=== PATIENT | female | born 1975 | race Two or more races ===

== ENCOUNTER 2020-08-09 07:55 | Outpatient (REF) | payer MEDICAID, SELFPAY ==
[2020-08-09 12:52] LABS: Thyroid Stimulating Hormone 1.39 uIU/mL (0.32-4.0)
[2020-08-09 15:56] LABS: CT PCR NOT DETECTED (Not Detect.); NG PCR NOT DETECTED (Not Detect.)
[2020-08-10 08:47] LABS: Follicle Stimulating Hormone 9.6 mIU/mL
[2020-08-10 09:27] LABS: BV Int Neg Control Negative (Negative); BV Int Pos Control Positive (Positive)
== END 2020-08-09 07:56 | disposition home or self-care (01) ==
LOC: HO.LAB 07:55
PROVIDERS: PCP Internal Medicine; Visit Provider Advanced Practice Midwife
DX: R23.2 Flushing (principal); Z20.2 Contact with and (suspected) exposure to infections with a predominantly sexual mode of transmission; R10.2 Pelvic and perineal pain; N92.6 Irregular menstruation, unspecified
CPT/HCPCS: 83001; 84443; 87480; 87491; 87510; 87591; 87660; 99202

== ENCOUNTER 2020-08-18 15:52 | Outpatient (REF) | payer MEDICAID, SELFPAY ==
--- NOTE | 2020-08-18 15:57 | US_ITS ---
EXAMINATION: ULTRASOUND OF THE PELVIS CLINICAL INFORMATION: Pelvic and perineal pain. COMPARISON: 04/18/2019. TECHNIQUE: Transabdominal and transvaginal pelvic ultrasound. A transvaginal study was performed in addition to the transabdominal study which did not yield an adequate examination of the uterus and ovaries due to superimposed distended gas-filled loops of bowel. FINDINGS: The uterus is normal in size and appearance, measuring 9.6 x 3.9 x 4.6 cm longitudinally, anteroposteriorly and transversely. The endometrial stripe thickness is normal, measuring 0.4 cm in thickness. No focal myometrial mass is seen. Nabothian cysts are seen at the cervix. The ovaries bilaterally are visualized and appear normal, with the right ovary measuring 3.1 x 2.5 x 2.1 cm and the left ovary measuring 2.9 x 2.2 x 1.9 cm. Small follicles are noted. No adnexal mass or free fluid collection seen. US/US pelvic complete IMPRESSION: Unremarkable pelvic ultrasound..
--- NOTE | 2020-08-18 15:57 | US_ITS ---
EXAMINATION: ULTRASOUND OF THE PELVIS CLINICAL INFORMATION: Pelvic and perineal pain. COMPARISON: 04/18/2019. TECHNIQUE: Transabdominal and transvaginal pelvic ultrasound. A transvaginal study was performed in addition to the transabdominal study which did not yield an adequate examination of the uterus and ovaries due to superimposed distended gas-filled loops of bowel. FINDINGS: The uterus is normal in size and appearance, measuring 9.6 x 3.9 x 4.6 cm longitudinally, anteroposteriorly and transversely. The endometrial stripe thickness is normal, measuring 0.4 cm in thickness. No focal myometrial mass is seen. Nabothian cysts are seen at the cervix. The ovaries bilaterally are visualized and appear normal, with the right ovary measuring 3.1 x 2.5 x 2.1 cm and the left ovary measuring 2.9 x 2.2 x 1.9 cm. Small follicles are noted. No adnexal mass or free fluid collection seen. US/US transvaginal IMPRESSION: Unremarkable pelvic ultrasound..
== END 2020-08-18 15:53 | disposition home or self-care (01) ==
LOC: HO.US 15:52
PROVIDERS: PCP Internal Medicine; Visit Provider Advanced Practice Midwife
DX: R10.2 Pelvic and perineal pain (principal)
CPT/HCPCS: 76830; 76856

== ENCOUNTER → 2020-09-01 12:01 | Outpatient (BNVA) | payer MEDICAID, SELFPAY | PROVIDERS: Visit Provider Advanced Practice Midwife | DX: Z76.89 Persons encountering health services in other specified circumstances (principal) ==

== ENCOUNTER 2020-12-29 13:02 | Outpatient (REF) | payer MEDICAID, SELFPAY ==
--- NOTE | ~2020-12-29 | XR_ITS ---
EXAMINATION: XR WRIST, RIGHT CLINICAL INFORMATION: Pain in the right wrist COMPARISON: 04/08/2020 TECHNIQUE: Four views of the right wrist. FINDINGS: No fracture or dislocation. The carpal rows are well aligned. Joint spaces are maintained. The soft tissues appear unremarkable. The bones may be somewhat osteopenic. XR/XR wrist RT min 3V IMPRESSION: Possible osteopenia. Otherwise no osseous abnormality.
== END 2020-12-29 13:03 | disposition home or self-care (01) ==
LOC: HO.XRAY 13:02
PROVIDERS: PCP Internal Medicine; Visit Provider Internal Medicine
DX: M25.531 Pain in right wrist (principal)
CPT/HCPCS: 73110

== ENCOUNTER 2021-03-18 13:59 | Emergency (ER) | payer MEDICAID, SELFPAY ==
[2021-03-18 14:32] VITALS: BP 134/81; PULSE 94; RESP 17; TEMP 36.6; O2SAT 98; BMI 79.2
[2021-03-18 16:51] LABS: MANUAL DIFF FLAG NO
[2021-03-18 16:52] LABS: Basophils Percent Auto 0.2 % (0-2); Eosinophils Absolute Auto 0.1 X10*3/uL (0.0-0.4); Eosinophils Percent Auto 0.6 % (0-4); Hematocrit 44.1 % (37-47); Hemoglobin 14.7 g/dl (12.0-16.0); Imm Gran Abs Auto 0.03 X10*3/uL (0.00-0.03); Imm Gran Pct Auto 0.2 % (0.0-0.4); Lymphocytes Absolute Auto 1.6 X10*3/uL (1.2-4.9); Lymphocytes Percent Auto 12.9 % (20-40); Mean Corpuscular HGB Conc 33.3 g/dl (31.0-35.0); Mean Corpuscular Hemoglobin 30.3 pg (27.0-33.0); Mean Corpuscular Volume 90.9 fL (80-98); Mean Platelet Volume 10.4 fL (9.4-12.3); Monocytes Percent Auto 7.8 % (2-11); Neutrophils Absolute Auto 9.6 X10*3/uL (2.0-8.3); Neutrophils Percent Auto 78.3 % (45-73); Platelet Count 166 X10*3/uL (160-400); Red Blood Count 4.85 X10*6/uL (4.20-5.50); Red Cell Distribution Width 13.8 % (11.0-16.0); White Blood Count 12.3 X10*3/uL (4.8-10.8)
[2021-03-18 16:57] LABS: Glucose Urine UA NEG (NEG); Leukocyte Esterase Urine 2+ (NEG); Nitrite Urine NEG (NEG); UACC Culture Trigger YES; Urine Blood 3+ (NEG); Urine Ketones 15 MG/DL (NEG); Urine Protein 1+ MG/DL (NEG-TRACE)
[2021-03-18 16:58] LABS: Appearance Urine HAZY; Color Urine YELLOW
[2021-03-18 17:10] LABS: Bacteria Urine TRACE /LPF; Mucus Urine 2+ /LPF; Squamous Epithelial Cell Urine 4+ /LPF
[2021-03-18 17:18] LABS: Alanine Aminotransferase 72 U/L (0-31); Alkaline Phosphatase 68 U/L (39-117); Anion Gap 14 (12-20); Aspartate Amino Transferase 43 U/L (5-31); Bilirubin Total 0.6 mg/dL (0.0-1.0); Blood Urea Nitrogen 11 mg/dL (9-16); Calcium 9.5 mg/dL (8.4-10.2); Carbon Dioxide 26 mmol/L (22-29); Chloride 104 mmol/L (96-108); Creatinine Clr Calc Pharmacy 133.9; Estimated Glomerular Filt Rate > 60; Glucose Random 74 mg/dL (60-115); Lipase 16 U/L (8-78); Potassium 4.3 mmol/L (3.3-5.1); Sodium 140 mmol/L (135-145); Total Protein 7.3 g/dL (6.5-8.0)
--- NOTE | 2021-03-18 17:19 | ED_ITS ---
HPI - Abdominal Pain General Chief Complaint: Abdominal Pain Stated Complaint: abd pain - on chemo Time Seen by Provider: 03/18/21 17:18 Source: patient Mode of arrival: ambulatory Limitations: no limitations History of Present Illness HPI narrative: Patient having diffuse abdominal pain nausea vomited 1 time body aches on tamoxifen for breast cancer slight pain when she urinates no fever or chills no diarrhea no abdominal distention Related Data Home Medications Medication Instructions Recorded Confirmed clonidine HCl 0.1 mg tablet 0.1 mg PO BEDTIME 08/09/20 levothyroxine 75 mcg tablet 75 mcg PO DAILY 08/09/20 tamoxifen 20 mg tablet 20 mg PO DAILY 08/09/20 cephalexin 500 mg capsule 500 mg PO BID 09/01/20 Previous Rx's Medication Instructions Recorded metronidazole 500 mg tablet 500 mg PO BID 7 Days #14 tab 08/13/20 gabapentin 400 mg capsule 400 mg PO DAILY #30 cap 10/19/20 tramadol 50 mg tablet 50 mg PO Q6H #120 tab 03/15/21 cefuroxime axetil 500 mg PO BID 7 Days #14 tab 03/18/21 ondansetron 4 mg PO Q6-8H PRN #7 tab 03/18/21 tramadol 50 mg PO Q6H PRN #20 tab 03/18/21 Allergies Allergy/AdvReac Type Severity Reaction Status Date / Time hydromorphone [From DILAUDID] Allergy Unknown UNKNOWN Verified 03/18/21 14:35 iodine Allergy Unknown Unknown Verified 03/18/21 14:35 morphine [MORPHINE] Allergy Unknown UNKNOWN Verified 03/18/21 14:35 black pepper Allergy Unknown Unknown Uncoded 03/18/21 14:35 Iodides Tincture Allergy Unknown Unknown Uncoded 03/18/21 14:35 Oatmeal Allergy Unknown Unknown Uncoded 03/18/21 14:35 Peanuts Allergy Unknown Unknown Uncoded 03/18/21 14:35 Sea food Allergy Unknown Unknown Uncoded 03/18/21 14:35 SEAFOOD Allergy Unknown HIVES Uncoded 06/17/20 15:52 Review of Systems Review of Systems Constitutional : No Weight loss, No Fever, No Chills ENT/Mouth : No sore throat, No Rhinorrhea Eyes: No Eye Pain, No Swelling Cardiovascular : No Chest Pain, no palpitations Respiratory : No Cough, No Sputum, no shortness of breath Gastrointestinal : + Nausea, +Vomiting, No Diarrhea, + abdominal Pain, no black stools Genitourinary : No Dysuria, No Urinary Frequency Musculoskeletal : No joint pain, No Myalgias, No Joint Swelling Skin : No Skin Lesions, No rash Neuro : No Weakness, No Numbness, No Dizziness, No Headache Psych : No Anxiety/Panic, No Depression Heme/Lymph: No Bruising, No Lymphadenopathy Endocrine : No Polyuria, No Polydipsia All other systems reviewed and are negative Physical Exam Vital Signs: Vital Signs: Last Vital Signs Temp 98.7 F 03/18/21 19:04 Pulse 96 03/18/21 19:04 Resp 18 03/18/21 19:04 BP 102/68 03/18/21 19:04 Pulse Ox 99 03/18/21 19:04 Body Mass Index 79.2 Appearance: Alert. Oriented X3. No acute distress. Eyes: PERRLA, No Nystagmus ENT: Pharynx normal. Oral Mucosa moist Neck: Normal inspection. Neck supple. CVS: Normal heart rate and rhythm. Pulses normal. Respiratory: No respiratory distress. Equal air entry bilateral, no wheezing/rales/rhonchi Abdomen: Soft and mild tenderness diffuse no rebound tenderness or guarding Bowel sounds are present, no mass palpable, no CVA tenderness Skin: Skin warm and dry. Normal skin color. Normal skin turgor. Extremities: No lower extremity edema. No calf tenderness Neuro: Oriented X 3. No motor deficit. MDM - Abdominal Pain MDM Narrative Medical decision making narrative: Patient nonspecific body symptoms urine slightly positive for UTI otherwise labs are stable we will discharge patient home on Ceftin and tramadol for body aches Lab Data Result diagrams: 03/18/21 16:38 03/18/21 16:38 Labs: Lab Results 03/18/21 03/18/21 03/18/21 Range/Units 16:38 16:38 16:45 WBC 12.3 H (4.8-10.8) X10*3/uL RBC 4.85 (4.20-5.50) X10*6/uL Hgb 14.7 (12.0-16.0) g/dl Hct 44.1 (37-47) % MCV 90.9 (80-98) fL MCH 30.3 (27.0-33.0) pg MCHC 33.3 (31.0-35.0) g/dl RDW 13.8 (11.0-16.0) % Plt Count 166 (160-400) X10*3/uL MPV 10.4 (9.4-12.3) fL Immature Gran % (Auto) 0.2 (0.0-0.4) % Neut % (Auto) 78.3 H (45-73) % Lymph % (Auto) 12.9 L (20-40) % [place] % (Auto) 7.8 (2-11) % Eos % (Auto) 0.6 (0-4) % Baso % (Auto) 0.2 (0-2) % Lymph # (Auto) 1.6 (1.2-4.9) X10*3/uL [place] # (Auto) 1.0 (0.1-1.2) X10*3/uL Eos # (Auto) 0.1 (0.0-0.4) X10*3/uL Baso # (Auto) 0.0 (0.0-0.2) X10*3/uL Abs Immat Gran (auto) 0.03 (0.00-0.03) X10*3/uL Absolute Neuts (auto) 9.6 H (2.0-8.3) X10*3/uL Absolute Nucleated RBC 0.000 (0.0-0.012) X10*3/uL Nucleated RBC % (auto) 0.0 (0.0-0.2) /100WBC Sodium 140 (135-145) mmol/L Potassium 4.3 (3.3-5.1) mmol/L Chloride 104 (96-108) mmol/L Carbon Dioxide 26 (22-29) mmol/L Anion Gap 14 (12-20) BUN 11 (9-16) mg/dL Creatinine 0.75 (0.5-1.4) mg/dL Estim Creat Clear Calc 133.9 Estimated GFR > 60 Random Glucose 74 (60-115) mg/dL Calcium 9.5 (8.4-10.2) mg/dL Total Bilirubin 0.6 (0.0-1.0) mg/dL AST 43 H (5-31) U/L ALT 72 H (0-31) U/L Alkaline Phosphatase 68 (39-117) U/L Total Protein 7.3 (6.5-8.0) g/dL Albumin 4.0 (3.5-5.0) g/dL Lipase 16 (8-78) U/L Urine Color YELLOW Urine Appearance HAZY Urine pH 7.0 (5.0-8.0) Ur Specific [place] 1.010 (1.005-1.025) Urine Protein 1+ H (NEG-TRACE) MG/DL Urine Glucose (UA) NEG (NEG) MG/DL Urine Ketones 15 (NEG) MG/DL Urine Blood 3+ H (NEG) Urine Nitrite NEG (NEG) Ur Leukocyte Esterase 2+ H (NEG) Urine RBC 15-29 H (0) /HPF Urine WBC 15-29 H (0-4) /HPF Ur Squamous Epith Cells 4+ /LPF Urine Bacteria TRACE /LPF Urine Mucus 2+ /LPF Discharge Plan Discharge Clinical Impression: UTI (urinary tract infection) Patient Disposition: Home, Self-Care Instructions: Urinary Tract Infection in Women (ED) Additional Instructions: Drink plenty of fluid take medication as prescribed Report to ER if high fever/vomiting Prescriptions: New cefuroxime axetil 500 mg tablet 500 mg PO BID 7 Days Qty: 14 RF: 0 tramadol 50 mg tablet 50 mg PO Q6H PRN (Reason: pain) Qty: 20 RF: 0 ondansetron 4 mg tablet,disintegrating 4 mg PO Q6-8H PRN (Reason: nausea and vomiting) Qty: 7 RF: 0 No Action metronidazole [Flagyl] 500 mg tablet 500 mg PO BID 7 Days Qty: 14 RF: 0 gabapentin 400 mg capsule 400 mg PO DAILY Qty: 30 RF: 5 tramadol 50 mg tablet 50 mg PO Q6H Qty: 120 RF: 4 tamoxifen 20 mg tablet 20 mg PO DAILY RF: 0 levothyroxine 75 mcg tablet 75 mcg PO DAILY RF: 0 clonidine HCl 0.1 mg tablet 0.1 mg PO BEDTIME RF: 0 cephalexin 500 mg capsule 500 mg PO BID RF: 0 Interventions: ED Discharge Assessment Last Done: 03/18/21 19:21 Discharge Date/Time: 03/18/21 19:22 [facility] Past Medical History Medical History History of breast cancer in adulthood Hx of thyroid disease Surgical History Hx of tubal ligation Social History Social History Alcohol intake: never Advance Directives: No Advance Directives Information Provided: No Patient : No Sexual orientation: Straight/Heterosexual Gender identity: female
[2021-03-18] MEDS: traMADoL HCL 50 MG TABLET PO (18:03)
[2021-03-18 19:04] VITALS: BP 102/68; PULSE 96; RESP 18; TEMP 37.1; O2SAT 99
== END 2021-03-18 19:22 | disposition home or self-care (01) ==
PROVIDERS: Emergency Medicine; Emergency Provider Internal Medicine; PCP Internal Medicine
DX: N39.0 Urinary tract infection, site not specified (principal); R30.9 Painful micturition, unspecified; C50.919 Malignant neoplasm of unspecified site of unspecified female breast; Z79.810 Long term (current) use of selective estrogen receptor modulators (SERMs)
CPT/HCPCS: 36415; 80053; 81001; 81003; 83690; 85025; 87086; 99283

== ENCOUNTER 2021-04-26 10:12 | Outpatient (REF) | payer MEDICAID, SELFPAY ==
--- NOTE | ~2021-04-26 | XR_ITS ---
EXAMINATION: XR CHEST CLINICAL INFORMATION: Cough COMPARISON: Previous chest x-ray most recent March 2020 TECHNIQUE: 2 views of the chest were obtained. FINDINGS: No significant abnormality is noted involving the heart, lungs, mediastinum, bony thorax or soft tissues. XR/XR chest 2V IMPRESSION: Unremarkable examination.
== END 2021-04-26 10:13 | disposition home or self-care (01) ==
LOC: HO.XRAY 10:12
PROVIDERS: PCP Internal Medicine; Referring Provider Internal Medicine; Visit Provider Nurse Practitioner Family
DX: R05 Cough (principal)
CPT/HCPCS: 71046

== ENCOUNTER → 2021-06-21 08:47 | Outpatient (BNVA) | payer MEDICAID, SELFPAY | PROVIDERS: PCP Internal Medicine; Referring Provider Internal Medicine; Visit Provider Surgery | DX: Z87.2 Personal history of diseases of the skin and subcutaneous tissue (principal) | CPT/HCPCS: 99202 ==

== ENCOUNTER → 2021-09-21 14:51 | Outpatient (BNVA) | payer MEDICAID, SELFPAY | PROVIDERS: PCP Internal Medicine; Referring Provider Internal Medicine; Visit Provider Surgery | DX: Z12.11 Encounter for screening for malignant neoplasm of colon (principal) | CPT/HCPCS: 99202 ==

== ENCOUNTER → 2021-10-27 14:13 | Outpatient (BNVA) | payer MEDICAID, SELFPAY | PROVIDERS: PCP Internal Medicine; Visit Provider Nurse Practitioner Family | DX: M51.36 Other intervertebral disc degeneration, lumbar region (principal); M54.2 Cervicalgia; M54.31 Sciatica, right side; M54.32 Sciatica, left side | CPT/HCPCS: 99212 ==

== ENCOUNTER 2021-11-04 11:56 | Outpatient (REF) | payer MEDICAID, SELFPAY ==
--- NOTE | ~2021-11-04 | XR_ITS ---
EXAMINATION: CERVICAL AND LUMBAR SPINE. CLINICAL INFORMATION: Neck pain and back pain. COMPARISON: None TECHNIQUE: Cervical spine 3 views and lumbar spine 3 views. FINDINGS: CERVICAL SPINE: There is mild straightening of cervical lordosis. The vertebral heights, alignment and disc heights are normal. There is no visible acute fracture, dislocation or subluxation seen. There is mild ventral spondylosis C5-C6 disc level. LUMBAR SPINE: There is normal lumbar lordosis. The vertebral heights, alignment and disc heights are normal. No visible acute fracture, dislocation or lytic process seen. The paravertebral soft tissues are normal. SI joints are symmetrical and normal. XR/XR cervical spine 2V IMPRESSION: Unremarkable cervical spine exam and unremarkable lumbar spine exam.
--- NOTE | ~2021-11-04 | XR_ITS ---
EXAMINATION: CERVICAL AND LUMBAR SPINE. CLINICAL INFORMATION: Neck pain and back pain. COMPARISON: None TECHNIQUE: Cervical spine 3 views and lumbar spine 3 views. FINDINGS: CERVICAL SPINE: There is mild straightening of cervical lordosis. The vertebral heights, alignment and disc heights are normal. There is no visible acute fracture, dislocation or subluxation seen. There is mild ventral spondylosis C5-C6 disc level. LUMBAR SPINE: There is normal lumbar lordosis. The vertebral heights, alignment and disc heights are normal. No visible acute fracture, dislocation or lytic process seen. The paravertebral soft tissues are normal. SI joints are symmetrical and normal. XR/XR lumbar spine 2-3V IMPRESSION: Unremarkable cervical spine exam and unremarkable lumbar spine exam.
[2021-11-04 13:11] LABS: Alanine Aminotransferase 136 U/L (0-31); Alkaline Phosphatase 63 U/L (39-117); Anion Gap 11 (12-20); Aspartate Amino Transferase 81 U/L (5-31); Bilirubin Total 0.7 mg/dL (0.0-1.0); Blood Urea Nitrogen 12 mg/dL (9-16); Calcium 9.4 mg/dL (8.4-10.2); Carbon Dioxide 26 mmol/L (22-29); Chloride 106 mmol/L (96-108); Estimated Glomerular Filt Rate > 60; Glucose Random 76 mg/dL (60-115); Potassium 4.4 mmol/L (3.3-5.1); Sodium 139 mmol/L (135-145); Total Protein 7.5 g/dL (6.5-8.0)
== END 2021-11-04 11:57 | disposition home or self-care (01) ==
LOC: HO.XRAY 11:56
PROVIDERS: PCP Internal Medicine; Visit Provider Nurse Practitioner Family
DX: M51.34 Other intervertebral disc degeneration, thoracic region (principal); M54.2 Cervicalgia
CPT/HCPCS: 36415; 72040; 72100; 80053

== ENCOUNTER 2021-12-08 12:59 | Outpatient (REF) | payer MEDICAID, SELFPAY ==
[2021-12-08 14:43] LABS: Hematocrit 41.5 % (37.0-47.0); Hemoglobin 13.8 g/dl (12.0-16.0); Mean Corpuscular HGB Conc 33.3 g/dl (31.0-35.0); Mean Corpuscular Hemoglobin 30.1 pg (27.0-33.0); Mean Corpuscular Volume 90.4 fL (80.0-98.0); Platelet Count 235 X10*3/uL (160-400); Red Blood Count 4.59 X10*6/uL (4.20-5.50); Red Cell Distribution Width 13.8 % (11.0-16.0)
[2021-12-08 15:27] LABS: HCG Quantitative < 2 mIU/mL; TSH reflex Free T4 2.21 uIU/mL (0.32-4.0)
[2021-12-09 00:59] LABS: CT PCR NOT DETECTED (Not Detect.); NG PCR NOT DETECTED (Not Detect.)
[2021-12-11 05:26] LABS: HPV mRNA E6/E7 rflx Not Detected (Not Detected)
== END 2021-12-08 13:00 | disposition home or self-care (01) ==
LOC: HO.LAB 12:59
PROVIDERS: PCP Internal Medicine; Visit Provider Obstetrics & Gynecology
DX: N93.9 Abnormal uterine and vaginal bleeding, unspecified (principal)
CPT/HCPCS: 36415; 84443; 84702; 85027; 87491; 87591; 87624; 88142; 99202

== ENCOUNTER 2021-12-19 14:35 | Outpatient (RCR) | payer MEDICAID, SELFPAY ==
--- NOTE | 2021-12-20 12:42 | MHC.PT.EP ---
[facility] [place] Office [place] [facility] [place] [facility] [address] Joel Smiley [address] [phone] F: [phone] F: [phone] F: [phone] F: [phone] Physical Therapy Plan of Care Date of Evaluation: Date of Surgery: n/a Diagnosis: cervicalgia low back pain Assessment: Pt is a 46yo F who presents to PT with neck and low back pain. She reports she has had this pain for many years and the pain started in her neck and has radiated to her low back. She presents today with current impairments in pain, decreased cervical ROM all planes, decreased lumbar ROM, soft tissue restrictions, decreased core stab, and impaired posture. She is TTP throughout cervical spine and lumbar spine, along with cervical and lumbar paraspinal muscles. She is limited functionally by prolonged sitting, prolonged standing, walking, and sleeping. She is a fair candidate for skilled PT due to chronicity of pain and comorbities. She will be seen 2x/week for 4 weeks and will be reassessed at that time. 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 Manual therapy to restore motion and function. Therapeutic exercise to improve strength and flexibility. Neuromuscular re-education for posture and balance. Therapeutic activities to return to functional activities of daily living. Electronically signed by: Mitra Wyman, PT, DPT Please sign and return to therapist. Thank you for your referral.
--- NOTE | 2022-02-02 11:45 | MHC.PT.DC ---
[facility] [place] [facility] [place] [facility] [place] Office [address] Joel Smiley [address] [phone] F: [phone] F: [phone] F: [phone] F: [phone] Physical Therapy Discharge Report Diagnosis: cervicalgia low back pain Date of Surgery: n/a Date of Evaluation: 12/19/21 Date of Discharge: 02/02/22 Treatments to Date: 1 Cancellations to Date: 1 No Shows to Date: Discharge Status: Discharge Summary: Pt attended PT evaluation on 12/19/21. Pt has not attended PT since initial PT evaluation. Pt is being D/C from skilled PT as she has not attended in > 30 days. Pt current level of function unknown at this time. Electronically signed by: Mitra Wyman, PT, DPT Please sign and return to therapist. Thank you for your referral.
== END 2022-02-02 11:46 | disposition home or self-care (01) ==
LOC: HO.PT 14:35
PROVIDERS: PCP Internal Medicine; Visit Provider Nurse Practitioner Family
DX: M54.2 Cervicalgia (principal); M54.50 Low back pain, unspecified
CPT/HCPCS: 97162

== ENCOUNTER 2021-12-23 07:18 | Day surgery (SDC) | payer MEDICAID, SELFPAY ==
[2021-12-19 10:37] VITALS: BMI 38.0
--- NOTE | 2021-12-21 14:39 | HO.ANESPROP2 ---
Documented by User: Delmi Hernandez NP 12/21/21 14:40 HPI - Anesthesia Eval Consult details Narrative: 46yo F for Colonoscopy with Poss Polypectomy ? 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) Urinary, incontinence, stress female (Acute) Acne (Acute) Fibromyalgia (Acute) Multiple environmental allergies (Acute) Colon cancer screening (Acute) Past Medical History Medical History (Updated 12/19/21 @ 10:35 by Erum Pryor RN) Asthma Breast cancer, left Colon cancer screening Depression with anxiety Hx of thyroid disease Family History Family History Maternal Grandfather History of prostate cancer Maternal Aunt History of ovarian cancer Maternal Uncle History of thyroid cancer Maternal Uncle Cancer of unknown origin Surgical History Surgical History History of delivery History of cholecystectomy Hx of tubal ligation Social History Social History Alcohol intake: never Patient Tobacco Use Status: Never used Tobacco Are you DNR?: No Advance Directives: No Advance Directives Information Provided: Yes Recently lost weight without trying: No Nutrition Risks: No Nutritional Risk Patient : No Sexual orientation: Straight/Heterosexual Gender identity: Female Meds Allergies Allergy/AdvReac Type Severity Reaction Status Date / Time hydromorphone [From DILAUDID] Allergy Unknown UNKNOWN Verified 12/08/21 13:21 iodine Allergy Unknown Unknown Verified 12/08/21 13:21 morphine [MORPHINE] Allergy Unknown UNKNOWN Verified 12/08/21 13:21 black pepper Allergy Unknown Unknown Uncoded 10/27/21 15:01 Oatmeal Allergy Unknown Unknown Uncoded 10/27/21 15:01 Peanuts Allergy Unknown Unknown Uncoded 10/27/21 15:01 SEAFOOD Allergy Unknown HIVES Uncoded 10/27/21 15:01 Home Medications Medication Instructions Recorded Confirmed Last Taken Type clonidine HCl 0.1 mg tablet 0.1 mg PO BEDTIME 08/09/20 12/19/21 Unknown History levothyroxine 75 mcg tablet 75 mcg PO DAILY 08/09/20 12/19/21 12/23/21 History loratadine 10 mg tablet 10 mg PO DAILY PRN 06/21/21 12/19/21 Unknown History hydrochlorothiazide 25 mg tablet 25 mg PO DAILY 10/27/21 12/19/21 Unknown History montelukast 10 mg tablet 10 mg PO QPM 12/08/21 12/19/21 Unknown History albuterol sulfate 90 mcg/actuation 1 puff PO Q4H PRN 12/19/21 12/19/21 Unknown History aerosol inhaler (ProAir HFA) fluticasone propionate 230 2 puff PO BID 12/19/21 12/19/21 Unknown History mcg-salmeterol 21 mcg/actuation HFA inhaler (Advair HFA) hydroxyzine pamoate 25 mg capsule 1 cap PO BID PRN 12/19/21 12/19/21 Unknown History mirtazapine 15 mg tablet 1 tab PO BEDTIME 12/19/21 12/19/21 Unknown History omeprazole 40 mg capsule,delayed 1 cap PO DAILY 12/19/21 12/19/21 Unknown History release zolpidem 10 mg tablet 1 tab PO BEDTIME PRN 12/19/21 12/19/21 Unknown History Exam Exam Date and Time: December 21, 2021 1439 Height,Weight and Vital Signs: Height 4 ft 9 in Weight 79.832 kg Pertinent Lab Results Pertinent Lab Results: Laboratory Tests 11/04/21 12/08/21 12:12 14:11 WBC 10.0 Hgb 13.8 Hct 41.5 Plt Count 235 Sodium 139 Potassium 4.4 Chloride 106 Carbon Dioxide 26 BUN 12 Creatinine 0.80 Assessment and Plan Assessment Anesthesia Assessment: Chart Reviewed Documented by User: Stuart Law MD 12/23/21 08:24 [facility] Past Medical History Medical History (Updated 12/19/21 @ 10:35 by Erum Pryor RN) Asthma Breast cancer, left Colon cancer screening Depression with anxiety Hx of thyroid disease Patient : No Family History Family History Maternal Grandfather History of prostate cancer Maternal Aunt History of ovarian cancer Maternal Uncle History of thyroid cancer Maternal Uncle Cancer of unknown origin Family history of problems with anesthesia: No Surgical History Surgical History History of delivery History of cholecystectomy Hx of tubal ligation History of Problems with Anesthesia: No Social History Social History Alcohol intake: never Patient Tobacco Use Status: Never used Tobacco Are you DNR?: No Advance Directives: No Advance Directives Information Provided: Yes Recently lost weight without trying: No Nutrition Risks: No Nutritional Risk Patient : No Sexual orientation: Straight/Heterosexual Gender identity: Female Meds Allergies Allergy/AdvReac Type Severity Reaction Status Date / Time hydromorphone [From DILAUDID] Allergy Unknown UNKNOWN Verified 12/08/21 13:21 iodine Allergy Unknown Unknown Verified 12/08/21 13:21 morphine [MORPHINE] Allergy Unknown UNKNOWN Verified 12/08/21 13:21 black pepper Allergy Unknown Unknown Uncoded 10/27/21 15:01 Oatmeal Allergy Unknown Unknown Uncoded 10/27/21 15:01 Peanuts Allergy Unknown Unknown Uncoded 10/27/21 15:01 SEAFOOD Allergy Unknown HIVES Uncoded 10/27/21 15:01 Home Medications Medication Instructions Recorded Confirmed Last Taken Type clonidine HCl 0.1 mg tablet 0.1 mg PO BEDTIME 08/09/20 12/19/21 Unknown History levothyroxine 75 mcg tablet 75 mcg PO DAILY 08/09/20 12/19/21 12/23/21 History loratadine 10 mg tablet 10 mg PO DAILY PRN 06/21/21 12/19/21 Unknown History hydrochlorothiazide 25 mg tablet 25 mg PO DAILY 10/27/21 12/19/21 Unknown History montelukast 10 mg tablet 10 mg PO QPM 12/08/21 12/19/21 Unknown History albuterol sulfate 90 mcg/actuation 1 puff PO Q4H PRN 12/19/21 12/19/21 Unknown History aerosol inhaler (ProAir HFA) fluticasone propionate 230 2 puff PO BID 12/19/21 12/19/21 Unknown History mcg-salmeterol 21 mcg/actuation HFA inhaler (Advair HFA) hydroxyzine pamoate 25 mg capsule 1 cap PO BID PRN 12/19/21 12/19/21 Unknown History mirtazapine 15 mg tablet 1 tab PO BEDTIME 12/19/21 12/19/21 Unknown History omeprazole 40 mg capsule,delayed 1 cap PO DAILY 12/19/21 12/19/21 Unknown History release zolpidem 10 mg tablet 1 tab PO BEDTIME PRN 12/19/21 12/19/21 Unknown History Exam Airway Mallampati Class: II TM Dist: >3cm Neck ROM: Full Loose/Missing/Broken Teeth: No Heart: ok Lungs: ok Assessment and Plan Final Anesthetic Review Family History of Problems with Anesthesia: No History of Problems with Anesthesia: No NPO: Yes ASA Class: II Final Preanesthetic Review: No Changes in Pt Med Stat, Meds/Allgs Chart Reviewed, Consent Obtained/Reviewed and Anes Risks/Benef Reviewed Patient Risk: Low Procedure Risk: Low Anesthetic Plan Anesthetic Plan: MAC: and Agree w/ Assess. and Plan Disposition: Standard PACU
[2021-12-23 07:20] VITALS: BP 100/73; PULSE 79; RESP 18; TEMP 36.3; O2SAT 99
[2021-12-23] MEDS: Lactated Ringers 1,000 ML 100 ML IVCONT (07:45)
--- NOTE | 2021-12-23 08:53 | MHC.SHP ---
Pre-Procedural Eval Section A Date of Service: 12/23/21 Section B Chief Complaint: Screening Details of Present Illness: Scheduled for screening colonoscopy today, denies GI complaints Relevant Family History (Specify if Yes): No Relevant Social History: None Present Medications: see Short Stay Collaborative assessment Medical History: Significant History (Chronic back pain, obesity, asthma and depression) History of Previous Operations: No relevant previous surgery Allergies: Allergies Allergy/AdvReac Type Severity Reaction Status Date / Time hydromorphone [From DILAUDID] Allergy Unknown UNKNOWN Verified 12/08/21 13:21 iodine Allergy Unknown Unknown Verified 12/08/21 13:21 morphine [MORPHINE] Allergy Unknown UNKNOWN Verified 12/08/21 13:21 black pepper Allergy Unknown Unknown Uncoded 10/27/21 15:01 Oatmeal Allergy Unknown Unknown Uncoded 10/27/21 15:01 Peanuts Allergy Unknown Unknown Uncoded 10/27/21 15:01 SEAFOOD Allergy Unknown HIVES Uncoded 10/27/21 15:01 Review of Systems Sugical H&P ROS: Negative: Constitution, Cardiovascular, Respiratory, Neurological, Psychiatric, Hem-Onc, Allergic/Immunologic, Gastrointestinal, Genitourinary, Musculoskeletal, Integumentary, Endocrine and Eyes/Ears/Nose/Throat Exam Surgical H&P Exam: Normal: HEENT, Normal: Heart, Normal: Lungs, Normal: Extremities, Normal: Abdomen, Normal: Skin and Normal: Neurological Plan Diagnosis/Plan: Unchanged I have reviewed the history and physical and performed a pertinent physical examination on my patient. No changes have occurred unless specified.
--- NOTE | 2021-12-23 08:54 | W.PM.OPN ---
Operative Note Operative Note Date of Service: 12/23/21 Narrative: Preop diagnosis: Colon cancer screening Postop diagnosis: 1. Small polyp about 2-3 mm, in the distal transverse colon 2. External hemorrhoids Procedure: Colonoscopy with polypectomy using cold forceps Surgeon: Richi Watkins The patient is a 46-year-old female referred to me for screening colonoscopy. She understood the technique of the procedure. She was aware of the risks, benefits, and alternatives She was brought to the operating room. She was placed in left lateral decubitus position under monitored anesthesia care. A surgical time-out was done. A full digital rectal exam was done. There were no palpable anal lesions or induration. The tip of the Olympus colonoscope was gently introduced through the anal orifice advanced with insufflation all the way to the cecum. The cecum was intubated. The cecum was identified by visualization of the ileocecal valve as well as the appendiceal orifice. The cecal mucosa was unremarkable. The scope was gradually withdrawn with careful examination of the entire colonic mucosa being done with scope withdrawal. The patient had good bowel prep so it was unlikely that any lesion may have been missed. In the distal transverse colon, there was note of a small polyp about 2-3 mm in size. There was removed using multiple bites of cold forceps We continued to withdraw the scope. The rest of the distal colon and rectum were unremarkable. The anal canal and the anal shelf or unremarkable. There were external hemorrhoids. The scope was then withdrawn completely with desufflation. The patient tolerated procedure well. There were no complication noted. Depending on her path report, her next colonoscopy for screening will likely be the next 10 years .
[2021-12-23 09:00] VITALS: BP 92/51; PULSE 80; RESP 20; TEMP 36.9; O2SAT 96
[2021-12-23 09:15] VITALS: BP 96/62; PULSE 74; RESP 18; TEMP 36.9; O2SAT 97
== END 2021-12-23 09:45 | disposition home or self-care (01) ==
PROVIDERS: PCP Internal Medicine; Visit Provider Surgery
PROC: 0DJD8ZZ Inspection of Lower Intestinal Tract, Via Natural or Artificial Opening Endoscopic (ICD-10-PCS; CPT 45378; principal; 2021-12-23 08:30)
DX: Z12.11 Encounter for screening for malignant neoplasm of colon (principal); D12.3 Benign neoplasm of transverse colon; K64.4 Residual hemorrhoidal skin tags; J45.909 Unspecified asthma, uncomplicated; F32.9 Major depressive disorder, single episode, unspecified; Z79.51 Long term (current) use of inhaled steroids; Z85.3 Personal history of malignant neoplasm of breast; Z79.899 Other long term (current) drug therapy; Z88.8 Allergy status to other drugs, medicaments and biological substances; Z90.49 Acquired absence of other specified parts of digestive tract
CPT/HCPCS: 45380; 88305

== ENCOUNTER 2022-01-03 14:39 | Outpatient (REF) | payer MEDICAID, SELFPAY ==
--- NOTE | ~2022-01-03 | US_ITS ---
EXAMINATION: US PELVIS CLINICAL INFORMATION: Abnormal bleeding COMPARISON: Previous exam August 2020 TECHNIQUE: Ultrasound of the pelvis is performed using both transabdominal and transvaginal transducers along with Doppler. Transvaginal imaging is performed due to inadequate visualization transabdominally. FINDINGS: The uterus is anteverted and measures 10.8 x 3.9 x 5.9 cm in dimension. Endometrial thickness is upper normal measuring 1.5 cm. There is a hypoechoic or cystic area seen in the endometrium measuring 5 x 6 mm. This is new from 2020 exam. No focal uterine lesions are seen. There are nabothian cysts in the cervix. The ovaries are seen transabdominally only and are normal-appearing. The right ovary measures 1.7 x 1.4 x 1.7 cm. The left ovary measures 2.2 x 2.5 x 2.8 cm. There is no fluid in the pelvis. US/US pelvic and transvaginal IMPRESSION: Upper normal thickness endometrium. Small 5 x 6 mm cyst in the upper endometrium.
== END 2022-01-03 14:40 | disposition home or self-care (01) ==
LOC: HO.US 14:39
PROVIDERS: PCP Internal Medicine; Visit Provider Obstetrics & Gynecology
DX: N93.9 Abnormal uterine and vaginal bleeding, unspecified (principal)
CPT/HCPCS: 76830; 76856

== ENCOUNTER 2022-01-04 14:30 | Outpatient (REF) | payer MEDICAID, SELFPAY | END 2022-01-04 14:31 | disposition home or self-care (01) | LOC: HO.LAB 14:30 | PROVIDERS: PCP Internal Medicine; Visit Provider Obstetrics & Gynecology | DX: N93.9 Abnormal uterine and vaginal bleeding, unspecified (principal); R87.612 Low grade squamous intraepithelial lesion on cytologic smear of cervix (LGSIL); E66.01 Morbid (severe) obesity due to excess calories | CPT/HCPCS: 57454; 58100; 58110; 81025; 88305 ==

== ENCOUNTER → 2022-01-09 14:58 | Outpatient (BNVA) | payer MEDICAID, SELFPAY | PROVIDERS: PCP Internal Medicine; Referring Provider Internal Medicine; Visit Provider Surgery | DX: D12.6 Benign neoplasm of colon, unspecified (principal); K64.4 Residual hemorrhoidal skin tags | CPT/HCPCS: 99212 ==

== ENCOUNTER → 2022-01-23 14:47 | Outpatient (BNVA) | payer MEDICAID, SELFPAY | PROVIDERS: PCP Internal Medicine; Visit Provider Obstetrics & Gynecology | DX: N87.0 Mild cervical dysplasia (principal) | CPT/HCPCS: 99212 ==

== ENCOUNTER 2022-01-26 13:23 | Outpatient (REF) | payer MEDICAID, SELFPAY ==
[2022-01-26 17:46] LABS: CT PCR NOT DETECTED (Not Detect.); NG PCR NOT DETECTED (Not Detect.)
== END 2022-01-26 13:24 | disposition home or self-care (01) ==
LOC: HO.LAB 13:23
PROVIDERS: PCP Internal Medicine; Visit Provider Obstetrics & Gynecology
DX: R10.2 Pelvic and perineal pain (principal); Z11.3 Encounter for screening for infections with a predominantly sexual mode of transmission; Z11.8 Encounter for screening for other infectious and parasitic diseases; Z98.51 Tubal ligation status; Z91.010 Allergy to peanuts; Z91.013 Allergy to seafood; Z88.8 Allergy status to other drugs, medicaments and biological substances; Z91.018 Allergy to other foods
CPT/HCPCS: 81025; 87491; 87591; 99212

== ENCOUNTER 2022-02-10 07:14 | Day surgery (SDC) | payer MEDICAID, SELFPAY ==
--- NOTE | 2022-02-09 09:06 | P.CONAN_ITS ---
Documented by User: Delmi Hernandez NP 02/09/22 09:08 HPI - Anesthesia Eval Consult details Narrative: 46yo F for D&C Hysteroscopy,poss polypectomy/myomectomy,novasure ablation s/p colo 11/2021 with [facility] Active Problems Active Problems: All Active Problems (Updated 01/26/22 @ 14:15 by Dilshad Cruz MD) Pelvic pain (Acute) Dysplasia of cervix, low grade (EVA 1) (Acute) External hemorrhoids (Acute) Adenomatous colon polyp (Acute) LGSIL on Pap smear of cervix (Acute) Irregular menses (Acute) Lymphadenitis, acute (Acute) Degenerative disc disease, thoracic (Acute) Abnormal uterine bleeding (AUB) (Acute) Morbid obesity (Acute) Dysfunctional uterine bleeding (Acute) Asthma (Acute) Plantar fasciitis (Acute) Hypothyroid (Acute) Depression with anxiety (Acute) Chronic low back pain (Acute) Chronic pain of right ankle (Acute) Deformity of right fibula (Acute) Bilateral sacroiliitis (Acute) 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) Urinary, incontinence, stress female (Acute) Acne (Acute) Fibromyalgia (Acute) Multiple environmental allergies (Acute) Colon cancer screening (Acute) Past Medical History Medical History Adenomatous colon polyp Asthma Breast cancer, left Colon cancer screening Depression with anxiety External hemorrhoids Hx of thyroid disease Family History Family History Maternal Grandfather History of prostate cancer Maternal Aunt History of ovarian cancer Maternal Uncle History of thyroid cancer Maternal Uncle Cancer of unknown origin Family history of problems with anesthesia: No Surgical History Surgical History History of delivery History of cholecystectomy History of colonoscopy Hx of tubal ligation History of Problems with Anesthesia: No Social History Social History Alcohol intake: never Patient Tobacco Use Status: Never used Tobacco Are you DNR?: No Advance Directives: No Advance Directives Information Provided: Yes Nutrition Risks: No Nutritional Risk Patient : No Sexual orientation: Straight/Heterosexual Gender identity: Female Meds Allergies Allergy/AdvReac Type Severity Reaction Status Date / Time hydromorphone [From DILAUDID] Allergy Unknown UNKNOWN Verified 01/23/22 15:59 iodine Allergy Unknown Unknown Verified 01/23/22 15:59 morphine [MORPHINE] Allergy Unknown UNKNOWN Verified 01/23/22 15:59 black pepper Allergy Unknown Unknown Uncoded 01/23/22 15:59 Oatmeal Allergy Unknown Unknown Uncoded 01/23/22 15:59 Peanuts Allergy Unknown Unknown Uncoded 01/23/22 15:59 SEAFOOD Allergy Unknown HIVES Uncoded 01/23/22 15:59 Home Medications Medication Instructions Recorded Confirmed Last Taken Type clonidine HCl 0.1 mg tablet 0.1 mg PO BEDTIME 08/09/20 02/06/22 Unknown History levothyroxine 75 mcg tablet 75 mcg PO DAILY 08/09/20 02/06/22 12/23/21 History loratadine 10 mg tablet 10 mg PO DAILY PRN 06/21/21 02/06/22 Unknown History hydrochlorothiazide 25 mg tablet 25 mg PO DAILY 10/27/21 02/06/22 Unknown History montelukast 10 mg tablet 10 mg PO QPM 12/08/21 02/06/22 Unknown History albuterol sulfate 90 mcg/actuation 1 puff PO Q4H PRN 12/19/21 02/06/22 Unknown History aerosol inhaler (ProAir HFA) fluticasone propionate 230 2 puff PO BID 12/19/21 02/06/22 Unknown History mcg-salmeterol 21 mcg/actuation HFA inhaler (Advair HFA) hydroxyzine pamoate 25 mg capsule 1 cap PO BID PRN 12/19/21 02/06/22 Unknown History mirtazapine 15 mg tablet 1 tab PO BEDTIME 12/19/21 02/06/22 Unknown History omeprazole 40 mg capsule,delayed 1 cap PO DAILY 12/19/21 02/06/22 Unknown History release zolpidem 10 mg tablet 1 tab PO BEDTIME PRN 12/19/21 02/06/22 Unknown History Exam Exam Date and Time: February 09, [id number] Pertinent Lab Results Pertinent Lab Results: Laboratory Tests 11/04/21 12/08/21 12:12 14:11 WBC 10.0 Hgb 13.8 Hct 41.5 Plt Count 235 Sodium 139 Potassium 4.4 Chloride 106 Carbon Dioxide 26 BUN 12 Creatinine 0.80 Assessment and Plan Assessment Anesthesia Assessment: Chart Reviewed Final Anesthetic Review Family History of Problems with Anesthesia: No History of Problems with Anesthesia: No Documented by User: Elvie Szymanski MD 02/10/22 09:04 [facility] Past Medical History Medical History Adenomatous colon polyp Asthma Breast cancer, left Colon cancer screening Depression with anxiety External hemorrhoids Hx of thyroid disease Family History Family History Maternal Grandfather History of prostate cancer Maternal Aunt History of ovarian cancer Maternal Uncle History of thyroid cancer Maternal Uncle Cancer of unknown origin Surgical History Surgical History History of delivery History of cholecystectomy History of colonoscopy Hx of tubal ligation Social History Social History Alcohol intake: never Patient Tobacco Use Status: Never used Tobacco Are you DNR?: No Advance Directives: No Advance Directives Information Provided: Yes Nutrition Risks: No Nutritional Risk Patient : No Sexual orientation: Straight/Heterosexual Gender identity: Female Meds Allergies Allergy/AdvReac Type Severity Reaction Status Date / Time hydromorphone [From DILAUDID] Allergy Unknown UNKNOWN Verified 01/23/22 15:59 iodine Allergy Unknown Unknown Verified 01/23/22 15:59 morphine [MORPHINE] Allergy Unknown UNKNOWN Verified 01/23/22 15:59 black pepper Allergy Unknown Unknown Uncoded 01/23/22 15:59 Oatmeal Allergy Unknown Unknown Uncoded 01/23/22 15:59 Peanuts Allergy Unknown Unknown Uncoded 01/23/22 15:59 SEAFOOD Allergy Unknown HIVES Uncoded 01/23/22 15:59 Home Medications Medication Instructions Recorded Confirmed Last Taken Type clonidine HCl 0.1 mg tablet 0.1 mg PO BEDTIME 08/09/20 02/06/22 Unknown History levothyroxine 75 mcg tablet 75 mcg PO DAILY 08/09/20 02/06/22 12/23/21 History loratadine 10 mg tablet 10 mg PO DAILY PRN 06/21/21 02/06/22 Unknown History hydrochlorothiazide 25 mg tablet 25 mg PO DAILY 10/27/21 02/06/22 Unknown History montelukast 10 mg tablet 10 mg PO QPM 12/08/21 02/06/22 Unknown History albuterol sulfate 90 mcg/actuation 1 puff PO Q4H PRN 12/19/21 02/06/22 Unknown History aerosol inhaler (ProAir HFA) fluticasone propionate 230 2 puff PO BID 12/19/21 02/06/22 Unknown History mcg-salmeterol 21 mcg/actuation HFA inhaler (Advair HFA) hydroxyzine pamoate 25 mg capsule 1 cap PO BID PRN 12/19/21 02/06/22 Unknown History mirtazapine 15 mg tablet 1 tab PO BEDTIME 12/19/21 02/06/22 Unknown History omeprazole 40 mg capsule,delayed 1 cap PO DAILY 12/19/21 02/06/22 Unknown History release zolpidem 10 mg tablet 1 tab PO BEDTIME PRN 12/19/21 02/06/22 Unknown History Exam Airway Mallampati Class: III TM Dist: >3cm Neck ROM: Full Assessment and Plan Assessment Anesthesia Assessment: Anesthesia Plan Discussed Final Anesthetic Review NPO: Yes ASA Class: III Final Preanesthetic Review: No Changes in Pt Med Stat, Meds/Allgs Chart Reviewed, Consent Obtained/Reviewed and Anes Risks/Benef Reviewed Patient Risk: Low Procedure Risk: Low Anesthetic Plan Anesthetic Plan: GA Disposition: Standard PACU
[2022-02-10] VITALS (15 sets, daily range): BP systolic 82–112; BP diastolic 45–75; PULSE 69–97; RESP 12–20; TEMP 36.1–36.7; O2SAT 97–100; BMI 36.8
[2022-02-10 08:01] LABS: UPreg QC Valid YES; Urine Pregnancy NEGATIVE (NEGATIVE)
[2022-02-10] MEDS: Lactated Ringers 1,000 ML 100 ML IVCONT (08:02)
--- NOTE | 2022-02-10 08:53 | MHC.SHP ---
Pre-Procedural Eval Section A Date of Service: 02/10/22 The patient is an INPATIENT: No Changes since office visit: No Cold of Flu in the past 2 weeks, No New Medical Problems, No Changes in Medication and No Patient answered all questions The History & Physical has been completed within 30 days and I have reviewed it.: Yes Section B Chief Complaint: Abnormal uterine and vaginal bleeding, unspecified Allergies: Allergies Allergy/AdvReac Type Severity Reaction Status Date / Time hydromorphone [From DILAUDID] Allergy Unknown UNKNOWN Verified 01/23/22 15:59 iodine Allergy Unknown Unknown Verified 01/23/22 15:59 morphine [MORPHINE] Allergy Unknown UNKNOWN Verified 01/23/22 15:59 black pepper Allergy Unknown Unknown Uncoded 01/23/22 15:59 Oatmeal Allergy Unknown Unknown Uncoded 01/23/22 15:59 Peanuts Allergy Unknown Unknown Uncoded 01/23/22 15:59 SEAFOOD Allergy Unknown HIVES Uncoded 01/23/22 15:59 Plan Diagnosis/Plan: Unchanged I have reviewed the history and physical and performed a pertinent physical examination on my patient. No changes have occurred unless specified.
--- NOTE | 2022-02-10 09:34 | P.BOP_ITS ---
Brief Operative Note Date of Service: 02/10/22 Pre-op diagnosis: Abnormal uterine bleeding, endometrial cyst by ultrasound Post-op diagnosis: same (Normal endometrial cavity) Procedure: Hysteroscopy D&C, NovaSure endometrial ablation Surgeon: Dilshad Cruz MD Anesthesia: MAC Was an Logistics Director used for this Procedure?: No Estimated blood loss (mL): 0 Pathology: other (Endometrial Scrapping. ) Condition: stable Disposition: PACU
--- NOTE | 2022-02-10 09:35 | W.PM.OPN ---
Operative Note Operative Note Date of Service: 02/10/22 Narrative: Preop Diagnosis:? Abnormal uterine bleeding with endometrial cyst by ultrasound Operation: Diagnostic Hysteroscopy, Dilataion & Curettage with NovaSure endometrial ablation Post Op Diagnosis:? The same with Normal endometrial cavity QBL: Minimal Anesthesia: MAC Surgeon: Dilshad Cruz MD Supervisor [employer]ation: None Complication: None Pathology: Endometrial Scrapings Procedure: The patient was put in the dorsal lithotomy position, scrubbed, and draped in the usual manner. A sterile speculum was inserted in the patient's vagina. The anterior lip of the cervix was grasped with a single tooth tenaculum. The cervix was dilated up to 5 mm, then the scope was inserted in the patient's uterus. Inspection revealed normal endometrial cavity.? Sharp curettings was carried on after taking out the hysteroscope with moderate amount of tissues retrieved.? The Myosure Reach device was used; At the end of the procedure, the hysteroscope was taken out of the patient uterine cavity. Taking care not to enter deep into the uterus, a uterine sound then was passed inside to measure the length of the uterus and cervix. This length was found to be 9.5 cm. Next, Hegar dilator was inserted into the cervical os to measure the cervical length which was 3 cm. This yielded an endometrial cavity length of 6.5 cm. . The Novasure device was then opened and tested; the fan deployed easily. The instrument was set to the correct cavity length and introduced into the uterine cavity. The fan was slowly deployed with gentle movements to ensure a snug fit within the cavity. The cavity width read 4.5 cm. The measurements were imported and a cavity check was done. The trumpet was then slid down to the cervix and the device was activated. The total burn time was 71 seconds. The fan was retracted and device removed. The fan was examined and revealed charred tissue. The tenaculum was removed and the cervix examined for hemostasis which was achieved using pressure. Finally the speculum was removed. The patient tolerated the procedure well and was brought to the recovery room in a stable condition. At the end of the procedure all sponges and instruments were counted and correct. The blood loss was minimal and there were no complications.
[2022-02-10] MEDS: fentaNYL citrate/PF 100 MCG/2 ML VIAL 50 MCG IVPUSH ×3 (10:03→11:19)
== END 2022-02-10 12:21 | disposition home or self-care (01) ==
PROVIDERS: PCP Internal Medicine; Visit Provider Obstetrics & Gynecology
PROC: 0UDB8ZZ Extraction of Endometrium, Via Natural or Artificial Opening Endoscopic (ICD-10-PCS; CPT 58558; principal; 2022-02-10 09:20)
DX: N93.9 Abnormal uterine and vaginal bleeding, unspecified (principal); N87.0 Mild cervical dysplasia; R10.2 Pelvic and perineal pain; Z91.041 Radiographic dye allergy status; J45.909 Unspecified asthma, uncomplicated; F41.8 Other specified anxiety disorders; Z79.51 Long term (current) use of inhaled steroids; Z79.899 Other long term (current) drug therapy; Z98.51 Tubal ligation status; Z88.8 Allergy status to other drugs, medicaments and biological substances
CPT/HCPCS: 58563; 81025; 88305; J1100; J2250; J2405; J3010

== ENCOUNTER → 2022-02-23 12:53 | Outpatient (BNVA) | payer MEDICAID, SELFPAY | PROVIDERS: PCP Internal Medicine; Visit Provider Obstetrics & Gynecology | DX: N93.9 Abnormal uterine and vaginal bleeding, unspecified (principal); N87.0 Mild cervical dysplasia | CPT/HCPCS: 99212 ==

== ENCOUNTER 2022-04-05 09:01 | Day surgery (SDC) | payer MEDICAID, SELFPAY ==
--- NOTE | ~2022-04-05 | US_ITS ---
EXAMINATION: US GUIDED LIVER BIOPSY CLINICAL INFORMATION: Fatty liver. COMPARISON: None TECHNIQUE: Procedure and risks and benefits including bleeding and infection were discussed with the patient and informed consent was obtained. The patient was positioned in the left decubitus position. The right upper quadrant was prepped and draped in the usual sterile fashion. The skin and soft tissues were anesthetized with 1% lidocaine plain. Using ultrasound guidance and a coaxial system, access to the right lobe of the liver was obtained. Three 20-gauge core biopsy specimens were obtained. Conscious sedation was provided by registered nurse under my direct supervision. The patient received Versed 0.5 mg and fentanyl 25 mcg intravenously during the procedure. Total sedation time was 15 minutes. FINDINGS: Images demonstrate needle placement in the right lobe of the liver. No fluid collection or ascites or evidence of bleeding is seen post procedure. US/US biopsy liver IMPRESSION: Ultrasound-guided liver biopsy.
[2022-04-05 09:24] VITALS: BMI 36.1
[2022-04-05 09:51] LABS: MANUAL DIFF FLAG NO
[2022-04-05 09:57] LABS: Basophils Percent Auto 0.4 % (0-2); Eosinophils Absolute Auto 0.2 X10*3/uL (0.0-0.4); Eosinophils Percent Auto 2.6 % (0-4); Imm Gran Abs Auto 0.04 X10*3/uL (0.00-0.03); Imm Gran Pct Auto 0.5 % (0.0-0.4); Lymphocytes Percent Auto 23.5 % (20-40); Mean Corpuscular HGB Conc 32.6 g/dl (31.0-35.0); Mean Platelet Volume 10.6 fL (9.4-12.3); Monocytes Absolute Auto 0.7 X10*3/uL (0.1-1.2); Monocytes Percent Auto 8.2 % (2-11); Neutrophils Absolute Auto 5.5 x10*3/uL (2.0-8.3); Neutrophils Percent Auto 64.8 % (45-73); Platelet Count 245 X10*3/uL (160-400); Red Blood Count 4.83 X10*6/uL (4.20-5.50); Red Cell Distribution Width 13.8 % (11.0-16.0); White Blood Count 8.5 X10*3/uL (4.8-10.8)
[2022-04-05 10:08] LABS: Prothrombin Time 11.6 SEC (10.0-13.1)
[2022-04-05 10:11] LABS: Partial Thromboplastin Time 37.9 SEC (24.1-38.0)
[2022-04-05 11:45] VITALS: BP 109/77; PULSE 70; RESP 18; TEMP 37.6; O2SAT 98
--- NOTE | 2022-04-05 11:50 | HO.RADPN ---
RADIOLOGY Narrative Narrative: Right lobe liver biopsy performed using coaxial system. 3 2o g core biopsues. No complication.
[2022-04-05 12:00] VITALS: BP 108/70; PULSE 73; RESP 16; O2SAT 96
[2022-04-05] MEDS: Lidocaine HCl 1 % MPF 5 ML VIAL SUBCUT (12:14)
[2022-04-05 12:15] VITALS: BP 104/72; PULSE 70; RESP 16; O2SAT 96
[2022-04-05 12:30] VITALS: BP 106/70; PULSE 70; RESP 17; O2SAT 96
[2022-04-05 12:45] VITALS: BP 105/67; PULSE 72; RESP 18; O2SAT 97
[2022-04-05 13:30] VITALS: BP 112/88; PULSE 75; RESP 16; TEMP 37.2; O2SAT 97
== END 2022-04-05 14:06 | disposition home or self-care (01) ==
PROVIDERS: Radiology Diagnostic Radiology; PCP Internal Medicine; Visit Provider Internal Medicine
DX: K76.0 Fatty (change of) liver, not elsewhere classified (principal); R94.5 Abnormal results of liver function studies; J45.909 Unspecified asthma, uncomplicated; Z79.51 Long term (current) use of inhaled steroids; Z79.899 Other long term (current) drug therapy; Z85.3 Personal history of malignant neoplasm of breast; Z92.21 Personal history of antineoplastic chemotherapy; Z92.3 Personal history of irradiation
CPT/HCPCS: 36415; 47000; 76942; 85025; 85610; 85730; 88307; 88313; 99152; J2250; J3010

== ENCOUNTER 2022-04-26 12:11 | Outpatient (REF) | payer MEDICAID, SELFPAY ==
[2022-04-26 14:05] LABS: Alanine Aminotransferase 35 U/L (0-31); Albumin Level 4.1 g/dL (3.5-5.0); Alkaline Phosphatase 77 U/L (39-117); Aspartate Amino Transferase 27 U/L (5-31); Bilirubin Direct 0.2 mg/dL (0.0-0.5); Bilirubin Total 0.5 mg/dL (0.0-1.0); Iron 67 mcg/dL (30-160); Percent Iron Saturation 18 % (15-50); Total Iron Binding Capacity 378 mcg/dL (228-428); Total Protein 7.3 g/dL (6.5-8.0); Unsaturated Iron Binding 311 ug/dL
[2022-04-26 14:30] LABS: Ferritin 49 ng/mL (10-250)
[2022-04-27 09:35] LABS: HBS Num1 0.65 mIU/mL (0-7.99); HBc Num1 0.09 S/CO (0.00-0.79); HBsAGNum1 0.16 S/CO (0.00-0.99); Hepatitis B Core Antibody Nonreactive (Nonreactive); Hepatitis B Surface Antigen Negative (Negative); ~HepC Num1 0.05 S/CO (0.00-0.79); ~Hepatitis B Surface Antibody NONREACTIVE (Nonreactive); ~Hepatitis C Antibody Nonreactive (Nonreactive)
[2022-04-28 14:25] LABS: Alpha 1 Anti-trypsin 173 mg/dL (83-199); Ceruloplasmin 37 mg/dL (18-53)
[2022-04-28 20:47] LABS: Anti Nuclear Antibody Screen NEGATIVE (NEGATIVE)
[2022-05-01 14:26] LABS: Mitochondrial Antibodies NEGATIVE (NEGATIVE)
[2022-05-02 11:37] LABS: Smooth Muscle Antibody 24 U (<20)
[2022-05-03 05:31] LABS: Hepatitis A Antibody IgG Nonreactive (Nonreactive); ~Hepatitis A Antibody IgG 0.35 S/CO (0.00-0.99)
== END 2022-04-26 12:12 | disposition home or self-care (01) ==
LOC: HO.10HDL 12:11
PROVIDERS: Visit Provider Internal Medicine
DX: R94.5 Abnormal results of liver function studies (principal); K76.0 Fatty (change of) liver, not elsewhere classified; N91.2 Amenorrhea, unspecified
CPT/HCPCS: 36415; 80076; 81025; 82103; 82390; 82728; 83540; 86015; 86038; 86039; 86255; 86256; 86704; 86706; 86708; 86803; 87340; 99212

== ENCOUNTER → 2022-05-11 08:54 | Outpatient (BNVA) | payer MEDICAID, SELFPAY | PROVIDERS: PCP Internal Medicine; Visit Provider Obstetrics & Gynecology | DX: Z32.02 Encounter for pregnancy test, result negative (principal); N91.2 Amenorrhea, unspecified | CPT/HCPCS: 81025; 99212 ==

== ENCOUNTER 2022-06-08 09:35 | Outpatient (REF) | payer MEDICAID, SELFPAY ==
--- NOTE | ~2022-06-08 | US_ITS ---
EXAMINATION: US ABDOMEN COMPLETE CLINICAL INFORMATION: Fatty liver. COMPARISON: CT abdomen and pelvis 04/18/2019. Ultrasound abdomen 03/03/2019. TECHNIQUE: Real-time imaging of the abdominal viscera. FINDINGS: PANCREAS: The body and head of the pancreas is homogeneous echotexture. The tail is obscured by overlying gas. ABDOMINAL AORTA: The proximal, mid, and distal segments are normal in caliber. INFERIOR VENA CAVA: Visualized portions are normal. LIVER: The liver is normal in size. The liver contour is normal. There is increased liver echogenicity. No focal hepatic lesion. There is no intrahepatic biliary duct dilatation seen. GALLBLADDER: Surgically absent. COMMON BILE DUCT: Normal in caliber measuring 0.3 cm in diameter. RIGHT KIDNEY: There is mild pelvic fullness. There are echogenic pyramids. No renal calculi or focal parenchymal lesions. The kidney measures 11.3 cm in maximum dimension. LEFT KIDNEY: There are echogenic pyramids with mild pelvic fullness. No renal calculi or focal parenchymal lesions. The kidney measures 10.8 cm in maximum dimension. SPLEEN: Normal. The spleen measures 10.0 cm in maximum dimension. FREE FLUID: None. US/US abdomen complete IMPRESSION: Mild hepatic steatosis without focal lesion. Gallbladder was surgically absent. There are echogenic pyramids questioning medullary sponge kidney. Bilateral extrarenal kidney pelvises were visualized however, no calcification or stone seen in the kidneys on the previous CT 04/18/2019.
== END 2022-06-08 09:36 | disposition home or self-care (01) ==
LOC: HO.US 09:35
PROVIDERS: Absent Provider Internal Medicine; Visit Provider Internal Medicine
DX: K76.0 Fatty (change of) liver, not elsewhere classified (principal)
CPT/HCPCS: 76700

== ENCOUNTER 2022-08-15 14:07 | Outpatient (REF) | payer MEDICAID, SELFPAY ==
[2022-08-16 05:36] LABS: Follicle Stimulating Hormone 24.9 mIU/mL; Lutenizing Hormone 19.9 mIU/mL
== END 2022-08-15 14:08 | disposition home or self-care (01) ==
LOC: HO.LAB 14:07
PROVIDERS: PCP Internal Medicine; Visit Provider Obstetrics & Gynecology
DX: Z32.02 Encounter for pregnancy test, result negative (principal); N93.9 Abnormal uterine and vaginal bleeding, unspecified; N91.2 Amenorrhea, unspecified
CPT/HCPCS: 36415; 81025; 83001; 83002; 99212

== ENCOUNTER → 2022-08-31 13:25 | Outpatient (BNVA) | payer MEDICAID, SELFPAY | PROVIDERS: PCP Internal Medicine; Visit Provider Obstetrics & Gynecology | DX: N95.0 Postmenopausal bleeding (principal); Z78.0 Asymptomatic menopausal state | CPT/HCPCS: 99212 ==

== ENCOUNTER 2022-10-05 14:51 | Outpatient (REF) | payer MEDICAID, SELFPAY ==
--- NOTE | ~2022-10-05 | US_ITS ---
EXAMINATION: US PELVIS CLINICAL INFORMATION: Postmenopausal bleeding. COMPARISON: 01/03/2022. TECHNIQUE: Ultrasound of the pelvis is performed using both transabdominal and transvaginal transducers along with Doppler. Transvaginal imaging is performed due to inadequate visualization transabdominally. FINDINGS: The uterus measures 8.4 x 4.2 x 4.2 cm. No discrete fibroids. No significant free fluid. Anechoic 1.7 x 0.6 x 0.8 cm area within the endometrial cavity appears complex with internal echoes. Endometrial thickness is 0.9 cm. Right ovary measures 2.6 x 1.9 x 2.1 cm, volume 5.4 mL and demonstrates multiple small follicles. Left ovary measures 2.4 x 1.3 x 1.7 cm, volume 2.8 mL, and was seen only on transabdominal ultrasound images, limiting evaluation. Left ovary is grossly unremarkable. Complex and simple nabothian cysts present. US/US pelvic and transvaginal IMPRESSION: Complex elongated fluid collection within the endometrial cavity was not previously demonstrated. Endometrial thickness of 0.9 cm is abnormal in a patient with postmenopausal bleeding. Gynecologic consultation and biopsy recommended.
== END 2022-10-05 14:52 | disposition home or self-care (01) ==
LOC: HO.US 14:51
PROVIDERS: Visit Provider Obstetrics & Gynecology
DX: N95.0 Postmenopausal bleeding (principal)
CPT/HCPCS: 76830; 76856

== ENCOUNTER 2022-10-31 11:16 | Outpatient (REF) | payer MEDICAID, SELFPAY | END 2022-10-31 11:17 | disposition home or self-care (01) | LOC: HO.LNP 11:16 | PROVIDERS: Visit Provider Obstetrics & Gynecology | DX: N95.0 Postmenopausal bleeding (principal) | CPT/HCPCS: 58100; 88305; 99212 ==

== ENCOUNTER → 2022-11-06 14:54 | Outpatient (BNVA) | payer MEDICAID, SELFPAY | PROVIDERS: PCP Internal Medicine; Visit Provider Obstetrics & Gynecology | DX: N95.0 Postmenopausal bleeding (principal) | CPT/HCPCS: 99212 ==

== ENCOUNTER 2022-11-14 13:59 | Outpatient (REF) | payer MEDICAID, SELFPAY | END 2022-11-14 14:00 | disposition home or self-care (01) | LOC: HO.LNP 13:59 | PROVIDERS: PCP Internal Medicine; Visit Provider Obstetrics & Gynecology | DX: N95.0 Postmenopausal bleeding (principal) | CPT/HCPCS: 58100; 88305 ==

== ENCOUNTER 2022-11-22 15:09 | Outpatient (REF) | payer MEDICAID, SELFPAY ==
[2022-11-23 10:02] LABS: CT PCR NOT DETECTED (Not Detect.); NG PCR NOT DETECTED (Not Detect.)
== END 2022-11-22 15:10 | disposition home or self-care (01) ==
LOC: HO.LNP 15:09
PROVIDERS: PCP Internal Medicine; Visit Provider Obstetrics & Gynecology
DX: N95.0 Postmenopausal bleeding (principal); N71.9 Inflammatory disease of uterus, unspecified
CPT/HCPCS: 0353U; 96372; 99212; J0696

== ENCOUNTER → 2022-11-27 12:34 | Outpatient (BNVA) | payer MEDICAID, SELFPAY | PROVIDERS: PCP Internal Medicine; Visit Provider Obstetrics & Gynecology | DX: N71.9 Inflammatory disease of uterus, unspecified (principal) | CPT/HCPCS: 99212 ==

== ENCOUNTER 2022-12-06 13:57 | Outpatient (REF) | payer MEDICAID, SELFPAY ==
[2022-12-06 14:58] LABS: Alanine Aminotransferase 33 U/L (0-31); Albumin Level 4.2 g/dL (3.5-5.0); Alkaline Phosphatase 63 U/L (39-117); Aspartate Amino Transferase 25 U/L (5-31); Bilirubin Direct < 0.2 mg/dL (0.0-0.5); Bilirubin Total 0.3 mg/dL (0.0-1.0); Total Protein 7.2 g/dL (6.5-8.0)
== END 2022-12-06 13:58 | disposition home or self-care (01) ==
LOC: HO.LAB 13:57
PROVIDERS: PCP Internal Medicine; Visit Provider Internal Medicine
DX: K76.0 Fatty (change of) liver, not elsewhere classified (principal); R94.5 Abnormal results of liver function studies
CPT/HCPCS: 36415; 80076

== ENCOUNTER 2022-12-07 14:21 | Outpatient (REF) | payer MEDICAID, SELFPAY ==
--- NOTE | ~2022-12-07 | US_ITS ---
EXAMINATION: US THYROID CLINICAL INFORMATION: Enlarged thyroid. COMPARISON: None TECHNIQUE: Linear transducer grayscale and color Doppler examination with attention to the region of the thyroid. FINDINGS: SIZE: Measurements of the thyroid lobes and nodules are given in sagittal, anteroposterior and transverse dimensions respectively. Right Thyroid Lobe: 4.0 x 1.7 x 1.5 cm, volume 5.3 mL. Parenchyma: The gland echotexture is heterogeneous. Thyroid vascularity is normal. Left Thyroid Lobe: 4.6 x 1.4 x 1.5 cm, volume 5.0 mL. Parenchyma: The gland echotexture is heterogeneous. Thyroid vascularity is normal. Isthmus: 0.2 cm in maximum AP dimension. No focal thyroid nodule is seen. NODES: No lymphadenopathy is seen in the tissue surrounding the thyroid gland. Within the right cervical region, a 1.2 x 0.5 x 0.8 cm nonpathologically enlarged lymph node is incidentally noted. US/US thyroid IMPRESSION: 1. There is heterogeneous thyroid echotexture, which can be associated with thyroiditis. 2. Otherwise, unremarkable examination. ACR TI-RADS RECOMMENDATION REFERENCE: Ultrasound-guided fine-needle aspiration, followup ultrasound, no further follow up. * TR1 (0 point) and TR2 (2 points): No FNA or follow up. * TR3 (3 points): FNA if more than or equal to 2.5 cm in maximum dimension, followup ultrasound in 1, 3 and 5 years if 1.5 to 2.4 cm in maximum dimension. * TR4 (4-6 points): FNA if more than or equal to 1.5 cm in maximum dimension, followup ultrasound in 1, 2, 3 and 5 years if 1 to 1.4 cm in maximum dimension. * TR5 (more than or equal to 7 points): FNA if more than or equal to 1 cm in maximum dimension, followup ultrasound every year for 5 years if 0.5 to 0.9 cm in maximum dimension. * TR3, TR4 or TR5 nodules that are below the size threshold for followup receive no follow up.
== END 2022-12-07 14:22 | disposition home or self-care (01) ==
LOC: HO.US 14:21
PROVIDERS: PCP Internal Medicine; Visit Provider Internal Medicine
DX: E04.9 Nontoxic goiter, unspecified (principal); E03.8 Other specified hypothyroidism; E06.3 Autoimmune thyroiditis
CPT/HCPCS: 76536

== ENCOUNTER → 2022-12-12 14:47 | Outpatient (BNVA) | payer MEDICAID, SELFPAY | PROVIDERS: PCP Internal Medicine; Referring Provider Internal Medicine; Visit Provider Physician Assistant Surgical ==

== ENCOUNTER → 2022-12-26 15:36 | Outpatient (BNVA) | payer MEDICAID, SELFPAY | PROVIDERS: PCP Internal Medicine; Visit Provider Nurse Practitioner Family | DX: M51.34 Other intervertebral disc degeneration, thoracic region (principal); M79.7 Fibromyalgia | CPT/HCPCS: 99212 ==

== ENCOUNTER 2023-01-18 10:10 | Outpatient (REF) | payer MEDICAID, SELFPAY ==
[2023-01-18 12:29] LABS: Amphetamine Screen Urine Not Detected (Not Detect); Barbiturates, Urine Not Detected (Not Detect); Benzodiazepines Screen Urine Not Detected (Not Detect); Cannabinoid Screen Urine Not Detected (Not Detect); Cocaine Screen Urine Not Detected (Not Detect); Fentanyl, urine Not Detected (Not Detect); Opiate Screen Urine Not Detected (Not Detect); Phencyclidine Screen Urine Not Detected (Not Detect)
== END 2023-01-18 10:11 | disposition home or self-care (01) ==
LOC: HO.LAB 10:10
PROVIDERS: PCP Internal Medicine; Visit Provider Nurse Practitioner Family
DX: Z79.899 Other long term (current) drug therapy (principal)
CPT/HCPCS: 80307; 80373

== ENCOUNTER 2023-06-07 10:26 | Outpatient (REF) | payer MEDICAID, SELFPAY ==
[2023-06-07 12:10] LABS: Alanine Aminotransferase 18 U/L (0-31); Alkaline Phosphatase 64 U/L (39-117); Aspartate Amino Transferase 17 U/L (5-31); Bilirubin Direct 0.2 mg/dL (0.0-0.5); Bilirubin Total 0.4 mg/dL (0.0-1.0); Total Protein 7.5 g/dL (6.5-8.0)
== END 2023-06-07 10:27 | disposition home or self-care (01) ==
LOC: HO.10HDL 10:26
PROVIDERS: Visit Provider Internal Medicine
DX: K76.0 Fatty (change of) liver, not elsewhere classified (principal); R74.8 Abnormal levels of other serum enzymes
CPT/HCPCS: 36415; 80076

== ENCOUNTER 2023-10-18 12:12 | Outpatient (AMB) | payer MEDICAID, SELFPAY ==
--- NOTE | 2023-10-18 12:35 | MHC.OFFVIS ---
Intake Vital Signs 10/18/23 12:42 Height 5 ft Weight 124 lb 8.979 oz BMI 24.3 BP 100/60 Blood Pressure Location Lt brachial Position Sitting Pulse 88 Pulse Source Pulse Oximeter Temp 97 F Temp Source Skin Pulse Oximetry (%) 94 Oxygen Delivery Method Room Air Intake Visit Reasons: Fibromyalgia Intake Note: Patient presents today for gabapentin management. Sow Farm Technician Required: Yes Sow Farm Technician Language: Japanese Accompanied by: Self / Same As Patient Allergies hydromorphone [From DILAUDID] Allergy (Severe, Verified 10/18/23 12:47) Anaphylaxis iodine Allergy (Severe, Verified 10/18/23 12:47) Anaphylaxis morphine [MORPHINE] Allergy (Unknown, Verified 10/18/23 12:47) UNKNOWN SEAFOOD Allergy (Severe, Uncoded 10/18/23 12:47) HIVES black pepper Allergy (Mild, Uncoded 10/18/23 12:47) Itching Oatmeal Allergy (Mild, Uncoded 10/18/23 12:47) Itching Peanuts Allergy (Mild, Uncoded 10/18/23 12:47) Itching HPI HPI Comments History of Present Illness Details Ms. Munroe is a 47yoF presents for follow-up of back pain. Last visit November 2022. Patient reports continued chronic generalized head to toe pain. She has a history of fibromyalgia. She admits to interrupted sleep and skin sensitivity. She denies depression. Currently taking clonidine, duloxetine, hydroxyzine, mirtazapine, Seroquel and Ambien. Follows with psychiatry. She reports continued chronic low back pain that is overall unchanged. She admits to intermittent numbness in her legs, more so right lower leg after surgery for tumor removal. 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 She denies bladder involvement. She manages her back pain with tramadol 50 mg by mouth every 6 hours since 2015 and gabapentin 400 mg by mouth daily since 2018. She followed Podiatry for neuropathy chronic foot pain. Also previously followed with vascular and had vein surgery. 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 [facility] Medical History (Updated 12/26/22 @ 20:19 by Ama Vides NP) Mood disorder External hemorrhoids Adenomatous colon polyp Depression with anxiety Asthma Breast cancer, left Colon cancer screening Hx of thyroid disease Surgical History S/P lumpectomy, left breast History of removal of ovarian cyst History of endometrial ablation History of colonoscopy History of cholecystectomy History of delivery Hx of tubal ligation Family History Maternal Grandfather History of prostate cancer Maternal Aunt History of ovarian cancer Maternal Uncle History of thyroid cancer Maternal Uncle Cancer of unknown origin Social History Alcohol intake: never Patient Tobacco Use Status: Never used Tobacco Sexual orientation: Straight/Heterosexual Gender identity: Female Female Reproductive History Menstrual Age of Menarche: 12 Review of Systems Const All systems reviewed & are unremarkable except as noted in HPI and below Physical Exam APPEARANCE: Patient in no acute distress, groomed, nourished EXTREMITIES: No edema, no calf tenderness, normal peripheral pulses. NEURO: Oriented and alert x3. No focal weakness. Gait normal. SKIN: No inflammatory or neoplastic lesions. Normal color and turgor Assessment & Plan Assessment & Plan (1) Degenerative disc disease, thoracic: Code(s): M51.34 - Other intervertebral disc degeneration, thoracic region Plan: Stable. Continue gabapentin and tramadol at current doses. (2) Fibromyalgia: Code(s): M79.7 - Fibromyalgia Plan: Multiple fibromyalgia tender points on exam. Advised patient to incorporate light daily activity as tolerated and continue current medications. Follow-up with PCP and mental health. Plan #Fibromyalgia: 48-year-old female patient with chronic back pain. On exam today her back pain appears stable. Previous x-ray of cervical and lumbar spine unremarkable. At today's visit patient requested that her Gabapentin be increased to 400mg TID. I discussed with her that she has been on 400mg per day and seem stable according all prior visits and during my prep and review of her file I saw that she can be referred back to PCP for continued management. She then reported that she had been on 400mg TID prior but her prescription records show that it dates back to 2019 at 400mg QD. She was aggressive about needing the increase. I recommended that she discuss the increase with PCP. I did not increase the dose. She will continue her tramadol and gabapentin at her current doses. At this point, I think patient can be referred back to primary for continued management of the Fibromyalgia #Spine DDD: She has also refused Pain management processes and solutions offered by Podiatry. She states she does not want cortisone injections so she will not return to those specialties. Patient was upset. Prior visit: The majority of her pain symptoms today are related to fibromyalgia. When she was on 40 mg of prednisone QD for her asthma, she denied any improvement in her joint pain symptoms, per patient report her pain symptoms are worse on the prednisone. If patient's symptoms were inflammatory it would be expected that there would be some improvement on prednisone. No synovitis on exam today. I do not see any signs of active inflammatory joint CTD/disease. Continue follow-up with mental health team and PCP. 25 minutes spent reviewing chart, evaluating patient, and documenting. No follow-up schedule Coding Level of Care Code Est Pt Level 3 (90967) Diagnoses Degenerative disc disease, thoracic M51.34 Fibromyalgia M79.7
[2023-10-18 12:42] VITALS: BP 100/60; PULSE 88; TEMP 36.1; O2SAT 94; BMI 24.3
== END 2023-10-18 14:22 | disposition home or self-care (01) ==
PROVIDERS: PCP Internal Medicine; Visit Provider Nurse Practitioner Family
DX: M51.34 Other intervertebral disc degeneration, thoracic region (principal); M79.7 Fibromyalgia
CPT/HCPCS: 99213

== ENCOUNTER → 2023-10-18 12:12 | Outpatient (BNVA) | payer MEDICAID, SELFPAY | PROVIDERS: PCP Internal Medicine; Visit Provider Nurse Practitioner Family | DX: M79.7 Fibromyalgia (principal); M51.34 Other intervertebral disc degeneration, thoracic region | CPT/HCPCS: 99212 ==

== ENCOUNTER 2024-01-24 15:45 | Outpatient (AMB) | payer MEDICAID, SELFPAY ==
[2024-01-24 15:47] VITALS: BP 98/66; PULSE 97; O2SAT 89; BMI 34.2
--- NOTE | 2024-01-24 15:47 | HO.NEPHOV_ITS ---
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 Accompanied by: Self / Same As Patient Allergies hydromorphone [From DILAUDID] Allergy (Severe, Verified 01/24/24 15:50) Anaphylaxis iodine Allergy (Severe, Verified 01/24/24 15:50) Anaphylaxis morphine [MORPHINE] Allergy (Unknown, Verified 01/24/24 15:50) UNKNOWN SEAFOOD Allergy (Severe, Uncoded 10/18/23 12:47) HIVES black pepper Allergy (Mild, Uncoded 10/18/23 12:47) Itching Oatmeal Allergy (Mild, Uncoded 10/18/23 12:47) Itching Peanuts Allergy (Mild, Uncoded 10/18/23 12:47) Itching HPI Comments Details: Amaya is a 48 yr old woman with multiple medical problems Referred for possible nephrolithiasis She was seen by and has decided to switch to my care All lab results were reviewed. Rcent CT scan showed unremarkable kidneys and no renal stones [facility] Medical History (Updated 01/24/24 @ 16:07 by Vinny Hodge MD) Mood disorder External hemorrhoids Adenomatous colon polyp Depression with anxiety Asthma Breast cancer, left Colon cancer screening Hx of thyroid disease Surgical History S/P lumpectomy, left breast History of removal of ovarian cyst History of endometrial ablation History of colonoscopy History of cholecystectomy History of delivery Hx of tubal ligation Family History Maternal Grandfather History of prostate cancer Maternal Aunt History of ovarian cancer Maternal Uncle History of thyroid cancer Maternal Uncle Cancer of unknown origin Social History Alcohol intake: never Patient Tobacco Use Status: Never used Tobacco Sexual orientation: Straight/Heterosexual Gender identity: Female Female Reproductive History Menstrual Age of Menarche: 12 Physical Exam Vital Signs: Last Vital Signs Pulse 97 01/24/24 15:47 BP 98/66 01/24/24 15:47 Pulse Ox 89 L 04/25/24 15:47 Oxygen Delivery Method Room Air 01/24/24 15:47 BMI result Body Mass Index 34.2 Const General: comfortable Nutritional Appearance: well nourished Orientation/consciousness: patient oriented x3 HEENT Head: No normal to inspection Mouth: moist mucous membranes Neck Neck: Yes supple and Yes no JVD Resp Auscultation: clear to auscultation bilaterally, no rales and rub present Cardio Jugular venous distension: no JVD Palpation: no palpable S3 and no palpable S4 Heart sounds: no rubs GI Palpation (GI): Soft to palpation and nontender Percussion: No Fluid wave present General: Yes no CVA tenderness Back/Spine/Pelvis Back: no CVA tenderness Skin General skin exam: no rashes or lesions noted Neuro General: patient oriented x3 Extrem General: Yes no pedal edema and No clubbing Results Reviewed Results Reviewed: Labs reveiwed Nephrology Results: No Data to Display Assessment & Plan Assessment & Plan (1) Nephrocalcinosis: Code(s): E83.59 - Other disorders of calcium metabolism; N29 - Other disorders of kidney and ureter in diseases classified elsewhere Category: Medical Plan Middle aged woman with multiple medical problems including elevated BMI, referred for possible nephrocalcinosis Currently, renal function is normal NO obstrucion bsed on recent imaging studies Initiated a work up for nephrocalcinosis including 224 hour urine studies and ultrasound In the meantime, encouraged her to stay on low salt diet, increase PO fluid intake and drink lemonade to increase citrate content. Further treatment plan will be based on the results of above investigations I have reassured her and answered all her questions Orders: Orders Sodium, 24Hr Urine Group Today E83.59 - Other disorders of calcium metabolism, N29 - Other disorders of kidney and ureter in diseases classified elsewhere Creatinine, 24 Hr Group Today E83.59 - Other disorders of calcium metabolism, N29 - Other disorders of kidney and ureter in diseases classified elsewhere Calcium, 24 Hr Ur Today E83.59 - Other disorders of calcium metabolism, N29 - Other disorders of kidney and ureter in diseases classified elsewhere Oxalate, 24 Hr Today E83.59 - Other disorders of calcium metabolism, N29 - Other disorders of kidney and ureter in diseases classified elsewhere Total Protein Urine Random Today E83.59 - Other disorders of calcium metabolism, N29 - Other disorders of kidney and ureter in diseases classified elsewhere US renal BI Today E83.59 - Other disorders of calcium metabolism, N29 - Other disorders of kidney and ureter in diseases classified elsewhere Citric Acid 24hr Urine Today E83.59 - Other disorders of calcium metabolism, N29 - Other disorders of kidney and ureter in diseases classified elsewhere Uric Acid, 24Hr Urine Group Today E83.59 - Other disorders of calcium metabolism, N29 - Other disorders of kidney and ureter in diseases classified elsewhere UA and rflx microscopic Today E83.59 - Other disorders of calcium metabolism, N29 - Other disorders of kidney and ureter in diseases classified elsewhere Sodium Urine Random Today E83.59 - Other disorders of calcium metabolism, N18.9 - Chronic kidney disease, unspecified, N29 - Other disorders of kidney and ureter in diseases classified elsewhere Creatinine Urine Today E83.59 - Other disorders of calcium metabolism, N05.9 - Unspecified nephritic syndrome with unspecified morphologic changes, N29 - Other disorders of kidney and ureter in diseases classified elsewhere Uric Acid Today E83.59 - Other disorders of calcium metabolism, N29 - Other disorders of kidney and ureter in diseases classified elsewhere Coding Level of Care Code New Pt Level 4 (34948) Diagnoses Nephrocalcinosis E83.59; N29
== END 2024-01-24 16:10 | disposition home or self-care (01) ==
PROVIDERS: PCP Internal Medicine; Referring Provider Internal Medicine; Visit Provider Internal Medicine Hypertension Specialist
DX: E83.59 Other disorders of calcium metabolism (principal); N29 Other disorders of kidney and ureter in diseases classified elsewhere
CPT/HCPCS: 99204

== ENCOUNTER → 2024-01-24 15:45 | Outpatient (BNVA) | payer MEDICAID, SELFPAY | PROVIDERS: PCP Internal Medicine; Referring Provider Internal Medicine; Visit Provider Internal Medicine Hypertension Specialist | DX: E83.59 Other disorders of calcium metabolism (principal); N29 Other disorders of kidney and ureter in diseases classified elsewhere | CPT/HCPCS: 99202 ==

== ENCOUNTER 2024-01-28 11:16 | Outpatient (REF) | payer MEDICAID, SELFPAY ==
[2024-01-28 11:40] LABS: Appearance Urine Clear; Color Urine Yellow; Glucose Urine UA Negative (Negative); Leukocyte Esterase Urine Negative (Negative); Nitrite Urine Negative (Negative); Specific Gravity - Urine 1.015 (1.005-1.025); Urine Blood Negative (Negative); Urine Ketones Negative (Negative); Urine Protein Negative (Neg-Trace)
[2024-01-28 12:47] LABS: Creatinine, mg/dL 30.75
[2024-01-28 12:54] LABS: Creatinine Urine 133.35 mg/dL; Total Protein Urine Random < 7 mg/dL (<12)
[2024-01-28 12:54] LABS: Creatinine, mg/dL 30.65; Sodium, 24 Hr Urine < 20.0 mmol/L; Uric Acid, mg/dL 17.7 mg/dL
[2024-01-28 14:05] LABS: Creatinine, 24Hr Urine 0.9 G/Day (1.0-2.0); Total Volume 24 Hour Urine 2825 mL
[2024-01-28 14:06] LABS: Creatinine, 24Hr Urine 0.9 G/Day (1.0-2.0); Total Volume 24 Hour Urine 2825 mL
[2024-01-29 17:08] LABS: Calcium, 24 Hr Urine 54 mg/24 h; Calcium/Creatinine Ratio 59 mg/g creat (30-275)
[2024-02-03 07:25] LABS: 24hr Urine Total Volume 2825 mL; Citric Acid, 24hr Urine 554 mg/24 h (100-1300); Citric Acid/Creat Ratio 24U 582 mg/g creat (180-1070)
[2024-02-06 02:38] LABS: Oxalic Acid 24 Urine 16.4 mg/24 h (3.6-38.0)
== END 2024-01-28 11:17 | disposition home or self-care (01) ==
LOC: HO.LNP 11:16
PROVIDERS: Visit Provider Internal Medicine Hypertension Specialist
DX: E83.59 Other disorders of calcium metabolism (principal); N29 Other disorders of kidney and ureter in diseases classified elsewhere; N18.9 Chronic kidney disease, unspecified; N05.9 Unspecified nephritic syndrome with unspecified morphologic changes
CPT/HCPCS: 81003; 82340; 82507; 82570; 83945; 84156; 84300; 84560

== ENCOUNTER 2024-01-31 09:03 | Outpatient (REF) | payer MEDICAID, SELFPAY ==
--- NOTE | ~2024-01-31 | US_ITS ---
EXAMINATION: US RETROPERITONEAL LIMITED (RENAL ONLY) CLINICAL INFORMATION: Other disorders of calcium metabolism. COMPARISON: Ultrasound abdomen complete 06/08/2022 and 03/03/2019. CT abdomen and pelvis 04/18/2019. TECHNIQUE: Real-time imaging of the kidneys. FINDINGS: RIGHT KIDNEY: 11.6 x 3.7 x 4.8 cm (SAG x AP x TRV). The kidney is normal in size, contour, and echogenicity. Renal cortical thickness is normal. No focal parenchymal lesions or hydronephrosis. 6 mm nonobstructing calculus in the mid kidney. Again seen is increased medullary echotexture. LEFT KIDNEY: 11.0 x 4.9 x 4.3 cm (SAG x AP x TRV). The kidney is normal in size, contour, and echogenicity. Renal cortical thickness is normal. No renal calculi or hydronephrosis. 1.1 cm simple cyst in the upper pole. No follow-up imaging is recommended. Again seen is increased medullary echotexture. US/US renal BI IMPRESSION: Increased echogenicity of the renal medulla bilaterally which may indicate medullary sponge kidney. 6 mm nonobstructing calculus in the mid right kidney. No hydronephrosis.
== END 2024-01-31 09:04 | disposition home or self-care (01) ==
LOC: HO.US 09:03
PROVIDERS: PCP Internal Medicine; Visit Provider Internal Medicine Hypertension Specialist
DX: E83.59 Other disorders of calcium metabolism (principal); N29 Other disorders of kidney and ureter in diseases classified elsewhere
CPT/HCPCS: 76775

== ENCOUNTER 2024-02-27 09:04 | Outpatient (AMB) | payer MEDICAID, SELFPAY ==
--- NOTE | 2024-02-27 09:06 | MHC.OFFVIS ---
Vital Signs 02/27/24 09:17 Height 5 ft Weight 167 lb 6 oz BMI 32.7 BP 114/64 Blood Pressure Location Lt brachial Position Sitting Respiration 16 Pulse 66 Pulse Source Pulse Oximeter Pulse Oximetry (%) 99 Oxygen Delivery Method Room Air Intake Visit Reasons: Low Back Pain w/o Scoatica Intake Note: Patient comes in for initial visit was referred by primary care. She was accompanied by?spouse Jerome. Reports pain 9/10. Allergies hydromorphone [From DILAUDID] Allergy (Severe, Verified 02/27/24 09:17) Anaphylaxis iodine Allergy (Severe, Verified 02/27/24 09:17) Anaphylaxis morphine [MORPHINE] Allergy (Unknown, Verified 02/27/24 09:17) UNKNOWN SEAFOOD Allergy (Severe, Uncoded 10/18/23 12:47) HIVES black pepper Allergy (Mild, Uncoded 10/18/23 12:47) Itching Oatmeal Allergy (Mild, Uncoded 10/18/23 12:47) Itching Peanuts Allergy (Mild, Uncoded 10/18/23 12:47) Itching HPI Comments Details: Ms. Robles is very pleasant 48 years old female who presents in my office with complains on pain all over the body but mostly pain in the lower back with radiation into bilateral lower extremities. The patient reports that her pain started in 2016. In 2014 she was diagnosed with breast cancer. She received local excision and chemotherapy. She was on chemotherapy with tamoxifen for the past 10 years. She also had radiation therapy of the axillary lymph nodes. She is currently no longer on tamoxifen and she is considered to be cancer-free. She relates her pain with for treatment of the cancer. She is currently under care of precision dancer who diagnose her with fibromyalgia. She reported history of carpal tunnel syndrome as well. She reports that she can not sleep normally can not do activities of daily living she can not take care of herself she can not function normally. 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 She reports that weather changes and called weather aggravate her pain and heat application make her pain better. She reports her pain today is 10/10. In terms of tissue damage he reports her pain as pulsing and pounding, jumping and shooting, stabbing and lancinating, sharp and lacerating, tugging and wrenching, hot burning and searing, tingling and stinging, dull hurting and heavy, fearful and terrifying, punishing and killing, spreading and piercing, tight and tearing. She is currently prescribed tramadol 50 mg 4 times a day. She used to be on gabapentin 400 mg t.i.d. but now the prescription was changed to gabapentin only 1 pill a day. She is very unhappy about it because she felt that gabapentin helps her a lot. She never had an MRI of her lumbar spine she had some procedure probably MRI related to her cancer long time ago. She had physical therapy in 2021. She reported some improvement. However because she feels severe pain on the touch she is adamantly refusing to go for physical therapy. She is adamantly refusing to have any injections. Her past medical history significant for fatigue asthma history of kidney sand but not stones and history of arthritis. She is suffering from carpal tunnel. She never was operated on carpal tunnel. For past surgical history significant for cancer surgery in 2014 as well as excision of the solitary tumor from the right lower extremity medial [place], she also had gallbladder surgery in 2019 and the hysterectomy in 2022. 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 [facility] Medical History (Updated 02/27/24 @ 09:56 by Wale Venegas MD) Mood disorder External hemorrhoids Adenomatous colon polyp Depression with anxiety Asthma Breast cancer, left Colon cancer screening Hx of thyroid disease Surgical History S/P lumpectomy, left breast History of removal of ovarian cyst History of endometrial ablation History of colonoscopy History of cholecystectomy History of delivery Hx of tubal ligation Family History Maternal Grandfather History of prostate cancer Maternal Aunt History of ovarian cancer Maternal Uncle History of thyroid cancer Maternal Uncle Cancer of unknown origin Social History Alcohol intake: never Patient Tobacco Use Status: Never used Tobacco Sexual orientation: Straight/Heterosexual Gender identity: Female Female Reproductive History Menstrual Age of Menarche: 12 Review of Systems Const Details: Negative for appetite change, weight change, fever, chills, malaise and fatigue Eyes Details: Negative for vision change,headaches and dizziness ENT Details: Negative for hearing change,oral ulcer Reports Normal hearing present Card Details: Negative chest pain, edema and syncope Resp Details: Negative for SOB, cough and wheezing GI Details: Negative indigestion/heartburn, nausea, abdominal pain, bowel changes Details: Negative for dysuria, hematuria Musc Reports as per HPI Skin/Breast Details: Negative for itching, rash, hives, Raynaud's symptoms Neuro Details: Negative for changes in speech, tingling and weakness Reports Normal hearing present, Denies Abnormal speech present, Denies confusion and Denies Sensory deficit (Neuro) Psych Details: Negative for anxiety, depression and stress Denies confusion Ravi/Lymph Details: Negative for excessive bruising or bleeding. Physical Exam Vital Signs: Last Vital Signs Pulse 66 02/27/24 09:17 Resp 16 02/27/24 09:17 BP 114/64 02/27/24 09:17 Pulse Ox 99 02/27/24 09:17 Oxygen Delivery Method Room Air 02/27/24 09:17 BMI result Body Mass Index 32.7 Const General: healthy appearing, comfortable and no acute distress; No confusion Nutritional Appearance: well nourished and obese Orientation/consciousness: patient oriented x3 and No confusion Eyes General: appearance normal, both eyes and all related structures Pupils: Equal, round and reactive pupils present EOM: EOMs intact bilaterally Neck Neck: Yes full ROM Chest Chest palpation & inspection: normal inspection of the chest Resp Effort & Inspection: normal respiratory effort, able to speak in complete sentences, normal respiratory pattern, no audible wheezes and no cough Cardio Jugular venous distension: no JVD GI Inspection: Yes normal to inspection Back/Spine/Pelvis Other: Physical exam today concentrated mostly on the lumbar spine she admits tenderness on palpation all over the lower back. She admits tenderness on palpation in projection of the thoracic spine as well as the sacral bone. She is able to stand on bilateral tiptoes without difficulty. She is able to stand on bilateral heels with the toes elevated bilaterally. She has normal strength on the elevation of the major toe on the left her right major to is fused. Flexing forward and flexing backwards both aggravate her pain however she admits that flexing forward aggravates her pain more than flexing backwards. She reports that prolonged walking aggravates her pain. Prolonged standing aggravates her pain. She denies any numbness in bilateral lower extremities, she admitted that in the past she had sensations of pins and needles and numbness in bilateral lower extremities but now it is no longer present. She denies any pelvic organ dysfunction. SLR is positive bilaterally with pain shooting into bilateral lower extremities all the way down to her toes. Lassegue test is also positive bilaterally for pain increase at maximal SLR. Neuro General: patient oriented x3, gait normal and No confusion Cranial nerves: Yes CN's II-XII intact bilaterally, Yes Equal, round and reactive pupils present, Yes Normal hearing present and Yes Ability to bilaterally elevate shoulders present Speech: No Abnormal speech present Gait exam (Neuro): Normal gait present Motor exam (neuro): 5/5 motor strength present throughout Sensory Exam: No Sensory deficit (Neuro) Extrem General: No pedal edema Psych Speech and movement: Normal speech and movement present Affect: normal affect Attitude: cooperative Thought process: Normal thought process present Thought content: Normal thought content present Insight: Good insight present (Psych) Judgement: Good judgement present (Psych) Assessment & Plan Assessment & Plan (1) Radiculopathy, lumbar region: Code(s): M54.16 - Radiculopathy, lumbar region Category: Medical (2) Fibromyalgia: Code(s): M79.7 - Fibromyalgia Category: Medical (3) Low back pain: Code(s): M54.50 - Low back pain, unspecified Category: Medical (4) Chronic pain syndrome: Code(s): G89.4 - Chronic pain syndrome Category: Medical Plan This patient adamantly refused to go for any injections. She was very happy when I offered her to increase her gabapentin to 400 mg t.i.d.. Because of potential combination of tramadol and gabapentin I also will prescribe her Narcan. Because she has a cancer patient I will send her for the MRI of the lumbar spine to rule out a red flags because she exhibits signs and symptoms of radiculopathy in bilateral lower extremities. I informed the patient that she needs to give us a call schedule appointment with me the very moment she will step out of the MRI machine. Orders: Orders MR lumbar spine wo con Today M54.16 - Radiculopathy, lumbar region Medications: New gabapentin 400 mg PO TID 30 days 90 caps 8RF M79.7 - Fibromyalgia Discontinued gabapentin Discontinued Reason: Doctor's Order 400 mg PO DAILY 90 caps 1RF M79.7 - Fibromyalgia Coding Level of Care Code New Pt Level 3 (55636) Diagnoses Radiculopathy, lumbar region M54.16 Fibromyalgia M79.7 Low back pain M54.50 Chronic pain syndrome G89.4
[2024-02-27 09:17] VITALS: BP 114/64; PULSE 66; RESP 16; O2SAT 99; BMI 32.7
== END 2024-02-27 09:44 | disposition home or self-care (01) ==
PROVIDERS: PCP Internal Medicine; Supervising Provider Internal Medicine; Visit Provider Anesthesiology
DX: M54.16 Radiculopathy, lumbar region (principal); M79.7 Fibromyalgia; M54.50 Low back pain, unspecified; G89.4 Chronic pain syndrome
CPT/HCPCS: 99204

== ENCOUNTER → 2024-02-27 09:04 | Outpatient (BNVA) | payer MEDICAID, SELFPAY | PROVIDERS: PCP Internal Medicine; Visit Provider Anesthesiology | DX: M54.16 Radiculopathy, lumbar region (principal); M79.7 Fibromyalgia; M54.50 Low back pain, unspecified; G89.4 Chronic pain syndrome | CPT/HCPCS: 99202 ==

== ENCOUNTER 2024-02-28 10:26 | Outpatient (AMB) | payer MEDICAID, SELFPAY ==
--- NOTE | 2024-02-28 10:29 | HO.NEPHOV ---
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 Accompanied by: Self / Same As Patient Allergies hydromorphone [From DILAUDID] Allergy (Severe, Verified 02/28/24 10:32) Anaphylaxis iodine Allergy (Severe, Verified 02/28/24 10:32) Anaphylaxis morphine [MORPHINE] Allergy (Unknown, Verified 02/28/24 10:32) UNKNOWN SEAFOOD Allergy (Severe, Uncoded 10/18/23 12:47) HIVES black pepper Allergy (Mild, Uncoded 10/18/23 12:47) Itching Oatmeal Allergy (Mild, Uncoded 10/18/23 12:47) Itching Peanuts Allergy (Mild, Uncoded 10/18/23 12:47) Itching HPI Comments Details: Amaya is a 48 yr old woman with multiple medical problems Referred for possible nephrolithiasis She was seen by and has decided to switch to my care All lab results were reviewed. Rcent CT scan showed unremarkable kidneys and no renal stones She underwent 24 urine collection. Follow-up ultrasound showed a 6 mm stone on the right side with evidence of middle-aged sponge kidney bilaterally PFSH Medical History (Updated 02/27/24 @ 09:56 by Wale Venegas MD) Mood disorder External hemorrhoids Adenomatous colon polyp Depression with anxiety Asthma Breast cancer, left Colon cancer screening Hx of thyroid disease Surgical History S/P lumpectomy, left breast History of removal of ovarian cyst History of endometrial ablation History of colonoscopy History of cholecystectomy History of delivery Hx of tubal ligation Family History Maternal Grandfather History of prostate cancer Maternal Aunt History of ovarian cancer Maternal Uncle History of thyroid cancer Maternal Uncle Cancer of unknown origin Social History Alcohol intake: never Patient Tobacco Use Status: Never used Tobacco Sexual orientation: Straight/Heterosexual Gender identity: Female Female Reproductive History Menstrual Age of Menarche: 12 Physical Exam Vital Signs: Last Vital Signs Pulse 74 02/28/24 10:30 BP 98/70 02/28/24 10:30 Pulse Ox 98 02/28/24 10:30 Oxygen Delivery Method Room Air 02/28/24 10:30 BMI result Body Mass Index 33.0 Const General: comfortable Nutritional Appearance: well nourished Orientation/consciousness: patient oriented x3 HEENT Head: No normal to inspection Mouth: moist mucous membranes Neck Neck: Yes supple and Yes no JVD Resp Auscultation: clear to auscultation bilaterally, no rales and rub present Cardio Jugular venous distension: no JVD Palpation: no palpable S3 and no palpable S4 Heart sounds: no rubs GI Palpation (GI): Soft to palpation and nontender Percussion: No Fluid wave present General: Yes no CVA tenderness Back/Spine/Pelvis Back: no CVA tenderness Skin General skin exam: no rashes or lesions noted Neuro General: patient oriented x3 Extrem General: Yes no pedal edema and No clubbing Results Reviewed Results Reviewed: January 2024 US/US renal BI IMPRESSION: Increased echogenicity of the renal medulla bilaterally which may indicate medullary sponge kidney. 6 mm nonobstructing calculus in the mid right kidney. No hydronephrosis. Nephrology Results: Urine Protein Negative mg/dL (Neg-Trace) 01/28/24 Urine Creatinine 133.35 mg/dL 01/28/24 Renal US 01/31/24 Assessment & Plan Assessment & Plan (1) Nephrocalcinosis: Code(s): E83.59 - Other disorders of calcium metabolism; N29 - Other disorders of kidney and ureter in diseases classified elsewhere Category: Medical Plan Middle aged woman with multiple medical problems including elevated BMI, referred for possible nephrocalcinosis Currently, renal function is normal NO obstrucion bsed on recent imaging studies Ultrasonogram shows bilateral medullary sponge kidney. There is a 6 mm nonobstructing stone in the right side 24 urine collection showed a volume of 2825. Urinary calcium excretion oxalate excretion and sodium excretion where appropriate. I encouraged her to stay on low salt diet, increase PO fluid intake and drink lemonade to increase citrate content. Continue with hydrochlorothiazide. At her request I have referred her to a cross cut sawyer. I have reassured her and answered all her questions Orders: Referrals Corporate Technical Recruiter Nutrition Referral E83.59 - Other disorders of calcium metabolism, N29 - Other disorders of kidney and ureter in diseases classified elsewhere Coding Level of Care Code Est Pt Level 4 (05012) Diagnoses Nephrocalcinosis E83.59; N29
[2024-02-28 10:30] VITALS: BP 98/70; PULSE 74; O2SAT 98; BMI 33.0
== END 2024-02-28 10:49 | disposition home or self-care (01) ==
PROVIDERS: PCP Internal Medicine; Referring Provider Internal Medicine; Visit Provider Internal Medicine Hypertension Specialist
DX: E83.59 Other disorders of calcium metabolism (principal); N29 Other disorders of kidney and ureter in diseases classified elsewhere
CPT/HCPCS: 99214

== ENCOUNTER → 2024-02-28 10:26 | Outpatient (BNVA) | payer MEDICAID, SELFPAY | PROVIDERS: PCP Internal Medicine; Visit Provider Internal Medicine Hypertension Specialist | DX: E83.59 Other disorders of calcium metabolism (principal); Q61.5 Medullary cystic kidney | CPT/HCPCS: 99212 ==

== ENCOUNTER 2024-03-12 08:57 | Outpatient (REF) | payer MEDICAID, SELFPAY ==
[2024-03-12 11:25] LABS: MANUAL DIFF FLAG NO
[2024-03-12 11:40] LABS: Basophils Percent Auto 0.3 % (0-2); Eosinophils Absolute Auto 0.2 X10*3/uL (0.0-0.4); Eosinophils Percent Auto 1.9 % (0-4); Hematocrit 41.5 % (37.0-47.0); Hemoglobin 13.8 g/dl (12.0-16.0); Imm Gran Abs Auto 0.03 X10*3/uL (0.00-0.03); Imm Gran Pct Auto 0.3 % (0.0-0.4); Lymphocytes Absolute Auto 2.1 X10*3/uL (1.2-4.9); Lymphocytes Percent Auto 24.6 % (20-40); Mean Corpuscular HGB Conc 33.3 g/dl (31.0-35.0); Mean Corpuscular Hemoglobin 28.7 pg (27.0-33.0); Mean Corpuscular Volume 86.3 fL (80.0-98.0); Mean Platelet Volume 11.1 fL (9.4-12.3); Monocytes Absolute Auto 0.6 X10*3/uL (0.1-1.2); Monocytes Percent Auto 6.9 % (2-11); Neutrophils Absolute Auto 5.7 x10*3/uL (2.0-8.3); Platelet Count 241 X10*3/uL (160-400); Red Blood Count 4.81 X10*6/uL (4.20-5.50); Red Cell Distribution Width 14.6 % (11.0-16.0); White Blood Count 8.6 X10*3/uL (4.8-10.8)
[2024-03-12 12:12] LABS: Alanine Aminotransferase 21 U/L (0-31); Albumin Level 4.1 g/dL (3.5-5.0); Alkaline Phosphatase 60 U/L (39-117); Anion Gap 10 (12-20); Aspartate Amino Transferase 16 U/L (5-31); Bilirubin Direct 0.2 mg/dL (0.0-0.5); Bilirubin Total 0.4 mg/dL (0.0-1.0); Blood Urea Nitrogen 11 mg/dL (9-16); Calcium 9.5 mg/dL (8.4-10.2); Carbon Dioxide 28 mmol/L (22-29); Chloride 106 mmol/L (96-108); Cholesterol 201 mg/dL (<200); Estimated Glomerular Filt Rate > 60; Glucose Random 86 mg/dL (60-115); HDL Cholesterol 70 mg/dL (>40); LDL Cholesterol Calculated 123 mg/dL (<100); Sodium 140 mmol/L (135-145); Total Protein 7.6 g/dL (6.5-8.0); Triglycerides 42 mg/dL (<150)
[2024-03-12 12:14] LABS: TSH reflex Free T4 1.54 uIU/mL (0.32-4.0); Vitamin D 25-OH Total 30.2 ng/mL (>30)
[2024-03-12 12:29] LABS: Folate 8.6 ng/mL (> or = 4.0); Vitamin B12 622 pg/mL (200-900)
== END 2024-03-12 08:58 | disposition home or self-care (01) ==
LOC: HO.HHCL 08:57
PROVIDERS: Visit Provider Internal Medicine
DX: R53.83 Other fatigue (principal)
CPT/HCPCS: 36415; 80048; 80061; 80076; 82306; 82607; 82746; 84443; 85025

== ENCOUNTER 2024-04-11 13:13 | Outpatient (REF) | payer MEDICAID, SELFPAY ==
[2024-04-11 13:57] LABS: Appearance Urine Clear; Color Urine Yellow; Glucose Urine UA Negative (Negative); Leukocyte Esterase Urine Trace (Negative); Nitrite Urine Negative (Negative); UMIC TRIGGER UACC YES; Urine Blood Negative (Negative); Urine Ketones Negative (Negative); Urine Protein Negative (Neg-Trace)
[2024-04-11 14:02] LABS: Bacteria Urine 1+ (None Seen); Hyaline Casts Urine 0-2 /LPF (0-2); RBC Urine 0-2 /HPF (0-2); UACC Culture Trigger YES
[2024-04-11 15:56] LABS: Bacterial Vaginosis PCR NEGATIVE (Negative); Candida Group PCR DETECTED (Not Detect); Candida glab krusei PCR NOT DETECTED (Not Detect); Trichomonas vaginalis PCR NOT DETECTED (Not Detect)
[2024-04-11 16:18] LABS: CT PCR NOT DETECTED (Not Detect.); NG PCR NOT DETECTED (Not Detect.)
== END 2024-04-11 13:14 | disposition home or self-care (01) ==
LOC: HO.HHCLNP 13:13
PROVIDERS: Visit Provider Student in an Organized Health Care Education/Training Program
DX: R39.9 Unspecified symptoms and signs involving the genitourinary system (principal)
CPT/HCPCS: 0352U; 81001; 87086; 87088; 87186; 87491; 87591

== ENCOUNTER 2024-04-28 11:56 | Outpatient (AMB) | payer MEDICAID, SELFPAY ==
[2024-04-28 12:29] VITALS: BMI 32.5
--- NOTE | 2024-04-28 12:29 | A.OFFVIS_ITS ---
VS Expanded 04/28/24 12:29 05/06/24 09:29 Height 5 ft 5 ft Weight 166 lb 3.657 oz 166 lb BMI 32.5 32.4 Intake Visit Reasons: Other disorders of calcium metabolism/CONFIRMED Allergies hydromorphone [From DILAUDID] Allergy (Severe, Verified 02/28/24 10:32) Anaphylaxis iodine Allergy (Severe, Verified 02/28/24 10:32) Anaphylaxis morphine [MORPHINE] Allergy (Unknown, Verified 02/28/24 10:32) UNKNOWN SEAFOOD Allergy (Severe, Uncoded 10/18/23 12:47) HIVES black pepper Allergy (Mild, Uncoded 10/18/23 12:47) Itching Oatmeal Allergy (Mild, Uncoded 10/18/23 12:47) Itching Peanuts Allergy (Mild, Uncoded 10/18/23 12:47) Itching Nutrition Presentation Details: Pt presents for MNT. Pt has nephrocalcinosis. Pt was referred by Dr. Soares Pt reports requesting this appt to work on meal planning Pt reports having one meal per day, typically white rice/beans with potatoes. Reports this is related to lack of appetite. Pt reports having had chemo therapy in 2014 due to breast CA food frequency fruits: 0-1/d vegetables: 1-2 x/wk milk : 1 /day fish: not including starches > 20 serving/d pastries/cookies and similar: 2 x/d fried foods: 3 -4 x/wk BS Monitoring Most Recent Diabetes Results: Cholesterol 201 mg/dL (<200) H 03/12/24 HDL Cholesterol 70 mg/dL (>40) 03/12/24 Triglycerides 42 mg/dL (<150) 03/12/24 Creatinine 0.78 mg/dL (0.5-1.4) 03/12/24 Blood Urea Nitrogen 11 mg/dL (9-16) 03/12/24 Sodium 140 mmol/L (135-145) 03/12/24 Potassium 4.0 mmol/L (3.3-5.1) 03/12/24 Chloride 106 mmol/L (96-108) 03/12/24 Carbon Dioxide 28 mmol/L (22-29) 03/12/24 Calcium 9.5 mg/dL (8.4-10.2) 03/12/24 AST 16 U/L (5-31) 03/12/24 ALT 21 U/L (0-31) 03/12/24 Total Protein 7.6 g/dL (6.5-8.0) 03/12/24 Albumin 4.1 g/dL (3.5-5.0) 03/12/24 BUC-[id number]-Rb.Jeor Equation Height: 5 ft Weight: 166 lb Resting Metabolic Rate: 1307.55 Calculated Activity Level: Sedentary Calories Needed to Maintain Weight: 1569.06 Diagnosis Nutrition problem #1: food nutri know defi As related to (etiology) #1: diagnosis As evidenced by (sign/symptom) #1: knowledge deficit of diet Learning/Education Readiness to learn: fair Educational materials provided: Yes (healthy plate method , low sodium food options) [facility] Medical History (Updated 02/27/24 @ 09:56 by Wale Venegas MD) Mood disorder External hemorrhoids Adenomatous colon polyp Depression with anxiety Asthma Breast cancer, left Colon cancer screening Hx of thyroid disease Surgical History S/P lumpectomy, left breast History of removal of ovarian cyst History of endometrial ablation History of colonoscopy History of cholecystectomy History of delivery Hx of tubal ligation Family History Maternal Grandfather History of prostate cancer Maternal Aunt History of ovarian cancer Maternal Uncle History of thyroid cancer Maternal Uncle Cancer of unknown origin Social History Alcohol intake: never Patient Tobacco Use Status: Never used Tobacco Sexual orientation: Straight/Heterosexual Gender identity: Female Female Reproductive History Menstrual Age of Menarche: 12 Assessment & Plan Assessment & Plan (1) Nephrocalcinosis: Code(s): E83.59 - Other disorders of calcium metabolism; N29 - Other disorders of kidney and ureter in diseases classified elsewhere Category: Medical Plan: Wt: 75Kg ( 05/2024 ) Est kcal needs as per MSJ: 1600 (40% carb, 30% protein/fat) Est fluid needs as per 25-30 ml/d: 2400 Est prot per day as per 1 g/kg bw: 75 Recommend fiber intake : 8-10 g per day and gradually increase to 25-28 g per day for women and 35-38 g for men or as tolerated Recommend sodium intake per day : less than 1500 mg less than 2000 mg Educated patient on: ( R = reviewed V = verbalizes understanding N/R = needs review N/A = not applicable * Food sources of carbohydrate, adequate serving sizes and its role in various health conditions: R V N/R * Differences between complex carbohydrates a simple carbohydrates, role of fiber in diet: R V N/R * Lean protein sources of foods: R V NR * Differences between types of fats and role in diet (mono on saturated fat fatty acids, saturated fatty acids, trans fats): R V N/R * Food sources of sodium in salt and healthy modifications for heart health in kidney health: R V R/V * Vitamins and minerals: R V N/R * Healthy plate method concept: R * Physical activity: Benefits a precaution: R V N/R * Hypoglycemia protocol (rule of 15): R V N/R * Dietary prevention of Hyperglycemia: R V R/V Patient Instructions: Work on having 3 meals/day following healthy plate method choosing low sodium food options , - see list of low sodium meals, snacks option s Coding Level of Care Code Nutr Indiv Subseq (31013) Diagnoses Nephrocalcinosis E83.59; N29 Time Spent (min) 30
[2024-05-06 09:29] VITALS: BMI 32.4
== END 2024-04-28 13:20 | disposition home or self-care (01) ==
PROVIDERS: PCP Internal Medicine; Visit Provider Dietitian, Registered
DX: E83.59 Other disorders of calcium metabolism (principal); N29 Other disorders of kidney and ureter in diseases classified elsewhere

== ENCOUNTER → 2024-04-28 11:56 | Outpatient (BNVA) | payer MEDICAID, SELFPAY | PROVIDERS: PCP Internal Medicine; Visit Provider Dietitian, Registered | DX: E83.59 Other disorders of calcium metabolism (principal); N29 Other disorders of kidney and ureter in diseases classified elsewhere; Z71.3 Dietary counseling and surveillance | CPT/HCPCS: 97803 ==

== ENCOUNTER 2024-07-30 09:06 | Outpatient (REF) | payer MEDICAID, SELFPAY ==
[2024-07-30 11:29] LABS: MANUAL DIFF FLAG NO
[2024-07-30 11:44] LABS: Basophils Absolute Auto 0.1 X10*3/uL (0.0-0.2); Basophils Percent Auto 0.7 % (0-2); Eosinophils Absolute Auto 0.2 X10*3/uL (0.0-0.4); Eosinophils Percent Auto 1.9 % (0-4); Hematocrit 41.5 % (37.0-47.0); Hemoglobin 13.7 g/dl (12.0-16.0); Imm Gran Abs Auto 0.03 X10*3/uL (0.00-0.03); Imm Gran Pct Auto 0.4 % (0.0-0.4); Lymphocytes Absolute Auto 1.6 X10*3/uL (1.2-4.9); Lymphocytes Percent Auto 19.4 % (20-40); Mean Corpuscular Hemoglobin 29.2 pg (27.0-33.0); Mean Corpuscular Volume 88.5 fL (80.0-98.0); Mean Platelet Volume 11.1 fL (9.4-12.3); Monocytes Absolute Auto 0.4 X10*3/uL (0.1-1.2); Monocytes Percent Auto 5.3 % (2-11); Neutrophils Percent Auto 72.3 % (45-73); Platelet Count 252 X10*3/uL (160-400); Red Blood Count 4.69 X10*6/uL (4.20-5.50); Red Cell Distribution Width 14.4 % (11.0-16.0); White Blood Count 8.3 X10*3/uL (4.8-10.8)
[2024-07-30 12:18] LABS: Anion Gap 11 (12-20); Blood Urea Nitrogen 14 mg/dL (9-16); Calcium 8.6 mg/dL (8.4-10.2); Carbon Dioxide 24 mmol/L (22-29); Chloride 109 mmol/L (96-108); Estimated Glomerular Filt Rate > 60; Glucose Random 85 mg/dL (60-115); Magnesium 2.4 mg/dL (1.6-2.6); Potassium 4.2 mmol/L (3.3-5.1); Sodium 140 mmol/L (135-145)
[2024-07-30 13:35] LABS: TSH reflex Free T4 2.99 uIU/mL (0.32-4.0); Vitamin D 25-OH Total 37.3 ng/mL (>30)
== END 2024-07-30 09:07 | disposition home or self-care (01) ==
LOC: HO.HHCL 09:06
PROVIDERS: Visit Provider Family Medicine
DX: R53.83 Other fatigue (principal); R42 Dizziness and giddiness
CPT/HCPCS: 36415; 80048; 82306; 83735; 84443; 85025

== ENCOUNTER 2024-08-08 10:31 | Outpatient (AMB) | payer MEDICAID, SELFPAY ==
--- NOTE | 2024-08-08 10:55 | HO.NEPHOV_ITS ---
Vital Signs 08/08/24 11:02 08/08/24 11:20 Height 5 ft Weight 170 lb 6 oz BMI 33.3 BP 90/60 72/58 L Blood Pressure Location Rt brachial Position Sitting Standing Pulse 69 Pulse Source Pulse Oximeter Pulse Oximetry (%) 98 Oxygen Delivery Method Room Air Intake Visit Reasons: BP/Medication change? (Dr Hodge pt)-Conf Automotive Collision Repair Instructor Required: Yes Automotive Collision Repair Instructor Language: Perianesthesia Manager Services: Automotive Collision Repair Instructor Present Accompanied by: Self / Same As Patient Allergies hydromorphone [From DILAUDID] Allergy (Severe, Verified 08/08/24 10:58) Anaphylaxis iodine Allergy (Severe, Verified 08/08/24 10:58) Anaphylaxis morphine [MORPHINE] Allergy (Unknown, Verified 08/08/24 10:58) UNKNOWN SEAFOOD Allergy (Severe, Uncoded 10/18/23 12:47) HIVES black pepper Allergy (Mild, Uncoded 10/18/23 12:47) Itching Oatmeal Allergy (Mild, Uncoded 10/18/23 12:47) Itching Peanuts Allergy (Mild, Uncoded 10/18/23 12:47) Itching HPI Comments Details: Amaya is a 49 yr old woman with multiple medical problems Medical history includes nephrocalcinosis, morbid obesity, asthma, hypothyroidism, depression with anxiety, DCIS of breast, fibromyalgia, osteoarthritis. Most recent renal ultrasound on 01/31/24 showed bilateral medullary sponge kidney. There was a 6mm nonobstructing renal stone in the mid right kidney. 24 urine collection showed a volume of 2825. Urinary calcium excretion oxalate excretion and sodium excretion where normal. home blood pressures SBPs 90s/60s little bit of dizziness, sometimes palpitations sweating palms cold, tired no shortness of breath or chest pain saw gyroscopic engineering technician at [facility] waiting for ultrasound [facility] Medical History (Updated 08/08/24 @ 11:42 by Annamarie Helton, VANI, HOME CARE AND HOME HEALTH AIDES TEACHER-BC) Mood disorder External hemorrhoids Adenomatous colon polyp Depression with anxiety Asthma Breast cancer, left Colon cancer screening Hx of thyroid disease Surgical History S/P lumpectomy, left breast History of removal of ovarian cyst History of endometrial ablation History of colonoscopy History of cholecystectomy History of delivery Hx of tubal ligation Family History Maternal Grandfather History of prostate cancer Maternal Aunt History of ovarian cancer Maternal Uncle History of thyroid cancer Maternal Uncle Cancer of unknown origin Social History Alcohol intake: never Patient Tobacco Use Status: Never used Tobacco Sexual orientation: Straight/Heterosexual Gender identity: Female Female Reproductive History Menstrual Age of Menarche: 12 Review of Systems Const Reports fatigue, Denies headache(s) and Reports lethargy ENT Reports dizziness and Denies headache(s) Card Denies chest pain, Reports lightheadedness, Denies dyspnea and Denies dyspnea on exertion Resp Denies dyspnea and Denies dyspnea on exertion GI Denies abdominal pain, Denies constipation, Denies diarrhea, Denies nausea and Denies vomiting Denies hematuria, Denies difficulty voiding, Denies dysuria and Denies flank pain Musc Reports arthralgias (chronic joint pain, mostly in back) and Denies joint swelling Skin/Breast Denies rash Neuro Reports dizziness and Denies headache(s) Endo Reports fatigue Physical Exam Vital Signs: Last Vital Signs Pulse 69 08/08/24 11:02 BP 72/58 L 08/08/24 11:20 Pulse Ox 98 08/08/24 11:02 Oxygen Delivery Method Room Air 08/08/24 11:02 BMI result Body Mass Index 33.3 Const General: no acute distress, alert and awake Resp Effort & Inspection: normal respiratory effort and able to speak in complete sentences Auscultation: clear to auscultation bilaterally Cardio Jugular venous distension: no JVD Rate: regular rate Rhythm: regular rhythm Heart sounds: S1 normal heart sound present, S2 normal heart sound present and no murmurs GI Palpation (GI): Soft to palpation and nontender General: Yes no CVA tenderness Back/Spine/Pelvis Back: no CVA tenderness Skin Lesions: no lesions Rashes: no rashes Extrem General: No edema and No pedal edema Results Reviewed Nephrology Results: Hgb 13.7 g/dl (12.0-16.0) 07/30/24 WBC 8.3 X10*3/uL (4.8-10.8) 07/30/24 Plt Count 252 X10*3/uL (160-400) 07/30/24 Sodium 140 mmol/L (135-145) 07/30/24 Potassium 4.2 mmol/L (3.3-5.1) 07/30/24 Chloride 109 mmol/L (96-108) H 07/30/24 Carbon Dioxide 24 mmol/L (22-29) 07/30/24 BUN 14 mg/dL (9-16) 07/30/24 Creatinine 0.82 mg/dL (0.5-1.4) 07/30/24 Calcium 8.6 mg/dL (8.4-10.2) 07/30/24 Urine Protein Negative mg/dL (Neg-Trace) 04/11/24 Renal US 01/31/24 Assessment & Plan Assessment & Plan (1) Nephrocalcinosis: Code(s): E83.59 - Other disorders of calcium metabolism; N29 - Other disorders of kidney and ureter in diseases classified elsewhere Category: Medical (2) Hypotension: Code(s): I95.9 - Hypotension, unspecified Category: Medical Qualifiers: Hypotension type: orthostatic hypotension Qualified Code(s): I95.1 - Orthostatic hypotension (3) Orthostasis: Code(s): I95.1 - Orthostatic hypotension Category: Medical Plan Middle aged woman with multiple medical problems including elevated BMI, referred for possible nephrocalcinosis Currently, renal function is normal NO obstrucion bsed on recent imaging studies Renal ultrasound from January 2024 shows bilateral medullary sponge kidney, along with 6mm nonobstructing stone in the right side 24 urine collection showed a volume of 2825. Urinary calcium excretion oxalate excretion and sodium excretion were appropriate. she should continue hctz 12.5mg daily due to low blood pressures and orthostasis, will add 2.5mg BID PO midodrine she will return to the office in 3 days advised continue with adequate hydration, 2-3L daily advised increase salt intake in her diet continue to drink lemon juice regularly she will return in 3 days to office Medications: New midodrine do not give last dose of day after 6PM or within 4 hrs of bedtime 2.5 mg PO BID 30 tabs 0RF Coding Level of Care Code Est Pt Level 4 (74498) Diagnoses Nephrocalcinosis E83.59; N29 Orthostatic hypotension I95.1 Hypotension type: orthostatic hypotension Orthostasis I95.1 Time Spent (min) 30 Comment times spent assessing, counseling, documentation and chart review: 30 minutes
[2024-08-08 11:02] VITALS: BP 90/60; PULSE 69; O2SAT 98; BMI 33.3
[2024-08-08 11:20] VITALS: BP 72/58
== END 2024-08-08 11:37 | disposition home or self-care (01) ==
PROVIDERS: PCP Internal Medicine; Visit Provider Nurse Practitioner Family
DX: E83.59 Other disorders of calcium metabolism (principal); N29 Other disorders of kidney and ureter in diseases classified elsewhere; I95.1 Orthostatic hypotension
CPT/HCPCS: 99214

== ENCOUNTER → 2024-08-08 10:31 | Outpatient (BNVA) | payer MEDICAID, SELFPAY | PROVIDERS: PCP Internal Medicine; Visit Provider Internal Medicine Nephrology | DX: E83.59 Other disorders of calcium metabolism (principal); N29 Other disorders of kidney and ureter in diseases classified elsewhere; I95.1 Orthostatic hypotension | CPT/HCPCS: 99212 ==

== ENCOUNTER 2024-08-11 12:48 | Outpatient (AMB) | payer MEDICAID, SELFPAY ==
--- NOTE | 2024-08-11 12:17 | HO.NEPHOV_ITS ---
Intake Visit Reasons: BP Re-Check Allergies hydromorphone [From DILAUDID] Allergy (Severe, Verified 08/08/24 10:58) Anaphylaxis iodine Allergy (Severe, Verified 08/08/24 10:58) Anaphylaxis morphine [MORPHINE] Allergy (Unknown, Verified 08/08/24 10:58) UNKNOWN SEAFOOD Allergy (Severe, Uncoded 10/18/23 12:47) HIVES black pepper Allergy (Mild, Uncoded 10/18/23 12:47) Itching Oatmeal Allergy (Mild, Uncoded 10/18/23 12:47) Itching Peanuts Allergy (Mild, Uncoded 10/18/23 12:47) Itching HPI Comments Details: Amaya is a 49 yr old woman with multiple medical problems Medical history includes nephrocalcinosis, morbid obesity, asthma, hypothyroidism, depression with anxiety, DCIS of breast, fibromyalgia, osteoarthritis. Most recent renal ultrasound on 01/31/24 showed bilateral medullary sponge kidney. There was a 6mm nonobstructing renal stone in the mid right kidney. 24 urine collection showed a volume of 2825. Urinary calcium excretion oxalate excretion and sodium excretion where normal. home blood pressures SBPs 90s/60s little bit of dizziness, sometimes palpitations sweating palms cold, tired no shortness of breath or chest pain saw box office manager at [facility] waiting for ultrasound [facility] Medical History (Updated 08/08/24 @ 11:42 by Annamarie Helton, DNP, BRIDGE GANG WORKER-) Mood disorder External hemorrhoids Adenomatous colon polyp Depression with anxiety Asthma Breast cancer, left Colon cancer screening Hx of thyroid disease Surgical History S/P lumpectomy, left breast History of removal of ovarian cyst History of endometrial ablation History of colonoscopy History of cholecystectomy History of delivery Hx of tubal ligation Family History Maternal Grandfather History of prostate cancer Maternal Aunt History of ovarian cancer Maternal Uncle History of thyroid cancer Maternal Uncle Cancer of unknown origin Social History Alcohol intake: never Patient Tobacco Use Status: Never used Tobacco Sexual orientation: Straight/Heterosexual Gender identity: Female Female Reproductive History Menstrual Age of Menarche: 12 Review of Systems Const Reports fatigue, Denies headache(s) and Reports lethargy ENT Reports dizziness and Denies headache(s) Card Denies chest pain, Reports lightheadedness, Denies dyspnea and Denies dyspnea on exertion Resp Denies dyspnea and Denies dyspnea on exertion GI Denies abdominal pain, Denies constipation, Denies diarrhea, Denies nausea and Denies vomiting Denies hematuria, Denies difficulty voiding, Denies dysuria and Denies flank pain Musc Reports arthralgias (chronic joint pain, mostly in back) and Denies joint swelling Skin/Breast Denies rash Neuro Reports dizziness and Denies headache(s) Endo Reports fatigue Physical Exam Const General: no acute distress, alert and awake Resp Effort & Inspection: normal respiratory effort and able to speak in complete sentences Auscultation: clear to auscultation bilaterally Cardio Jugular venous distension: no JVD Rate: regular rate Rhythm: regular rhythm Heart sounds: S1 normal heart sound present, S2 normal heart sound present and no murmurs GI Palpation (GI): Soft to palpation and nontender General: Yes no CVA tenderness Back/Spine/Pelvis Back: no CVA tenderness Skin Lesions: no lesions Rashes: no rashes Extrem General: No edema and No pedal edema Results Reviewed Nephrology Results: Hgb 13.7 g/dl (12.0-16.0) 07/30/24 WBC 8.3 X10*3/uL (4.8-10.8) 07/30/24 Plt Count 252 X10*3/uL (160-400) 07/30/24 Sodium 140 mmol/L (135-145) 07/30/24 Potassium 4.2 mmol/L (3.3-5.1) 07/30/24 Chloride 109 mmol/L (96-108) H 07/30/24 Carbon Dioxide 24 mmol/L (22-29) 07/30/24 BUN 14 mg/dL (9-16) 07/30/24 Creatinine 0.82 mg/dL (0.5-1.4) 07/30/24 Calcium 8.6 mg/dL (8.4-10.2) 07/30/24 Urine Protein Negative mg/dL (Neg-Trace) 04/11/24 Assessment & Plan Assessment & Plan (1) Nephrocalcinosis: Code(s): E83.59 - Other disorders of calcium metabolism; N29 - Other disorders of kidney and ureter in diseases classified elsewhere Category: Medical (2) Hypotension: Code(s): I95.9 - Hypotension, unspecified Category: Medical Qualifiers: Hypotension type: orthostatic hypotension Qualified Code(s): I95.1 - Orthostatic hypotension (3) Orthostasis: Code(s): I95.1 - Orthostatic hypotension Category: Medical Plan Middle aged woman with multiple medical problems including elevated BMI, r eferred for possible nephrocalcinosis Currently, renal function is normal No obstruction based on recent imaging studies Renal ultrasound from January 2024 shows bilateral medullary sponge kidney, along with 6mm nonobstructing stone in the right side 24 urine collection showed a volume of 2825. Urinary calcium excretion oxalate excretion and sodium excretion were appropriate. she should continue hctz 12.5mg daily due to low blood pressures and orthostasis, will add 2.5mg BID PO midodrine she will return to the office in 3 days advised continue with adequate hydration, 2-3L daily advised increase salt intake in her diet continue to drink lemon juice regularly she will return in 3 days to office Coding Level of Care Code Est Pt Level 4 (38709) Diagnoses Nephrocalcinosis E83.59; N29 Orthostatic hypotension I95.1 Hypotension type: orthostatic hypotension Orthostasis I95.1
--- NOTE | 2024-08-11 13:06 | HO.NEPHOV ---
Vital Signs 08/11/24 13:07 Height 5 ft Weight 169 lb BMI 33.0 BP 98/64 Blood Pressure Location Rt brachial Position Sitting Pulse 98 Pulse Source Pulse Oximeter Pulse Oximetry (%) 89 L Oxygen Delivery Method Room Air Intake Visit Reasons: BP Re-Check Template Layout Worker Required: Yes Template Layout Worker Name: [id number] Gena Accompanied by: Daughter Allergies hydromorphone [From DILAUDID] Allergy (Severe, Verified 08/11/24 13:09) Anaphylaxis iodine Allergy (Severe, Verified 08/11/24 13:09) Anaphylaxis morphine [MORPHINE] Allergy (Unknown, Verified 08/11/24 13:09) UNKNOWN SEAFOOD Allergy (Severe, Uncoded 10/18/23 12:47) HIVES black pepper Allergy (Mild, Uncoded 10/18/23 12:47) Itching Oatmeal Allergy (Mild, Uncoded 10/18/23 12:47) Itching Peanuts Allergy (Mild, Uncoded 10/18/23 12:47) Itching Medication List - Last Reconciled 08/11/24 by Vinny Hodge MD albuterol sulfate 90 mcg/actuation (ProAir HFA) 1 puff PO Q4H PRN albuterol sulfate 5 mg continuous nebulization Q6H PRN cetirizine 10 mg PO DAILY PRN cholecalciferol (vitamin D3) 25 mcg PO DAILY clonidine HCl 0.1 mg PO BEDTIME duloxetine 20 mg PO BEDTIME fluticasone propion-salmeterol 230-21 mcg/actuation (Advair HFA) 2 puffs PO BID gabapentin 400 mg PO QID hydrochlorothiazide 12.5 mg (1/2 x 25 mg) PO DAILY hydroxyzine pamoate 25 mg PO BID PRN levothyroxine 75 mcg PO DAILY medroxyprogesterone (Provera) 10 mg PO DAILY 10 days metronidazole 500 mg PO BID 14 days midodrine 2.5 mg PO BID mirtazapine 1 tab PO BEDTIME montelukast 10 mg PO QPM omega-3 fatty acids 1,000 mg PO DAILY omeprazole 1 cap PO DAILY ondansetron 4 mg PO Q4-6H PRN quetiapine 400 mg PO BEDTIME tiotropium bromide (Spiriva with HandiHaler) 1 cap inhalation DAILY tramadol 50 mg PO Q6H PRN zolpidem 1 tab PO BEDTIME PRN HPI Comments Details: Amaya is a 48 yr old woman with multiple medical problems Referred for possible nephrolithiasis She was seen by and has decided to switch to my care All lab results were reviewed. Rcent CT scan showed unremarkable kidneys and no renal stones She underwent 24 urine collection. Follow-up ultrasound showed a 6 mm stone on the right side with evidence of middle-aged sponge kidney bilaterally 08/11/24 Midodrine was added for few days BP is better On Hctz 12.5 mg PFSH Medical History (Updated 08/08/24 @ 11:42 by Annamarie Helton, DNP, TELESCOPE MAINTENANCE-BC) Mood disorder External hemorrhoids Adenomatous colon polyp Depression with anxiety Asthma Breast cancer, left Colon cancer screening Hx of thyroid disease Surgical History S/P lumpectomy, left breast History of removal of ovarian cyst History of endometrial ablation History of colonoscopy History of cholecystectomy History of delivery Hx of tubal ligation Family History Maternal Grandfather History of prostate cancer Maternal Aunt History of ovarian cancer Maternal Uncle History of thyroid cancer Maternal Uncle Cancer of unknown origin Social History Alcohol intake: never Patient Tobacco Use Status: Never used Tobacco Sexual orientation: Straight/Heterosexual Gender identity: Female Female Reproductive History Menstrual Age of Menarche: 12 Physical Exam Vital Signs: Last Vital Signs Pulse 98 08/11/24 13:07 BP 98/64 08/11/24 13:07 Pulse Ox 89 L 08/11/24 13:07 Oxygen Delivery Method Room Air 08/11/24 13:07 BMI result Body Mass Index 33.0 Results Reviewed Nephrology Results: Hgb 13.7 g/dl (12.0-16.0) 07/30/24 WBC 8.3 X10*3/uL (4.8-10.8) 07/30/24 Plt Count 252 X10*3/uL (160-400) 07/30/24 Sodium 140 mmol/L (135-145) 07/30/24 Potassium 4.2 mmol/L (3.3-5.1) 07/30/24 Chloride 109 mmol/L (96-108) H 07/30/24 Carbon Dioxide 24 mmol/L (22-29) 07/30/24 BUN 14 mg/dL (9-16) 07/30/24 Creatinine 0.82 mg/dL (0.5-1.4) 07/30/24 Calcium 8.6 mg/dL (8.4-10.2) 07/30/24 Urine Protein Negative mg/dL (Neg-Trace) 04/11/24 Assessment & Plan Assessment & Plan (1) Nephrocalcinosis: Code(s): E83.59 - Other disorders of calcium metabolism; N29 - Other disorders of kidney and ureter in diseases classified elsewhere Category: Medical (2) Hypotension: Code(s): I95.9 - Hypotension, unspecified Category: Medical Qualifiers: Hypotension type: orthostatic hypotension Qualified Code(s): I95.1 - Orthostatic hypotension (3) Orthostasis: Code(s): I95.1 - Orthostatic hypotension Category: Medical Plan Middle aged woman with multiple medical problems including elevated BMI, referred for possible nephrocalcinosis Currently, renal function is normal NO obstruction based on recent imaging studies Ultrasonogram shows bilateral medullary sponge kidney. There is a 6 mm nonobstructing stone in the right side 24 urine collection showed a volume of 2825. Urinary calcium excretion oxalate excretion and sodium excretion where appropriate. HOLD hydrochlorothiazide. Can DC Midodrine Repeat 24 hr urine studies for stone Orders: Orders Calcium, 24 Hr Ur 2 Weeks E83.59 - Other disorders of calcium metabolism, N29 - Other disorders of kidney and ureter in diseases classified elsewhere Citric Acid 24hr Urine 2 Weeks E83.59 - Other disorders of calcium metabolism, N29 - Other disorders of kidney and ureter in diseases classified elsewhere Basic Metabolic Panel 2 Weeks E83.59 - Other disorders of calcium metabolism, I95.1 - Orthostatic hypotension, N29 - Other disorders of kidney and ureter in diseases classified elsewhere Sodium, 24Hr Urine Group 2 Weeks E83.59 - Other disorders of calcium metabolism, N29 - Other disorders of kidney and ureter in diseases classified elsewhere Creatinine, 24 Hr Group 2 Weeks E83.59 - Other disorders of calcium metabolism, N29 - Other disorders of kidney and ureter in diseases classified elsewhere Medications: Discontinued hydrochlorothiazide Discontinued Reason: Doctor's Order 12.5 mg (1/2 x 25 mg) PO DAILY 90 tabs 1RF midodrine do not give last dose of day after 6PM or within 4 hrs of bedtime Discontinued Reason: Doctor's Order 2.5 mg PO BID 30 tabs 0RF Coding Level of Care Code Est Pt Level 4 (11677) Diagnoses Nephrocalcinosis E83.59; N29 Orthostatic hypotension I95.1 Hypotension type: orthostatic hypotension Orthostasis I95.1
[2024-08-11 13:07] VITALS: BP 98/64; PULSE 98; O2SAT 89; BMI 33.0
== END 2024-08-11 13:25 | disposition home or self-care (01) ==
PROVIDERS: PCP Internal Medicine; Visit Provider Nurse Practitioner Family
DX: E83.59 Other disorders of calcium metabolism (principal); N29 Other disorders of kidney and ureter in diseases classified elsewhere; I95.1 Orthostatic hypotension
CPT/HCPCS: 99214

== ENCOUNTER → 2024-08-11 12:48 | Outpatient (BNVA) | payer MEDICAID, SELFPAY | PROVIDERS: PCP Internal Medicine; Visit Provider Nurse Practitioner Family | DX: I95.1 Orthostatic hypotension (principal); Q61.5 Medullary cystic kidney; N20.0 Calculus of kidney; N29 Other disorders of kidney and ureter in diseases classified elsewhere | CPT/HCPCS: 99212 ==

== ENCOUNTER 2024-08-26 09:50 | Outpatient (REF) | payer MEDICAID, SELFPAY ==
[2024-08-26 12:00] LABS: Creatinine, mg/dL 29.25
[2024-08-26 13:41] LABS: Creatinine, 24Hr Urine 0.9 G/Day (1.0-2.0); Sodium 24 Hr Urine 99.2 mmol/Day (40-220); Total Volume 24 Hour Urine 3100 mL
[2024-08-28 19:33] LABS: Calcium, 24 Hr Urine 133 mg/24 h; Calcium/Creatinine Ratio 139 mg/g creat (30-275); Creatinine 24Hr Urine 0.96 g/24 h (0.50-2.15)
[2024-09-05 07:33] LABS: 24hr Urine Total Volume 3100 mL; Citric Acid, 24hr Urine 267 mg/24 h (100-1300); Citric Acid/Creat Ratio 24U 283 mg/g creat (180-1070); Creatinine, 24U 0.94 g/24 h (0.50-2.15)
== END 2024-08-26 09:51 | disposition home or self-care (01) ==
LOC: HO.LNP 09:50
PROVIDERS: Visit Provider Internal Medicine Hypertension Specialist
DX: E83.59 Other disorders of calcium metabolism (principal); N29 Other disorders of kidney and ureter in diseases classified elsewhere
CPT/HCPCS: 82340; 82507; 84300

== ENCOUNTER 2024-09-29 11:57 | Outpatient (AMB) | payer MEDICAID, SELFPAY ==
--- NOTE | 2024-09-29 12:02 | HO.NEPHOV_ITS ---
Vital Signs 09/29/24 12:06 Height 5 ft Weight 175 lb 2 oz BMI 34.2 BP 90/60 Blood Pressure Location Rt brachial Position Sitting Pulse 80 Pulse Source Pulse Oximeter Pulse Oximetry (%) 97 Oxygen Delivery Method Room Air Intake Visit Reasons: Hypotension/ conf Weaving Professor Required: Yes Weaving Professor Language: Food And Beverage Order Clerk Services: Weaving Professor Present Weaving Professor Name: Shannan [id number] Accompanied by: Self / Same As Patient Allergies hydromorphone [From DILAUDID] Allergy (Severe, Verified 09/29/24 12:06) Anaphylaxis iodine Allergy (Severe, Verified 09/29/24 12:06) Anaphylaxis morphine [MORPHINE] Allergy (Unknown, Verified 09/29/24 12:06) UNKNOWN SEAFOOD Allergy (Severe, Uncoded 10/18/23 12:47) HIVES black pepper Allergy (Mild, Uncoded 10/18/23 12:47) Itching Oatmeal Allergy (Mild, Uncoded 10/18/23 12:47) Itching Peanuts Allergy (Mild, Uncoded 10/18/23 12:47) Itching Medication List - Last Reconciled 09/29/24 by Vinny Hodge MD albuterol sulfate 90 mcg/actuation (ProAir HFA) 1 puff PO Q4H PRN albuterol sulfate 5 mg continuous nebulization Q6H PRN cetirizine 10 mg PO DAILY PRN cholecalciferol (vitamin D3) 25 mcg PO DAILY clonidine HCl 0.1 mg PO BEDTIME duloxetine 20 mg PO BEDTIME fluticasone propion-salmeterol 230-21 mcg/actuation (Advair HFA) 2 puffs PO BID gabapentin 400 mg PO QID hydroxyzine pamoate 25 mg PO BID PRN levothyroxine 75 mcg PO DAILY medroxyprogesterone (Provera) 10 mg PO DAILY 10 days metronidazole 500 mg PO BID 14 days mirtazapine 1 tab PO BEDTIME montelukast 10 mg PO QPM omega-3 fatty acids 1,000 mg PO DAILY omeprazole 1 cap PO DAILY ondansetron 4 mg PO Q4-6H PRN quetiapine 400 mg PO BEDTIME tiotropium bromide (Spiriva with HandiHaler) 1 cap inhalation DAILY tramadol 50 mg PO Q6H PRN zolpidem 1 tab PO BEDTIME PRN HPI Comments Details: Amaya is a 48 yr old woman with multiple medical problems Referred for possible nephrolithiasis She was seen by and has decided to switch to my care All lab results were reviewed. Rcent CT scan showed unremarkable kidneys and no renal stones She underwent 24 urine collection. Follow-up ultrasound showed a 6 mm stone on the right side with evidence of middle-aged sponge kidney bilaterally 08/11/24 Midodrine was added for few days BP is better On Hctz 12.5 mg 09/29/24 After stopping HCTZ, BP is better c/o leg pain PFSH Medical History (Updated 08/08/24 @ 11:42 by Annamarie Helton, DNP, WAITER/WAITRESS ROOM SERVICE-BC) Mood disorder External hemorrhoids Adenomatous colon polyp Depression with anxiety Asthma Breast cancer, left Colon cancer screening Hx of thyroid disease Surgical History S/P lumpectomy, left breast History of removal of ovarian cyst History of endometrial ablation History of colonoscopy History of cholecystectomy History of delivery Hx of tubal ligation Family History Maternal Grandfather History of prostate cancer Maternal Aunt History of ovarian cancer Maternal Uncle History of thyroid cancer Maternal Uncle Cancer of unknown origin Social History Alcohol intake: never Patient Tobacco Use Status: Never used Tobacco Sexual orientation: Straight/Heterosexual Gender identity: Female Female Reproductive History Menstrual Age of Menarche: 12 Physical Exam Vital Signs: Last Vital Signs Pulse 80 09/29/24 12:06 BP 90/60 09/29/24 12:06 Pulse Ox 97 09/29/24 12:06 Oxygen Delivery Method Room Air 09/29/24 12:06 BMI result Body Mass Index 34.2 Comfortable Neck supple no JVD. Lungs entry equal no rales. Heart S1-S2 heard no gallop or rub. Abdomen soft nontender. Neuro alert awake oriented. No asterixis. Extremities no edema. Results Reviewed Nephrology Results: Hgb 13.7 g/dl (12.0-16.0) 07/30/24 WBC 8.3 X10*3/uL (4.8-10.8) 07/30/24 Plt Count 252 X10*3/uL (160-400) 07/30/24 Sodium 140 mmol/L (135-145) 07/30/24 Potassium 4.2 mmol/L (3.3-5.1) 07/30/24 Chloride 109 mmol/L (96-108) H 07/30/24 Carbon Dioxide 24 mmol/L (22-29) 07/30/24 BUN 14 mg/dL (9-16) 07/30/24 Creatinine 0.82 mg/dL (0.5-1.4) 07/30/24 Calcium 8.6 mg/dL (8.4-10.2) 07/30/24 Urine Protein Negative mg/dL (Neg-Trace) 04/11/24 Assessment & Plan Assessment & Plan (1) Nephrocalcinosis: Code(s): E83.59 - Other disorders of calcium metabolism; N29 - Other disorders of kidney and ureter in diseases classified elsewhere Category: Medical (2) Orthostasis: Code(s): I95.1 - Orthostatic hypotension Category: Medical Plan Middle aged woman with multiple medical problems including elevated BMI, referred for possible nephrocalcinosis Currently, renal function is normal NO obstruction based on recent imaging studies Ultrasonogram shows bilateral medullary sponge kidney. There is a 6 mm nonobstructing stone in the right side 24 urine collection showed a volume of 2825. Urinary calcium excretion oxalate excretion and sodium excretion where appropriate. Follow up USG ordered Orders: Orders US renal BI Today E83.59 - Other disorders of calcium metabolism, I10 - Essential (primary) hypertension, N29 - Other disorders of kidney and ureter in diseases classified elsewhere Coding Level of Care Code Est Pt Level 4 (70606) Diagnoses Nephrocalcinosis E83.59; N29 Orthostasis I95.1
[2024-09-29 12:06] VITALS: BP 90/60; PULSE 80; O2SAT 97; BMI 34.2
== END 2024-09-29 12:21 | disposition home or self-care (01) ==
PROVIDERS: PCP Internal Medicine; Visit Provider Internal Medicine Hypertension Specialist
DX: E83.59 Other disorders of calcium metabolism (principal); N29 Other disorders of kidney and ureter in diseases classified elsewhere; I95.1 Orthostatic hypotension
CPT/HCPCS: 99214

== ENCOUNTER → 2024-09-29 11:57 | Outpatient (BNVA) | payer MEDICAID, SELFPAY | PROVIDERS: PCP Internal Medicine; Visit Provider Internal Medicine Hypertension Specialist | DX: I95.1 Orthostatic hypotension (principal); N29 Other disorders of kidney and ureter in diseases classified elsewhere; E83.59 Other disorders of calcium metabolism | CPT/HCPCS: 99212 ==

== ENCOUNTER 2024-10-03 13:21 | Outpatient (REF) | payer MEDICAID, SELFPAY ==
--- NOTE | ~2024-10-03 | US_ITS ---
CLINICAL HISTORY: I10 - Essential (primary) hypertension US RENAL Comparison: US/ND/SR - US RENAL BI - 01/31/24 09:17 EDT Findings: Right kidney: 11.1 cm in length. Mild diffuse renal cortical thinning. Redemonstration of echogenic medullary pyramids. Stable 6 mm midpole calculus. Additional midpole calculus measures 4 mm. No hydronephrosis. No cortical mass lesion. Left kidney: 11.9 cm in length. Mild diffuse cortical thinning. Redemonstration of echogenic medullary pyramids. No calculus identified. Mild fullness of the renal pelvis. No lady hydronephrosis. 12 mm cyst in the lower pole is without significant change. IMPRESSION: 1. No hydronephrosis. 2. Nonobstructing right nephrolithiasis. 3. Echogenic medullary pyramids can be seen with medullary sponge kidneys. 4. Small left renal cyst. This document has been electronically signed by: Marie Guido DO on 10/03/2024 14:57:21
== END 2024-10-03 13:22 | disposition home or self-care (01) ==
LOC: HO.US 13:21
PROVIDERS: PCP Internal Medicine; Visit Provider Internal Medicine Hypertension Specialist
DX: E83.59 Other disorders of calcium metabolism (principal); N29 Other disorders of kidney and ureter in diseases classified elsewhere; I10 Essential (primary) hypertension
CPT/HCPCS: 76775

== ENCOUNTER → 2024-10-03 13:24 | Outpatient (BNV) | payer MEDICAID, SELFPAY | PROVIDERS: PCP Internal Medicine; Visit Provider Radiology Diagnostic Radiology | DX: I10 Essential (primary) hypertension (principal); N29 Other disorders of kidney and ureter in diseases classified elsewhere | CPT/HCPCS: 76775 ==

== ENCOUNTER 2024-12-29 | Outpatient (REF) | payer MEDICAID, SELFPAY ==
--- OUTSIDE RECORDS SUMMARY | 2024-12-30 13:50 | XMS_ITS | Encounter Summary ---
Author Organization [facility] Address [address] [place] [address] Phone Care Team Providers Care Drying Room Attendant Name Role Phone Idalmis Jacques MD Primary Care Provide r Encounter Details Date Type Department Care Team (Late st Contact Info) Description 01/15/2024 Documentation Only [facility] [place], [address] [facility] [place] [address] Kimberlee Madrid [address] [place] [address] Social History Tobacco Use Types Packs/Day Years Used Date Smoking Tobacco: Never Smokeless Tobacco: Never Alcohol Use Standard Drinks/Week Comments No 0 (1 standard drink = 0.6 oz pur e alcohol) Comments Unknown Sex and Gender Information Value Date Recorded Sex Assigned at Not on file Legal Sex Female 4:33 PM EST Gender Identity Not on file Sexual Orientation Not on file documented as of this encounter Plan of Treatment Not on file documented as of this encounter Visit Diagnoses Not on filedocumented in this encounter Care Teams Drying Room Attendant Relationship Specialty Start Date End Date Idalmis Jacques MD [address] [phone] PCP - General 08/05/19 documented as of this encounter
--- OUTSIDE RECORDS SUMMARY | 2024-12-30 13:50 | XMS_ITS | Encounter Summary ---
Author Organization [employer] Address [address] [facility] [address] [place] [address] Care Team Providers Care Water Pump Servicer Name Role Phone Idalmis Jacques MD Primary Care Provide r Encounter Details Date Type Department Care Team (Late st Contact Info) Description 04/08/2024 Orders Only [facility] [address] [place], [place] [phone] Idalmis Jacques MD [address] [place], [place] [phone] Social History Tobacco Use Types Packs/Day Years Used Date Smoking Tobacco: Never Passive Smoke Exposure: Never Smokeless Tobacco: Never Alcohol Use Standard Drinks/Week Comments Never 0 (1 standard drink = 0.6 oz pur e alcohol) PHQ-2 Answer Date Recorded Patient Health Questionnaire-2 Score 0 10/27/2022 Housing Stability Answer Date Recorded What is your housing situation today? I have candy germain 01/11/[address] you li ve. Do you have problems with any of the following? None of the above 01/11/2024 Food Insecurity Answer Date Recorded Within the past 12 months, y ou worried that your food would run out before you got money to buy more: Sometimes True 2023 Within the past 12 months,th e food you bought just didn't last and you didn't have enough money to get more: Sometimes True 01/11/2024 Transportation Answer Date Recorded In the past 12 months, has l ack of transportation kept you from medical appts, meetings, work or from getting things needed for daily living? No 01/11/2024 Utilities Answer Date Recorded In the past 12 months, has t he electric, gas, oil or water company threatened to shut off services in your home? No 01/11/2024 Depression Answer Date Recorded Patient Health Questionnaire-2 Score 0 10/27/2022 Comments Unknown Sex and Gender Information Value Date Recorded Sex Assigned at Female 2022 10:29 AM EDT Legal Sex Female 10:29 AM EDT Gender Identity Female 2022 10:29 AM EDT Sexual Orientation Choose not to disclose 2021 10:29 AM EDT documented as of this encounter Plan of Treatment Upcoming Encounters Date Type Department Care Team (Late st Contact Info) Description 01/23/2025 3:00 PM EDT Office Visit [facility] [address] [place] [phone] Johanny Rick MD [address] [place] [phone] 01/27/2025 9:00 AM EDT Office Visit [address] [address] Idalmis Jacques MD [address] [place] [phone] 03/03/2025 9:30 AM EDT Clinical Support [address] [phone] Micaela Hernandez, RN documented as of this encounter Visit Diagnoses Not on filedocumented in this encounter Care Teams Water Pump Servicer Relationship Specialty Start Date End Date Idalmis Jacques MD [address] [place] [phone] PCP - General Family Medicine 09/11/18 Micaela Recio Rotary Engraver 01/11/24 04/11/24 luciana Leyva Community Health Worker Case Management 02/28/24 documented as of this encounter
--- OUTSIDE RECORDS SUMMARY | 2024-12-30 13:50 | XMS_ITS | Clinical Summary ---
Author Organization [facility] Address [address] [place] [address] Care Team Providers Care Delivery Truck Driver Name Role Phone Idalmis Jacques MD Primary Care Provide r Surgical History Surgery Date Site/Laterality Comments BREAST SURGERY PROCEDURE: [place] UNLISTED PROCEDURE BREAST OTHER SURGICAL HISTORY PROCEDURE: LAPAROSCOPY, SURGICAL/REMOVE TUMOR; COMMENT: left lower leg CHOLECYSTECTOMY 03/20/2021 PROCEDURE: [place] LAPAROSCOPY SURG CHOLECYSTECTOMY Medical History Medical History Date Comments Urine abnormality DX:Urine abnor mality; COMMENT: hi calcium in urine Breast cancer DX:Breast cancer (HCC) Bilateral sacroiliitis DX:Bilate ral sacroiliitis (HCC) Bree's thyroiditis DX:Terese rosangela's thyroiditis Anxiety DX:Anxiety Varicose veins of right lowe r extremity with edema DX:Varicose veins of right l ower extremity with edema Chronic bilateral low back p ain without sciatica DX:Chronic bilateral low anita k pain without sciatica Family History Medical History Relation Name Comments Arthritis Mother Diabetes Mother Osteoporosis Mother Other: heart disease Mother Other: lupus Mother Sleep apnea Mother Relation Name Status Comments Father doesn't know him Alive Mother Alive Social History Tobacco Use Types Packs/Day Years Used Date Smoking Tobacco: Never Smokeless Tobacco: Never Alcohol Use Standard Drinks/Week Comments Never 0 (1 standard drink = 0.6 oz pur e alcohol) Comments Unknown Sex and Gender Information Value Date Recorded Sex Assigned at Not on file Legal Sex Female 9:05 AM EST Gender Identity Not on file Sexual Orientation Not on file Obstetrics History Plan of Treatment Health Maintenance Due Date Last Done Comments Breast Cancer Screening 1975 DTaP,Tdap,and Td Vaccines (1 - Tdap) 1994 Hepatitis B Vaccines (1 of 3 - 19+ 3-dose series) 1994 Cervical Cancer Screening: P ap Smear 1996 Colorectal Cancer Screening: Colonoscopy 09/03/2022 Depression Screening 09/03/2022 HIV Screening 09/03/2022 Hepatitis C Screening 09/03/2022 Social Influencers of Health Screening 09/03/2022 COVID-19 Vaccine (1 - 2023-2 5 season) 2024 Influenza Vaccine (#1) 2024 HIB Vaccines Aged Out No longer eligi ble based on patient's age to complete this topic HPV Vaccines Aged Out No longer eligi ble based on patient's age to complete this topic Hepatitis A Vaccines Aged Out No long er eligible based on patient's age to complete this topic IPV Vaccines Aged Out No longer eligi ble based on patient's age to complete this topic MMR Vaccines Aged Out No longer eligi ble based on patient's age to complete this topic Meningococcal ACWY Vaccine Aged Out N o longer eligible based on patient's age to complete this topic Meningococcal B Vacine Aged Out No lo nger eligible based on patient's age to complete this topic Pneumococcal Vaccine: Pediat rics (0 to 5 Years) and At-Risk Patients (6 to 64 Years) Aged Out No longer eligible b ased on patient's age to complete this topic RSV Immunization Patients Un huy 20 months Aged Out No longer eligible b ased on patient's age to complete this topic Varicella Vaccines Aged Out No longer eligible based on patient's age to complete this topic Care Teams Delivery Truck Driver Relationship Specialty Start Date End Date Idalmis Jacques MD [address] [place] [phone] PCP - General Internal Medicine 04/29/21
--- OUTSIDE RECORDS SUMMARY | 2024-12-30 13:50 | XMS_ITS | Encounter Summary ---
Author Organization [employer] Address [address] [facility] [address] [place] [address] Care Team Providers Care Carton Forming Machine Adjuster Name Role Phone Idalmis Jacques MD Primary Care Provide r Encounter Details Date Type Department Care Team (Late st Contact Info) Description 10/07/2024 Orders Only [facility] [address] [place], [place] [phone] Idalmis Jacques MD [address] [place], [place] [phone] Social History Tobacco Use Types Packs/Day Years Used Date Smoking Tobacco: Never Passive Smoke Exposure: Never Smokeless Tobacco: Never Alcohol Use Standard Drinks/Week Comments Never 0 (1 standard drink = 0.6 oz pur e alcohol) Alcohol Answer Date Recorded Frequency of Alcohol Consumption Not on file 04/22/2024 Average Number of Drinks Not on file 024 Frequency of Binge Drinking Not on file 04/01 Score 0 04/22/2024 Depression Answer Date Recorded Patient Health Questionnaire-9 Score 0 07/23/2024 Patient Health Questionnaire-9 Score 0 07/23/2024 Last PHQ-9: Questionnaire Data Not on file 1 Housing Stability Answer Date Recorded What is [...] Date Recorded Patient Health Questionnaire-2 Score 0 07/23/2024 Comments Unknown Sex and Gender Information Value [...] Description 01/23/2025 3:00 PM EDT Office Visit [address] [phone] Johanny Rick MD [address] [place] [phone] 01/27/2025 9:00 AM EDT Office Visit [address] [phone] Idalmis Jacques MD [address] [place] [phone] 03/03/2025 9:30 AM EDT Clinical Support [address] [phone] Micaela Hernandez RN documented as of this encounter Visit Diagnoses Not on filedocumented in this encounter Additional Health Concerns Assessment Noted Time PHQ-9 Depression Total Score: 0 07/23/20 24 9:22 AM EDT documented as of this encounter Care Teams Carton Forming Machine Adjuster Relationship Specialty Start Date End Date Idalmis Jacques MD [address] [place] [phone] PCP - General Family Medicine 09/11/18 luciana Leyva Community Health Worker Case Management 02/28/24 documented as of this encounter
--- OUTSIDE RECORDS SUMMARY | 2024-12-30 13:50 | XMS_ITS | Encounter Summary ---
Author Organization [facility] Address [address] [place] [address] Phone Care Team Providers Care Summer School Coordinator Name Role Phone Idalmis Jacques MD Primary Care Provide r Encounter Details Date Type Department Care Team (Late st Contact Info) Description 11/29/2023 Documentation Only [facility], [address] [facility] [place] [address] Kimberlee Madrid [address] [place] [address] Social History Tobacco Use Types Packs/Day Years Used Date Smoking Tobacco: Never Alcohol Use Standard Drinks/Week Comments [...] on filedocumented in this encounter Care Teams Summer School Coordinator Relationship Specialty Start Date End Date Idalmis Jacques MD [address] [place] [phone] PCP - General 08/05/19 documented as of this encounter
--- OUTSIDE RECORDS SUMMARY | 2024-12-30 13:50 | XMS_ITS | Encounter Summary ---
Author Organization [employer] Address [address] [facility] 7t [place] [address] Care Team Providers Care Personal Injury Law Specialist Name Role Phone Idalmis Jacques MD Primary Care Provide r Reason for Visit * Reason Comments UTI Encounter Details Date Type Department Care Team ([facility] st Contact Info) Description 12/29/2024 6:40 PM EDT Office Visit [facility] [address] [place] [address] Leona Cee MD [address] [place] [address] Acute cystitis with hematuria (Primary Dx); Dysuria Social History Tobacco Use Types Packs/Day Years [...] AM EDT documented as of this encounter Last Filed Vital Signs Vital Sign Reading Time Taken Comments Blood Pressure 119/65 12/29/2024 6:02 PM EDT Pulse 80 12/29/2024 6:02 PM EDT Temperature 37.2 ??C (99 ??F) 12/29/2024 6:02 PM EDT Respiratory Rate - - Oxygen Saturation - - Inhaled Oxygen Concentration - - Weight 78 kg (172 lb) 12/29/2024 6:02 PM EDT Height 144.8 cm (4' 9 ) 12/29/2024 6:02 PM EDT Body Mass Index 37.22 12/29/2024 6:02 PM EDT documented in this encounter Progress Notes * Leona Cee MD - 12/29/2024 6:40 PM EDT Subjective Patient ID: Amaya Robles is a 49 y.o. female who presents for UTI. UTI This is a new problem. The current episode started today. The problem has been gradually worsening since onset. Associated symptoms include hematuria. C/o burning sensation w/ urination, urinary frequency starting today. No fever or other consitutional symptoms reported. Patient Active Problem List Diagnosis Cyst of kidney, acquired Mixed anxiety and depressive disorder Ductal carcinoma in situ (DCIS) of left breast Elevated liver enzymes Fatty liver 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 Morbid obesity (CMS/HCC) Plantar fasciitis Perimenopause EVA I (cervical intraepithelial neoplasia I) Encounter for preventive health examination Obesity (BMI 35.0-39.9 without comorbidity) Hyperlipidemia LDL goal <100 Vitamin D deficiency Abnormal uterine bleeding Acne Recurrent kidney stones Chronic bilateral low back pain without sciatica Polyarthralgia Chronic pain of right lower extremity Mild intermittent asthma without complication Anxiety 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 Deformity of fibula Disorder of skin color Inflammation of sacroiliac joint (CMS/HCC) Irregular periods Neoplasm of soft tissue Telangiectasia disorder Moderate persistent asthma without complication Stress incontinence of urine Upper abdominal pain Vaginal discharge Varicose veins of lower extremity Rash Chronic ankle pain Chronic low back pain Right leg pain Mood disorder (CMS/HCC) Severe obesity (CMS/HCC) Chronic cough Low blood pressure Thyroiditis Nephrocalcinosis Class 2 severe obesity due to excess calories with serious comorbidity and body mass index (BMI) of39.0 to 39.9 in adult (CMS/HCC) Dyspnea on exertion Palpitations Other fatigue Fibromyalgia Dysuria Gastritis Dizziness Skin cancer screening Vertigo Encounter for preventive care Current Outpatient Medications on File Prior to Visit Medication Sig Dispense Refill Acetaminophen 500 MG capsule Take 2 capsules (1,000 mg) by mouth every 8 (eight) hours. 180 capsule0 Blood Pressure Monitor kit Use as directed 3x/week 1 kit 0 gabapentin (Neurontin) 400 MG capsule Take 1 capsule (400 mg) by mouth 3 times daily. 90 capsule 11 ibuprofen 800 MG tablet TAKE 1 TABLET BY MOUTH THREE TIMES A DAY WITH FOOD 90 tablet 0 levothyroxine (Tirosint) 75 MCG capsule TAKE 1 CAPSULE BY MOUTH EVERY DAY 90 capsule 1 Misc. Devices (Pulse Oximeter For Finger) misc 1 each Once daily. 1 each 0 montelukast (Singulair) 10 MG tablet Take 1 tablet (10 mg) by mouth in the morning. 30 tablet 11 naloxone (Narcan) 4 mg/0.1 mL nasal spray Administer 1 spray (4 mg) into affected nostril(s) if needed for opioid reversal. May repeat every 2-3 minutes if needed, alternating nostrils, until medicalassistance becomes available. 2 each 3 ondansetron (Zofran) 4 MG tablet TAKE 1 TABLET BY MOUTH EVERY 8 HOURS NEEDED FOR NAUSEA OR VOMITING FOR UP TO 7 DAYS 20 tablet 1 oxyCODONE-acetaminophen (Percocet) 5-325 MG tablet Take 1 tablet by mouth every 8 (eight) hours if needed for severe pain for up to 28 days. Do not start before December 11, 2024. 84 tablet 0 phenazopyridine (Pyridium) 200 MG tablet Take 1 tablet (200 mg) by mouth if needed in the morning, at noon, and at bedtime for bladder spasms. 6 tablet 0 No current facility-administered medications on file prior to visit. Allergies Allergen Reactions Morphine Anaphylaxis Uowqlnydaryif-Eqskimxghwa-Innc Azithromycin Rash Review of Systems Constitutional: Negative for activity change, appetite change and chills. Respiratory: Negative for cough, choking and chest tightness. Genitourinary: Positive for frequency, hematuria, pelvic pain and urgency. Negative for enuresis. Objective BP 119/65 (BP Location: Left arm, Patient Position: Sitting, BP Cuff Size: Adult) Pulse 80 Temp99 ??F (37.2 ??C) (Oral) Ht 4' 9 (1.448 m) Wt 172 lb (78 kg) BMI 37.22 kg/m?? Physical Exam Constitutional: General: She is not in acute distress. Appearance: Normal appearance. She is obese. She is not ill-appearing, toxic- appearing or diaphoretic. Cardiovascular: Rate and Rhythm: Normal rate. Pulmonary: Effort: Pulmonary effort is normal. Abdominal: Tenderness: There is abdominal tenderness. There is no right CVA tenderness or left CVA tenderness. Neurological: Mental Status: She is alert. Psychiatric: Mood and Affect: Mood normal. Assessment/Plan Diagnoses and all orders for this visit: Acute cystitis with hematuria Dysuria - POCT urinalysis dipstick manually resulted - Culture, Urine, Routine - nitrofurantoin, macrocrystal-monohydrate, (Macrobid) 100 MG capsule; Take 1 capsule (100 mg) by mouth 2 times daily for 7 days. - phenazopyridine (Pyridium) 200 MG tablet; Take 1 tablet (200 mg) by mouth if needed in the morning, at noon, and at bedtime for bladder spasms for up to 3 days. documented in this encounter Plan of Treatment Upcoming Encounters Date Type Department Care Team (Late st Contact Info) Description 01/23/2025 3:00 PM EDT Office Visit [address] [address] Johanny Rick MD [address] [place] [address] 01/27/2025 9:00 AM EDT Office Visit [address] [phone] Idalmis Jacques MD [address] [place] [address] [phone] 03/03/2025 9:30 AM EDT Clinical Support [address] [phone] Micaela Hernandez RN Scheduled Orders Name Type Priority Associated Diagnoses Orde r Schedule Culture, Urine, Routine Microbiology Routine Dysuria Ordered: 12/29/2024 documented as of this encounter Procedures Procedure Name Priority Date/Time Associated Diagnosis Comments POCT URINALYSIS DIPSTICK Routine 12/29/2024 6:36 PM EDT Dysuria documented in this encounter Results * (ABNORMAL) POCT urinalysis dipstick manually resulted (12/29/2024 6:36 PM EDT) Color, UA Yellow Clarity, UA Clear Glucose, UA Negative Bilirubin, UA Negative Ketones, UA Negative Spec Grav, UA 1.005 Blood, UA Positive(A) Negative, None Detected Comment:moderate pH, UA 5.5 Protein, UA Negative Urobilinogen, UA 0.2 Leukocytes, UA Moderate(A) Negative, Rare, Trace Nitrite, UA Negative Negative, None Detected Urine 12/29/2024 6:36 PM EDT us Leona Cee MD POINT OF CARE TEST ENTER/ED IT ORDERABLES Final Result documented in this encounter Visit Diagnoses Diagnosis Acute cystitis with hematuria- Primary Dysuria documented in this encounter Additional Health Concerns Assessment Noted Time PHQ-9 Depression Total Score: 0 07/23/20 9:22 AM EDT documented as of this encounter Care Teams Personal Injury Law Specialist Relationship Specialty Start Date End Date Idalmis Jacques MD [address] [place] [address] PCP - General Family Medicine 09/11/18 luciana Leyva Community Health Worker Case Management 02/28/24 documented as of this encounter
--- OUTSIDE RECORDS SUMMARY | 2024-12-30 13:50 | XMS_ITS | Encounter Summary ---
Author Organization [facility] Address [address] [place] [address] Phone Care Team Providers Care Landfill Gas Collection System Operator Name Role Phone Idalmis Jacques MD Primary Care Provide r Encounter Details Date Type Department Care Team (Late st Contact Info) Description 07/21/2024 Documentation Only [facility] [place], [address] [facility] [place] [address] Kimberlee Madrid [address] [place] [address] Social History Tobacco Use Types [...] on filedocumented in this encounter Care Teams Landfill Gas Collection System Operator Relationship Specialty Start Date End Date Idalmis Jacques MD [address] [phone] PCP - General 08/05/19 documented as of this encounter
--- OUTSIDE RECORDS SUMMARY | 2024-12-30 13:50 | XMS_ITS | Encounter Summary ---
Author Organization [facility] Address [address] [place] [address] Phone Care Team Providers Care Injection Molding Machine Operator Name Role Phone Idalmis Jacques MD Primary Care Provide r Encounter Details Date Type Department Care Team (Late st Contact Info) Description 05/22/2022 Documentation Only [facility] [place], [address] [facility] [place] [address] Kimberlee Madrid [address] [place] [address] Social History Tobacco Use Types [...] on filedocumented in this encounter Care Teams Injection Molding Machine Operator Relationship Specialty Start Date End Date Idalmis Jacques MD [address] [place] [phone] PCP - General 08/05/19 documented as of this encounter
--- OUTSIDE RECORDS SUMMARY | 2024-12-30 13:50 | XMS_ITS | Encounter Summary ---
Author Organization [employer] Address [address] [facility] 7t [place] [address] Care Team Providers Care Crusher Wet Ground Mica Name Role Phone Idalmis Jacques MD Primary Care Provide r Reason for Visit * Reason Onset Date Comments Nurse Triage 05/23/2023 Encounter Details Date Type Department Care Team ([facility] st Contact Info) Description 05/23/2023 Telephone [facility] [address] [place], [place] [phone] Idalmis Jacques MD [address] [place] [address] Nurse Triage Social History Tobacco Use Types Packs/Day Years Used Date Smoking Tobacco: Never Smokeless Tobacco: Never Alcohol Use Standard Drinks/Week Comments Never 0 (1 standard drink = 0.6 oz pur e alcohol) PHQ-2 Answer Date Recorded Patient Health Questionnaire-2 Score 0 10/27/2022 Depression Answer Date Recorded Patient Health Questionnaire-2 Score 0 10/27/2022 Comments Unknown Sex and Gender Information Value Date Recorded Sex Assigned at Female 2022 10:29 AM EDT Legal Sex Female 10:29 AM EDT Gender Identity Female 2022 10:29 AM EDT Sexual Orientation Choose not to disclose 2021 10:29 AM EDT documented as of this encounter Miscellaneous Notes * Telephone Encounter - Allison Slater RN - 05/23/2023 3:41 PM EDT Triage call with [employer] [place] [id number] Pt reports fatigue/tiredness for last month. Pt did have surgery a month ago for removal of uterus. Pt reports has low blood pressure at times as well. Pt is not drinking adequate liquids advised toincrease liquids to 6-8 glasses per day. Pt agreed. Pt also reports using nebulizer tx more recently due to slight sob. Pt had an appointment with PCP today but, canceled, rescheduled for 06/28/23. Pt is given home care and advised if symptoms worsen to come to [facility] to be seen. Hours given 830-800pm today and only open till 400pm and Sunday. Pt agrees with plan . Protocol Used: Weakness (Generalized) and Fatigue (Adult) Protocol-Based Disposition: Home Care Positive Triage Question: * Weakness from poor fluid intake * All higher-acuity triage questions were negative Care Advice Discussed: * Reassurance and Education * Drink Fluids * Rest * Cool Off * Reasons To Call Back - Still feeling weak after 2 hours of rest and fluids - Passes out (faints) - You become worse * Telephone Encounter - Kathrin Hightower - 05/23/2023 2:52 PM EDT Symptom: Lethargic (Tired) Outcome: Schedule an urgent appointment (within 4 hours) or talk to a nurse or provider soon Reason: Getting worse The caller accepted this outcome Please contact pt at [phone] (Telugu) documented in this encounter Plan of Treatment Upcoming Encounters Date Type Department Care Team (Late st Contact Info) Description 01/23/2025 3:00 PM EDT Office Visit [facility] [address] [place] [phone] Johanny Rick MD [address] [place] [address] 01/27/2025 9:00 AM EDT Office Visit [facility] [address] [place] [address] Idalmis Jacques MD [address] [place] [address] 03/03/2025 9:30 AM EDT Clinical Support [facility] [address] [place] [address] Micaela Hernandez, RN documented as of this encounter Visit Diagnoses Not on filedocumented in this encounter Care Teams Crusher Wet Ground Mica Relationship Specialty Start Date End Date Idalmis Jacques MD [address] [place] [address] PCP - General Family Medicine 09/11/18 Micaela Recio Broiler Chef Or Cook 01/11/24 04/11/24 luciana Leyva Community Health Worker Case Management 02/28/24 documented as of this encounter
--- OUTSIDE RECORDS SUMMARY | 2024-12-30 13:50 | XMS_ITS ---
Author Organization [facility] Address [address] [place] [address] Care Team Providers Care Hearing Therapist Name Role Phone Idalmis Ortega M.D. Primary Care Provider Moses Garzon [phone] REASON FOR VISIT Patient presents today for fatty liver Encounters Encounter Location Date Provider Diagnosis [facility] [address] [place] [address] 12/06/2023 Moses Abraham Plan Of Treatment Next Appt Details Provider Name:Moses Abraham , 04/22/2025 03:40:00 PM, [address], [address], [place], [address], Progress Notes * SIDDHARTHA PINEDADOB:1975 (49 yo F)Acc No.[id number]:12/06/2023 Progress Notes Patient:?SIDDHARTHA PINEDA Provider:?Moses Abraham MD :1975???Age:48 Y???Sex:Female D ate:12/06/2023 Address:[address] [place] [address] [facility] Pcp:Idalmis Ortega M.D. Subjective: * Chief Complaints: * ???1. Patient presents today for fatty liver. * Medical History:? Objective: * Vitals:? Assessment: Plan: * Treatment: * * The named appointment provid er may or may not be the originator of this progress note, and it is not deemed complete until electronically signed by the appointment provider. Sign off status: Pending * Provider:?Moses Abraham MD Date:? 024 Generated for Maury bernal/Adele/Alexander on:?12/30/2024 01:49 PM EDT
--- OUTSIDE RECORDS SUMMARY | 2024-12-30 13:50 | XMS_ITS | Encounter Summary ---
Author Organization [facility] Address [address] [place] [address] Phone Care Team Providers Care Distributor Advertising Material Name Role Phone Idalmis Jacques MD Primary Care Provide r Encounter Details Date Type Department Care Team (Late st Contact Info) Description 01/15/2024 Documentation Only [facility] [place], [address] [facility] [place] [address] Kimberlee Madrid [address] [place] [address] Social History Tobacco Use Types [...] on filedocumented in this encounter Care Teams Distributor Advertising Material Relationship Specialty Start Date End Date Idalmis Jacques MD [address] [phone] PCP - General 08/05/19 documented as of this encounter
--- OUTSIDE RECORDS SUMMARY | 2024-12-30 13:50 | XMS_ITS | Encounter Summary ---
Author Organization [facility] Address [address] [place] [address] Phone Care Team Providers Care Flavorer Name Role Phone Idalmis Jacques MD Primary Care Provide r Encounter Details Date Type Department Care Team (Late st Contact Info) Description 01/15/2024 Documentation Only [facility] [place], [address] [facility] [place] [address] Kimberlee Madrid [address] [place] [address] Social History Tobacco Use Types [...] on filedocumented in this encounter Care Teams Flavorer Relationship Specialty Start Date End Date Idalmis Jacques MD [address] [phone] PCP - General 08/05/19 documented as of this encounter
--- OUTSIDE RECORDS SUMMARY | 2024-12-30 13:50 | XMS_ITS | Encounter Summary ---
Author Organization [facility] Address [address] [place] [address] Phone Care Team Providers Care Angledozer Operator Name Role Phone Idalmis Jacques MD Primary Care Provide r Encounter Details Date Type Department Care Team (Late st Contact Info) Description 01/15/2024 Documentation Only [facility] [place], [address] [facility] [place] [address] Kimberlee Madrid [address] [place] [address] Social History Tobacco Use Types [...] on filedocumented in this encounter Care Teams Angledozer Operator Relationship Specialty Start Date End Date Idalmis Jacques MD [address] [phone] PCP - General 08/05/19 documented as of this encounter
--- OUTSIDE RECORDS SUMMARY | 2024-12-30 13:50 | XMS_ITS | Encounter Summary ---
Author Organization [employer] Address [address] [facility] [address] 7[address] [place] [address] Care Team Providers Care Thread Checker Name Role Phone Idalmis Jacques MD Primary Care Provide r Encounter Details Date Type Department Care Team (Late st Contact Info) Description 03/01/2024 Orders Only [facility] [address] [place] [address] ProviderLexx MD Social History Tobacco Use Types Packs/Day Years [...] Description 01/23/2025 3:00 PM EDT Office Visit [address] [address] Johanny Rick MD [address] [place] [address] 01/27/2025 9:00 AM EDT Office Visit [address] [address] Idalmis Jacques MD [address] [place] [address] 03/03/2025 9:30 AM EDT Clinical Support [address] [address] Micaela Hernandez RN documented as of this encounter Procedures Procedure Name Priority Date/Time Associated Diagnosis Comments HM COLONOSCOPY Routine 12/23/2021 6:38 PM EDT documented in this encounter Results * Hm Colonoscopy (12/23/2021 6:38 PM EDT) Historical Provider HEALTH MAINTENANCE Final Result documented in this encounter Visit Diagnoses Not on filedocumented in this encounter Care Teams Thread Checker Relationship Specialty Start Date End Date Idalmis Jacques MD [address] [place] [phone] PCP - General Family Medicine 09/11/18 Micaela Recio Entry Rep 01/11/24 04/11/24 luciana Leyva Community Health Worker Case Management 02/28/24 documented as of this encounter
--- OUTSIDE RECORDS SUMMARY | 2024-12-30 13:50 | XMS_ITS | Patient Health Record ---
Author Organization [facility] Address [address] [place] [address] Care Team Providers Care Histologic Aide Name Role Phone Idalmis Ortega M.D. Primary Care Provider Moses Garzon [phone] Allergies Allergen (clinical drug ingredient) Drug/Non Drug Allergy documented on EMR Reaction Allergy Type Onset Date Status morphine Morphine Unknown Drug Allergy Active famotidine Pepcid Unknown Drug Allergy Active hydromorphone Dilaudid Unknown Drug Allergy Act mercedes Reason For Referral No Information Medications Medication SIG (Take, Route, Frequency, Duration) Notes Start Date End Date Status Albuterol Sulfate 108 (90 Base) MCG/ACT 1 puff as needed Inhalation every 4 hrs Active Flovent HFA 110 MCG/ACT 2 puffs Inhalati on Twice a day Active Loratadine 10 MG 1 tablet Orally Once a day for 30 day(s) Active Venlafaxine HCl ER 150 MG 1 capsule with food Orally Once a day for 30 day(s) Active QUEtiapine Fumarate 400 MG 1 tablet at b edtime Orally Once a day for 30 day(s) Active Mirtazapine 15 MG 1 tablet at bedtime Orally Once a day for 30 day(s) Active Gabapentin 400 MG 1 capsule Orally Once a day for 30 day(s) Active Ibuprofen 800 MG 1 tablet with food or milk as needed Orally every 8 hrs Active Selenium Sulfide 2.5 % 1 application to wet scalp Externally Active hydroCHLOROthiazide 25 MG 1 tablet in th e morning Orally Once a day for 30 day(s) Active traMADol HCl 50 MG 1 tablet as needed Orally Once a day Active Metoclopramide HCl 10 MG 1 tablet before meals Orally Twice a day for 30 day(s) Active OptiChamber Makenna - as directed Active Acetaminophen 500 MG 1 capsule as needed Orally every 6 hrs Active Vitamin D2 Active Tamoxifen Citrate 20 MG 1 tablet Orally Once a day for 30 day(s) Active Compazine Active Meloxicam 15 MG 1 tablet Orally Once a day for 30 day(s) Active Ambien 10 MG 1 tablet at bedtime as needed Orally Once a day Active hydrOXYzine HCl 25 MG/ML 2 ml as needed Intramuscular every 6 hrs for 30 day(s) Active oxyCODONE HCl 5 MG 1 tablet as needed Orally every 6 hrs Active Tirosint 75 MCG 1 capsule in the morning on an empty stomach Orally Once a day for 30 day(s) Active Montelukast Sodium 10 MG 1 tablet Orally Once a day for 30 day(s) Active Ondansetron 4 MG DISSOLVE 1 TABLET ON THE TONGUE EVERY 4 TO 6 HOURS NEEDED FOR NAUSEA for 3 Active Omeprazole 40 MG 1 capsule 30 minutes before morning meal Orally Once a day for 30 day(s) using only prn Active Omeprazole 40 MG 1 Orally Every morning for 30 day(s) 06/07/2023 Active Immunizations Vaccine Route Administration Date Status Comme nts Influenza Unknown 08/17/2021 Administered Influenza Unknown 08/01/2022 Administered Social History Tobacco Use: Social History Observation Description Date Details (start date - stop date) Never Smoker NA - NA Tobacco Use/Smoking Question Answer Notes Patient is a nonsmoker Alcohol Screen Question Answer Notes Did you have a drink containing alcohol in the p ast year? No Points 0 Interpretation Negative Section Notes: Nonsmoker and no significant alcohol use Nonsmoker and no significant alcohol use Nonsmoker and no significant alcohol use Nonsmoker and no significant alcohol use Problems Problem Type SNOMED Code ICD Code Onset Dates Problem Status W/U Status Risk Notes Problem History of adenomatous polyp of colon (668289433) History of adenomatous polyp of colon (Z86.010) Active confirmed Problem 331729663 Nausea (R11.0) Active confirmed Problem 812179710 Gastroesophageal reflux disease without esophagitis (K21.9) Active confirmed Problem 706472053 Elevated liver enzymes (R74.8) Active confirmed Problem Fatty liver (823411491) Fatty liver (K76.0) Active confirmed Problem Elevated liver enzymes level (672874549) Elevated liver function tests (R94.5) Active confirmed Vital Signs Blood pressure diastolic 00 mm Hg 04/17/2024 Height 57 in 04/17/2024 Blood pressure systolic 00 mm Hg 04/17/2024 Weight 163 lbs 04/17/2024 BMI 35.27 kg/m2 04/17/2024 Encounters Encounter Location Date Provider Diagnosis [facility] [address] [place] [address] 04/17/2024 Moses Abraham Fatty liver K76.0 an d History of adenomatous polyp of colon Z86.010 Assessments Encounter Date Diagnosis (ICD Code) Assessment Notes Treatment Notes Treatment Clinical Notes Section Notes 04/17/2024 History of adenomatous polyp of colon (ICD-10 - Z86.010) Repeat colonoscopy in 2026 Overall, Shaneka appears quite well. She does not show any signs or have any symptoms of progressive liver disease. Her laboratories and CT from earlier this year are quite reassuring as well. We did review that her significant weight loss, healthier diet, and healthy lifestyle with avoidance of alcohol are all significant contributing factors to her continued well-being in regard to her overall health and specifically her underlying fatty liver. We did review that she should certainly continue this long-term. Given all of her studies earlier this year I don't think any further studies are needed this year in regard to her liver. We did review that she should have a followup screening colonoscopy in 2026 given the history of a tubular adenoma removed in 2021. If things remain well I will plan to see her in one year for a followup visit in regard to the underlying history of fatty liver. I did advise her to contact me prior to that if she has any problems or questions I can be of assistance with. Shaneka was comfortable with this plan. Thank you again for allowing me to participate in Shaneka's care. I shall continue to keep you advised of her progress. 04/17/2024 Fatty liver (ICD-10 - K76.0) Keep eating healthy and losing weight to keep the liver healthy Overall, Shaneka appears quite well. She does not show any signs or have any symptoms of progressive liver disease. Her laboratories and CT from earlier this year are quite reassuring as well. We did review that her significant weight loss, healthier diet, and healthy lifestyle with avoidance of alcohol are all significant contributing factors to her continued well-being in regard to her overall health and specifically her underlying fatty liver. We did review that she should certainly continue this long-term. Given all of her studies earlier this year I don't think any further studies are needed this year in regard to her liver. We did review that she should have a followup screening colonoscopy in 2026 given the history of a tubular adenoma removed in 2021. If things remain well I will plan to see her in one year for a followup visit in regard to the underlying history of fatty liver. I did advise her to contact me prior to that if she has any problems or questions I can be of assistance with. Shaneka was comfortable with this plan. Thank you again for allowing me to participate in Shaneka's care. I shall continue to keep you advised of her progress. Plan Of Treatment Pending Test Test Name Order Date LIVER PROFILE 12/06/2022 LIVER PROFILE 06/07/2023 LIVER PROFILE 03/01/2022 IRON + IBC (FE) 03/01/2022 CBC w DIFF 03/01/2022 PROTHROMBIN TIME (PT, INR) 03/01/2022 PARTIAL THROMBOPLASTIN TIME (PTT) 2021 HEPATITIS B, C PROFILE 03/01/2022 US ABD 03/01/2022 FLUOR. ANTINUCLEAR AB SCREEN (THAD) 10/2021 Ferritin 03/01/2022 Ceruloplasmin 03/01/2022 Alpha 1 Anti-trypsin 03/01/2022 Mitochondrial Antibody 03/01/2022 Smooth Muscle Antibody 03/01/2022 US biopsy liver 03/01/2022 Hepatitis A IgG 03/01/2022 Next Appt Details Provider Name:Moses Abraham , 04/22/2025 03:40:00 PM, [address] [facility], [address], [place], [address], Insurance Providers Payer Name Payer Address Payer Phone Subscriber Number Group Number Insured Name Patient Relationship to Insured Coverage Start Date Coverage End Date MEDICA[employer] [place] [employer] [address] [place] [phone] [id number] SHANEKA PINEDA Self - patient is the insured Medical (General) History Medical History History ICD Code 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 Denies NM,DM,CVA,renal disease Small tubular adenoma remove d with screening colonoscopy in November of [address] Watkins. Asthma Surgical History Surgery Date(Month/Year) Breast cancer--left lumpectomy 2014--[place]ud[place] atment as above Vein removal on right leg Tumor in the right lower leg-benign Cholecystectomy Ovarian surgery with removal of possible cysts Surgery for removal of uteru s. She reports that there was no cancer found 04/19/2023
--- OUTSIDE RECORDS SUMMARY | 2024-12-30 13:50 | XMS_ITS | Encounter Summary ---
Author Organization [facility] Address [address] [place] [address] Phone Care Team Providers Care Drywall Taper Helper Name Role Phone Idalmis Jacques MD Primary Care Provide r Encounter Details Date Type Department Care Team (Late st Contact Info) Description 07/21/2024 Documentation Only [facility] [place], [address] [facility] [place] [address] Kimberlee Madrid [address] [place] [address] Social History Tobacco Use Types [...] on filedocumented in this encounter Care Teams Drywall Taper Helper Relationship Specialty Start Date End Date Idalmis Jacques MD [address] [address] PCP - General 08/05/19 documented as of this encounter
--- OUTSIDE RECORDS SUMMARY | 2024-12-30 13:50 | XMS_ITS | Encounter Summary ---
Author Organization [employer] Address [address] [facility] 7t [place] [address] Care Team Providers Care Vp Name Role Phone Idalmis Jacques MD Primary Care Provide r Encounter Details Date Type Department Care Team (Late st Contact Info) Description 04/30/2023 Abstract [facility] [address] [place] [phone] Idalmis Jacques MD [address] [place] [address] [phone] Social History Tobacco Use Types Packs/Day Years [...] Encounters Date Type Department Care Team (Late Contact Info) Description 01/23/2025 3:00 PM EDT Office Visit [facility] [address] [place] [address] [phone] Johanny Rick MD [address] [place] [address] 01/27/2025 9:00 AM EDT Office Visit [facility] [address] [place] [phone] Idalmis Jacques MD [address] [place] [address] 03/03/2025 9:30 AM EDT Clinical Support [address] [address] Micaela Hernandez, BERNABE documented as of this encounter Visit Diagnoses Not on filedocumented in this encounter Care Teams Vp Relationship Specialty Start Date End Date Idalmis Jacques MD [address] [place] [address] PCP - General Family Medicine 09/11/18 Micaela Recio Assistant Baseball Coach 01/11/24 04/11/24 luciana Leyva Community Health Worker Case Management 02/28/24 documented as of this encounter
--- OUTSIDE RECORDS SUMMARY | 2024-12-30 13:50 | XMS_ITS | Encounter Summary ---
Author Organization [employer] Address [address] [facility] 7t [place] [address] Care Team Providers Care Spa Therapist Name Role Phone Idalmis Jacques MD Primary Care Provide r Reason for Visit * Reason Onset Date Comments Appointment Request 08/14/2023 Encounter Details Date Type Department Care Team ([facility] st Contact Info) Description 08/14/2023 Telephone [facility] [address] [place], [place] [phone] Idalmis Jacques MD [address] [place] [address] Appointment Request Social History Tobacco Use Types Packs/Day Years Used Date Smoking Tobacco: Never Smokeless Tobacco: Never Alcohol Use Standard Drinks/Week Comments Never 0 (1 standard drink = 0.6 oz pur e alcohol) PHQ-2 Answer Date Recorded Patient Health Questionnaire-2 Score 0 10/27/2022 Housing Stability Answer Date Recorded What is your housing situation today? I have candy germain 07/17/[address] you li ve. Do you have problems with any of the following? None of the above 07/17/2023 Food Insecurity Answer Date Recorded Within the past 12 months, y ou worried that your food would run out before you got money to buy more: Never True 07/17/2023 Within the past 12 months,th e food you bought just didn't last and you didn't have enough money to get more: Never True Transportation Answer Date Recorded In the past 12 months, has l ack of transportation kept you from medical appts, meetings, work or from getting things needed for daily living? No 07/17/2023 Utilities Answer Date Recorded In the past 12 months, has t he electric, gas, oil or water company threatened to shut off services in your home? No 07/17/2023 Depression Answer Date Recorded Patient Health Questionnaire-2 Score 0 10/27/2022 Comments Unknown Sex and Gender Information Value Date Recorded Sex Assigned at Female 2022 10:29 AM EDT Legal Sex Female 10:29 AM EDT Gender Identity Female 2022 10:29 AM EDT Sexual Orientation Choose not to disclose 2021 10:29 AM EDT documented as of this encounter Miscellaneous Notes * Telephone Encounter - Yanique Carr - 08/14/2023 11:26 AM EST Tc from pt requesting f/u appt with PCP, pt states wanted to talk with PCP in regards Endo. documented in this encounter Plan of Treatment Upcoming Encounters Date Type Department Care Team (Late st Contact Info) Description 01/23/2025 3:00 PM EDT Office Visit [facility] [address] [place] [phone] Johanny Rick MD [address] [place] [address] 01/27/2025 9:00 AM EDT Office Visit [address] [address] Idalmis Jacques MD [address] [place] [address] 03/03/2025 9:30 AM EDT Clinical Support [address] [address] Micaela Hernandez RN documented as of this encounter Visit Diagnoses Not on filedocumented in this encounter Care Teams Spa Therapist Relationship Specialty Start Date End Date Idalmis Jacques MD [address] [place] [address] PCP - General Family Medicine 09/11/18 Micaela Recio Pot Fireman 01/11/24 04/11/24 luciana Leyva Community Health Worker Case Management 02/28/24 documented as of this encounter
--- OUTSIDE RECORDS SUMMARY | 2024-12-30 13:50 | XMS_ITS | Encounter Summary ---
Author Organization [facility] Address [address] [place] [address] Phone Care Team Providers Care Sustainability Coach Name Role Phone Idalmis Jacques MD Primary Care Provide r Encounter Details Date Type Department Care Team (Late st Contact Info) Description 01/29/2024 Documentation Only [facility] [place], [address] [place] [address] [place], [place] [address] [place] [address] Social History Tobacco Use Types [...] on filedocumented in this encounter Care Teams Sustainability Coach Relationship Specialty Start Date End Date Idalmis Jacques MD [address] [phone] PCP - General 08/05/19 documented as of this encounter
--- OUTSIDE RECORDS SUMMARY | 2024-12-30 13:50 | XMS_ITS ---
Author Organization [facility] Address [address] [place] [address] Care Team Providers Care Batch Still Operator Name Role Phone Idalmis Ortega M.D. Primary Care Provider Moses Garzon [phone] REASON FOR VISIT cancelled appt Encounters Encounter Location Date Provider Diagnosis [facility] [address] [place] [address] 12/05/2023 Moses Abraham Plan Of Treatment Next Appt Details Provider Name:Moses Abraham , 04/22/2025 03:40:00 PM, [address], [address], [place], [address], Progress Notes * SIDDHARTHA PINEDADOB:1975 (48 yo F)Acc No.[id number]:12/05/2023 Patient:?SIDDHARTHA PINEDA :1975???Age:48 Y???Sex:Female Address:[address] [place] [address], [address] * true * Date:? Generated for Pietroi gabe/Adele/eTransmitting on:?12/30/2024 01:50 PM EDT
--- OUTSIDE RECORDS SUMMARY | 2024-12-30 13:50 | XMS_ITS | Encounter Summary ---
Author Organization [facility] Address [address] [place] [address] Phone Care Team Providers Care Healthcare Management Consultant Name Role Phone Idalmis Jacques MD Primary Care Provide r Encounter Details Date Type Department Care Team (Late st Contact Info) Description 01/15/2024 Documentation Only [facility] [place], [address] [facility] [place] [address] Kimberlee Madrid [address] [place] [address] Social History Tobacco Use Types [...] on filedocumented in this encounter Care Teams Healthcare Management Consultant Relationship Specialty Start Date End Date Idalmis Jacques MD [address] [address] PCP - General 08/05/19 documented as of this encounter
--- OUTSIDE RECORDS SUMMARY | 2024-12-30 13:51 | XMS_ITS | Encounter Summary ---
Author Organization [facility] Address [address] [place] [address] Phone Care Team Providers Care Cargo Inspector Name Role Phone Idalmis Jacques MD Primary Care Provide r Encounter Details Date Type Department Care Team (Late st Contact Info) Description 07/21/2024 Documentation Only [facility] [place], [address] [facility] [place] [address] Kimberlee Madrid [address] [place] [address] Social History Tobacco Use Types [...] on filedocumented in this encounter Care Teams Cargo Inspector Relationship Specialty Start Date End Date Idalmis Jacques MD [address] [address] PCP - General 08/05/19 documented as of this encounter
--- OUTSIDE RECORDS SUMMARY | 2024-12-30 13:51 | XMS_ITS ---
Author Organization [facility] Address [address] [place] [id number] Care Team Providers Care Lieutenant/Deputy Name Role Phone Idalmis Ortega M.D. Primary Care Provider Moses Garzon Unavailable [phone] Allergies Allergen (clinical drug ingredient) Drug/Non Drug Allergy documented on EMR Reaction Allergy Type Onset Date Status morphine Morphine Unknown Drug Allergy Active famotidine Pepcid Unknown Drug Allergy Active hydromorphone Dilaudid Unknown Drug Allergy Act mercedes REASON FOR VISIT Patient presents today for a fatty liver Medications Medication SIG (Take, Route, Frequency, Duration) Notes Start Date End Date Status Ondansetron 4 MG DISSOLVE 1 TABLET ON THE TONGUE EVERY 4 TO 6 HOURS NEEDED FOR NAUSEA for 3 Active Omeprazole 40 MG 1 Orally Every morning for 30 day(s) 06/07/2023 Active Tamoxifen Citrate 20 MG 1 tablet Orally Once a day for 30 day(s) Active Meloxicam 15 MG 1 tablet Orally Once a day for 30 day(s) Active Ambien 10 MG 1 tablet at bedtime as needed Orally Once a day Active traMADol HCl 50 MG 1 tablet as needed Orally Once a day Active Metoclopramide HCl 10 MG 1 tablet before meals Orally Twice a day for 30 day(s) Active Jett Mensah - as directed Active Acetaminophen 500 MG 1 capsule as needed Orally every 6 hrs Active hydrOXYzine HCl 25 MG/ML 2 ml as needed Intramuscular every 6 hrs for 30 day(s) Active Ibuprofen 800 MG [...] Once a day for 30 day(s) Active Albuterol Sulfate 108 (90 Base) MCG/ACT 1 [...] Once a day for 30 day(s) Active oxyCODONE HCl 5 MG 1 tablet as needed Orally every 6 hrs Active Tirosint 75 MCG 1 capsule in the morning on an empty stomach Orally Once a day for 30 day(s) Active Montelukast Sodium 10 MG 1 tablet Orally Once a day for 30 day(s) Active Omeprazole 40 MG 1 capsule 30 minutes before morning meal Orally Once a day for 30 day(s) using only prn Active Vitamin D2 Active Compazine Active Social History Tobacco Use: Social History Observation Description Date Details (start date - stop date) Never Smoker NA - NA Tobacco Use/Smoking Question Answer Notes Patient is a nonsmoker Alcohol Screen Question Answer Notes Did you have a drink containing alcohol in the p ast year? No Points 0 Interpretation Negative Section Notes: Nonsmoker and no significant alcohol use Problems Problem Type SNOMED Code ICD Code Onset Dates Problem Status W/U Status Risk Notes Problem History of adenomatous polyp of colon ([id number]) History of adenomatous polyp of colon (Z86.010) Active confirmed Vital Signs Blood pressure systolic 00 mm Hg 04/17/20 24 Blood pressure diastolic 00 mm Hg 024 Height 57 in 04/17/2024 Weight 163 lbs 04/17/2024 BMI 35.27 kg/m2 04/17/2024 Encounters Encounter Location Date Provider Diagnosis [facility] [address] [place] [address] 04/17/2024 Moses Abraham Fatty liver K76.0 an d History of adenomatous polyp of colon Z86.010 Assessments Encounter Date Diagnosis (ICD Code) Assessment Notes Treatment Notes Treatment Clinical Notes Section Notes 04/17/2024 Fatty liver (ICD-10 - K76.0) Keep [...] keep you advised of her progress. 04/17/2024 History of adenomatous polyp of colon [...] advised of her progress. Plan Of Treatment Treatment Notes Assessment Notes Fatty liver Keep eating healthy and losing weight to keep the liver healthy History of adenomatous polyp of colon Re peat colonoscopy in 2026 Next Appt Details Follow Up: 1 Year, Reason: Provider Name:Moses Harper Jarad , 04/22/2025 03:40:00 PM, [address], [address], [place], [address], Progress Notes * SHANEKA PINEDADOB:1975 (48 yo F)Acc No.[id number]:04/17/2024 Progress Notes Patient:?SHANEKA PINEDA Provider:?Moses Abraham MD :1975???Age:48 Y???Sex:Female D ate:04/17/2024 Address:[address] [place] [address] Pcp:Idalmis Ortega M.D. Subjective: * Chief Complaints: * ???Patient presents today fo r a fatty liver * HPI: ???incontinence:? I saw Shaneka in followup today in regard to her underlying history of fatty liver and personal history of a tubular adenoma of the colon. ?Since I last saw Shaneka last June she has been doing well. She has lost nearly 20 pounds on purposeful diet. She has not had any GI complaints and specifically denies any significant heartburn, anorexia, nausea, vomiting, diarrhea, nor any signs of bleeding. She denies abdominal pain, increasing abdominal girth, edema, jaundice, pruritus, nor fatigue. ?Laboratories in March revealed a completely normal liver profile, normal CBC with platelet count, and normal chemistries. A CT scan of her abdomen in November described a normal liver, spleen, and pancreas. There was no ascites. * ROS:?General/Constitutional:?Change in appetite?denies.?Chills?denies.?Fatigue?denies.?Ophthalmologic:?Comments?all negative.?ENT:?Comments?all negative.?Respiratory:?hemoptysis?denies.?Cough?denies.?Cardiovascular:?Chest pain?denies.?Orthopnea?denies.?Gastrointestinal:?Comments?See HPI for details.?Genitourinary:?Hematuria?denies.?Dysuria?denies.?Musculoskeletal:?Painful joints?denies.?Weakness?denies.?Skin:?Itching?denies.?Rash?denies.?Neurologic:?Headache?denies.?Seizures?denies.?Psychiatric:?Comments?all negative.? * Medical History:? * Surgical History:?Breast can cer--left lumpectomy 2014--treatment as above Vein removal on right leg Tumor in the right lower leg-benign Cholecystectomy Ovarian surgery with removal of possible cysts Surgery for removal of uterus. She reports that there was no cancer found 04/19/2023 * Hospitalization/Major Diagno stic Procedure:?No Hospitalization History. * Family History:?Father: unkn own.?Mother: alive, diagnosed with HTN (hypertension), Inflammatory bowel disease, Diabetes, Colon polyps, Heart disease.?Maternal Grand Father: diagnosed with Colon cancer.? * Social History:?Tobacco Use:?Tobacco Use/Smoking?Patient is a?nonsmoker.?Drugs/Alcohol:?Alcohol Screen?Did you have a drink containing alcohol in the past year??No,?Points?0,?Interpretation?Negative.?Miscellaneous:?Marital status: single. Occupation: disable. ???Nonsmoker and no significant alcohol use. * Medications:?TakingCompazine Vitamin D2 Omeprazole 40 MG Capsule Delayed Release 1 capsule 30 minutes before morning meal Orally Once a day, Notes: using only prnMontelukast Sodium 10 MG Tablet 1 tablet Orally Once a dayTirosint 75 MCG Capsule 1 capsule in the morning on an empty stomach Orally Once a dayoxyCODONE HCl 5 MG Tablet 1 tablet as needed Orally every 6 hrsLoratadine 10 MG Tablet 1 tablet Orally Once a dayFlovent HFA 110 MCG/ACT Aerosol 2 puffs Inhalation Twice a dayAlbuterol Sulfate 108 (90 Base) MCG/ACT Aerosol Powder Breath Activated 1 puff as needed Inhalation every 4 hrsGabapentin 400 MG Capsule 1 capsule Orally Once a dayMirtazapine 15 MG Tablet 1 tablet at bedtime Orally Once a dayQUEtiapine Fumarate 400 MG Tablet 1 tablet at bedtime Orally Once a dayVenlafaxine HCl ER 150 MG Capsule Extended Release 24 Hour 1 capsule with food Orally Once a dayhydroCHLOROthiazide 25 MG Tablet 1 tablet in the morning Orally Once a daySelenium Sulfide 2.5 % Lotion 1 application to wet scalp Externally Ibuprofen 800 MG Tablet 1 tablet with food or milk as needed Orally every 8 hrsAcetaminophen 500 MG Capsule 1 capsule as needed Orally every 6 hrsOptiChamber Makenna - Miscellaneous as directed Metoclopramide HCl 10 MG Tablet 1 tablet before meals Orally Twice a daytraMADol HCl 50 MG Tablet 1 tablet as needed Orally Once a dayhydrOXYzine HCl 25 MG/ML Solution 2 ml as needed Intramuscular every 6 hrsAmbien 10 MG Tablet 1 tablet at bedtime as needed Orally Once a dayMeloxicam 15 MG Tablet 1 tablet Orally Once a dayTamoxifen Citrate 20 MG Tablet 1 tablet Orally Once a dayOmeprazole 40 MG Capsule Delayed Release 1 Orally Every morningOndansetron 4 MG Tablet Disintegrating DISSOLVE 1 TABLET ON THE TONGUE EVERY 4 TO 6 HOURS NEEDED FOR NAUSEA Medication List reviewed and reconciled with the patientTaking Compazine Taking Vitamin D2 Taking Omeprazole 40 MG Capsule Delayed Release 1 capsule 30 minutes before morning meal Orally Once a day, Notes: using only prnTaking Montelukast Sodium 10 MG Tablet 1 tablet Orally Once a dayTaking Tirosint 75 MCG Capsule 1 capsule in the morning on an empty stomach Orally Once a dayTaking oxyCODONE HCl 5 MG Tablet 1 tablet as needed Orally every 6 hrsTaking Loratadine 10 MG Tablet 1 tablet Orally Once a dayTaking Flovent HFA 110 MCG/ACT Aerosol 2 puffs Inhalation Twice a dayTaking Albuterol Sulfate 108 (90 Base) MCG/ACT Aerosol Powder Breath Activated 1 puff as needed Inhalation every 4 hrsTaking Gabapentin 400 MG Capsule 1 capsule Orally Once a dayTaking Mirtazapine 15 MG Tablet 1 tablet at bedtime Orally Once a dayTaking QUEtiapine Fumarate 400 MG Tablet 1 tablet at bedtime Orally Once a dayTaking Venlafaxine HCl ER 150 MG Capsule Extended Release 24 Hour 1 capsule with food Orally Once a dayTaking hydroCHLOROthiazide 25 MG Tablet 1 tablet in the morning Orally Once a dayTaking Selenium Sulfide 2.5 % Lotion 1 application to wet scalp Externally Taking Ibuprofen 800 MG Tablet 1 tablet with food or milk as needed Orally every 8 hrsTaking Acetaminophen 500 MG Capsule 1 capsule as needed Orally every 6 hrsTaking OptiChamber Makenna - Miscellaneous as directed Taking Metoclopramide HCl 10 MG Tablet 1 tablet before meals Orally Twice a dayTaking traMADol HCl 50 MG Tablet 1 tablet as needed Orally Once a dayTaking hydrOXYzine HCl 25 MG/ML Solution 2 ml as needed Intramuscular every 6 hrsTaking Ambien 10 MG Tablet 1 tablet at bedtime as needed Orally Once a dayTaking Meloxicam 15 MG Tablet 1 tablet Orally Once a dayTaking Tamoxifen Citrate 20 MG Tablet 1 tablet Orally Once a dayTaking Omeprazole 40 MG Capsule Delayed Release 1 Orally Every morningTaking Ondansetron 4 MG Tablet Disintegrating DISSOLVE 1 TABLET ON THE TONGUE EVERY 4 TO 6 HOURS NEEDED FOR NAUSEA Medication List reviewed and reconciled with the patient * Allergies:?MorphineDilaudidP epcidyes[Allergies Verified] Objective: * Vitals:?Wt: 163 lbs, Ht: 57 in, BMI:35.27 Index, BP: 00/00 mm Hg. * Examination: ???General Examination: ?GENERAL APPEARANCE:?pleasant, well nourished, well developed, in no acute distress.?EYES:?sclera non-icteric.?ORAL CAVITY:?mucosa moist.?NECK/THYROID:?no cervical lymphadenopathy, neck supple.?SKIN:?nonjaundiced, no spider angiomata.?HEART:?S1, S2 normal.?LUNGS:?clear to auscultation bilaterally.?ABDOMEN:?normal bowel sounds, no guarding or rigidity, no guarding or rigidity, no masses palpable, soft, nontender, nondistended.?EXTREMITIES:?no edema.?NEUROLOGIC:?alert and oriented.? Assessment: * Assessment: 1.?Fatty liver - K76.0 (Prim eliud)?2.?History of adenomatous polyp of colon - Z86.010? Overall, Shaneka appears delfino te well. She does not show any signs [...] to keep you advised of her progress. Plan: * Treatment: 2.?History of adenomatous po lyp of colon? Notes: Repeat colonoscopy in 2026?? * Procedure Codes:?3017F COLOR ECTAL CA SCREEN DOC [id number] TOBACCO [id number] BP SCR NOT PRFRM REC REASON NOS * Preventive Medicine:? ??Counseling:?Care goal follow-up plan:?Above Normal BMI Follow-up?Giving encouragement to exercise,?BMI management provided?Yes.? * Follow Up:?1 Year * * Sign off status: Completed true * Provider:?Moses Abraham MD Date:? 024 Generated for Maury bernal/Adele/Breanneitting on:?12/30/2024 01:50 PM EDT History and Physical Notes * HPI (History of Present Illness) Category Sub-Category Detail Notes Category Not es incontinence I saw Shaneka in followup today in regard to her underlying history of fatty liver and personal history of a tubular adenoma of the colon. Since I last saw Shaneka last June she has been doing well. She has lost nearly 20 pounds on purposeful diet. She has not had any GI complaints and specifically denies any significant heartburn, anorexia, nausea, vomiting, diarrhea, nor any signs of bleeding. She denies abdominal pain, increasing abdominal girth, edema, jaundice, pruritus, nor fatigue. Laboratories in March revealed a completely normal liver profile, normal CBC with platelet count, and normal chemistries. A CT scan of her abdomen in November described a normal liver, spleen, and pancreas. There was no ascites. Examination Category Sub-Category Detail Notes Category Not es General Examination GENERAL APPEARANCE: pleasant , well nourished, well developed, in no acute distress HEAD: EYES: sclera non-icteric EARS: NOSE: THROAT: NECK/THYROID: no cervical lymphade nopathy, neck supple HEART: S1, S2 normal CHEST: LUNGS: clear to auscultatio n bilaterally ABDOMEN: normal bowel sounds, no guarding or rigidity, no guarding or rigidity, no masses palpable, soft, nontender, nondistended NEUROLOGIC: alert and oriented SKIN: nonjaundiced, no spi huy angiomata EXTREMITIES: no edema PERIPHERAL PULSES: BACK: BREASTS: MUSCULOSKELETAL: MALE GENITOURINARY: LYMPH NODES: RECTAL EXAM: FEMALE GENITOURINARY: ORAL CAVITY: mucosa moist
--- OUTSIDE RECORDS SUMMARY | 2024-12-30 13:51 | XMS_ITS | Encounter Summary ---
Author Organization [facility] Address [address] [place] [address] Phone Care Team Providers Care Hand Woodworking Sander Name Role Phone Idalmis Jacques MD Primary Care Provide r Encounter Details Date Type Department Care Team (Late st Contact Info) Description 07/21/2024 Documentation Only [facility], [address] [place] [address] Kimberlee Madrid [address] [place] [address] Social History Tobacco Use Types [...] on filedocumented in this encounter Care Teams Hand Woodworking Sander Relationship Specialty Start Date End Date Idalmis Jacques MD [address] [id number] PCP - General 08/05/19 documented as of this encounter
--- OUTSIDE RECORDS SUMMARY | 2024-12-30 13:51 | XMS_ITS | Clinical Summary ---
Author Organization [employer] Address [address] [place] [address] Care Team Providers Care Performing Arts Technicians Name Role Phone Idalmis Jacques MD Primary Care Provide r Allergies Active Allergy Reactions Criticality Noted Date Comments Azithromycin Rash Low 04/20/2021 Pgjktnesnblam-Opaomaklwbc-Huda 06/24 Morphine Anaphylaxis High 06/24/2018 Medications montelukast (Singulair) 10 MG tabletIndicatio ns:Mild intermittent asthma without complication Take 1 tablet (10 mg) by mouth in the morning. 30 tablet 11 02/28/20 23 Active ibuprofen 800 MG tabletIndicatio ns:Pain TAKE 1 TABLET BY MOUTH THREE TIMES A DAY WITH FOOD 90 tablet 04/30/20 23 Active Misc. Devices (Pulse Oximeter For Finger) miscIndications :Moderate persistent asthma without complication 1 each Once daily. 1 each 06/28/20 23 Active Blood Pressure Monitor kitIndications: Hypotension, unspecified hypotension type Use as directed 3x/week 1 kit 06/28/20 23 Active phenazopyridine (Pyridium) 200 MG tablet Take 1 tablet (200 mg) by mouth if needed in the morning, at noon, and at bedtime for bladder spasms. 6 tablet 04/11/20 24 2024 Active naloxone (Narcan) 4 mg/0.1 mL nasal sprayIndication s:Chronic bilateral low back pain without sciatica Administer 1 spray (4 mg) into affected nostril(s) if needed for opioid reversal. May repeat every 2-3 minutes if needed, alternating nostrils, until medical assistance becomes available. 2 each 3 05/20/20 24 2024 Active gabapentin (Neurontin) 400 MG capsuleIndicati ons:Fibromyalgi a Take 1 capsule (400 mg) by mouth 3 times daily. 90 capsule 11 07/23/20 24 2024 Active levothyroxine (Tirosint) 75 MCG capsuleIndicati ons:Hypothyroid ism due to Bree's thyroiditis TAKE 1 CAPSULE BY MOUTH EVERY DAY 90 capsule 1 10/07/19 25 Active ondansetron (Zofran) 4 MG tablet TAKE 1 TABLET BY MOUTH EVERY 8 HOURS NEEDED FOR NAUSEA OR VOMITING FOR UP TO 7 DAYS 20 tablet 1 11/19/19 25 Active Acetaminophen 500 MG capsule Take 2 capsules (1,000 mg) by mouth every 8 (eight) hours. 180 capsule 11/19/19 25 Active oxyCODONE-aceta minophen (Percocet) 5-325 MG tabletIndicatio ns:Chronic bilateral low back pain without sciatica,Polyar thralgia Take 1 tablet by mouth every 8 (eight) hours if needed for severe pain for up to 28 days. Do not start before December 11, 2024. 84 tablet 12/12/19 25 2024 Active nitrofurantoin, macrocrystal-mo nohydrate, (Macrobid) 100 MG capsuleIndicati ons:Dysuria Take 1 capsule (100 mg) by mouth 2 times daily for 7 days. 14 capsule 12/30/19 25 2024 Active phenazopyridine (Pyridium) 200 MG tabletIndicatio ns:Dysuria Take 1 tablet (200 mg) by mouth if needed in the morning, at noon, and at bedtime for bladder spasms for up to 3 days. 6 tablet 12/30/19 25 2024 Active oxyCODONE-aceta minophen (Percocet) 5-325 MG tabletIndicatio ns:Chronic bilateral low back pain without sciatica,Polyar thralgia Take 1 tablet by mouth every 8 (eight) hours if needed for severe pain for up to 28 days. Do not start before November 13, 2024. 84 tablet 11/13/19 25 2024 Discontinued(R eorder (will not trigger notification to Pharmacy)) Active Problems Problem Noted Date Diagnosed Date Encounter for preventive care 10/06/2024 Assessment & Plan (10/07/2024 4:56 PM EST): See HPI Vertigo 07/28/2024 Assessment & Plan (07/28/2024 7:31 PM EDT): Discussed possible vertigo sxs. Given some [employer] exercises for relief. -ER precautions discussed. Skin cancer screening 07/23/2024 Dizziness 04/29/2024 Assessment & Plan (04/29/2024 3:01 PM EDT): - pt is not anemic nor has evidence of DM and viral respiratory panel was negative - will obtain reports of most recent ED visit and nursing hospital and f/u with pt - advised pt to discuss with PCP about cutting down on Gabapentin and Tramadol - increase hydration, take Tylenol PRN - f/u with PCP in 3 month or earlier PRN Gastritis 04/22/2024 Assessment & Plan (04/22/2024 5:00 PM EDT): I advise patient to avoid NSAIDs, spicy and acid food, I advise to eat at the same time every day, I advise to elevate the head of the bed and take medications as prescribe Dysuria 04/11/2024 Assessment & Plan (04/11/2024 2:46 PM EDT): -US Retroperitoneal limited 01/31/24: right kidney 6 mm nonobstructing calculus in the mid kidney. Left kidney 1.1 cm simple cyst in the upper pole. No follow-up imaging is recommended. Again seen is increased medullary echotexture which may indicate medullary sponge kidney. -CT Abdomen and pelvis w/o contrast 2021:No evidence of acute intra-abdominal or pelvic pathology on this nonintravenous contrast study. -urine dipstick done today: blood small, protein 30, nitrates neg, LE moderate Will tx empirically for UTI -macrobid BID x 5 days -pyridium for 2 days -UA w reflex to cx -BV sent -alarm signs and symptoms discussed w pt -apt w PCP 04/22/2024 Dyspnea on exertion 03/11/2024 Palpitations 03/11/2024 Other fatigue 03/11/2024 Assessment & Plan (07/28/2024 7:32 PM EDT): Discussed likely multi-factorial. Ordered a wide spectrum of labs. -advised monitoring symptoms and ER precautions given. Fibromyalgia 03/11/2024 Assessment & Plan (07/23/2024 10:08 AM EDT): Patient reports gabapentin is helping a lot, c/w same regimen Patient was educated about multidisciplinary approach for her condition, it was advise cardiovascular exercise, maintain hydration, treat anxiety/depression and take medications as directed Assessment & Plan (04/22/2024 5:00 PM EDT): Patient is doing better on gabapentin 400mg TID I also advise healthy diet and exercise Assessment & Plan (03/11/2024 11:11 AM EDT): Patient was educated about multidisciplinary approach for her condition, it was advise cardiovascular exercise, maintain hydration, treat anxiety/depression and take medications as directed I will increase gabapentin to 400mg TID Class 2 severe obesity due t o excess calories with serious comorbidity and body mass index (BMI) of 39.0 to 39.9 in adult 01/07/2024 Assessment & Plan (01/07/2024 11:29 AM EDT): Today extensive discussion was done about life style modifications I advise healthy diet (low calorie) and cardiovascular exercise I will order ozempic for her and see if she can be approve I did review with her ost common side effect RTC 8 weeks Nephrocalcinosis 10/04/2023 Assessment & Plan (10/04/2023 2:48 PM EST): Continue to follow with nephrology Thyroiditis 07/02/2023 Chronic cough 06/28/2023 Low blood pressure 06/28/2023 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 Disorder of skin color 05/21/2023 Irregular periods 05/21/2023 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 Moderate persistent asthma without complication 05/21/2023 Assessment & Plan (07/23/2024 10:07 AM EDT): Stable continue with same interventions Assessment & Plan (06/28/2023 4:13 PM EDT): Continue to follow with pulmonary Stress incontinence of urine 05/21/2023 Upper abdominal pain 05/21/2023 Vaginal discharge 05/21/2023 Rash 05/21/2023 Right leg pain 05/21/2023 Severe obesity 05/21/2023 Recurrent kidney stones 02/27/2023 Chronic bilateral low back pain without sciatica 02/27/2023 Assessment & Plan (10/07/2024 4:55 PM EST): I will switch her pain medication tramadol to percocet 5mg Q 8hrs PRN, counseling done, I let her know I will not go up on the dose I will give her first one week supply then I can give her 28 day supply, she will have to be complaint with her AIR COMPRESS[employer] ENGINE[employer] agreement Assessment & Plan (04/22/2024 5:01 PM EDT): It was prescribed by rheumatology tramadol 50mg Q 6hrs, she was discharge form practice I will c/w same prescription patient is aware and agrees with plan, she reports she will be compliant with [employer] Polyarthralgia 02/27/2023 Chronic pain of right lower extremity 02/27/2023 Mild intermittent asthma without complication Abnormal uterine bleeding 12/28/2022 Acne 12/28/2022 Hyperlipidemia LDL goal <100 11/01/2022 Overview (11/01/2022): Lipids 10/29/22: LDL 129/HDL 80 Vitamin D deficiency 11/01/2022 Mixed anxiety and depressive disorder 10/27/2022 Assessment & Plan (07/23/2024 10:08 AM EDT): Stable c/w same interventions Ductal carcinoma in situ (DCIS) of left breast 0 10/27/2022 Elevated liver enzymes 10/27/2022 Fatty liver 10/27/2022 Morbid obesity 10/27/2022 Assessment & Plan (10/27/2022 9:44 AM EST): Discussed re weight reduction options including exercise, life style modifications, diet, referral to copy center specialist. Discussed re lower calorie intake, increase dietary fiber I gave pt information about the weight management program at [facility] and she will FU with us. Plantar fasciitis 10/27/2022 Perimenopause 10/27/2022 Assessment & Plan (10/27/2022 9:43 AM EST): Pt with ammenorrhea since January 2022. FU with [employer]. Counseled to dress in layers, no need for HRT at this time. EVA I (cervical intraepithelial neoplasia I) Assessment & Plan (10/27/2022 9:40 AM EST): S/p Pap smear January 2022. Will FU in 2 months. Encounter for preventive health examination 10/02 Assessment & Plan (10/04/2023 2:48 PM EST): See HPI Assessment & Plan (10/27/2022 9:49 AM EST): Discussed with patient re increase fresh fruit and vegetable intake. Counseled re moderate exercise as tolerated, up to 20min/d Patient feels safe at home. PAP smear up to date 2021, needs to FU with [employer] INST[employer] due to abnormal pap Mammogram Up to date, next one due Aug 2023 Bone density test N/A Eye exam December 2018 CRC screen Up to date, next one due on 2026 Lipids/FBS overdue Vaccinations She is given PCV20 and Hep B #1 today. Declined Covid Booster. Td due on 2027. Other vax up to date, Check STIs and MMR titers. 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 Anxiety 11/26/2017 Chronic low back pain 11/26/2017 Varicose veins of lower extremity 09/28/2017 Encounters Date Type Department Care Team Description 12/29/2024 6:40 PM EDT Office Visit [facility] [address] [place] [phone] Leona Cee MD Acute cystitis with hematuria (Primary Dx); Dysuria 12/12/2024 Population [facility] Risk Score [facility] () Department [address] [phone] Provider, Population Health Generic 12/08/2024 Refill [facility] [address] [place] [phone] Idalmis Jacques MD Chronic bilateral low back pain without sciatica; Polyarthralgia 12/04/2024 Telephone [facility] [address] [place] [phone] Idalmis Jacques MD Dental Clearance Form 12/02/2024 9:30 AM EST Clinical Support [facility] [address] [place] [address] [phone] Micaela Hernandez RN Chronic bilateral low back pain without sciatica (Primary Dx) 12/02/2024 Telephone [facility] [address] [place] [phone] Micaela Hernandez, BERNABE BPI Scoring 12/02/2024 Travel 11/19/2024 8:40 AM EST Office Visit [facility] [address] [place] [phone] Jose Hughes MD Hematemesis with nausea (Primary Dx); Viral URI; Diarrhea, unspecified type 11/19/2024 Refill [facility] [address] [place] [phone] Idalmis Jacques MD 11/18/2024 Telephone [facility] [address] [place] [phone] Idalmis Jacques MD Nurse Triage (/) 11/12/2024 Refill [facility] [address] [place] [phone] Idalmis Jacques MD 11/07/2024 Refill [facility] [address] [place] [address] Idalmis Jacques MD Chronic bilateral low back pain without sciatica; Polyarthralgia 10/31/2024 Telephone [facility] [address] [place] [address] Idalmis Jacques MD Med Refill 10/23/2024 Outside Procedure [facility] [address] [place] [phone] AshwinLuca masseyn, OD Presbyopia (Primary Dx) 10/14/2024 1:00 PM EST Office Visit [facility] [address] [place] [phone] AshwinLuca masseyn, OD Regular astigmatism of right eye (Primary Dx) 10/14/2024 Refill [facility] [address] [place] [address] Idalmis Jacques MD Chronic bilateral low back pain without sciatica; Polyarthralgia 10/07/2024 Orders Only [facility] [address] [place] [address] [phone] Idalmis Jacques MD 10/07/2024 Telephone [facility] [address] [place] [phone] Idalmis Jacques MD Medication Question 10/07/2024 Telephone [facility] [address] [place] [phone] Idalmis Jacques MD 10/06/2024 10:15 AM EST Office Visit [facility] [address] [place] [phone] Idalmis Jacques MD Chronic bilateral low back pain without sciatica (Primary Dx); Polyarthralgia; Encounter for preventive care; 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 10/06/2024 Travel 10/03/2024 Orders Only [facility] External Provider, [facility] from Last 3 Months Immunizations Name Administration Dates Next Due DTaP 11/11/1981, 7,05/09/1976,02/14,1975 Hep B, adult 10/27/2022 IPV 11/27/1995, 2,07/17/1977,05/09,02/15/1976 Influenza Injectable Quadriv alant Preservative Free IIV4 MDCK 06/20/2023,06/07/2022 Influenza injectable quadriv alent IIV4 with preservative 06/12/2019,06/24/2018 Influenza injectable quadriv alent preservative free 06/21/2021,06/14/2020,07/17/2017 Influenza, IIV3, injectable 08/01/2022,1 10/17/2020,07/08/2014,06/11,07/26/2011,07/12/2010,06/24/2009 ,08/04/2008,09/04/2007 Influenza, Unspecified 08/01/2022,2020,07/08/2014,06/11 Influenza, live, intranasal 08/10/2009 MMR 01/23/1996,03/18/1979,07/25/1977 Moderna Covid-19 Vaccine 12+ 10/05/2021,01/11/20 21,12/13/2020 Pneumococcal Conjugate PCV 20 04/08/2023 Pneumococcal Polysaccharide PPSV23 06/11/2013, Td (adult), unspecified 02/29/1996,05/25/1993 Tdap 01/23/2018,03/23/2015,01/29/2009 Social History Tobacco Use Types Packs/Day Years Used Date Smoking Tobacco: Never Passive Smoke Exposure: Never Smokeless Tobacco: Never Tobacco Cessation:Counseling Given: Not Answered Alcohol Use Standard Drinks/Week Comments Never 0 [...] not to disclose 2021 10:29 AM EDT Last Filed Vital Signs Vital Sign Reading Time Taken Comments Blood Pressure 119/65 12/29/2024 6:02 PM EDT Pulse 80 12/29/2024 6:02 PM EDT Temperature 37.2 ??C (99 ??F) 12/29/2024 6:02 PM EDT Respiratory Rate 18 11/19/2024 8:44 AM EST Oxygen Saturation 97% 11/19/2024 8:44 AM EST Inhaled Oxygen Concentration - - Weight 78 kg (172 lb) 12/29/2024 6:02 PM EDT Height 144.8 cm (4' 9 ) 12/29/2024 6:02 PM EDT Body Mass Index 37.22 12/29/2024 6:02 PM EDT Plan of Treatment Upcoming Encounters Date Type Department Care Team (Late st Contact Info) Description 01/23/2025 3:00 PM EDT Office Visit [facility] [address] [place] [phone] Johanny Rick MD [address] [place] [address] [phone] 01/27/2025 9:00 AM EDT Office Visit [facility] [address] [place] [address] [phone] Idalmsi Jacques MD [address] [place] [address] 03/03/2025 9:30 AM EDT Clinical Support [address] [address] Micaela Hernandez, BERNABE Health Maintenance Due Date Last Done Comments CT Colonography 1975 FIT DNA/Cologuard 1975 FIT 1975 FOBT 1975 Sigmoidoscopy 1975 Family Planning (PISQ) 1990 Hepatitis A Vaccines (1 of 2 - Risk 2-dose series) 1994 Mammogram 2015 Hepatitis B Vaccines (2 of 3 - 19+ 3-dose series) 11/24/2022 10/27/2022 HPV/Cotest 12/09/2022 12/08/2021, 11/29, 05/04/2021, Additional history exists Pap Smear 12/09/2022 12/09/2021, 05/04/2021 COVID-19 Vaccine ( season) 2024 10/05/2021, 01/10/2021, 12/13/2020 Influenza Vaccine (#1) 2024 , 08/01/2022, 08/01/2022, Additional history exists SDOH Screening 01/10/2025 01/11/2024 Derm Melanoma Skin Check 01/21/2025 07/23/2024, 07/02 Alcohol/Substance Use Screening 04/22/2025 04/22/2024 Depression Screening 07/23/2025 07/23/2024, 07/23/20 24 Zoster Vaccines (1 of 2) 2025 Tobacco Screening 12/29/2025 12/29/2024 DTaP/Tdap/Td Vaccines (9 - Td or Tdap) 01/24/2028 01/23/2018, 03/23/2015, 01/29/2009, Additional history exists Lipid Panel 03/12/2029 03/12/2024, 10/02, 10/06/2020, Additional history exists Colonoscopy 12/24/2031 12/23/2021 Colorectal Cancer Screening 12/24/2031 RSV Patients and Patients Aged 60 years or older (1 - 1-dose 75+ series) 2050 IPV Vaccines Completed 11/27/1995, 11/01, 07/17/1977, Additional history exists HIV Screening Completed 10/27/2022 Hepatitis C Screening Completed 10/27/2022, 022 Pneumococcal Vaccine: Pediatrics (0 to 5 Years) and At-Risk Patients (6 to 49) Years) Completed 04/08/2023, 06/11/2013, 04/19/2011 Cervical Cancer Screening Discontinued HIB Vaccines Aged Out No longer eligi ble based on patient's age to complete this topic HPV Vaccines Aged Out No longer eligi ble based on patient's age to complete this topic Meningococcal Vaccine Aged Out No danni rojelio eligible based on patient's age to complete this topic RSV under 20 months Aged Out No longe r eligible based on patient's age to complete this topic Rotavirus Vaccines Aged Out No longer eligible based on patient's age to complete this topic Procedures Procedure Name Priority Date/Time Associated Diagnosis Comments POCT URINALYSIS DIPSTICK Routine 12/29/2024 6:36 PM EDT Dysuria POCT RAGHAVENDRA-14 URINE DRUG SCREEN Routine 12/02/2024 9:05 AM EST Chronic bilateral low back pain without sciatica POCT INFLUENZA B (ID NOW RAPID MOLECULAR) Routine 11/19/2024 8:55 AM EST Viral URI POCT INFLUENZA A (ID NOW RAPID MOLECULAR) Routine 11/19/2024 8:55 AM EST Viral URI POCT RAPID COVID ANTIGEN Routine 11/19/2024 8:55 AM EST Viral URI US RENAL BI Routine 10/03/2024 2:57 PM EST LIPID PANEL, STANDARD Routine 03/12/2024 8:58 AM EDT Other fatigue HEPATITIS PANEL, GENERAL Routine 10/27/2022 9:49 AM EST Perimenopause HIV 1/2 ANTIGEN/ANTIBODY, FOURTH GENERATION W/RFL Routine 10/27/2022 9:49 AM EST EVA I (cervical intraepithelial neoplasia I) Perimenopause HM COLONOSCOPY Routine 12/23/2021 6:38 PM EDT PAP SMEAR Routine 12/09/2021 12:00 AM EST ZZZ HISTORICAL HPV E6/E7 RFLX FAVIOLA 16 18/45 Routine 12/08/2021 1:50 PM EST from Last 3 Months or Most Recently Relevant to Health Maintenance Results * (ABNORMAL) POCT urinalysis dipstick manually [...] CARE TEST ENTER/ED IT ORDERABLES Final Result * POCT RAHGAVENDRA-14 Urine Drug Screen (12/02/2024 9:05 AM EST) Oxycodone Screen, Urine Positive Urine Urine specimen obtained by clean catch procedure / Unknown 12/02/2024 9:05 AM EST us Idalmis Alvarez MD POINT OF CARE TEST EN TER/EDIT ORDERABLES Final Result * Influenza B (ID NOW Rapid Molecular) (11/19/2024 8:55 AM EST) Influenza B Negative Negative, Indeterminate [facility] Swab 11/19/2024 8:55 AM EST us Jose Hughes MD POINT OF CARE TEST ENTER/EDIT OR DERABLES Final Result Performing Organization Address [facility] de Phone Number [facility] [address] [place] [phone] * Influenza A (ID NOW Rapid Molecular) (11/19/2024 8:55 AM EST) Pathologist [facility] Influenza A Negative Negative, Indeterminate [facility] Swab 11/19/2024 8:55 AM EST us Jose Hughes MD POINT OF CARE TEST ENTER/EDIT OR DERABLES Final Result Performing Organization Address [facility] de Phone Number [facility] [address] [place] [phone] * POCT Rapid COVID Ag (11/19/2024 8:55 AM EST) Rapid COVID Ag Negative [facility] Swab 11/19/2024 8:55 AM EST us Jose Hughes MD POINT OF CARE TEST ENTER/EDIT OR DERABLES Final Result Performing Organization Address [facility] de Phone Number [facility] [address] [place] [phone] * US RENAL BI (10/03/2024 2:57 PM EST) Anatomical Region Laterality Modality Abdomen Ultrasound 10/03/2024 2:57 PM EST Narrative 10/03/2024 2:58 PM EST ? [facility] ?[address] ?[place] [address] ? Ultrasound Report ? Signed ? Patient: Robles,Amaya ?MR#: [id number] ? : 1975 ?Acct:[id number] ? Age/Sex: 49 / F ?ADM Date: 10/03/24 ? Loc: HO.US ? Attending Dr: Vinny Hodge MD ? Ordering Physician: Vinny Hodge MD ?? Date of Service: 10/03/24 ?? Procedure(s): US renal BI ?? Accession Number(s): [id number] ? cc: Vinny Hodge MD; Idalmis Jacques MD ? CLINICAL HISTORY: I10 - Essential (primary) hypertension ? US RENAL ? Comparison: US/NM/SR - US RENAL BI - 01/31/24 09:17 EDT ? Findings: ?? Right kidney: ?? 11.1 cm in length. ?? Mild diffuse renal cortical thinning. ?? Redemonstration of echogenic medullary pyramids. ?? Stable 6 mm midpole calculus. Additional midpole calculus measures 4 mm. ?? No hydronephrosis. ?? No cortical mass lesion. ? Left kidney: ?? 11.9 cm in length. ?? Mild diffuse cortical thinning. ?? Redemonstration of echogenic medullary pyramids. ?? No calculus identified. ?? Mild fullness of the renal pelvis. No lady hydronephrosis. ?? 12 mm cyst in the lower pole is without significant change. ? IMPRESSION: ?? 1. No hydronephrosis. ?? 2. Nonobstructing right nephrolithiasis. ?? 3. Echogenic medullary pyramids can be seen with medullary sponge kidneys. ?? 4. Small left renal cyst. ? This document has been electronically signed by: Marie Guido, DO on ?? 10/03/2024 14:57:21 ? Dictated By: ?Marie Guido MD ? Signed By: ?<Electronically signed by Marie Guido MD in OV> ?10/03/241456 ? DD/ 56 ? TD/TT: 10/03/241456 ? Shareholder: ? Procedure Note Kenroy Jiang - 10/03/[address] [address] Ultrasound Report Signed Patient: Janeth Robles#: [id number] : 1975Acct:[id number] Age/Sex: 49 / FADM Date: 10/03/24 Loc: HO.US Attending Dr: Vinny Hodge MD Ordering Physician: Vinny Hodge MD Date of Service: 10/03/24 Procedure(s): US renal BI Accession Number(s): [id number] cc: Vinny Hodge MD; Idalmis Jacques MD CLINICAL HISTORY: I10 - Essential (primary) hypertension US RENAL Comparison: US/NM/SR - US RENAL BI - 01/31/24 09:17 EDT Findings: Right kidney: 11.1 cm in length. Mild diffuse renal cortical thinning. Redemonstration of echogenic medullary pyramids. Stable 6 mm midpole calculus. Additional midpole calculus measures 4 mm. No hydronephrosis. No cortical mass lesion. Left kidney: 11.9 cm in length. Mild diffuse cortical thinning. Redemonstration of echogenic medullary pyramids. No calculus identified. Mild fullness of the renal pelvis. No lady hydronephrosis. 12 mm cyst in the lower pole is without significant change. IMPRESSION: 1. No hydronephrosis. 2. Nonobstructing right nephrolithiasis. 3. Echogenic medullary pyramids can be seen with medullary sponge kidneys. 4. Small left renal cyst. This document has been electronically signed by: Marie Guido DO on 10/03/2024 14:57:21 Dictated By: Marie Guido MD Signed By: <Electronically signed by Marie Guido MD in OV> 10/03/24 1457 DD/ 1457 TD/TT: 10/03/24 1457 Shareholder: [facility] External Provider IMG US PROCEDURES Edited Result - Final * (ABNORMAL) Lipid Panel, Standard (03/12/2024 8:58 AM EDT) Triglycerides 42 <150 mg/dL [facility] Comment:Desirable Triglyceri de: less than 150 mg/dLBorderline High Triglyceride 150-199 mg/dLHigh Triglyceride: 200-499 mg/dLVery High Triglyceride: greater than or equal to 5OO mg/dL Cholesterol 201(H) <200 mg/dL [facility] Comment:Desirable Cholestero l: less than 200 mg/dLBorderline High Cholesterol: 200-239 mg/dLHigh Cholesterol: greater than 239 mg/dL LDL Cholesterol Calculated 123(H) <100 mg/dL [facility] Comment:Desirable LDL: less than 100 mg/dLNear Optimal/Above Optimal LDL: 110- 129 mg/dLBorderline High LDL: 130-159 mg/dLHigh LDL: 160-189 mg/dLVery High LDL: greater than or equal to 190 mg/dL HDL Cholesterol 70 >40 mg/dL [facility] Comment:Desirable HDL: great er than 40 mg/dL Note: This HDL assay may give artificially low results in patients with liver disease. Blood Venous blood specimen / Unknown 03/12/2024 8:58 AM EDT 03/12/2024 11:21 AM EDT us Idalmis Alvarez MD LAB BLOOD ORDERABLES Final Result [facility] [address] [place] [phone] * (ABNORMAL) Hepatitis Panel, General (10/27/2022 9:49 AM EST) Hepatitis A Antibody Total NON-REACT SHIKHA NON-REACT [employer] [place] Comment: For additional information, please refer to http://education.Cokonnect/faq/GKU156 (This link is being provided for informational/ educational purposes only.) Hepatitis B Surface Antibody QL REACTIVE( A) NON-REACT [employer] [place] Hepatitis B Surface Ag NON-REACT [place]HA NON-REACT [facility] [place] Hepatitis B Core Antibody Total NON-REACT SHIKHA NON-REACT [employer] [place] [facility] Hepatitis C Antibody NON-REACT SHIKHA NON-REACT [employer] [place] [facility] Index <0.02 <1.00 [facility] [place] [email or web address] Comment: HCV antibody was non-reactive. There is no laboratory evidence of HCV infection. In most cases, no further action is required. However, if recent HCV exposure is suspected, a test for HCV RNA (test code 60645) is suggested. For additional information please refer to http://Hintsoft.Cokonnect/faq/YSX52b0 (This link is being provided for informational/ educational purposes only.) 10/27/2022 9:49 AM EST 10/27/2022 9:49 AM EST Narrative [facility] - 10/29/2022 2:12 PM EST FASTING:YES FASTING: YES Connie Elizabeth MD LAB BLOOD ORDERABLES Fin al Result [facility] [address] [facility], [facility], [place] [address] [facility] [place] [facility] [address] [facility], (N[address]2) [place] [address] * HIV-1/2 Antigen and Antibodies, Fourth Generation, with Reflexes (10/27/2022 9:49 AM EST) HIV Antigen/Antibody, 4th Generation NON-REAC TIVE NON-REAC TIVE [facility] [place] [facility] Comment: HIV-1 antigen and HIV-1/HIV-2 antibodies were not detected. There is no laboratory evidence of HIV infection. PLEASE NOTE: This information has been disclosed to you from records whose confidentiality may be protected by state law. ??If your state requires such protection, then the state law prohibits you from making any further disclosure of the information without the specific written consent of the person to whom it pertains, or as otherwise permitted by law. A general authorization for the release of medical or other information is NOT sufficient for this purpose. ?? For additional information please refer to http://Hintsoft.Cokonnect/faq/QHN548 (This link is being provided for informational/ educational purposes only.) The performance of this assay has not been clinically validated in patients less than 2 years old. Blood Venous blood specimen / Unknown 10/27/2022 9:49 AM EST 10/27/2022 9:49 AM EST Narrative [facility] - 10/29/2022 2:12 PM EST FASTING:YES FASTING: YES Connie Elizabeth MD LAB BLOOD ORDERABLES Fin al Result [facility] [address] [facility], 3rd Fl, [place] [address] [facility] [address] [facility], (N[address]2) [place] [address] * Hm Colonoscopy (12/23/2021 6:38 PM EDT) Historical Provider HEALTH MAINTENANCE Final Result * Pap Smear (12/09/2021 12:00 AM EST) Swab Historical Provider LAB CYTOLOGY ORDERABLES F inal Result [facility] [address] [place] [phone] * HPV E6/E7 RFLX FAVIOLA 16 18/45 (12/08/2021 1:50 PM EST) HPV 16 RNA [facility] HPV 18/45 RNA [facility] HPV E6 E7 ADD [facility] HPV mRNA E6/E7 rflx Not Detected Not Detected [facility] Comment: Methodology: Vending Machine Repairer-Mediated Amplification This assay detects E6/E7 viral messenger RNA (mRNA) from 14 high-risk HPV types (16,18,31,33,35,39,45,51,52,56,58,59,66,68). The analytical performance characteristics of this assay have been determined by [facility]. The modifications have not been cleared or approved by the FDA. This assay has been validated pursuant to the CLIA regulations and is used for clinical purposes. For additional information, please refer to http://education.SavvySource for Parents.CorePower Yoga/faq/BIU336k9 (This link if provided for information/ educational purposes only.) THIS TEST WAS PERFORMED AT: [facility] [address] [facility] [address]RD FLOOR,[address] [place], [place] ??[phone] CATHERINE ESTRELLA MD 12/08/2021 1:50 PM EST us Dilshad Cruz MD HISTORICAL/NON ORDERABLE LABS Fi nal Result [facility] [address] from Last 3 Months or Most Recently Relevant to Health Maintenance Insurance [employer]3 Care Teams Performing Arts Technicians Relationship Specialty Start Date End Date Idalmis Jacques MD [address] [place] [phone] PCP - General Family Medicine 09/11/18 luciana Leyva Community Health Worker Case Management 02/28/24
--- OUTSIDE RECORDS SUMMARY | 2024-12-30 13:51 | XMS_ITS | Clinical Summary ---
Author Organization [facility], Address [address] [place] [address] Phone Care Team Providers Care Mercury Recoverer Name Role Phone Idalmis Jacques MD Primary Care Provide r Allergies Active Allergy Reactions Criticality Noted Date Comments Azithromycin Rash Low 04/20/2021 Prochlorperazine 01/10/2021 Hydromorphone 01/10/2021 Dust Mite Extract 12/14/2021 Other reaction(s): rash Famotidine Rash Low 01/15/2024 Grass Pollen Standardized Ext 12/14/2021 Other reaction(s): hives Iodine Other (see comments) 09/22/2021 Latex 01/10/2021 Morphine 01/10/2021 Other 12/14/2021 Other reaction(s): rash Peanut-Containing Drug Products 12/14/2021 Other reaction(s): rash Pollen Extract 12/14/2021 Other reaction(s): hives Medications cephalexin (KEFLEX) 500 MG capsule TK 1 C PO Q 8 H 08/23/20 20 Active Docusate Sodium (DSS) 100 MG capsule Take 100 mg by mouth twice a day 05/18/20 18 Active EPINEPHrine (EPIPEN) 0.3 MG/0.3ML injection syringe Comments: Filled Date: Jul 22 2019 12:00AM Patient Notes: INJECT INTRAMUSCULARLY DIRECTED PRN Duration: 2 07/22/20 19 Active EPINEPHrine (EPIPEN) 0.3 MG/0.3ML injection syringe INJ UTD PRF ANAPHYLAXIS 08/18/20 20 Active Tirosint 75 MCG capsule Take 75 mcg by mouth 1 (one) time each day 10/05/19 21 Active loratadine (CLARITIN) 10 MG tablet Comments: Filled Date: Jul 22 2019 12:00AM Patient Notes: TK 1 T PO QD Duration: 30 07/22/20 19 Active meloxicam (MOBIC) 15 MG tablet Comments: Filled Date: Jul 10 2019 12:00AM Patient Notes: TK 1 T PO D PRN Duration: 30 04/30/20 19 Active minocycline (MINOCIN,DYNACI N) 50 MG capsule Take 50 mg by mouth every 12 (twelve) hours 09/21/20 20 Active levothyroxine sodium (TIROSINT) 75 MCG capsule TAKE 1 CAPSULE BY MOUTH EVERY DAY 09/07/20 20 Active montelukast (SINGULAIR) 10 MG tablet Take 10 mg by mouth 1 (one) time each day in the evening 09/17/20 20 Active oxyCODONE (ROXICODONE) 5 MG immediate release tablet Take 5 mg by mouth 0 18 Active ondansetron (ZOFRAN) 4 MG tablet Comments: Filled Date: Jul 04 2019 12:00AM Patient Notes: TK 1 T PO Q 6 H PRF NAUSEA AND VOMITING Duration: 2 07/04/20 19 Active predniSONE (DELTASONE) 10 MG tablet Comments: Filled Date: Jul 04 2019 12:00AM Patient Notes: TK 4 TS PO QD FOR 5 DAYS Duration: 5 07/04/20 19 Active tamoxifen (NOLVADEX) 20 MG chemo tablet Take 20 mg by mouth daily 10/04/19 21 Active traMADol (ULTRAM) 50 MG tablet Take 50 mg by mouth 4 (four) times a day if needed 09/25/20 20 Active venlafaxine XR (EFFEXOR-XR) 37.5 MG 24 hr capsule Comments: Filled Date: Jul 02 2019 12:00AM Patient Notes: TK ONE C PO QAM TK WITH 75 MG FOR A TOTAL OF 112.5 MG Duration: 30 07/02/20 19 Active zolpidem (AMBIEN) 10 MG tablet Comments: Filled Date: Jul 02 2019 12:00AM Patient Notes: TK 1 T PO HS FOR INSOMNIA Duration: 30 07/02/20 19 Active Acetaminophen Extra Strength 500 MG tablet 03/18/20 21 Active cefuroxime (CEFTIN) 500 MG tablet TAKE 1 TABLET BY MOUTH TWICE DAILY FOR 7 DAYS 03/18/20 21 Active gabapentin (NEURONTIN) 400 MG capsule Take 400 mg by mouth 1 (one) time each day 02/24/20 21 Active hydrOXYzine (VISTARIL) 25 MG capsule TAKE 1 CAPSULE BY MOUTH TWICE DAILY NEEDED FOR ANXIETY 03/07/20 Active ibuprofen (ADVIL,MOTRIN) 800 MG tablet TAKE 1 TABLET BY MOUTH THREE TIMES DAILY WITH FOOD 03/18/20 21 Active mirtazapine (REMERON) 15 MG tablet Take 15 mg by mouth at bed time 02/24/20 21 Active ondansetron ODT (ZOFRAN-ODT) 4 MG dispersible tablet DISSOLVE 1 TABLET ON THE TONGUE EVERY 6 TO 8 HOURS NEEDED FOR NAUSEA OR VOMITING 03/18/20 21 Active QUEtiapine (SEROquel) 400 MG tablet Take 400 mg by mouth at bed time at bedtime 02/24/20 21 Active selenium sulfide (SELSUN) 2.5 % shampoo 03/07/20 21 Active hydroCHLOROthia zide 25 MG tablet Take 0.5 tablets (12.5 mg total) by mouth 1 (one) time each day 15 tablet 3 11/19/19 24 Active Active Problems Problem Noted Date Diagnosed Date Chronic kidney disease, stage 2 (mild) 4 Hypothyroidism 01/15/2024 Medullary nephrocalcinosis 09/11/2023 Nephrolithiasis 09/11/2023 Other abnormal clinical findings Overview (07/21/2024): high urinary calcium excretion, 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 Cortical nephrocalcinosis Hydronephrosis Hypercalciuria Immunizations Name Administration Dates Next Due DTaP 11/11/1981, 7,05/09/1976,02/14,1975 Hepatitis B 10/27/2022 IPV 11/27/1995, 2,07/17/1977,05/09,02/15/1976 Influenza LAIV (Nasal) 08/10/2009 Influenza, MDCK, PF, Quadrivalent 06/20/2023,03/2022 Influenza, Quadrivalent, Pre servative Free 06/21/2021,06/14/2020,07/17/2017 Influenza, Quadrivalent, Wit h Preservative 06/12/2019,06/24/2018 Influenza, Unspecified 08/01/2022,2020,07/08/2014,06/11,07/26/2011,07/12/2010,06/24/2009 ,08/04/2008,09/04/2007 MMR 01/23/1996,03/18/1979,07/25/1977 Moderna SARS-COV-2 10/05/2021,01/10/2021, 021 Pneumococcal Conjugate Pcv 20 04/08/2023 Pneumococcal Polysaccharide 06/11/2013, 1 Td, Unspecified 02/29/1996,05/25/1993 Tdap 01/23/2018,03/23/2015,01/29/2009 Family History Medical History Relation Comments Prostate cancer Maternal Grandfather Alcohol abuse Maternal Grandmother Stroke Maternal Grandmother Hypertension Mother Leukemia Mother Lupus Mother Thyroid disease Mother Uterine cancer Mother's Sister Breast cancer Other Hypertension Paternal Grandfather ADD / ADHD Son Asthma Son Relation Status Comments Maternal Grandfather Maternal Grandmother Mother Mother's Sister Other Paternal Grandfather Son Social History Tobacco Use Types Packs/Day Years Used Date Smoking Tobacco: Never Smokeless Tobacco: Never Alcohol Use Standard Drinks/Week Comments No 0 (1 standard drink = 0.6 oz pur e alcohol) Comments Unknown Sex and Gender Information Value Date Recorded Sex Assigned at Not on file Legal Sex Female 4:33 PM EST Gender Identity Not on file Sexual Orientation Not on file Last Filed Vital Signs Vital Sign Reading Time Taken Comments Blood Pressure 108/70 01/22/2024 2:17 PM EDT Pulse 73 07/17/2023 1:48 PM EDT Temperature - - Respiratory Rate - - Oxygen Saturation - - Inhaled Oxygen Concentration - - Weight - - Height - - Body Mass Index - - Plan of Treatment Health Maintenance Due Date Last Done Comments Hepatitis B Vaccine (1 of 3 - 19+ 3-dose series) 1994 10/27/2022 Influenza Vaccine (#1) 2024 3, 08/01/2022, 06/07/2022, Additional history exists Colorectal Cancer Screening: Annual FOBT 2024 Colorectal Cancer Screening: Colonoscopy 2024 Colorectal Cancer Screening: Sigmoidoscopy 2024 Pneumococcal Vaccine: Pediat rics (0 to 5 Years) and At-Risk Patients (6 to 64 Years) Completed 04/08/2023, 06/11/2013, 04/19/2011 Insurance [place]ICAID [place] Care Teams Mercury Recoverer Relationship Specialty Start Date End Date Idalmis Jacques MD [address] [place] [phone] PCP - General 08/05/19
== END 2024-12-29 00:01 | disposition home or self-care (01) ==
LOC: HO.HHCLNP
PROVIDERS: Visit Provider Internal Medicine
DX: R30.0 Dysuria (principal)
CPT/HCPCS: 87086; 87088; 87186

== ENCOUNTER 2025-01-02 09:02 | Outpatient (AMB) | payer MEDICAID, SELFPAY ==
--- NOTE | 2025-01-02 09:33 | HO.NEPHOV_ITS ---
Vital Signs 01/02/25 09:34 Height 5 ft Weight 178 lb BMI 34.8 BP 100/60 Blood Pressure Location Rt brachial Position Sitting Pulse 71 Pulse Source Pulse Oximeter Pulse Oximetry (%) 95 Oxygen Delivery Method Room Air Intake Visit Reasons: Dr. Hodge pt- Bladder Pain Meter Tester Polyphase Required: Yes Meter Tester Polyphase Language: Flyer Maker Services: Meter Tester Polyphase Offered & Declined ([facility] Meter Tester Polyphase services refused ) Accompanied by: Self / Same As Patient Allergies hydromorphone [From DILAUDID] Allergy (Severe, Verified 01/02/25 09:34) Anaphylaxis iodine Allergy (Severe, Verified 01/02/25 09:34) Anaphylaxis morphine [MORPHINE] Allergy (Unknown, Verified 01/02/25 09:34) UNKNOWN SEAFOOD Allergy (Severe, Uncoded 10/18/23 12:47) HIVES black pepper Allergy (Mild, Uncoded 10/18/23 12:47) Itching Oatmeal Allergy (Mild, Uncoded 10/18/23 12:47) Itching Peanuts Allergy (Mild, Uncoded 10/18/23 12:47) Itching HPI Comments Details: Amaya is a 48 yr old woman with H/O nephrolithiasis. Last ultrasound showed a 6 mm stone on the right side with evidence of middle-aged sponge kidney bilaterally. She was put on HCTZ but was discontinued due to low BP's. She has been having B/L flank pain , more on the right with radiation to groin. She drinks plenty of fluids. She went to Urgent care in [place] urgent care who did a dipstick as per patient . Apparently she was told she has no UTI. She has no dysuria or hematuria, but had nausea yesterday without any vomiting. She takes Percocet for pain. Her renal functions are normal. [facility] Medical History (Updated 01/02/25 @ 09:50 by Blanco Askew MD) Mood disorder External hemorrhoids Adenomatous colon polyp Depression with anxiety Asthma Breast cancer, left Colon cancer screening Hx of thyroid disease Surgical History S/P lumpectomy, left breast History of removal of ovarian cyst History of endometrial ablation History of colonoscopy History of cholecystectomy History of delivery Hx of tubal ligation Family History Maternal Grandfather History of prostate cancer Maternal Aunt History of ovarian cancer Maternal Uncle History of thyroid cancer Maternal Uncle Cancer of unknown origin Social History Alcohol intake: never Patient Tobacco Use Status: Never used Tobacco Sexual orientation: Straight/Heterosexual Gender identity: Female Female Reproductive History Menstrual Age of Menarche: 12 Review of Systems Const All systems reviewed & are unremarkable except as noted in HPI and below Physical Exam Vital Signs: Last Vital Signs Pulse 71 01/02/25 09:34 BP 100/60 01/02/25 09:34 Pulse Ox 95 01/02/25 09:34 Oxygen Delivery Method Room Air 01/02/25 09:34 BMI result Body Mass Index 34.8 Const General: comfortable and no acute distress Orientation/consciousness: patient oriented x3 HEENT Head: Yes normocephalic Mouth: Normal oral and palatal mucosa present Eyes EOM: EOMs intact bilaterally Neck Neck: Yes supple Resp Auscultation: clear to auscultation bilaterally Cardio Jugular venous distension: no JVD Rate: regular rate GI Palpation (GI): Soft to palpation Auscultation: normal bowel sounds Skin General skin exam: no rashes or lesions noted Neuro General: patient oriented x3 and moves all extremities Extrem General: Yes no pedal edema Assessment & Plan Assessment & Plan (1) Renal calculus: Code(s): N20.0 - Calculus of kidney Category: Medical (2) Flank pain: Code(s): R10.9 - Unspecified abdominal pain Category: Medical Plan Middle aged woman with nephrocalcinosis presenting with B/L flank pain. Her renal function is normal. Last Ultrasonogram shows bilateral medullary sponge kidney with a 6 mm nonobstructing stone in the right side. Urinary calcium excretion oxalate excretion and sodium excretion where appropriate in the past. I ordered blood work, urine studies and CT abdomen. Follow up with Dr Hodge in 2 weeks. Orders: Orders UA and rflx microscopic Today N20.0 - Calculus of kidney, R10.9 - Unspecified abdominal pain Urine Culture Today N20.0 - Calculus of kidney, R10.9 - Unspecified abdominal pain Electrolytes Today N20.0 - Calculus of kidney, R10.9 - Unspecified abdominal pain Blood Urea Nitrogen Today N20.0 - Calculus of kidney, R10.9 - Unspecified abdominal pain Creatinine Today N20.0 - Calculus of kidney, R10.9 - Unspecified abdominal pain Calcium Today N20.0 - Calculus of kidney, R10.9 - Unspecified abdominal pain CT abdomen pelvis wo IV con Today N20.0 - Calculus of kidney, R10.9 - Unspecified abdominal pain Coding Level of Care Code Est Pt Level 4 (69765) Diagnoses Renal calculus N20.0 Flank pain R10.9
[2025-01-02 09:34] VITALS: BP 100/60; PULSE 71; O2SAT 95; BMI 34.8
--- OUTSIDE RECORDS SUMMARY | 2025-01-02 09:42 | XMS_ITS | Encounter Summary ---
Author Organization [facility] Address [address] [place] [address] Phone Care Team Providers Care Drop Worker Name Role Phone Idalmis Jacques MD Primary Care Provide r Encounter Details Date Type Department Care Team (Late st Contact Info) Description 01/29/2024 Documentation Only [facility] [place], [address] [place] [address] [place]ne [place], [place] [address] [place] [address] Social History Tobacco Use Types [...] on filedocumented in this encounter Care Teams Drop Worker Relationship Specialty Start Date End Date Idalmis Jacques MD [address] [phone] PCP - General 08/05/19 documented as of this encounter
--- OUTSIDE RECORDS SUMMARY | 2025-01-02 09:42 | XMS_ITS | Clinical Summary ---
Author Organization [facility], Address [address] [place] [address] Phone Care Team Providers Care Steward/Stewardess Wine Name Role Phone Idalmis Jacques MD Primary [...] Years) Completed 04/08/2023, 06/11/2013, 04/19/2011 Insurance [place]ICAID [place] Care Teams Steward/Stewardess Wine Relationship Specialty Start Date End Date Idalmis Jacques MD [address] [place] [phone] PCP - General 08/05/19
--- OUTSIDE RECORDS SUMMARY | 2025-01-02 09:42 | XMS_ITS | Encounter Summary ---
Author Organization [facility] Address [address] [place] [address] Phone Care Team Providers Care Butcher Apprentice Name Role Phone Idalmis Jacques MD Primary Care Provide r Encounter Details Date Type Department Care Team (Late st Contact Info) Description 07/21/2024 Documentation Only [facility] [place], [address] [facility] [facility] [address] Kimberlee Madrid [address] [place] [address] Social History Tobacco Use Types [...] on filedocumented in this encounter Care Teams Butcher Apprentice Relationship Specialty Start Date End Date Idalmis Jacques MD [address] [phone] PCP - General 08/05/19 documented as of this encounter
--- OUTSIDE RECORDS SUMMARY | 2025-01-02 09:42 | XMS_ITS | Encounter Summary ---
Author Organization [employer] Address [address] [address] [place] [address] Care Team Providers Care Wood Router Hand Name Role Phone Idalmis Jacques MD Primary Care Provide r Encounter Details Date Type Department Care Team ([facility] st Contact Info) Description 12/31/2024 Telephone [facility] [address] [place], [place] [phone] Leona Cee MD [address] [place] [address] Social History Tobacco Use Types Packs/Day Years [...] encounter Miscellaneous Notes * Telephone Encounter - Sangita Beck RN - 01/01/2025 10:32 AM EDT Pt. Spoke to triage yesterday 12/31/24, calling for status check tomorrow * Telephone Encounter - Jenna Jensen RN - 12/31/2024 3:14 PM EDT Images from the original note were not included. TC placed to pt regarding message below per Dr. Cee. No answer. Voice message left for pt to return call to [facility]. RN will forward message to [facility] Team Nurses to make second attempt. Leona Cee MD [facility] Nurses1 hour ago (4:41 PM) TB If still having symptoms she should complete the treatment and keep herself well-hydrated and schedule a follow-up with PCP preferably. The PCP will discuss her options. TC placed to pt regarding message below per Dr. Cee. Pt verbalized understanding but reports she continues with pain inside and pain with urination. Pt advised on returning to [facility] Walk In. Pt verbalized understanding but inquiring well than what do I have because I had this last year and the year before and had an infection. Pt reports she has one dose left of pyridum and a couple days left of abx. Pt requesting message be sent to provider regarding this. RN informed pt, message would be sent to provider but again advised if pain and symptoms continue to return to [facility] Walk In. Pt verbalized understanding but requesting call back once provider sees this message. RN will forward to Dr. Cee to review message/results and advise team nurses. ----- Message from Leona Cee MD sent at 12/31/2024 2:14 PM EDT ----- Please call for status check. The urine culture is not consistent with a urinary tract infection. Please advise patient to keep herself well-hydrated. She can discontinue the prescribed antibiotics and follow-up with PCP ----- Message ----- From: Merle Rose MA Sent: 12/29/2024 6:37 PM EDT To: Leona Cee MD documented in this encounter Plan of Treatment Upcoming Encounters Date Type Department Care Team (Late st Contact Info) Description 01/23/2025 3:00 PM EDT Office Visit [address] [address] Johanny Rick MD [address] [place] [phone] 01/27/2025 9:00 AM EDT Office Visit [address] [address] Idalmis Jacques MD [address] [place] [address] 03/03/2025 9:30 AM EDT Clinical Support [facility] [address] [place] [address] Micaela Hernandez, BERNABE documented as of this encounter Visit Diagnoses Not on filedocumented in this encounter Additional Health Concerns Assessment Noted Time PHQ-9 Depression Total Score: 0 07/23/20 9:22 AM EDT documented as of this encounter Care Teams Wood Router Hand Relationship Specialty Start Date End Date Idalmis Jacques MD [address] [place] [address] PCP - General Family Medicine 09/11/18 luciana Leyva Community Health Worker Case Management 02/28/24 documented as of this encounter
--- OUTSIDE RECORDS SUMMARY | 2025-01-02 09:42 | XMS_ITS | Encounter Summary ---
Author Organization [employer] Address [address] [place] [address] Care Team Providers Care Greens Planter Name Role Phone Idalmis Jacques MD Primary Care Provide r Encounter Details Date Type Department Care Team (Late st Contact Info) Description 04/08/2024 Orders Only [facility] [address] [place], [place] [phone] Idalmis Jacques MD [address] [place], [place] [phone] Social History Tobacco Use Types Packs/Day Years [...] Description 01/23/2025 3:00 PM EDT Office Visit [facility] [address] [place] [address] Johanny Rick MD [address] [place] [address] 01/27/2025 9:00 AM EDT Office Visit [address] [address] Idalmis Jacques MD [address] [place] [phone] 03/03/2025 9:30 AM EDT Clinical Support [address] [phone] Micaela Hernandez, RN documented as of this encounter Visit Diagnoses Not on filedocumented in this encounter Care Teams Greens Planter Relationship Specialty Start Date End Date Idalmis Jacques MD [address] [place] [phone] PCP - General Family Medicine 09/11/18 Micaela Recio Hand Wrapper Operator 01/11/24 04/11/24 luciana Leyva Community Health Worker Case Management 02/28/24 documented as of this encounter
--- OUTSIDE RECORDS SUMMARY | 2025-01-02 09:42 | XMS_ITS ---
Author Organization [facility] Address [address] [place] [address] Care Team Providers Care Director Labor Standards Name Role Phone Idalmis Ortega M.D. Primary Care Provider Moses Garzon Unavailable [phone] Allergies Allergen (clinical drug ingredient) Drug/Non Drug [...] Problem History of adenomatous polyp of colon (404696075) History of adenomatous polyp of colon (Z86.010) Active confirmed Vital Signs Blood pressure systolic 00 mm Hg 04/17/20 24 Blood pressure diastolic 00 mm Hg 024 Height 57 in 04/17/2024 Weight 163 lbs 04/17/2024 BMI 35.27 kg/m2 04/17/2024 Encounters Encounter Location Date Provider Diagnosis [facility] [address] [facility] [address] [place] [address] 04/17/2024 Moses Abraham Fatty liver K76.0 an [...] Harper Jarad , 04/22/2025 03:40:00 PM, [address] [facility], [address], [place], [address], Progress Notes * SHANEKA PINEDADOB:1975 (48 yo F)Acc No.[id number]:04/17/2024 Progress Notes Patient:?SHANEKA PINEDA Provider:?Moses Abraham MD :1975???Age:48 Y???Sex:Female D ate:04/17/2024 Address:[address] [place] [address] Pcp:Idalmis Ortega M.D. Subjective: * Chief Complaints: [...] Procedure Codes:?3017F COLOR ECTAL CA SCREEN DOC [id number] TOBACCO NON-[id number] BP SCR NOT PRFRM REC REASON NOS * Preventive Medicine:? ??Counseling:?Care goal follow-up plan:?Above Normal BMI Follow-up?Giving encouragement to exercise,?BMI management provided?Yes.? * Follow Up:?1 Year * * Sign off status: Completed true * Provider:?Moses Abraham MD Date:? 024 Generated for Maury bernal/Adele/Breanneitting on:?01/02/2025 09:42 AM EDT History and Physical Notes * HPI [...]
--- OUTSIDE RECORDS SUMMARY | 2025-01-02 09:42 | XMS_ITS | Encounter Summary ---
Author Organization [facility] Address [address] [place] [address] Phone Care Team Providers Care Tobacco Feeder Catcher Name Role Phone Idalmis Jacques MD Primary Care Provide r Encounter Details Date Type Department Care Team (Late st Contact Info) Description 01/15/2024 Documentation Only [facility] [place], [address] [place] [address] Kimberlee Madrid [address] [place] [address] Social History Tobacco Use Types [...] on filedocumented in this encounter Care Teams Tobacco Feeder Catcher Relationship Specialty Start Date End Date Idalmis Jacques MD [address] [address] PCP - General 08/05/19 documented as of this encounter
--- OUTSIDE RECORDS SUMMARY | 2025-01-02 09:42 | XMS_ITS | Encounter Summary ---
Author Organization [facility] Address [address] [place] [address] Phone Care Team Providers Care Histotechnician Name Role Phone Idalmis Jacques MD Primary Care Provide r Encounter Details Date Type Department Care Team (Late st Contact Info) Description 01/15/2024 Documentation Only [facility] [place], [address] [place] [address] Kimberlee Madrid [address] [place] [address] Social History Tobacco Use Types [...] on filedocumented in this encounter Care Teams Histotechnician Relationship Specialty Start Date End Date Idalmis Jacques MD [address] [phone] PCP - General 08/05/19 documented as of this encounter
--- OUTSIDE RECORDS SUMMARY | 2025-01-02 09:42 | XMS_ITS | Encounter Summary ---
Author Organization [facility] Address [address] [place] [address] Phone Care Team Providers Care Machine Gun Mechanic Name Role Phone Idalmis Jacques MD Primary Care Provide r Encounter Details Date Type Department Care Team (Late st Contact Info) Description 07/21/2024 Documentation Only [facility] [place], [address] [facility] [place] [address] Kimberlee Madrid [address] [place] [address] Social History Tobacco Use Types [...] on filedocumented in this encounter Care Teams Machine Gun Mechanic Relationship Specialty Start Date End Date Idalmis Jacques MD [address] [address] PCP - General 08/05/19 documented as of this encounter
--- OUTSIDE RECORDS SUMMARY | 2025-01-02 09:42 | XMS_ITS | Encounter Summary ---
Author Organization [facility] Address [address] [place] [address] Phone Care Team Providers Care Dot Compliance Coordinator Name Role Phone Idalmis Jacques MD Primary Care Provide r Encounter Details Date Type Department Care Team (Late st Contact Info) Description 11/29/2023 Documentation Only [facility] [place], [address] [facility] [place] [address] Kimberlee Madrid [address] [place] [address] Social History Tobacco Use Types [...] on filedocumented in this encounter Care Teams Dot Compliance Coordinator Relationship Specialty Start Date End Date Idalmis Jacques MD [address] [place] [phone] PCP - General 08/05/19 documented as of this encounter
--- OUTSIDE RECORDS SUMMARY | 2025-01-02 09:42 | XMS_ITS | Encounter Summary ---
Author Organization [employer] Address [address] [facility] 7t [place] [address] Care Team Providers Care Dial Marker Name Role Phone Idalmis Jacques MD Primary Care Provide r Reason for Visit * Reason Onset Date Comments Appointment Request 08/14/2023 Encounter Details Date Type Department Care Team ([facility] st Contact Info) Description 08/14/2023 Telephone [facility]INE [address] [place], [place] [phone] Idalmis Jacques MD 230 [place] [address] Appointment Request Social History Tobacco Use Types [...] Description 01/23/2025 3:00 PM EDT Office Visit [facility] [address] [place] [address] Johanny Rick MD [address] [place] [address] 01/27/2025 9:00 AM EDT Office Visit [address] [address] Idalmis Jacques MD [address] [place] [address] 03/03/2025 9:30 AM EDT Clinical Support [address] [address] Micaela Hernandez RN documented as of this encounter Visit Diagnoses Not on filedocumented in this encounter Care Teams Dial Marker Relationship Specialty Start Date End Date Idalmis Jacques MD [address] [place] [address] PCP - General Family Medicine 09/11/18 Micaela Recio Team Lead 01/11/24 04/11/24 luciana Leyva Community Health Worker Case Management 02/28/24 documented as of this encounter
--- OUTSIDE RECORDS SUMMARY | 2025-01-02 09:42 | XMS_ITS | Encounter Summary ---
Author Organization [employer] Address [address] [facility] 7t [place] [address] Care Team Providers Care Waterproof Coating Machine Tender Name Role Phone Idalmis Jacques MD Primary Care Provide r Reason for Visit * Reason Comments UTI Encounter Details Date Type Department Care Team ([facility] st Contact Info) Description 12/29/2024 6:40 PM EDT Office Visit [facility] 230 [place] [address] Leona Cee MD [address] [place] [address] Acute cystitis with hematuria (Primary Dx); Dysuria [...] to visit. Allergies Allergen Reactions Morphine Anaphylaxis Geisyflfapyzl-Pvbzhmrcwpo-Asyc Azithromycin Rash Review of Systems Constitutional: Negative [...] Description 01/23/2025 3:00 PM EDT Office Visit [facility] [address] [place] [phone] Johanny Rick MD [address] [place] [address] 01/27/2025 9:00 AM EDT Office Visit [address] [phone] Idalmis Jacques MD 230 [place], [place] [phone] 03/03/2025 9:30 AM EDT Clinical Support [address] [phone] Micaela Hernandez RN documented as of this encounter Procedures Procedure Name Priority Date/Time Associated Diagnosis Comments POCT URINALYSIS DIPSTICK Routine 12/29/2024 6:36 PM EDT Dysuria CULTURE, URINE, ROUTINE Routine 12/29/2024 6:27 PM EDT Dysuria documented in this encounter [...] TEST ENTER/ED IT ORDERABLES Final Result * Culture, Urine, Routine (12/29/2024 6:27 PM EDT) Urine Urine specimen obtained by clean catch procedure / Unknown 12/29/2024 6:27 PM EDT 12/30/2024 11:22 AM EDT Comment:UA Narrative [facility] - 01/01/2025 8:00 AM EDT Proteus mirabilis Quant 10,000 to 50,000 cfu/mL Proteus mirabilis: Ampicillin <=2(S) Proteus mirabilis: Cefazolin (Urine) 4(S) Proteus mirabilis: Cefepime <=0.12(S) Proteus mirabilis: Ceftriaxone <=0.25(S) Proteus mirabilis: Ciprofloxacin <=0.06(S) Proteus mirabilis: Gentamicin <=1(S) Proteus mirabilis: Nitrofurantoin 128(R) Proteus mirabilis: Trimethoprim/Sulfamethoxazole <=20(S) Specimen Source: Urine clean catch Leona Cee MD LAB MICROBIOLOGY - GENERAL ORDERABLES Final Result [facility] [address] [place] [phone] documented in this encounter Visit Diagnoses Diagnosis Acute cystitis with hematuria- Primary Dysuria documented in this encounter Additional Health Concerns Assessment Noted Time PHQ-9 Depression Total Score: 0 07/23/20 24 9:22 AM EDT documented as of this encounter Care Teams Waterproof Coating Machine Tender Relationship Specialty Start Date End Date Idalmis Jacques MD [address] [place] [address] PCP - General Family Medicine 09/11/18 luciana Leyva Community Health Worker Case Management 02/28/24 documented as of this encounter
--- OUTSIDE RECORDS SUMMARY | 2025-01-02 09:42 | XMS_ITS ---
Author Organization [facility] Address [address] [place] [address] Care Team Providers Care Policy Loan Calculator Name Role Phone Idalmis Ortega M.D. Primary Care Provider Moses Garzon [phone] REASON FOR VISIT Patient presents today for fatty liver Encounters Encounter Location Date Provider Diagnosis [facility] [address] [place] [address] 12/06/2023 Moses Abraham Plan Of Treatment Next Appt Details Provider Name:Moses Abraham , 04/22/2025 03:40:00 PM, [address], [address], [place], [address], Progress Notes * SIDDHARTHA PINEDADOB:1975 (49 yo F)Acc No.[id number]:12/06/2023 Progress Notes Patient:?SIDDHARTHA PINEDA Provider:?Moses Abraham MD :1975???Age:48 Y???Sex:Female D ate:12/06/2023 Address:[address] [place] [phone] Pcp:Idalmis Ortega M.D. Subjective: * Chief Complaints: [...] MD Date:? 024 Generated for Maury bernal/Adele/Alexander on:?01/02/2025 09:41 AM EDT
--- OUTSIDE RECORDS SUMMARY | 2025-01-02 09:42 | XMS_ITS | Encounter Summary ---
Author Organization [employer] Address [address] [facility] 7t [place] [address] Care Team Providers Care Meat Smoker Name Role Phone Idalmis Jacques MD Primary Care Provide r Reason for Visit * Reason Onset Date Comments Nurse Triage 12/31/2024 Encounter Details Date Type Department Care Team ([facility] st Contact Info) Description 12/31/2024 Telephone [facility] 230 [place], [place] [phone] Idalmis Jacques MD 230 [place] [address] Nurse Triage Social History Tobacco Use Types [...] encounter Miscellaneous Notes * Telephone Encounter - Misty Wagner RN - 12/31/2024 4:32 PM EDT called pt to triage, spoke to pt. pt states seen in the walk in center in the [facility] on 12/29 and diagnosed with probable UTI. pt put on Macrodantin and has been taking as prescribed. pt received a call from the team nurse to tell her to stop the antibiotic due to her urine culture was negative for infection. pt is upset as she feels the medication helps her when she has these symptoms. again advised that with a negative culture, there is no infection seen and the antibiotics are only for acute infection. pt reports persistent burning with urination and is advised home care: rest, fluids, monitorfor temperature, and call back as needed or if worsening. will task to team nurses to do status call in the next 1-2 days. advised hours of the walk in center and to return if needed. pt talking about going to the ER and was advised caution due to no severe or acute symptoms. pt understands communication. insurance verified. Protocol Used: Urinary Symptoms (Adult) Protocol-Based Disposition: Seen in office on 12/29. Positive Triage Question: * All other urine symptoms * All higher-acuity triage questions were negative Care Advice Discussed: * Reasons To Call Back - Fever occurs - Pain or burning with urination - Unable to urinate and bladder feels full - You become worse * Telephone Encounter - Celio Brannon - 12/31/2024 3:55 PM EDT Symptom: Urination Pain Outcome: Schedule an urgent appointment (within 1 hour) or talk to a nurse or provider soon Reason: Severe pain now The caller accepted this outcome. Pt seen at [facility] yesterday 12/[address] Cee . Pt states received call of negative result for UTI but is feeling pain . Pt states has been taking Nitrofurantoin Yellow Medicine/mac 100mg 2x a day Also taking another antibiotic ? Portuguese speaking documented in this encounter Plan of Treatment Upcoming Encounters Date Type Department Care Team (Late st Contact Info) Description 01/23/2025 3:00 PM EDT Office Visit [facility] [address] [place] [address] Johanny Rick MD [address] [place] [address] 01/27/2025 9:00 AM EDT Office Visit [address] [address] Idalmis Jacques MD [address] [place] [address] 03/03/2025 9:30 AM EDT Clinical Support [address] [address] Micaela Hernandez RN documented as of this encounter Visit Diagnoses Not on filedocumented in this encounter Additional Health Concerns Assessment Noted Time PHQ-9 Depression Total Score: 0 07/23/20 24 9:22 AM EDT documented as of this encounter Care Teams Meat Smoker Relationship Specialty Start Date End Date Idalmis Jacques MD [address] [place] [address] PCP - General Family Medicine 09/11/18 luciana Leyva Community Health Worker Case Management 02/28/24 documented as of this encounter
--- OUTSIDE RECORDS SUMMARY | 2025-01-02 09:42 | XMS_ITS | Patient Health Record ---
Author Organization [facility] Address [address] [place] [address] Care Team Providers Care Change Booth Attendant Name Role Phone Idalmis Ortega M.D. Primary Care Provider Moses Garzon [phone] Allergies Allergen (clinical drug ingredient) Drug/Non Drug [...] Problem History of adenomatous polyp of colon (244835603) History of adenomatous polyp of colon (Z86.010) Active confirmed Problem 349433018 Nausea (R11.0) Active confirmed Problem 548100674 Gastroesophageal reflux disease without esophagitis (K21.9) Active confirmed Problem 420618710 Elevated liver enzymes (R74.8) Active confirmed Problem Fatty liver (430874510) Fatty liver (K76.0) Active confirmed Problem Elevated liver enzymes level (941824841) Elevated liver function tests (R94.5) Active confirmed Vital Signs Blood pressure diastolic 00 mm Hg 04/17/2024 Height 57 in 04/17/2024 Blood pressure systolic 00 mm Hg 04/17/2024 Weight 163 lbs 04/17/2024 BMI 35.27 kg/m2 04/17/2024 Encounters Encounter Location Date Provider Diagnosis [facility] [address] [place] [address] 04/17/2024 Moses Abraham Fatty liver K76.0 an [...] Test Test Name Order Date LIVER PROFILE 03/01/2022 LIVER PROFILE 12/06/2022 LIVER PROFILE 06/07/2023 IRON + IBC (FE) 03/01/2022 CBC w [...] Name:Moses Abraham , 04/22/2025 03:40:00 PM, [address] [facility], [address], [place], [address], Insurance Providers Payer Name Payer Address Payer Phone Subscriber Number Group Number Insured Name Patient Relationship to Insured Coverage Start Date Coverage End Date [place] [employer] [address] [place] [phone] [id number] SHANEKA PINEDA Self - patient is the [...] a stage II level of fibrosis. Denies MA,DM,CVA,renal disease Small tubular adenoma remove d with [...]
--- OUTSIDE RECORDS SUMMARY | 2025-01-02 09:42 | XMS_ITS ---
Author Organization [facility] Address [address] [place] [address] Care Team Providers Care Plastics Technician Name Role Phone Idalmis Ortega M.D. Primary Care Provider Moses Garzon [phone] REASON FOR VISIT cancelled appt Encounters Encounter Location Date Provider Diagnosis [facility] [address] [place] [address] 12/05/2023 Moses Abraham Plan Of Treatment Next Appt Details Provider Name:Moses Abraham , 04/22/2025 03:40:00 PM, [address], [address], [place], [address], Progress Notes * SIDDHARTHA PINEDADOB:1975 (48 yo F)Acc No.[id number]:12/05/2023 Patient:?SIDDHARTHA PINEDA :1975???Age:48 Y???Sex:Female Address:[address] [place] [address], [address] * true * Date:? Generated for Pietroi gabe/Adele/eTransmitting on:?01/02/2025 09:42 AM EDT
--- OUTSIDE RECORDS SUMMARY | 2025-01-02 09:42 | XMS_ITS | Encounter Summary ---
Author Organization [employer] Address [address] [facility] [address] 7t [place] [address] Care Team Providers Care Iron Assorter Name Role Phone Idalmis Jacques MD Primary Care Provide r Encounter Details Date Type Department Care Team (Late st Contact Info) Description 10/07/2024 Orders Only [facility] MEDICINE [address] [place], [place] [phone] Idalmis Jacques MD 230 [place], [place] [phone] Social History Tobacco Use Types Packs/Day Years [...] Description 01/23/2025 3:00 PM EDT Office Visit [address] [address] Johanny Rick MD [address] [place] [address] 01/27/2025 9:00 AM EDT Office Visit [address] [phone] Idalmis Jacques MD [address] [place] [address] 03/03/2025 9:30 AM EDT Clinical Support [address] [address] Micaela Hernandez RN documented as of this encounter Visit Diagnoses Not on filedocumented in this encounter Additional Health Concerns Assessment Noted Time PHQ-9 Depression Total Score: 0 07/23/20 24 9:22 AM EDT documented as of this encounter Care Teams Iron Assorter Relationship Specialty Start Date End Date Idalmis Jacques MD [address] [place] [address] PCP - General Family Medicine 09/11/18 luciana Leyva Community Health Worker Case Management 02/28/24 documented as of this encounter
--- OUTSIDE RECORDS SUMMARY | 2025-01-02 09:42 | XMS_ITS | Encounter Summary ---
Author Organization [facility] Address [address] [place] [address] Phone Care Team Providers Care Soft Water Mechanic Name Role Phone Idalmis Jacques MD Primary Care Provide r Encounter Details Date Type Department Care Team (Late st Contact Info) Description 07/21/2024 Documentation Only [facility] [place], [address] [facility] [place] [address] Kimberlee Madrid [address] [place] [address] Social History Tobacco Use Types [...] on filedocumented in this encounter Care Teams Soft Water Mechanic Relationship Specialty Start Date End Date Idalmis Jacques MD [address] [address] PCP - General 08/05/19 documented as of this encounter
--- OUTSIDE RECORDS SUMMARY | 2025-01-02 09:42 | XMS_ITS | Clinical Summary ---
Author Organization [employer] Address [address] 7t [place] [address] Care Team Providers Care Bioinformatics Programmer Name Role Phone Idalmis Jacques MD Primary Care Provide r Allergies Active Allergy Reactions Criticality Noted Date Comments Azithromycin Rash Low 04/20/2021 Ojljxinrqncoy-Vkaywupfbeh-Boru 06/24 Morphine Anaphylaxis High 06/24/2018 Medications montelukast [...] days. 14 capsule 12/30/19 25 2024 Active oxyCODONE-aceta minophen (Percocet) 5-325 MG tabletIndicatio ns:Chronic bilateral low back pain without sciatica,Polyar thralgia Take 1 tablet by mouth every 8 (eight) hours if needed for severe pain for up to 28 days. Do not start before November 13, 2024. 84 tablet 11/13/19 25 2024 Discontinued(R eorder (will not trigger notification to Pharmacy)) phenazopyridine (Pyridium) 200 MG tabletIndicatio ns:Dysuria Take 1 tablet (200 mg) by mouth if needed in the morning, at noon, and at bedtime for bladder spasms for up to 3 days. 6 tablet 12/30/19 25 2024 Active Problems Problem Noted Date Diagnosed Date Encounter for preventive care 10/06/2024 Assessment & Plan (10/07/2024 4:56 PM EST): See HPI Vertigo 07/28/2024 Assessment & Plan (07/28/2024 7:31 PM EDT): Discussed possible vertigo sxs. Given some youFreezing Pointube exercises for relief. -ER precautions discussed. 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 Discussed re lower calorie intake, increase dietary fiber I gave pt information about the weight management program at [facility] and she will FU with us. Plantar fasciitis 10/27/2022 Perimenopause 10/27/2022 Assessment & Plan (10/27/2022 9:43 AM EST): Pt with ammenorrhea since January 2022. FU with [facility]. Counseled to dress in layers, no need [...] to date 2021, needs to FU with [facility] due to abnormal pap Mammogram Up to [...] Encounters Date Type Department Care Team Description 12/31/2024 Telephone [facility] [address] [place] [phone] Idalmis Jacques MD Nurse Triage 12/31/[address] [facility] [address] [place] [address] Leona Cee MD 12/29/2024 6:40 PM EDT Office Visit [facility] [address] [place] [phone] Leona Cee MD Acute cystitis with hematuria (Primary Dx); Dysuria 12/12/2024 Population Health Risk Score [facility] ([facility]) Department [address] [place] [address] [phone] Provider, Population Health Generic 12/08/2024 Refill [facility] [address] [place] [phone] Idalmis Jacques MD Chronic bilateral low back pain without sciatica; Polyarthralgia 12/04/2024 Telephone [facility] [address] [place] [address] [phone] Idalmis Jacques MD Dental Clearance Form 12/02/2024 9:30 AM EST Clinical Support [address] [address] Micaela Hernandez, title supervisor bilateral low back pain without sciatica (Primary Dx) 12/02/[address] [address] Micaela Hernandez, RN BPI Scoring 12/02/2024 Travel 11/19/2024 8:40 AM EST Office Visit [facility] [address] [place] [phone] Jose Hughes MD Hematemesis with nausea (Primary Dx); Viral URI; Diarrhea, unspecified type 11/19/2024 Refill [facility] [address] [place] [address] [phone] Idalmis Jacques MD 11/18/2024 Telephone [facility] [address] [place] [address] [phone] Idalmis Jacques MD Nurse Triage (/) 11/12/2024 Refill [facility] [address] [place] [phone] Idalmis Jacques MD 11/07/2024 Refill [facility] [address] [place] [address] [phone] Idalmis Jacques MD Chronic bilateral low back pain without sciatica; Polyarthralgia 10/31/2024 Telephone [facility] [address] [place] [address] [phone] Idalmis Jacques MD Med Refill 10/23/2024 Outside Procedure [facility] OPTOMETRY [address] [place] [phone] Ashwin, Jagruti, OD Presbyopia (Primary Dx) 10/14/2024 1:00 PM EST Office Visit [facility] OPTOM[facility]RY [address] [place] [phone] Ashwin, Jagruti, OD Regular astigmatism of right eye (Primary Dx) 10/14/2024 Refill [facility] [address] [place] [phone] Idalmis Jacques MD Chronic bilateral low back pain without sciatica; Polyarthralgia 10/07/2024 Orders Only [facility] [address] [place] [address] [phone] Idalmis Jacques MD 10/07/2024 Telephone [facility] [address] [place] [phone] Idalmis Jacques MD Medication Question 10/07/2024 Telephone [facility] [address] [place] [phone] Idalmis Jacques MD 10/06/2024 10:15 AM EST Office Visit [facility] [address] [place] [phone] Idalmis Jacques MD Chronic bilateral low back pain without sciatica (Primary Dx); Polyarthralgia; Encounter for preventive care; 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 10/06/2024 Travel from Last 3 Months Immunizations Name Administration [...] Description 01/23/2025 3:00 PM EDT Office Visit [facility] [address] [place] [address] [phone] Johanny Rick MD [address] [place] [address] 01/27/2025 9:00 AM EDT Office Visit [address] [phone] Idalmis Jacques MD [address] [place], [place] [phone] 03/03/2025 9:30 AM EDT Clinical Support [address] [phone] Micaela Hernandez, BERNABE Health Maintenance Due Date [...] ROUTINE Routine 12/29/2024 6:27 PM EDT Dysuria POCT RAGHAVENDRA-14 URINE DRUG SCREEN Routine 12/02/2024 9:05 AM EST Chronic bilateral low back pain without sciatica POCT INFLUENZA B (ID NOW RAPID MOLECULAR) Routine 11/19/2024 8:55 AM EST Viral URI POCT INFLUENZA A (ID NOW RAPID MOLECULAR) Routine 11/19/2024 8:55 AM EST Viral URI POCT RAPID COVID ANTIGEN Routine 11/19/2024 8:55 AM EST Viral URI LIPID PANEL, STANDARD Routine 03/12/2024 8:58 AM [...] 6:27 PM EDT 12/30/2024 11:22 AM EDT Comment:UACC Narrative [facility] - 01/01/2025 8:00 AM EDT Proteus mirabilis Quant 10,000 to 50,000 cfu/mL Proteus mirabilis: Ampicillin <=2(S) Proteus mirabilis: Cefazolin (Urine) 4(S) Proteus mirabilis: Cefepime <=0.12(S) Proteus mirabilis: Ceftriaxone <=0.25(S) Proteus mirabilis: Ciprofloxacin <=0.06(S) Proteus mirabilis: Gentamicin <=1(S) Proteus mirabilis: Nitrofurantoin 128(R) Proteus mirabilis: Trimethoprim/Sulfamethoxazole <=20(S) Specimen Source: Urine clean catch us Leona Cee MD LAB MICROBIOLOGY - GENERAL ORDERABLES Final Result Performing Organization Address [facility] de Phone Number [facility] [address] [place] [phone] * POCT RAGHAVENDRA-14 Urine Drug Screen (12/02/2024 9:05 AM EST) Oxycodone Screen, Urine Positive Urine Urine specimen obtained by clean catch procedure / Unknown 12/02/2024 9:05 AM EST us Idalmis Alvarez MD POINT OF CARE TEST EN TER/EDIT ORDERABLES Final Result * Influenza B (ID NOW Rapid Molecular) (11/19/2024 8:55 AM EST) Influenza B Negative Negative, Indeterminate [facility] Swab 11/19/2024 8:55 AM EST us Jose Hughes MD POINT OF CARE TEST ENTER/EDIT OR DERABLES Final Result Performing Organization Address [facility] Co de Phone Number [facility] [address] [place] [phone] * Influenza A (ID NOW Rapid Molecular) (11/19/2024 8:55 AM EST) Influenza A Negative Negative, Indeterminate [facility] Swab 11/19/2024 8:55 AM EST us Jose Hughes MD POINT OF CARE TEST ENTER/EDIT OR DERABLES Final Result Performing Organization Address [facility]/ZIP Co de Phone Number [facility] [address] [place] [address] [phone] * POCT Rapid COVID Ag (11/19/2024 8:55 AM EST) Rapid COVID Ag Negative [facility] Swab 11/19/2024 8:55 AM EST us Jose Hughes MD POINT OF CARE TEST ENTER/EDIT OR DERABLES Final Result Performing Organization Address [facility] de Phone Number [facility] [address] [place] [phone] * (ABNORMAL) Lipid Panel, Standard (03/12/2024 8:58 AM EDT) Pathologist [facility] Triglycerides 42 <150 mg/dL [facility] Comment:Desirable Triglyceri de: less than 150 mg/dLBorderline High Triglyceride 150-199 mg/dLHigh Triglyceride: 200-499 mg/dLVery High Triglyceride: greater than or equal to 5OO mg/dL Cholesterol 201(H) <200 mg/dL [facility] Comment:Desirable Cholestero l: less than 200 mg/dLBorderline High Cholesterol: 200-239 mg/dLHigh Cholesterol: greater than 239 mg/dL LDL Cholesterol Calculated 123(H) <100 mg/dL [facility] Comment:Desirable LDL: less than 100 mg/dLNear Optimal/Above Optimal LDL: 110- 129 mg/dLBorderline High LDL: 130-159 mg/dLHigh LDL: 160-189 mg/dLVery High LDL: greater than or equal to 190 mg/dL HDL Cholesterol 70 >40 mg/dL [facility] Comment:Desirable HDL: great er than 40 mg/dL Note: This HDL assay may give artificially low results in patients with liver disease. Blood Venous blood specimen / Unknown 03/12/2024 8:58 AM EDT 03/12/2024 11:21 AM EDT Idalmis Alvarez MD LAB BLOOD ORDERABLES Final Result [facility] [address] [place] [phone] * (ABNORMAL) Hepatitis Panel, General (10/27/2022 9:49 AM EST) Hepatitis A Antibody Total NON-REACT SHIKHA NON-REACT SHIKHA [facility] Comment: For additional information, please refer to http://More Design.PharmMD/faq/YDZ522 (This link is being provided for informational/ educational purposes only.) Hepatitis B Surface Antibody QL REACTIVE( A) NON-REACT SHIKHA [facility] Hepatitis B Surface Ag NON-REACT SHIKHA NON-REACT SHIKHA [facility] Hepatitis B Core Antibody Total NON-REACT SHIKHA NON-REACT SHIKHA [facility] Hepatitis C Antibody NON-REACT SHIKHA NON-REACT SHIKHA [facility] Codeship Index <0.02 <1.00 [facility] Comment: HCV antibody was non-reactive. There is no laboratory evidence of HCV infection. In most cases, no further action is required. However, if recent HCV exposure is suspected, a test for HCV RNA (test code 74458) is suggested. For additional information please refer to http://More Design.PharmMD/faq/QBU60x2 (This link is being provided for informational/ educational purposes only.) 10/27/2022 9:49 AM EST 10/27/2022 9:49 AM EST Narrative [facility] - 10/29/2022 2:12 PM EST FASTING:YES FASTING: YES Connie Elizabeth MD LAB BLOOD ORDERABLES Fin al Result [facility] [address] [place] [address], [place] [address] [facility] [place] [email or web address] [address] [place] [address], (Nl2) [place] [address] * HIV-1/2 Antigen and Antibodies, Fourth Generation, with Reflexes (10/27/2022 9:49 AM EST) [facility] HIV Antigen/Antibody, 4th Generation NON-REAC TIVE NON-REAC TIVE [facility] [place] [facility] Comment: HIV-1 antigen and HIV-1/HIV-2 antibodies were [...] ?? For additional information please refer to http://education.PharmMD/faq/MQK169 (This link is being provided for informational/ educational purposes only.) The performance of this assay has not been clinically validated in patients less than 2 years old. Blood Venous blood specimen / Unknown 10/27/2022 9:49 AM EST 10/27/2022 9:49 AM EST Narrative [facility] - 10/29/2022 2:12 PM EST FASTING:YES FASTING: YES Connie Elizabeth MD LAB BLOOD ORDERABLES Fin al Result Performing Organization Address [facility]/ZIP Co de Phone Number [address], [place] [address] [facility] [place] [email or web address] [address] [place] [address], (Nl2) [place] [address] * Hm Colonoscopy (12/23/2021 6:38 PM EDT) us Historical Provider HEALTH MAINTENANCE Final Result * Pap Smear (12/09/2021 12:00 AM EST) Swab Historical Provider MD LAB CYTOLOGY ORDERABLES F inal Result Performing Organization Address [facility]/ZIP Co de Phone Number [facility] [address] [place] [address] * HPV E6/E7 RFLX FAVIOLA 16 18/45 (12/08/2021 1:50 PM EST) HPV 16 RNA [facility]NP [facility] HPV 18/45 RNA [facility] HPV E6 E7 ADD [facility]NP [facility] HPV mRNA E6/E7 rflx Not Detected Not Detected [facility] Comment: Methodology: Ferry Captain-Mediated Amplification This assay detects E6/E7 viral messenger RNA (mRNA) from 14 high-risk HPV types (16,18,31,33,35,39,45,51,52,56,58,59,66,68). The analytical performance characteristics of this assay have been determined by [facility]. The modifications have not been cleared or approved by the FDA. This assay has been validated pursuant to the CLIA regulations and is used for clinical purposes. For additional information, please refer to http://education.PharmMD/faq/ZLG832e2 (This link if provided for information/ educational purposes only.) THIS TEST WAS PERFORMED AT: [facility] [address] [place] [address] FLOOR,[address] [place], [place] ??[phone] CATHERINE ESTRELLA MD 12/08/2021 1:50 PM EST Dilshad Cruz MD HISTORICAL/NON ORDERABLE LABS Fi nal Result [facility] [address] from Last 3 Months or Most Recently Relevant to Health Maintenance Insurance [facility] C[facility] Care Teams Bioinformatics Programmer Relationship Specialty Start Date End Date Idalmis Jacques MD [address] [place] [address] PCP - General Family Medicine 09/11/18 luciana Leyva Community Health Worker Case Management 02/28/24
--- OUTSIDE RECORDS SUMMARY | 2025-01-02 09:42 | XMS_ITS | Encounter Summary ---
Author Organization [facility] Address [address] [place] [address] Phone Care Team Providers Care Gear Hobber Set Up Operator Name Role Phone Idalmis Jacques MD Primary Care Provide r Encounter Details Date Type Department Care Team (Late st Contact Info) Description 01/15/2024 Documentation Only [facility] [place], [address] [place] [address] Kimberlee Madrid [address] [place] [address] Social History Tobacco Use [...] on filedocumented in this encounter Care Teams Gear Hobber Set Up Operator Relationship Specialty Start Date End Date Idalmis Jacques MD [address] [phone] PCP - General 08/05/19 documented as of this encounter
--- OUTSIDE RECORDS SUMMARY | 2025-01-02 09:42 | XMS_ITS | Encounter Summary ---
Author Organization [facility] Address [address] [place] [address] Phone Care Team Providers Care Radio Equipment Repairer Name Role Phone Idalmis Jacques MD Primary Care Provide r Encounter Details Date Type Department Care Team (Late st Contact Info) Description 07/21/2024 Documentation Only [facility] [place], [address] [facility] [place] [address] Kimberlee Madrid [address] [place] [address] Social History Tobacco Use Types [...] on filedocumented in this encounter Care Teams Radio Equipment Repairer Relationship Specialty Start Date End Date Idalmis Jacques MD [address] [phone] PCP - General 08/05/19 documented as of this encounter
--- OUTSIDE RECORDS SUMMARY | 2025-01-02 09:42 | XMS_ITS | Encounter Summary ---
Author Organization [employer] Address [address] [facility] 7t [place] [address] Care Team Providers Care Trust Vault Custodian Name Role Phone Idalmis Jacques MD Primary Care Provide r Encounter Details Date Type Department Care Team (Late st Contact Info) Description 04/30/2023 Abstract [facility] [address] [place] [address] [phone] Idalmis Jacques MD [address] [place] [address] [phone] Social History Tobacco Use Types Packs/Day Years [...] Description 01/23/2025 3:00 PM EDT Office Visit [facility] [address] [place] [address] [phone] Johanny Rick MD [address] [place] [address] 01/27/2025 9:00 AM EDT Office Visit [facility] [address] [place] [phone] Idalmis Jacques MD [address] [place] [address] 03/03/2025 9:30 AM EDT Clinical Support [address] [address] Micaela Hernandez, BERNABE documented as of this encounter Visit Diagnoses Not on filedocumented in this encounter Care Teams Trust Vault Custodian Relationship Specialty Start Date End Date Idalmis Jacques MD [address] [place] [phone] PCP - General Family Medicine 09/11/18 Micaela Recio Field Instructor 01/11/24 04/11/24 luciana Leyva Community Health Worker Case Management 02/28/24 documented as of this encounter
--- OUTSIDE RECORDS SUMMARY | 2025-01-02 09:42 | XMS_ITS | Encounter Summary ---
Author Organization [facility] Address [address] [place] [address] Phone Care Team Providers Care Logistics Team Lead Name Role Phone Idalmis Jacques MD Primary Care Provide r Encounter Details Date Type Department Care Team (Late st Contact Info) Description 01/15/2024 Documentation Only [facility] [place], [address] [place] [address] Kimberlee Madrid [address] [place] [address] Social History Tobacco Use Types [...] on filedocumented in this encounter Care Teams Logistics Team Lead Relationship Specialty Start Date End Date Idalmis Jacques MD [address] [phone] PCP - General 08/05/19 documented as of this encounter
--- OUTSIDE RECORDS SUMMARY | 2025-01-02 09:42 | XMS_ITS | Encounter Summary ---
Author Organization [facility] Address [address] [place] [address] Phone Care Team Providers Care Pan Washer Hand Name Role Phone Idalmis Jacques MD Primary Care Provide r Encounter Details Date Type Department Care Team (Late st Contact Info) Description 01/15/2024 Documentation Only [facility] [place], [address] [place] [address] Kimberlee Madrid [address] [place] [address] Social History Tobacco Use Types [...] on filedocumented in this encounter Care Teams Pan Washer Hand Relationship Specialty Start Date End Date Idalmis Jacques MD [address] [phone] PCP - General 08/05/19 documented as of this encounter
--- OUTSIDE RECORDS SUMMARY | 2025-01-02 09:42 | XMS_ITS | Encounter Summary ---
Author Organization [employer] Address [address] [facility] 7t [place] [address] Care Team Providers Care Material Requirements Worker Name Role Phone Idalmis Jacques MD Primary Care Provide r Reason for Visit * Reason Onset Date Comments Nurse Triage 05/23/2023 Encounter Details Date Type Department Care Team ([facility] st Contact Info) Description 05/23/2023 Telephone [facility] [address] [place], [place] [phone] Idalmis Jacques MD [address] [place] [address] Nurse Triage Social History Tobacco Use Types [...] 05/23/2023 3:41 PM EDT Triage call with [facility] Specialist [place] [id number] Pt reports fatigue/tiredness for last month. Pt [...] advised if symptoms worsen to come to [facility] to be seen. Hours given 830-800pm [...] accepted this outcome Please contact pt at [phone] (Divehi) documented in this encounter Plan of Treatment Upcoming Encounters Date Type Department Care Team (Late st Contact Info) Description 01/23/2025 3:00 PM EDT Office Visit [facility] [address] [place] [phone] Johanny Rick MD [address] [place] [address] 01/27/2025 9:00 AM EDT Office Visit [facility] [address] [place] [phone] Idalmis Jacques MD [address] [place] [address] 03/03/2025 9:30 AM EDT Clinical Support [facility] [address] [place] [address] Micaela Hernandez, RN documented as of this encounter Visit Diagnoses Not on filedocumented in this encounter Care Teams Material Requirements Worker Relationship Specialty Start Date End Date Idalmis Jacques MD [address] [place] [address] PCP - General Family Medicine 09/11/18 Micaela Recio Interior Horticulturist 01/11/24 04/11/24 luciana Leyva Community Health Worker Case Management 02/28/24 documented as of this encounter
--- OUTSIDE RECORDS SUMMARY | 2025-01-02 09:42 | XMS_ITS | Clinical Summary ---
Author Organization [facility] Address [address] [place] [address] Care Team Providers Care Sweet Pickled Fruit Maker Name Role Phone Idalmis Jacques MD Primary Care Provide r Surgical History Surgery Date Site/Laterality Comments BREAST SURGERY PROCEDURE: MD UNLISTED PROCEDURE BREAST OTHER SURGICAL HISTORY PROCEDURE: LAPAROSCOPY, SURGICAL/REMOVE TUMOR; COMMENT: left lower leg CHOLECYSTECTOMY 03/20/2021 PROCEDURE: MD LAPAROSCOPY SURG CHOLECYSTECTOMY Medical History Medical History [...] age to complete this topic Care Teams Sweet Pickled Fruit Maker Relationship Specialty Start Date End Date Idalmis Jacques MD [address] [place] [phone] PCP - General Internal Medicine 04/29/21
--- OUTSIDE RECORDS SUMMARY | 2025-01-02 09:42 | XMS_ITS | Encounter Summary ---
Author Organization [employer] Address [address] [place] [address] Care Team Providers Care Cyber Defense Incident Responder Name Role Phone Idalmis Jacques MD Primary Care Provide r Encounter Details Date Type Department Care Team (Late st Contact Info) Description 03/01/2024 Orders Only [facility] [address] [place] [address] ProviderLexx MD Social History Tobacco Use Types [...] Description 01/23/2025 3:00 PM EDT Office Visit [address] [address] Johanny Rick MD [address] [place] [address] 01/27/2025 9:00 AM EDT Office Visit [address] [address] Idalmis Jacques MD [address] [place] [address] 03/03/2025 9:30 AM EDT Clinical Support [address] [address] Micaela Hernandez RN documented as of this encounter Procedures Procedure Name Priority Date/Time Associated Diagnosis Comments HM COLONOSCOPY Routine 12/23/2021 6:38 PM EDT documented in this encounter Results * Hm Colonoscopy (12/23/2021 6:38 PM EDT) Historical Provider HEALTH MAINTENANCE Final Result documented in this encounter Visit Diagnoses Not on filedocumented in this encounter Care Teams Cyber Defense Incident Responder Relationship Specialty Start Date End Date Idalmis Jacques MD [address] [place] [address] [phone] PCP - General Family Medicine 09/11/18 Micaela Recio Rn Palliative Care 01/11/24 04/11/24 luciana Leyva Community Health Worker Case Management 02/28/24 documented as of this encounter
--- OUTSIDE RECORDS SUMMARY | 2025-01-02 09:42 | XMS_ITS | Encounter Summary ---
Author Organization [facility] Address [address] [place] [address] Phone Care Team Providers Care Hot Dipper Name Role Phone Idalmis Jacques MD Primary Care Provide r Encounter Details Date Type Department Care Team (Late st Contact Info) Description 05/22/2022 Documentation Only [facility] [place], [address] [facility] [place] [address] Kimberlee Madrid [address] [place] [address] Social History Tobacco Use Types [...] on filedocumented in this encounter Care Teams Hot Dipper Relationship Specialty Start Date End Date Idalmis Jacques MD [address] [place] [phone] PCP - General 08/05/19 documented as of this encounter
== END 2025-01-02 09:56 | disposition home or self-care (01) ==
LOC: HO.HKA 09:02
PROVIDERS: PCP Internal Medicine; Visit Provider Internal Medicine Nephrology
DX: N20.0 Calculus of kidney (principal); R10.9 Unspecified abdominal pain
CPT/HCPCS: 99214

== ENCOUNTER → 2025-01-02 09:02 | Outpatient (BNVA) | payer MEDICAID, SELFPAY | PROVIDERS: PCP Internal Medicine; Visit Provider Internal Medicine Nephrology ==

== ENCOUNTER 2025-01-02 10:00 | Outpatient (REF) | payer MEDICAID, SELFPAY ==
--- OUTSIDE RECORDS SUMMARY | 2025-01-02 11:17 | XMS_ITS | Encounter Summary ---
Author Organization [facility] Address [address] [place] [address] Phone Care Team Providers Care Skimmer Scoop Operator Name Role Phone Idalmis Jacques MD Primary Care Provide r Encounter Details Date Type Department Care Team (Late st Contact Info) Description 05/22/2022 Documentation Only [facility] [place], [address] [facility] [place] [address] Kimberlee Madrid [address] [place] [address] Social History Tobacco Use Types [...] on filedocumented in this encounter Care Teams Skimmer Scoop Operator Relationship Specialty Start Date End Date Idalmis Jacques MD [address] [place] [phone] PCP - General 08/05/19 documented as of this encounter
--- OUTSIDE RECORDS SUMMARY | 2025-01-02 11:17 | XMS_ITS | Encounter Summary ---
Author Organization [employer] Address [address] [facility] [address] 7t [place] [address] Care Team Providers Care Tipple Greaser Name Role Phone Idalmis Jacques MD Primary Care Provide r Encounter Details Date Type Department Care Team (Late st Contact Info) Description 04/08/2024 Orders Only [facility] 230 [place], [place] [phone] Idalmis Jacques MD 230 [place], [place] [phone] Social History Tobacco Use Types Packs/Day Years [...] Description 01/23/2025 3:00 PM EDT Office Visit [facility] [address] [place] [address] Johanny Rick MD [address] [place] [address] 01/27/2025 9:00 AM EDT Office Visit [address] [address] Idalmis Jacques MD [address] [place] [address] 03/03/2025 9:30 AM EDT Clinical Support [address] [phone] Micaela Hernandez, RN documented as of this encounter Visit Diagnoses Not on filedocumented in this encounter Care Teams Tipple Greaser Relationship Specialty Start Date End Date Idalmis Jacques MD [address] [place] [address] PCP - General Family Medicine 09/11/18 Micaela Recio Petroleum Analyst 01/11/24 04/11/24 luciana Leyva Community Health Worker Case Management 02/28/24 documented as of this encounter
--- OUTSIDE RECORDS SUMMARY | 2025-01-02 11:18 | XMS_ITS | Encounter Summary ---
Author Organization [email or web address] Address [address] [facility] [address] 7t [place] [address] Care Team Providers Care Generator Man Name Role Phone Idalmis Jacques MD Primary Care Provide r Encounter Details Date Type Department Care Team (Late st Contact Info) Description 03/01/2024 Orders Only [facility] 230 [place] [address] ProviderLexx MD Social History Tobacco Use Types [...] Description 01/23/2025 3:00 PM EDT Office Visit [address] [address] Johanny Rick MD [address] [place] [address] 01/27/2025 9:00 AM EDT Office Visit [address] [address] Idalmis Jacques MD [address] [place] [address] 03/03/2025 9:30 AM EDT Clinical Support [address] [address] Micaela Hernandez RN documented as of this encounter Procedures Procedure Name Priority Date/Time Associated Diagnosis Comments HM COLONOSCOPY Routine 12/23/2021 6:38 PM EDT documented in this encounter Results * Hm Colonoscopy (12/23/2021 6:38 PM EDT) Historical Provider HEALTH MAINTENANCE Final Result documented in this encounter Visit Diagnoses Not on filedocumented in this encounter Care Teams Generator Man Relationship Specialty Start Date End Date Idalmis Jacques MD [address] [place] [address] [phone] PCP - General Family Medicine 09/11/18 Micaela Recio Mess Cook 01/11/24 04/11/24 luciana Leyva Community Health Worker Case Management 02/28/24 documented as of this encounter
--- OUTSIDE RECORDS SUMMARY | 2025-01-02 11:18 | XMS_ITS | Encounter Summary ---
Author Organization [employer] Address [address] [facility] 7t [place] [address] Care Team Providers Care Used Equipment Sales Representative Name Role Phone Idalmis Jacques MD Primary Care Provide r Reason for Visit * Reason Onset Date Comments Appointment Request 08/14/2023 Encounter Details Date Type Department Care Team ([facility] st Contact Info) Description 08/14/2023 Telephone [facility] 230 [place], [place] [phone] Idalmis Jacques MD 230 [place] [address] Appointment Request Social History Tobacco Use Types [...] Description 01/23/2025 3:00 PM EDT Office Visit [facility] [address] [place] [address] Johanny Rick MD [address] [place] [address] 01/27/2025 9:00 AM EDT Office Visit [address] [address] Idalmis Jacques MD [address] [place] [address] 03/03/2025 9:30 AM EDT Clinical Support [address] [address] Micaela Hernandez RN documented as of this encounter Visit Diagnoses Not on filedocumented in this encounter Care Teams Used Equipment Sales Representative Relationship Specialty Start Date End Date Idalmis Jacques MD [address] [place] [address] PCP - General Family Medicine 09/11/18 Micaela Recio Fiscal Clerk 01/11/24 04/11/24 luciana Leyva Community Health Worker Case Management 02/28/24 documented as of this encounter
--- OUTSIDE RECORDS SUMMARY | 2025-01-02 11:18 | XMS_ITS | Encounter Summary ---
Author Organization [facility] Address [address] [place] [address] Phone Care Team Providers Care Railroad Car Letterer Name Role Phone Idalmis Jacques MD Primary Care Provide r Encounter Details Date Type Department Care Team (Late st Contact Info) Description 11/29/2023 Documentation Only [facility] [place], [address] [facility] [place] [address] Kimberlee Madrid [address] [place] [address] Social History Tobacco Use Types [...] on filedocumented in this encounter Care Teams Railroad Car Letterer Relationship Specialty Start Date End Date Idalmis Jacques MD [address] [place] [phone] PCP - General 08/05/19 documented as of this encounter
--- OUTSIDE RECORDS SUMMARY | 2025-01-02 11:18 | XMS_ITS | Encounter Summary ---
Author Organization [employer] Address [address] [facility] 7t [place] [address] Care Team Providers Care Pbx Mechanic Name Role Phone Idalmis Jacques MD Primary Care Provide r Reason for Visit * Reason Comments UTI Encounter Details Date Type Department Care Team ([facility] st Contact Info) Description 12/29/2024 6:40 PM EDT Office Visit [facility] 230 [place] [address] Leona Cee MD 505 [place] [address] Acute cystitis with hematuria (Primary Dx); Dysuria [...] to visit. Allergies Allergen Reactions Morphine Anaphylaxis Abjefskbbtsyy-Usbhegaevgp-Nbzu Azithromycin Rash Review of Systems Constitutional: Negative [...] Description 01/23/2025 3:00 PM EDT Office [facility] [address] [place] [address] [phone] Johanny Rick MD [address] [place] [address] 01/27/2025 9:00 AM EDT Office Visit [address] [phone] Idalmis Jacques MD 230 [place], [place] [phone] 03/03/2025 9:30 AM EDT Clinical Support [address] [phone] Micaela Hernandez RN documented as of this [...] EDT 12/30/2024 11:22 AM EDT Comment:UA Narrative [facility] - 01/01/2025 8:00 AM EDT Proteus mirabilis Quant 10,000 to 50,000 cfu/mL Proteus mirabilis: Ampicillin <=2(S) Proteus mirabilis: Cefazolin (Urine) 4(S) Proteus mirabilis: Cefepime <=0.12(S) Proteus mirabilis: Ceftriaxone <=0.25(S) Proteus mirabilis: Ciprofloxacin <=0.06(S) Proteus mirabilis: Gentamicin <=1(S) Proteus mirabilis: Nitrofurantoin 128(R) Proteus mirabilis: Trimethoprim/Sulfamethoxazole <=20(S) Specimen Source: Urine clean catch Leona Cee MD LAB MICROBIOLOGY - GENERAL ORDERABLES Final Result [facility] [address] [place] [phone] documented in this encounter Visit Diagnoses Diagnosis Acute cystitis with hematuria- Primary Dysuria documented in this encounter Additional Health Concerns Assessment Noted Time PHQ-9 Depression Total Score: 0 07/23/20 24 9:22 AM EDT documented as of this encounter Care Teams Pbx Mechanic Relationship Specialty Start Date End Date Idalmis Jacques MD [address] [place] [address] PCP - General Family Medicine 09/11/18 luciana Leyva Community Health Worker Case Management 02/28/24 documented as of this encounter
--- OUTSIDE RECORDS SUMMARY | 2025-01-02 11:18 | XMS_ITS | Clinical Summary ---
Author Organization [facility] Address [address] [place] [address] Care Team Providers Care Maintenance Equipment Operator Name Role Phone Idalmis Jacques MD Primary Care Provide r Surgical History Surgery Date Site/Laterality Comments BREAST SURGERY PROCEDURE: IN UNLISTED PROCEDURE BREAST OTHER SURGICAL HISTORY PROCEDURE: LAPAROSCOPY, SURGICAL/REMOVE TUMOR; COMMENT: left lower leg CHOLECYSTECTOMY 03/20/2021 PROCEDURE: IN LAPAROSCOPY SURG CHOLECYSTECTOMY Medical History Medical History [...] age to complete this topic Care Teams Maintenance Equipment Operator Relationship Specialty Start Date End Date Idalmis Jacques MD [address] [place] [phone] PCP - General Internal Medicine 04/29/21
--- OUTSIDE RECORDS SUMMARY | 2025-01-02 11:18 | XMS_ITS | Encounter Summary ---
Author Organization [employer] Address [address] [facility] 7t [place] [address] Care Team Providers Care Rail Car Loader Name Role Phone Idalmis Jacques MD Primary Care Provide r Reason for Visit * Reason Onset Date Comments Nurse Triage 12/31/2024 Encounter Details Date Type Department Care Team ([facility] st Contact Info) Description 12/31/2024 Telephone [facility] MEDICINE 230 [place], [place] [phone] Idalmis Jacques MD 230 [place] [address] Nurse Triage Social History Tobacco Use Types [...] encounter Miscellaneous Notes * Telephone Encounter - Wing Moiz RN - 01/02/2025 10:42 AM EDT Tc to pt for follow-up of status. Pt reports pain in vagina. Saw a kidney doctor today and they took a urine and blood sample today and also are ordering her a CT of the pelvis and kidney. Is also working to schedule an upcoming appt with gynacology. Advised pt to call if she needed anything from office, pt verbalized understanding and agreement with plan. * Telephone Encounter - Misty Wagner RN - 12/31/2024 4:32 PM EDT called pt to triage, spoke to pt. pt states seen in the walk in center in the [facility] on 12/29 and diagnosed with probable [...] caller accepted this outcome. Pt seen at [facility] yesterday 12/[address] Cee . Pt states received call of negative result for UTI but is feeling pain . Pt states has been taking Nitrofurantoin Gladwin/mac 100mg 2x a day Also taking another antibiotic ? Kyrgyz speaking documented in this encounter Plan of Treatment Upcoming Encounters Date Type Department Care Team (Late st Contact Info) Description 01/23/2025 3:00 PM EDT Office Visit [facility] [address] [place] [address] Johanny Rick MD [address] [place] [address] 01/27/2025 9:00 AM EDT Office Visit [facility] [address] [place] [address] Idalmis Jacques MD 230 [place] [address] 03/03/2025 9:30 AM EDT Clinical Support [facility] [address] [place] [address] Micaela Hernandez RN documented as of this encounter Visit Diagnoses Not on filedocumented in this encounter Additional Health Concerns Assessment Noted Time PHQ-9 Depression Total Score: 0 07/23/20 9:22 AM EDT documented as of this encounter Care Teams Rail Car Loader Relationship Specialty Start Date End Date Idalmis Jacques MD 230 [place] [address] PCP - General Family Medicine 09/11/18 luciana Leyva Community Health Worker Case Management 02/28/24 documented as of this encounter
--- OUTSIDE RECORDS SUMMARY | 2025-01-02 11:18 | XMS_ITS | Encounter Summary ---
Author Organization [employer] Address [address] [facility] 7t [place] [address] Care Team Providers Care Food Services Director Name Role Phone Idalmis Jacques MD Primary Care Provide r Encounter Details Date Type Department Care Team ([facility] st Contact Info) Description 12/31/2024 Telephone [facility]EDS 505 [place], [place] [phone] Leona Cee MD 505 [place] [address] Social History Tobacco Use Types Packs/Day Years [...] left for pt to return call to [facility]. RN will forward message to [facility] Team Nurses to make second attempt. Leona Cee MD [facility] Med & Peds Nurses1 hour ago (4:41 [...] with urination. Pt advised on returning to [facility] Walk In. Pt verbalized understanding but [...] pain and symptoms continue to return to [facility] Walk In. Pt verbalized understanding but [...] Description 01/23/2025 3:00 PM EDT Office Visit [address] [address] Johanny Rick MD [address] [place] [address] 01/27/2025 9:00 AM EDT Office Visit [address] [address] Idalmis Jacques MD [address] [place] [address] 03/03/2025 9:30 AM EDT Clinical Support [facility]INE 230 [place] [address] Micaela Hernandez, BERNABE documented as of this encounter Visit Diagnoses Not on filedocumented in this encounter Additional Health Concerns Assessment Noted Time PHQ-9 Depression Total Score: 0 07/23/20 9:22 AM EDT documented as of this encounter Care Teams Food Services Director Relationship Specialty Start Date End Date Idalmis Jacques MD 230 [place] [address] PCP - General Family Medicine 09/11/18 luciana Leyva Community Health Worker Case Management 02/28/24 documented as of this encounter
--- OUTSIDE RECORDS SUMMARY | 2025-01-02 11:18 | XMS_ITS | Encounter Summary ---
Author Organization [facility] Address [address] [place] [address] Phone Care Team Providers Care Area Loss Prevention Manager Name Role Phone Idalmis Jacques MD Primary Care Provide r Encounter Details Date Type Department Care Team (Late st Contact Info) Description 01/15/2024 Documentation Only [facility] [place], [address] [facility] [place] [address] Kimberlee Madrid [address] [place] [address] Social History Tobacco Use Types [...] on filedocumented in this encounter Care Teams Area Loss Prevention Manager Relationship Specialty Start Date End Date Idalmis Jacques MD [address] [phone] PCP - General 08/05/19 documented as of this encounter
--- OUTSIDE RECORDS SUMMARY | 2025-01-02 11:18 | XMS_ITS | Encounter Summary ---
Author Organization [facility] Address [address] [place] [address] Phone Care Team Providers Care Felt Hat Mellowing Machine Operator Name Role Phone Idalmis Jacques MD Primary Care Provide r Encounter Details Date Type Department Care Team (Late st Contact Info) Description 01/15/2024 Documentation Only [facility] [place], [address] [facility] [place] [address] Kimberlee Madrid [address] [place] [address] Social History Tobacco Use [...] on filedocumented in this encounter Care Teams Felt Hat Mellowing Machine Operator Relationship Specialty Start Date End Date Idalmis Jacques MD [address] [phone] PCP - General 08/05/19 documented as of this encounter
--- OUTSIDE RECORDS SUMMARY | 2025-01-02 11:18 | XMS_ITS | Encounter Summary ---
Author Organization [employer] Address [address] [facility] 7t [place] [address] Care Team Providers Care Filbert Grower Name Role Phone Idalmis Jacques MD Primary Care Provide r Reason for Visit * Reason Onset Date Comments Nurse Triage 05/23/2023 Encounter Details Date Type Department Care Team ([facility] st Contact Info) Description 05/23/2023 Telephone [facility] 230 [place], [place] [phone] Idalmis Jacques MD 230 [place] [address] Nurse Triage Social History Tobacco Use Types [...] 05/23/2023 3:41 PM EDT Triage call with [employer] [place]od[place] [id number] Pt reports fatigue/tiredness for last month. Pt [...] advised if symptoms worsen to come to [facility] to be seen. Hours given 830-800pm [...] accepted this outcome Please contact pt at [phone] (Nepali) documented in this encounter Plan of Treatment Upcoming Encounters Date Type Department Care Team (Late st Contact Info) Description 01/23/2025 3:00 PM EDT Office Visit [facility] [address] [place] [address] Johanny Rick MD [address] [place] [address] 01/27/2025 9:00 AM EDT Office Visit [facility] [address] [place] [address] Idalmis Jacques MD [address] [place] [address] 03/03/2025 9:30 AM EDT Clinical Support [facility] [address] [place] [address] Micaela Hernandez, RN documented as of this encounter Visit Diagnoses Not on filedocumented in this encounter Care Teams Filbert Grower Relationship Specialty Start Date End Date Idalmis Jacques MD 230 [place] [address] PCP - General Family Medicine 09/11/18 Micaela Recio Mechanical Engineer 01/11/24 04/11/24 luciana Leyva Community Health Worker Case Management 02/28/24 documented as of this encounter
--- OUTSIDE RECORDS SUMMARY | 2025-01-02 11:18 | XMS_ITS | Encounter Summary ---
Author Organization [employer] Address [address] [facility] 7t [place] [address] Care Team Providers Care Node Js Developer Name Role Phone Idalmis Jacques MD Primary Care Provide r Encounter Details Date Type Department Care Team (Late st Contact Info) Description 04/30/2023 Abstract [facility]INE [address] [place] [address] [phone] Idalmis Jacques MD [address] [place] [address] [phone] Social History Tobacco Use Types Packs/Day Years [...] Description 01/23/2025 3:00 PM EDT Office Visit [facility] [address] [place] [address] [phone] Johanny Rick MD 230 [place] [address] 01/27/2025 9:00 AM EDT Office Visit [facility] [address] [place] [address] Idalmis Jacques MD 230 [place] [address] 03/03/2025 9:30 AM EDT Clinical Support [address] [address] Micaela Hernandez, BERNABE documented as of this encounter Visit Diagnoses Not on filedocumented in this encounter Care Teams Node Js Developer Relationship Specialty Start Date End Date Idalmis Jacques MD [address] [place] [address] PCP - General Family Medicine 09/11/18 Micaela Recio Recycle Worker 01/11/24 04/11/24 luciana Leyva Community Health Worker Case Management 02/28/24 documented as of this encounter
--- OUTSIDE RECORDS SUMMARY | 2025-01-02 11:18 | XMS_ITS | Encounter Summary ---
Author Organization [facility] Address [address] [place] [address] Phone Care Team Providers Care Cartridge Loader Name Role Phone Idalmis Jacques MD Primary Care Provide r Encounter Details Date Type Department Care Team (Late st Contact Info) Description 01/15/2024 Documentation Only [facility] [place], [address] [facility] [place] [address] Kimberlee Madrid [address] [place] [address] Social History Tobacco Use Types [...] on filedocumented in this encounter Care Teams Cartridge Loader Relationship Specialty Start Date End Date Idalmis Jacques MD [address] [phone] PCP - General 08/05/19 documented as of this encounter
--- OUTSIDE RECORDS SUMMARY | 2025-01-02 11:18 | XMS_ITS | Encounter Summary ---
Author Organization [facility] Address [address] [place] [address] Phone Care Team Providers Care Power Shovel Mechanic Name Role Phone Idalmis Jacques MD Primary Care Provide r Encounter Details Date Type Department Care Team (Late st Contact Info) Description 07/21/2024 Documentation Only [facility] [place], [address] [facility] [place] [address] Kimberlee Madrid [address] [place] [address] Social History Tobacco Use Types [...] on filedocumented in this encounter Care Teams Power Shovel Mechanic Relationship Specialty Start Date End Date Idalmis Jacques MD [address] [phone] PCP - General 08/05/19 documented as of this encounter
--- OUTSIDE RECORDS SUMMARY | 2025-01-02 11:18 | XMS_ITS | Encounter Summary ---
Author Organization [facility] Address [address] [place] [address] Phone Care Team Providers Care Art Supervisor Name Role Phone Idalmis Jacques MD Primary Care Provide r Encounter Details Date Type Department Care Team (Late st Contact Info) Description 01/15/2024 Documentation Only [facility] [place], [address] [facility] [place] [address] Kimberlee Madrid [address] [place] [address] Social History Tobacco Use Types [...] on filedocumented in this encounter Care Teams Art Supervisor Relationship Specialty Start Date End Date Idalmis Jacques MD [address] [phone] PCP - General 08/05/19 documented as of this encounter
--- OUTSIDE RECORDS SUMMARY | 2025-01-02 11:18 | XMS_ITS | Encounter Summary ---
Author Organization [employer] Address [address] [facility] [address] 7t [place] [address] Care Team Providers Care Parliamentary Librarian Name Role Phone Idalmis Jacques MD Primary Care Provide r Encounter Details Date Type Department Care Team (Late st Contact Info) Description 10/07/2024 Orders Only [facility] 230 [place], [place] [phone] Idalmis Jacques MD 230 [place], [place] [phone] Social History Tobacco Use Types Packs/Day Years [...] Description 01/23/2025 3:00 PM EDT Office Visit [address] [address] Johanny Rick MD [address] [place] [address] 01/27/2025 9:00 AM EDT Office Visit [address] [phone] Idalmis Jacques MD [address] [place] [address] 03/03/2025 9:30 AM EDT Clinical Support [address] [address] Micaela Hernandez RN documented as of this encounter Visit Diagnoses Not on filedocumented in this encounter Additional Health Concerns Assessment Noted Time PHQ-9 Depression Total Score: 0 07/23/20 24 9:22 AM EDT documented as of this encounter Care Teams Parliamentary Librarian Relationship Specialty Start Date End Date Idalmis Jacques MD [address] [place] [address] PCP - General Family Medicine 09/11/18 luciana Leyva Community Health Worker Case Management 02/28/24 documented as of this encounter
--- OUTSIDE RECORDS SUMMARY | 2025-01-02 11:18 | XMS_ITS | Encounter Summary ---
Author Organization [facility] Address [address] [place] [address] Phone Care Team Providers Care Director Of Event Sales Name Role Phone Idalmis Jacques MD Primary Care Provide r Encounter Details Date Type Department Care Team (Late st Contact Info) Description 01/15/2024 Documentation Only [facility] [place], [address] [place] [address] Kimberlee Madrid [address] [place] [address] Social History Tobacco Use Types [...] on filedocumented in this encounter Care Teams Director Of Event Sales Relationship Specialty Start Date End Date Idalmis Jacques MD [address] [phone] PCP - General 08/05/19 documented as of this encounter
--- OUTSIDE RECORDS SUMMARY | 2025-01-02 11:18 | XMS_ITS | Clinical Summary ---
Author Organization [facility], Address [address] [place] [address] Phone Care Team Providers Care Dumper Operator Name Role Phone Idalmis Jacques MD [...] Years) Completed 04/08/2023, 06/11/2013, 04/19/2011 Insurance [place]ICAID [place] Care Teams Dumper Operator Relationship Specialty Start Date End Date Idalmis Jacques MD [address] [place] [phone] PCP - General 08/05/19
--- OUTSIDE RECORDS SUMMARY | 2025-01-02 11:18 | XMS_ITS | Encounter Summary ---
Author Organization [facility] Address [address] [place] [address] Phone Care Team Providers Care Riveting Machine Operator Name Role Phone Idalmis Jacques MD Primary Care Provide r Encounter Details Date Type Department Care Team (Late st Contact Info) Description 01/29/2024 Documentation Only [facility] [place], [address] [place] [address] Jeanne FigueroaFillmore, [place] [address] [place] [address] Social History Tobacco Use Types [...] on filedocumented in this encounter Care Teams Riveting Machine Operator Relationship Specialty Start Date End Date Idalmis Jacques MD [address] [phone] PCP - General 08/05/19 documented as of this encounter
--- OUTSIDE RECORDS SUMMARY | 2025-01-02 11:18 | XMS_ITS | Encounter Summary ---
Author Organization [facility] Address [address] [place] [address] Phone Care Team Providers Care Health Services Coordinator Name Role Phone Idalmis Jacques MD Primary Care Provide r Encounter Details Date Type Department Care Team (Late st Contact Info) Description 07/21/2024 Documentation Only [facility] [place], [address] [facility] [place] [address] Kimberlee Madrid [address] [place] [address] Social History Tobacco Use Types [...] on filedocumented in this encounter Care Teams Health Services Coordinator Relationship Specialty Start Date End Date Idalmis Jacques MD [address] [phone] PCP - General 08/05/19 documented as of this encounter
--- OUTSIDE RECORDS SUMMARY | 2025-01-02 11:18 | XMS_ITS | Encounter Summary ---
Author Organization [facility] Address [address] [place] [address] Phone Care Team Providers Care Buffet Attendant Name Role Phone Idalmis Jacques MD Primary Care Provide r Encounter Details Date Type Department Care Team (Late st Contact Info) Description 07/21/2024 Documentation Only [facility] [place], [address] [facility] [place] [address] Kimberlee Madrid [address] [place] [address] Social History Tobacco Use Types [...] on filedocumented in this encounter Care Teams Buffet Attendant Relationship Specialty Start Date End Date Idalmis Jacques MD [address] [phone] PCP - General 08/05/19 documented as of this encounter
--- OUTSIDE RECORDS SUMMARY | 2025-01-02 11:18 | XMS_ITS | Clinical Summary ---
Author Organization [employer] Address [address] [place] [address] Care Team Providers Care Director Of The Biophysics Facility Name Role Phone Idalmis Jacques MD Primary Care Provide r Allergies Active Allergy Reactions Criticality Noted Date Comments Azithromycin Rash Low 04/20/2021 Qsqloljiouyvo-Hcxxurmhhsd-Lpxv 06/24 Morphine Anaphylaxis High 06/24/2018 Medications montelukast [...] EDT): Discussed possible vertigo sxs. Given some [employer] exercises for relief. -ER precautions discussed. Skin [...] will have to be complaint with her IN MOLD [employer] agreement Assessment & Plan (04/22/2024 5:01 PM EDT): It was prescribed by rheumatology tramadol 50mg Q 6hrs, she was discharge form practice I will c/w same prescription patient is aware and agrees with plan, she reports she will be compliant with IN MOLD [employer] Polyarthralgia 02/27/2023 Chronic pain of right lower [...] exercise, life style modifications, diet, referral to alternative financing specialist. Discussed re lower calorie intake, increase dietary fiber I gave pt information about the weight management program at [facility] and she will FU with us. Plantar fasciitis 10/27/2022 Perimenopause 10/27/2022 Assessment & Plan (10/27/2022 9:43 AM EST): Pt with ammenorrhea since January 2022. FU with [facility]. Counseled to dress in layers, no need [...] to date 2021, needs to FU with [facility] due to abnormal pap Mammogram Up to [...] Type Department Care Team Description 12/31/2024 Telephone [facility] [address] [place] [address] Idalmis Jacques MD Nurse Triage 12/31/2024 Telephone [facility] [address] [place] [address] Leona Cee MD 12/29/2024 6:40 PM EDT Office Visit [facility] [address] [place] [address] Leona Cee MD Acute cystitis with hematuria (Primary Dx); Dysuria 12/12/2024 Population Health Risk Score [facility] (C3) Department [address] [place] [phone] Provider, Population Health Generic 12/08/2024 Refill [facility] [address] [place] [address] Idalmis Jacques MD Chronic bilateral low back pain without sciatica; Polyarthralgia 12/04/2024 Telephone [facility] [address] [place] [address] Idalmis Jacques MD Dental Clearance Form 12/02/2024 9:30 AM EST Clinical Support [address] [address] Micaela Hernandez, manager of tires sales bilateral low back pain without sciatica (Primary Dx) 12/02/[address] [phone] Micaela Hernandez, RN BPI Scoring 12/02/2024 Travel 11/19/2024 8:40 AM EST Office Visit [facility] [address] [place] [address] Jose Hughes MD Hematemesis with nausea (Primary Dx); Viral URI; Diarrhea, unspecified type 11/19/2024 Refill [facility] [address] [place] [address] Idalmis Jacques MD 11/18/2024 Telephone [facility] [address] [place] [address] Idalmis Jacques MD Nurse Triage (/) 11/12/2024 Refill [facility] [address] [place] [address] Idalmis Jacques MD 11/07/2024 Refill [facility] [address] [place] [address] Idalmis Jacques MD Chronic bilateral low back pain without sciatica; Polyarthralgia 10/31/2024 Telephone [facility] [address] [place] [address] Idalmis Jacques MD Med Refill 10/23/2024 Outside Procedure [facility] OPTOM[facility] [address] [place] [phone] Ashwin, Jagruti, OD Presbyopia (Primary Dx) 10/14/2024 1:00 PM EST Office Visit [facility] [address] [place] [address] Ashwin, Jagruti, OD Regular astigmatism of right eye (Primary Dx) 10/14/2024 Refill [facility] [address] [place] [address] Idalmis Jacques MD Chronic bilateral low back pain without sciatica; Polyarthralgia 10/07/2024 Orders Only [facility] [address] [place] [address] Idalmis Jacques MD 10/07/2024 Telephone [facility] [address] [place] [address] Idalmis Jacques MD Medication Question 10/07/2024 Telephone [facility] [address] [place] [phone] Idalmis Jacques MD 10/06/2024 10:15 AM EST Office Visit [facility] [address] [place] [address] Idalmis Jacquse MD Chronic bilateral low back pain without [...] Description 01/23/2025 3:00 PM EDT Office Visit [facility] [address] [place] [phone] Johanny Rick MD [address] [place] [address] 01/27/2025 9:00 AM EDT Office Visit [address] [phone] Idalmis Jacques MD 230 [place], [place] [phone] 03/03/2025 9:30 AM EDT Clinical Support [address] [phone] Micaela Hernandez, BERNABE Health Maintenance Due Date [...] EDT 12/30/2024 11:22 AM EDT Comment:UACC Narrative [facility] - 01/01/2025 8:00 AM EDT [...] GENERAL ORDERABLES Final Result Performing Organization Address [facility] de Phone Number [facility] [address] [place] [phone] * POCT RAGHAVENDRA-14 Urine Drug Screen (12/02/2024 9:05 AM EST) Oxycodone Screen, Urine Positive Urine Urine specimen obtained by clean catch procedure / Unknown 12/02/2024 9:05 AM EST us Idalmis Alvarez MD POINT OF CARE TEST EN TER/EDIT ORDERABLES Final Result * Influenza B (ID NOW Rapid Molecular) (11/19/2024 8:55 AM EST) Influenza B Negative Negative, Indeterminate [facility] Swab 11/19/2024 8:55 AM EST us Jose Hughes MD POINT OF CARE TEST ENTER/EDIT OR DERABLES Final Result Performing Organization Address [facility] Co de Phone Number [facility] [address] [place] [phone] * Influenza A (ID NOW Rapid Molecular) (11/19/2024 8:55 AM EST) Influenza A Negative Negative, Indeterminate [facility] Swab 11/19/2024 8:55 AM EST us Jose Hughes MD POINT OF CARE TEST ENTER/EDIT OR DERABLES Final Result Performing Organization Address [facility]/ZIP Co de Phone Number [facility] [address] [place] [phone] * POCT Rapid COVID Ag (11/19/2024 8:55 AM EST) Rapid COVID Ag Negative [facility] Swab 11/19/2024 8:55 AM EST us Jose Hughes MD POINT OF CARE TEST ENTER/EDIT OR DERABLES Final Result Performing Organization Address [facility] de Phone Number [facility] [address] [place] [phone] * (ABNORMAL) Lipid Panel, Standard (03/12/2024 8:58 AM EDT) Pathologist [facility] Triglycerides 42 <150 mg/dL [facility] Comment:Desirable Triglyceri de: less than 150 mg/dLBorderline High Triglyceride 150-199 mg/dLHigh Triglyceride: 200-499 mg/dLVery High Triglyceride: greater than or equal to 5OO mg/dL Cholesterol 201(H) <200 mg/dL [facility] Comment:Desirable Cholestero l: less than 200 mg/dLBorderline High Cholesterol: 200-239 mg/dLHigh Cholesterol: greater than 239 mg/dL LDL Cholesterol Calculated 123(H) <100 mg/dL [facility] Comment:Desirable LDL: less than 100 mg/dLNear Optimal/Above Optimal LDL: 110- 129 mg/dLBorderline High LDL: 130-159 mg/dLHigh LDL: 160-189 mg/dLVery High LDL: greater than or equal to 190 mg/dL HDL Cholesterol 70 >40 mg/dL [facility] Comment:Desirable HDL: great er than 40 mg/dL Note: This HDL assay may give artificially low results in patients with liver disease. Blood Venous blood specimen / Unknown 03/12/2024 8:58 AM EDT 03/12/2024 11:21 AM EDT Idalmis Alvarez MD LAB BLOOD ORDERABLES Final Result [facility] [address] [place] [phone] * (ABNORMAL) Hepatitis Panel, General (10/27/2022 9:49 AM EST) Hepatitis A Antibody Total NON-REACT SHIKHA NON-REACT SHIKHA [employer] [facility] Comment: For additional information, please refer to http://[employer].Betterment/faq/QOO280 (This link is being provided for informational/ educational purposes only.) Hepatitis B Surface Antibody QL REACTIVE( A) NON-REACT SHIKHA [employer] [facility] Hepatitis B Surface Ag NON-REACT SHIKHA NON-REACT SHIKHA [employer] [facility] Hepatitis B Core Antibody Total NON-REACT SHIKHA NON-REACT SHIKHA [employer] [facility] Hepatitis C Antibody NON-REACT SHIKHA NON-REACT SHIKHA [employer] [facility] [employer] Index <0.02 <1.00 [employer] [facility] Comment: HCV antibody was non-reactive. There is no laboratory evidence of HCV infection. In most cases, no further action is required. However, if recent HCV exposure is suspected, a test for HCV RNA (test code 79962) is suggested. For additional information please refer to http://[employer].Betterment/faq/YCX90g7 (This link is being provided for informational/ educational purposes only.) 10/27/2022 9:49 AM EST 10/27/2022 9:49 AM EST Narrative [facility] - 10/29/2022 2:12 PM EST FASTING:YES FASTING: YES Connie Elizabeth MD LAB BLOOD ORDERABLES Fin al Result [facility] [address] [place] [address], [place] [address] [employer] [place] [employer] [address] [place] [address], (Nl2) [place] [phone] * HIV-1/2 Antigen and Antibodies, Fourth Generation, with Reflexes (10/27/2022 9:49 AM EST) [facility] HIV Antigen/Antibody, 4th Generation NON-REAC TIVE NON-REAC TIVE [employer] [place] [employer] Comment: HIV-1 antigen and HIV-1/HIV-2 antibodies were [...] ?? For additional information please refer to http://education.Betterment/faq/WBN034 (This link is being provided for informational/ educational purposes only.) The performance of this assay has not been clinically validated in patients less than 2 years old. Blood Venous blood specimen / Unknown 10/27/2022 9:49 AM EST 10/27/2022 9:49 AM EST Narrative [facility] - 10/29/2022 2:12 PM EST FASTING:YES FASTING: YES Connie Elizabeth MD LAB BLOOD ORDERABLES Fin al Result Performing Organization Address City/[facility]/ZIP Co de Phone Number [address], [place] [address] [employer] [place] [employer] [address] [place] [address], (Nl2) [place] [address] * Hm Colonoscopy (12/23/2021 6:38 PM EDT) us Historical Provider HEALTH MAINTENANCE Final Result * Pap Smear (12/09/2021 12:00 AM EST) Swab Historical Provider MD LAB CYTOLOGY ORDERABLES F inal Result Performing Organization Address City/[facility]/ZIP Co de Phone Number [facility] [address] [place] [address] * HPV E6/E7 RFLX FAVIOLA 16 18/45 (12/08/2021 1:50 PM EST) HPV 16 RNA [facility]NP [facility] HPV 18/45 RNA [facility] HPV E6 E7 ADD [facility]NP [facility] HPV mRNA E6/E7 rflx Not Detected Not Detected [facility] Comment: Methodology: Marine Equipment Preservation Inspector-Mediated Amplification This assay detects E6/E7 viral messenger RNA (mRNA) from 14 high-risk HPV types (16,18,31,33,35,39,45,51,52,56,58,59,66,68). The analytical performance characteristics of this assay have been determined by [employer]. The modifications have not been cleared or approved by the FDA. This assay has been validated pursuant to the CLIA regulations and is used for clinical purposes. For additional information, please refer to http://education.Betterment/faq/KTI722o9 (This link if provided for information/ educational purposes only.) THIS TEST WAS PERFORMED AT: [employer] [address] [place] [address] FLOOR,[address] [place], [place] ??[phone] CATHERINE ESTRELLA MD 12/08/2021 1:50 PM EST Dilshad Cruz MD HISTORICAL/NON ORDERABLE LABS Fi nal Result [facility] [address] from Last 3 Months or Most Recently Relevant to Health Maintenance Insurance [facility] C3 Care Teams Director Of The Biophysics Facility Relationship Specialty Start Date End Date Idalmis Jacques MD [address] [place] [address] PCP - General Family Medicine 09/11/18 luciana Leyva Community Health Worker Case Management 02/28/24
--- OUTSIDE RECORDS SUMMARY | 2025-01-02 11:18 | XMS_ITS | Encounter Summary ---
Author Organization [facility] Address [address] [place] [address] Phone Care Team Providers Care Hydrodynamicist Name Role Phone Idalmis Jacques MD Primary Care Provide r Encounter Details Date Type Department Care Team (Late st Contact Info) Description 07/21/2024 Documentation Only [facility] [place], [address] [facility] [place] [place] [address] Kimberlee Madrid [address] [place] [address] Social History Tobacco Use Types [...] on filedocumented in this encounter Care Teams Hydrodynamicist Relationship Specialty Start Date End Date Idalmis Jacuqes MD [address] [phone] PCP - General 08/05/19 documented as of this encounter
[2025-01-02 13:24] LABS: Appearance Urine Cloudy; Color Urine Yellow; Glucose Urine UA Negative (Negative); Leukocyte Esterase Urine Large (3+) (Negative); Nitrite Urine Negative (Negative); PH 6.5 (5.0-9.0); UMIC TRIGGER UA YES; Urine Blood Small (1+) (Negative); Urine Ketones Negative (Negative); Urine Protein Negative (Neg-Trace)
[2025-01-02 13:39] LABS: Bacteria Urine 1+ (None Seen); Hyaline Casts Urine 0-2 /LPF (0-2); RBC Urine 0-2 /HPF (0-2); WBC Urine >50 /HPF (0-5)
[2025-01-02 14:08] LABS: Anion Gap 10 (12-20); Blood Urea Nitrogen 15 mg/dL (9-16); Calcium 9.1 mg/dL (8.4-10.2); Carbon Dioxide 25 mmol/L (22-29); Chloride 109 mmol/L (96-108); Estimated Glomerular Filt Rate > 60; Potassium 4.3 mmol/L (3.3-5.1); Sodium 140 mmol/L (135-145)
== END 2025-01-02 10:01 | disposition home or self-care (01) ==
LOC: HO.10HDL 10:00
PROVIDERS: Visit Provider Internal Medicine Nephrology
DX: N20.0 Calculus of kidney (principal); R10.9 Unspecified abdominal pain
CPT/HCPCS: 36415; 80051; 81001; 82310; 82565; 84520; 87086; 87088; 87186; 99212

== ENCOUNTER 2025-03-03 12:54 | Outpatient (REF) | payer MEDICAID, SELFPAY ==
--- OUTSIDE RECORDS SUMMARY | 2025-03-03 14:16 | XMS_ITS ---
Author Organization [facility] Address [address] [place] [address] Care Team Providers Care Automation And Control Engineer Name Role Phone Idalmis Ortega M.D. Primary Care Provider Moses Garzon [phone] REASON FOR VISIT Patient presents today for fatty liver Encounters Encounter Location Date Provider Diagnosis [facility] [address] [place] [address] 12/06/2023 Moses Abraham Plan Of Treatment Next Appt Details Provider Name:Moses Abraham , 04/22/2025 03:40:00 PM, [address], [address], [place], [address], Progress Notes * SIDDHARTHA PINEDADOB:1975 (49 yo F)Acc No.[id number]:12/06/2023 Progress Notes Patient:?SIDDHARTHA PINEDA Provider:?Moses Abraham MD :1975???Age:48 Y???Sex:Female D ate:12/06/2023 Address:[address] [place] [address] [id number] Pcp:Idalmis Ortega M.D. Subjective: * Chief Complaints: [...] MD Date:? 024 Generated for Maury bernal/Adele/Alexander on:?03/03/2025 02:15 PM EDT
== END 2025-03-03 12:55 | disposition home or self-care (01) ==
LOC: HO.HHCLNP 12:54
PROVIDERS: Visit Provider Internal Medicine
DX: Z79.891 Long term (current) use of opiate analgesic (principal)
CPT/HCPCS: 36415; 80353

== ENCOUNTER 2025-03-10 15:43 | Outpatient (REF) | payer MEDICAID, SELFPAY ==
--- NOTE | ~2025-03-10 | CT_ITS ---
CLINICAL HISTORY: N20.0 - Calculus of kidney CT abdomen and pelvis without contrast Comparison: CT/SR - ABD PELVIS WO CONT [id number] - 04/18/19 11:28 EDT Findings: The lung bases are clear. Status post cholecystectomy. Remainder of the solid organs are within normal limits. No hydronephrosis or nephrolithiasis. No bowel obstruction, pneumoperitoneum, or pneumatosis. Pelvic contents unremarkable. Appendix is not definitely visualized however, no signs of appendicitis. No acute fracture. IMPRESSION: No acute findings. No hydronephrosis or nephrolithiasis. This document has been electronically signed by: Julien Garcia MD on 03/11/2025 22:36:16
--- OUTSIDE RECORDS SUMMARY | 2025-03-10 18:44 | XMS_ITS ---
Author Organization [facility] Address [address] [place] [address] Care Team Providers Care Fur Sewer Name Role Phone Idalmis Ortega M.D. Primary Care Provider Moses Garzon [phone] REASON FOR VISIT Patient presents today for fatty liver Encounters Encounter Location Date Provider Diagnosis [facility] [address] [place] [address] 12/06/2023 Moses Abraham Plan Of Treatment Next Appt Details Provider Name:Moses Abraham , 04/22/2025 03:40:00 PM, [address], [address], [place], [address], Progress Notes * SIDDHARTHA PINEDADOB:1975 (49 yo F)Acc No.[id number]:12/06/2023 Progress Notes Patient:?SIDDHARTHA PINEDA Provider:?Moses Abraham MD :1975???Age:48 Y???Sex:Female D ate:12/06/2023 Address:[address] [place] [address] [phone] Pcp:Idalmis Ortega M.D. Subjective: * Chief Complaints: [...] MD Date:? 024 Generated for Maury bernal/Adele/Alexander on:?03/10/2025 06:44 PM EDT
== END 2025-03-10 15:44 | disposition home or self-care (01) ==
LOC: HO.CT 15:43
PROVIDERS: PCP Internal Medicine; Visit Provider Internal Medicine Nephrology
DX: R10.9 Unspecified abdominal pain (principal); N20.0 Calculus of kidney
CPT/HCPCS: 74176

== ENCOUNTER → 2025-03-10 15:44 | Outpatient (BNV) | payer MEDICAID, SELFPAY | PROVIDERS: PCP Internal Medicine; Visit Provider Student in an Organized Health Care Education/Training Program | DX: N20.0 Calculus of kidney (principal) | CPT/HCPCS: 74176 ==

== ENCOUNTER 2025-03-24 13:49 | Outpatient (AMB) | payer MEDICAID, SELFPAY ==
--- OUTSIDE RECORDS SUMMARY | 2023-12-06 05:40 | XMS_ITS ---
Author Organization [facility] Address [address] [place] [address] Care Team Providers [place] Tax Assessor Name Role Phone Idalmis Ortega M.D. Primary Care Provider Moses Garzon [phone] REASON FOR VISIT Patient presents today for fatty liver Encounters Encounter Location Date Provider Diagnosis [facility] [address] [place] [address] 12/06/2023 Moses Abraham Plan Of Treatment Next Appt Details Provider Name:Moses Abraham , 04/22/2025 03:40:00 PM, [address], [address], [place], [address], Progress Notes * SIDDHARTHA PINEDADOB:1975 (49 yo F)Acc No.[id number]:12/06/2023 Progress Notes Patient: SIDDHARTHA STAHL Provider: Wang Abraham MD :1975 A ge:48 Y S ex:Female Date:12/06/2023 Address:[address] [place] [address] [facility] Pcp:Idalmis Ortega M.D. Subjective: * Chief Complaints: * 1 . Patient presents today for fatty liver. * Medical History: Objective: * Vitals: Assessment: Plan: * Treatment: * * The named appointment provid er may or may not be the originator of this progress note, and it is not deemed complete until electronically signed by the appointment provider. Sign off status: Pending * Provider: Wang Abraham MD Date: 0 12/06/2023 Generated for Maury bernal/Adele/Alexander on: 0 03/24/2025 04:14 PM EDT
[2025-03-24 13:51] VITALS: BP 92/70; PULSE 80; O2SAT 98; BMI 33.6
--- NOTE | 2025-03-24 13:51 | HO.NEPHOV ---
Vital Signs 03/24/25 13:51 Height 5 ft Weight 172 lb BMI 33.6 BP 92/70 Blood Pressure Location Rt brachial Position Sitting Pulse 80 Pulse Source Pulse Oximeter Pulse Oximetry (%) 98 Oxygen Delivery Method Room Air Intake Visit Reasons: F/U appt Conf Automotive Painter Helper Required: Yes Automotive Painter Helper Name: shefali [phone] Accompanied by: Self / Same As Patient Allergies hydromorphone (From DILAUDID) Allergy (Severe, Verified 03/24/25 13:56) Anaphylaxis iodine Allergy (Severe, Verified 03/24/25 13:56) Anaphylaxis morphine (MORPHINE) Allergy (Unknown, Verified 03/24/25 13:56) UNKNOWN SEAFOOD Allergy (Severe, Uncoded 10/18/23 12:47) HIVES black pepper Allergy (Mild, Uncoded 10/18/23 12:47) Itching Oatmeal Allergy (Mild, Uncoded 10/18/23 12:47) Itching Peanuts Allergy (Mild, Uncoded 10/18/23 12:47) Itching Medication List - Last Reconciled 03/24/25 by Vinny Hodge MD albuterol sulfate 90 mcg/actuation (ProAir HFA) 1 puff PO Q4H PRN albuterol sulfate 5 mg continuous nebulization Q6H PRN buspirone 5 mg PO TID cetirizine 10 mg PO DAILY PRN cholecalciferol (vitamin D3) 25 mcg PO DAILY ciprofloxacin HCl 500 mg PO BID clonidine HCl 0.1 mg PO BEDTIME fluticasone propion-salmeterol 230-21 mcg/actuation (Advair HFA) 2 puffs PO BID gabapentin 400 mg PO QID levothyroxine 75 mcg PO DAILY medroxyprogesterone (Provera) 10 mg PO DAILY 10 days metronidazole 500 mg PO BID 14 days mirtazapine 1 tab PO BEDTIME montelukast 10 mg PO QPM omega-3 fatty acids 1,000 mg PO DAILY omeprazole 1 cap PO DAILY ondansetron 4 mg PO Q4-6H PRN oxycodone-acetaminophen 5-325 mg 1 tab PO TID PRN phentermine 15 mg PO DAILY quetiapine 400 mg PO BEDTIME tiotropium bromide (Spiriva with HandiHaler) 1 cap inhalation DAILY zolpidem 1 tab PO BEDTIME PRN HPI Comments Details: Amaya is a 48 yr old woman with multiple medical problems Referred for possible nephrolithiasis She was seen by and has decided to switch to my care All lab results were reviewed. Rcent CT scan showed unremarkable kidneys and no renal stones She underwent 24 urine collection. Follow-up ultrasound showed a 6 mm stone on the right side with evidence of middle-aged sponge kidney bilaterally 08/11/24 Midodrine was added for few days BP is better On Hctz 12.5 mg 09/29/24 After stopping HCTZ, BP is better c/o leg pain 03/24/25 No new issues Feels better No further pain PFSH Medical History (Updated 01/02/25 @ 09:50 by Blanco Askew MD) Mood disorder External hemorrhoids Adenomatous colon polyp Depression with anxiety Asthma Breast cancer, left Colon cancer screening Hx of thyroid disease Surgical History S/P lumpectomy, left breast History of removal of ovarian cyst History of endometrial ablation History of colonoscopy History of cholecystectomy History of delivery Hx of tubal ligation Family History Maternal Grandfather History of prostate cancer Maternal Aunt History of ovarian cancer Maternal Uncle History of thyroid cancer Maternal Uncle Cancer of unknown origin Social History Alcohol intake: never Patient Tobacco Use Status: Never used Tobacco Sexual orientation: Straight/Heterosexual Gender identity: Female Female Reproductive History Menstrual Age of Menarche: 12 Physical Exam Vital Signs: Last Vital Signs Pulse 80 03/24/25 13:51 BP 92/70 03/24/25 13:51 Pulse Ox 98 03/24/25 13:51 Oxygen Delivery Method Room Air 03/24/25 13:51 BMI result Body Mass Index 33.6 Comfortable Neck supple no JVD. Lungs entry equal no rales. Heart S1-S2 heard no gallop or rub. Abdomen soft nontender. Neuro alert awake oriented. No asterixis. Extremities no edema. Results Reviewed Nephrology Results: Sodium, (135-145) 140 mmol/L 01/02/25 Potassium, (3.3-5.1) 4.3 mmol/L 01/02/25 Chloride, (96-108) 109 mmol/L H 01/02/25 Carbon Dioxide, (22-29) 25 mmol/L 01/02/25 BUN, (9-16) 15 mg/dL 01/02/25 Creatinine, (0.5-1.4) 0.76 mg/dL 01/02/25 Calcium, (8.4-10.2) 9.1 mg/dL 01/02/25 Urine Protein, (Neg-Trace) Negative mg/dL 01/02/25 Renal US 10/03/24 Assessment & Plan Assessment & Plan (1) Nephrocalcinosis: Code(s): E83.59 - Other disorders of calcium metabolism; N29 - Other disorders of kidney and ureter in diseases classified elsewhere Category: Medical (2) Orthostasis: Code(s): I95.1 - Orthostatic hypotension Category: Medical Plan Middle aged woman with multiple medical problems including elevated BMI, referred for possible nephrocalcinosis Currently, renal function is normal NO obstruction based on recent imaging studies Ultrasonogram shows bilateral medullary sponge kidney. There is a 6 mm nonobstructing stone in the right side 24 urine collection showed a volume of 2825. Urinary calcium excretion oxalate excretion and sodium excretion where appropriate. Repeat CT- March 2025- No stones or hydro Orders: Orders Basic Metabolic Panel 6 Months E8 - Other disorders of calcium metabolism, N29 - Other disorders of kidney and ureter in diseases classified elsewhere UA and rflx microscopic 6 Months E83.59 - Other disorders of calcium metabolism, N29 - Other disorders of kidney and ureter in diseases classified elsewhere Coding Level of Care Code Est Pt Level 4 (12092) Diagnoses Nephrocalcinosis E83.59; N29 Orthostasis I95.1
== END 2025-03-24 14:29 | disposition home or self-care (01) ==
LOC: HO.HKA 13:50
PROVIDERS: PCP Internal Medicine; Visit Provider Internal Medicine Hypertension Specialist
DX: E83.59 Other disorders of calcium metabolism (principal); N29 Other disorders of kidney and ureter in diseases classified elsewhere; I95.1 Orthostatic hypotension
CPT/HCPCS: 99214

== ENCOUNTER → 2025-03-24 13:49 | Outpatient (BNVA) | payer MEDICAID, SELFPAY | PROVIDERS: PCP Internal Medicine; Visit Provider Internal Medicine Hypertension Specialist | DX: I95.1 Orthostatic hypotension (principal); E83.59 Other disorders of calcium metabolism; N29 Other disorders of kidney and ureter in diseases classified elsewhere | CPT/HCPCS: 99212 ==

== ENCOUNTER → 2025-04-28 10:46 | Outpatient (BNVA) | payer MEDICAID, SELFPAY | PROVIDERS: PCP Internal Medicine; Visit Provider Internal Medicine Hypertension Specialist | DX: Z71.2 Person consulting for explanation of examination or test findings (principal); E83.59 Other disorders of calcium metabolism; N29 Other disorders of kidney and ureter in diseases classified elsewhere; I95.1 Orthostatic hypotension | CPT/HCPCS: 36415; 80048; 81001; 87086; 99212 ==

== ENCOUNTER 2025-04-28 11:46 | Outpatient (REF) | payer MEDICAID, SELFPAY ==
[2025-04-28 13:32] LABS: Appearance Urine Clear; Glucose Urine UA Negative (Negative); PH 6.5 (5.0-9.0); Specific Gravity - Urine <= 1.005 (1.005-1.025); UMIC TRIGGER UA YES
[2025-04-28 13:44] LABS: Anion Gap 12 (12-20); Blood Urea Nitrogen 7 mg/dL (9-16); Calcium 9.3 mg/dL (8.4-10.2); Carbon Dioxide 25 mmol/L (22-29); Chloride 107 mmol/L (96-108); Estimated Glomerular Filt Rate > 60; Potassium 4.2 mmol/L (3.3-5.1); Sodium 140 mmol/L (135-145)
== END 2025-04-28 11:47 | disposition home or self-care (01) ==
LOC: HO.10HDL 11:46
PROVIDERS: Visit Provider Internal Medicine Hypertension Specialist
DX: Z13.89 Encounter for screening for other disorder (principal)
CPT/HCPCS: 36415; 80048; 81001; 87086

== ENCOUNTER 2025-06-12 13:03 | Outpatient (REF) | payer MEDICAID, SELFPAY ==
--- NOTE | ~2025-06-12 | XR_ITS ---
EXAMINATION: XR SHOULDER 2 OR MORE VIEWS LEFT HISTORY: L shoulder pain extending down L arm COMPARISON: Comparison is made with the prior examination dated 1229 and 17. FINDINGS: Five views of the left shoulder are submitted. Osseous mineralization is normal. There is no fracture or dislocation. The glenohumeral and acromioclavicular joint spaces are preserved. There is a linear calcification adjacent to the greater tuberosity of the humerus which is likely related to the rotator cuff. XR/XR shoulder LT min 2V IMPRESSION: Probable rotator cuff calcification. Otherwise unremarkable examination of the left shoulder. Electronically signed by: Moses Li MD 06/12/2025 01:32 PM EDT
--- OUTSIDE RECORDS SUMMARY | 2025-06-12 15:33 | XMS_ITS | Encounter Summary ---
Author Organization [facility] Address [address] [place] [phone] Phone Care Team Providers Care Ribber Name Role Phone Kaylan Ponce MD Primary Care Provider [phone] Encounter Details Date Type Department Care Team (Late st Contact Info) Description 04/23/2018 Procedure Pass [facility] for Outpatient Care - [facility] [address]th [place] [address] Social History Tobacco Use Types Packs/Day Years Used Date Smoking Tobacco: Former Alcohol Use Standard Drinks/Week Comments No 0 (1 standard drink = 0.6 oz pur e alcohol) Comments Unknown Sex and Gender Information Value Date Recorded Sex Assigned at Not on file Legal Sex Female 12:08 PM EDT Gender Identity Not on file Sexual Orientation Not on file documented as of this encounter Plan of Treatment Not on file documented as of this encounter Visit Diagnoses Not on filedocumented in this encounter Care Teams Ribber Relationship Specialty Start Date End Date Kaylan Ponce MD [email or web address] PCP - General Internal Medicine 04/19/18 documented as of this encounter Additional Source Comments The information contained in this document represents components of the legal health record. It is not the complete legal health record.[facility]
--- OUTSIDE RECORDS SUMMARY | 2025-06-12 15:34 | XMS_ITS | Encounter Summary ---
Author Organization [facility] Address [address] [place] [address] Phone Care Team Providers Care Time Study Observer Name Role Phone Idalmis Jacques MD Primary Care Provide r Encounter Details Date Type Department Care Team (Late st Contact Info) Description 07/21/2024 Documentation Only [facility], [address] [facility] [place] [address] Kimberlee Madrid [address] [place] [address] Social History Tobacco Use [...] on filedocumented in this encounter Care Teams Time Study Observer Relationship Specialty Start Date End Date Idalmis Jacques MD [address] [phone] PCP - General 08/05/19 documented as of this encounter
--- OUTSIDE RECORDS SUMMARY | 2025-06-12 15:34 | XMS_ITS | Clinical Summary ---
Author Organization [facility] Address [address] [facility] [place] [address] Phone Care Team Providers Care Change Attendant Name Role Phone Kaylan Ponce MD Primary Care Provider [phone]- [phone] Allergies Active Allergy Reactions Criticality Noted Date Comments Latex Hives,Itching 04/24/2018 Medications levothyroxine (SYNTHROID, LEVOTHROID) 75 MCG tablet Take 75 mcg by mouth every morning. Active meloxicam (MOBIC) 7.5 MG tablet Take 20 mg by mouth daily. Active oxyCODONE 5 MG immediate release tablet Take 0.5-1 tablets (2.5-5 mg total) by mouth every 4 (four) hours as needed for moderate pain. Pt. may request partial fill 35 tablet 8 Active docusate sodium (COLACE) 100 MG capsule Take 1 capsule (100 mg total) by mouth 2 (two) times a day. Take this medication while taking oxycodone to minimize constipation. 30 capsule 8 Active oxyCODONE 5 MG immediate release tablet Take 1 tablet (5 mg total) by mouth every 8 (eight) hours as needed for moderate pain. Pt. may request partial fill 21 tablet 8 Active gabapentin (NEURONTIN) 100 MG capsule Take 1 capsule (100 mg total) by mouth 3 (three) times a day. 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 Denies fevers, chills, nausea or vomiting or other systemic symptomatology. Denies drainage from wounds. Has mild right leg swelling that has improved significantly as compared to last visit. Has persisting neuropathic pain on plantar aspect of right foot, rates it at 6-7/10 currently. On Advil and oxycodone as needed. She has been taking prunes and pears to avoid constipation. Without pain medications, right foot pain exacerbates and worsens (especially between 1-6 am), rates it at 10/10 on such instances. Also reports sleep disturbance due to pain. Uses walker/cane to ambulate longer distances; has lower back pain occasionally. She has completed physical therapy and will continue with recommended exercises at home. On aspirin as prescribed. 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 I expect her gait will improve as she recovers and low back will resolve on its own. Ordered repeat MRI of right tibia and fibula in two months; rationale expalined. Prescribed gabapentin (Neurontin) 100 mg, may take it thrice daily; benefits and side effects reviewed. May increase gabapentin dose gradually as needed and tolerated for better pain relief: up to maximum dose of 300 mg thrice daily. May alternate Advil and Tylenol as needed for pain relief. Suggested to taper off oxycodone as tolerated. Continue physical therapy exercises at home. All the patient s questions were answered to her satisfaction. Follow up in two months with repeat imaging (for oncologic followup) or sooner if needed. 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 She has a significant pain in the right lower extremity, that is related to swelling. She tried to manage pain with ice and oxycodone, without any significant benefits. She ambulates with the help of walker. Advised to monitor symptoms vigilantly and contact if she notices any concerning symptoms. Mass of soft tissue of right lower extremity Assessment & Plan (05/30/2018 6:20 PM EDT): She has mass of soft tissue of right lower extremity. She has a significant pain in the right lower extremity, that is related to swelling. She tried to manage pain with ice and oxycodone, without any significant benefits. She ambulates with the help of walker. Denies fevers, chills, rigors or systemic symptomatology. Waite were removed and replaced with steri-strips on today s visit. Prescribed oxycodone 5 mg in every 8 hours instead of 6 hours, and in the interim time suggested to take Tylenol or NSAIDs. We will continue to manage conservatively. Stitches removed after application of numbing spray. Copy of pathology reports shared with the patient. All the patient's questions were answered to her satisfaction. Follow up in six weeks to evaluate clinical progression or sooner if needed. Assessment & Plan (05/08/2018 6:43 AM EDT): Has a h/o soft tissue mass in the right calf. Staging imaging studies and biopsy confirms the diagnosis of a solitary fibrous tumor in the right thigh. Reviewed and discussed imaging and biopsy reports. Discussed treatment options particularly with surgical resection in a marginal fashion as the tumor is benign. Encouraged surgical resection. Reviewed surgical risks including wound complications or infections, risk of bleeding, recurrence of tumor, and need for additional surgery. Discussed steps for surgical approach performing the surgery at two intervals, positional limitations of the surgery explained. We will obtain the margin and preserve the neurovascular structures and reassess postoperatively. Explained that she might have mild restriction of plantarflexion postoperatively. Reviewed functional status of lower leg musculature. Unsure whether flexor tibialis hallucis and flexor posterior tibialis will recover after decompression with resection of the tumor. Obtained informed consent; discussed expectant benefits of the surgery. Discussed indication and periodicity of subsequent postoperative followups to assess recovery. Counseled on expected good prognosis given her young age. Hopefully, her function regain is likely to be satisfactory after surgical resection. We will plan for surgical excision in near future, will schedule and communicate appropriately. All the patient's questions were answered to her satisfaction. Assessment & Plan (04/24/2018 7:47 AM EDT): Presents with painful mass in right leg past 4 years; reports worsening pain. States there has been a substantial increase in the size of mass and has become more painful over the past two years. She has tried multiple conservative treatment modalities for it; however, no imaging studies were obtained during these years until last week. States that the mass preceded the diagnosis of her breast cancer. Her pain has worsened and ambulates with the help of a walker. She also has an underlying mass in the posterior aspect of right gluteal area. Previously it was suspected to be due to a varicose veins and underwent venectomy; however, no desired benefits were achieved. Reports weight loss of 4 lbs and denies fever, or night sweats. Denies known exposure to hepatitis, HIV or h/o MRSA infection. Reviewed and discussed imaging studies, findings noted and explained in detail. Recommended to obtain CT of chest/abdomen/pelvis for staging and surveillance. Ordered IR biopsy of bone/soft tissue mass to assess the pathology of the tumor. Deferred examining/biopsy of the mass in right gluteal area as the staging studies will include that area. Discussed potential treatment approaches and possible surgical interventions, after the biopsy reports are obtained in 2-3 weeks. All the patient's questions were answered to her satisfaction. Follow up in 2-3 weeks or sooner if concerns. Social History Tobacco Use Types Packs/Day Years Used Date Smoking Tobacco: Never Smokeless Tobacco: Never Alcohol Use Standard Drinks/Week Comments No 0 (1 standard drink = 0.6 oz pur e alcohol) Education Answer Date Recorded Are you interested in more education? Not on rajan e 01/26/2023 Are you concerned about learning? Not on file 01/26/2023 No 01/26/2023 No 01/26/2023 Digital Access Answer Date Recorded No 02/24/2023 No 02/24/2023 No 02/24/2023 Reliable internet access at home? Not on file 02/24/2023 Device with a working camera? Not on file Comments Unknown Sex and Gender Information Value Date Recorded Sex Assigned at Not on file Legal Sex Female 12:08 PM EDT Gender Identity Not on file Sexual Orientation Not on file Last Filed Vital Signs Vital Sign Reading Time Taken Comments Blood Pressure 118/74 05/18/2018 10:52 AM EDT Pulse 82 05/18/2018 7:38 AM EDT Temperature 37.1 C (98.8 F) 05/18/2018 7:38 AM EDT Respiratory Rate 18 05/18/2018 7:38 AM EDT Oxygen Saturation 98% 05/18/2018 7:38 AM EDT Inhaled Oxygen Concentration - - Weight 75.8 kg (167 lb) 05/16/2018 7:31 AM EDT Height 144.8 cm (4' 9 ) 05/16/2018 7:31 AM EDT Body Mass Index 36.14 05/16/2018 7:31 AM EDT Plan of Treatment Health Maintenance Due Date Last Done Comments Adult Td,Tdap Booster 1975 LIPID PANEL 1975 TSH LEVEL 1975 DEPRESSION SCREENING 1987 HEPATITIS C SCREENING 1993 HIV ONE-TIME SCREENING (18-65 YEARS) 1993 PAP SMEAR 1996 MAMMOGRAM 2015 COLOGUARD 2020 COLONOSCOPY 2020 COLORECTAL CANCER SCREENING 2020 FIT TEST 2020 FOBT 2020 SIGMOIDOSCOPY 2020 VIRTUAL COLONOSCOPY 2020 INFLUENZA VACCINE (#1) 2025 0, 06/12/2019, 07/08/2014, Additional history exists COVID-19 VACCINE (2024- season) 2025 01/10/2021, 12/13/2020 PNEUMOCOCCAL VACCINES (0-49 years) Aged Out 06/11/2013 No longer eligible based on patient's age to complete this topic SMOKING STATUS SCREENING (Once After 26 Yrs) Completed 05/16/2018 HEPATITIS A VACCINES Aged Out No long er eligible based on patient's age to complete this topic HIB VACCINES Aged Out No longer eligi ble based on patient's age to complete this topic MENINGOCOCCAL VACCINES (ACWY) Aged Out No longer eligible based on patient's age to complete this topic MENINGOCOCCAL VACCINES (B) Aged Out N o longer eligible based on patient's age to complete this topic Medical Devices Not on file Insurance [facility] [address] [place] [address] [place] [address] [place] [place] [address] [place] [place] [address] [employer] Advance Directives For more information, please contact: [phone] (9AM - 5PM [facility], Sunday-Sunday) * Full Code (Presumed) (Latest Code Status on File) Date Activated Date Inactivated Comments 05/16/2018 12:25 PM 05/18/2018 4:02 PM Care Teams Change Attendant Relationship Specialty Start Date End Date Kaylan Ponce MD [email or web address] PCP - General Internal Medicine 04/19/18 Additional Source Comments The information contained in this document represents components of the legal health record. It is not the complete legal health record.[facility]
--- OUTSIDE RECORDS SUMMARY | 2025-06-12 15:34 | XMS_ITS | Encounter Summary ---
Author Organization [facility] Address [address] [place] [address] Phone Care Team Providers Care Heel Shaper Name Role Phone Idalmis Jacques MD Primary Care Provide r Encounter Details Date Type Department Care Team (Late st Contact Info) Description 01/15/2024 Documentation Only [facility] [place], [address] [place] [address] Kimberlee Madrid [address] [place] [address] Social History Tobacco Use Types [...] on filedocumented in this encounter Care Teams Heel Shaper Relationship Specialty Start Date End Date Idalmis Jacques MD [address] [phone] PCP - General 08/05/19 documented as of this encounter
--- OUTSIDE RECORDS SUMMARY | 2025-06-12 15:34 | XMS_ITS | Encounter Summary ---
Author Organization [facility] Address [address] [place] [address] Phone Care Team Providers Care Donations Attendant Name Role Phone Idalmis Jacques MD Primary Care Provide r Encounter Details Date Type Department Care Team (Late st Contact Info) Description 01/29/2024 Documentation Only [facility] [place], [address] [address] [place]ne [place], [place] [address] [place] [address] Social History Tobacco Use Types [...] on filedocumented in this encounter Care Teams Donations Attendant Relationship Specialty Start Date End Date Idalmis Jacques MD [address] [place] [phone] PCP - General 08/05/19 documented as of this encounter
--- OUTSIDE RECORDS SUMMARY | 2025-06-12 15:34 | XMS_ITS | Encounter Summary ---
Author Organization [facility] Address [address] [place] [address] Phone Care Team Providers Care Print Shop Helper Name Role Phone Idalmis Jacques MD Primary Care Provide r Encounter Details Date Type Department Care Team (Late st Contact Info) Description 01/15/2024 Documentation Only [facility] [place], [address] [place] [address] Kimberlee Madrid [address] [place] [address] Social History Tobacco Use Types [...] on filedocumented in this encounter Care Teams Print Shop Helper Relationship Specialty Start Date End Date Idalmis Jacques MD [address] [phone] PCP - General 08/05/19 documented as of this encounter
--- OUTSIDE RECORDS SUMMARY | 2025-06-12 15:34 | XMS_ITS | Encounter Summary ---
Author Organization [facility] Address [address] [place] [address] Phone Care Team Providers Care Waterworks Supervisor Name Role Phone Idalmis Jacques MD Primary Care Provide r Encounter Details Date Type Department Care Team (Late st Contact Info) Description 07/21/2024 Documentation Only [facility] [place], [address] [facility] [address] [place] [address] Kimberlee Madrid [address] [place] [address] Social History Tobacco Use Types [...] on filedocumented in this encounter Care Teams Waterworks Supervisor Relationship Specialty Start Date End Date Idalmis Jacques MD [address] [phone] PCP - General 08/05/19 documented as of this encounter
--- OUTSIDE RECORDS SUMMARY | 2025-06-12 15:34 | XMS_ITS | Encounter Summary ---
Author Organization [facility] Address [address] [place] [address] Phone Care Team Providers Care Fresco Artist Name Role Phone Idalmis Jacques MD Primary Care Provide r Encounter Details Date Type Department Care Team (Late st Contact Info) Description 07/21/2024 Documentation Only [facility] [place], [address] [facility] [place] [address] Kimberlee Madrid [address] [place] [address] Social History Tobacco Use Types [...] on filedocumented in this encounter Care Teams Fresco Artist Relationship Specialty Start Date End Date Idalmis Jacques MD [address] [phone] PCP - General 08/05/19 documented as of this encounter
--- OUTSIDE RECORDS SUMMARY | 2025-06-12 15:34 | XMS_ITS | Encounter Summary ---
Author Organization [facility] Address [address] [place] [address] Phone Care Team Providers Care Pill Maker Name Role Phone Idalmis Jacques MD Primary Care Provide r Encounter Details Date Type Department Care Team (Late st Contact Info) Description 01/15/2024 Documentation Only [facility] [place], [address] [place] [address] Kimberlee Madrid [address] [place] [address] Social History Tobacco Use Types [...] on filedocumented in this encounter Care Teams Pill Maker Relationship Specialty Start Date End Date Idalmis Jacques MD [address] [phone] PCP - General 08/05/19 documented as of this encounter
--- OUTSIDE RECORDS SUMMARY | 2025-06-12 15:34 | XMS_ITS | Encounter Summary ---
Author Organization [facility] Address [address] [place] [address] Phone Care Team Providers Care Tube Sizer And Cutter Operator Name Role Phone Kaylan Ponce MD Primary Care Provider [phone] Encounter Details Date Type Department Care Team (Late st Contact Info) Description 04/23/2018 Transcribe Orders [facility], Radio Flouroscopy [address] [place] [address] [email or web address] Social History Tobacco Use Types Packs/Day Years [...] on filedocumented in this encounter Care Teams Tube Sizer And Cutter Operator Relationship Specialty Start Date End Date Kaylan Ponce MD [email or web address] PCP - General Internal Medicine 04/19/18 documented as of this encounter Additional Source Comments The information contained in this document represents components of the legal health record. It is not the complete legal health record.[facility]
--- OUTSIDE RECORDS SUMMARY | 2025-06-12 15:34 | XMS_ITS | Encounter Summary ---
Author Organization [facility] Address [address] [place] [address] Phone Care Team Providers Care Barrel Filler Name Role Phone Kaylan Ponce MD Primary Care Provider [phone]- [phone] Encounter Details Date Type Department Care Team (Late st Contact Info) Description 10/23/2018 Procedure Pass [facility] [address] [place] [address] Social History Tobacco Use Types Packs/Day Years [...] on filedocumented in this encounter Care Teams Barrel Filler Relationship Specialty Start Date End Date Kaylan Ponce MD [email or web address] PCP - General Internal Medicine 04/19/18 documented as of this encounter Additional Source Comments The information contained in this document represents components of the legal health record. It is not the complete legal health record.[facility]
--- OUTSIDE RECORDS SUMMARY | 2025-06-12 15:34 | XMS_ITS | Encounter Summary ---
Author Organization [facility] Address [address] [place] [address] Phone Care Team Providers Care Distribution Analyst Name Role Phone Idalmis Jacques MD Primary Care Provide r Encounter Details Date Type Department Care Team (Late st Contact Info) Description 05/22/2022 Documentation Only [facility] [place], [address] [place] [address] Kimberlee Madrid [address] [place] [address] Social History Tobacco Use Types [...] on filedocumented in this encounter Care Teams Distribution Analyst Relationship Specialty Start Date End Date Idalmis Jacques MD [address] [place] [phone] PCP - General 08/05/19 documented as of this encounter
--- OUTSIDE RECORDS SUMMARY | 2025-06-12 15:34 | XMS_ITS | Encounter Summary ---
Author Organization [facility] Address [address] [place] [address] Phone Care Team Providers Care Clock Repairer Name Role Phone Idalmis Jacques MD Primary Care Provide r Encounter Details Date Type Department Care Team (Late st Contact Info) Description 01/15/2024 Documentation Only [facility] [place], [address] [place] [address] Kimberlee Madrid [address] [place] [address] Social History Tobacco Use Types [...] on filedocumented in this encounter Care Teams Clock Repairer Relationship Specialty Start Date End Date Idalmis Jacques MD [address] [phone] PCP - General 08/05/19 documented as of this encounter
--- OUTSIDE RECORDS SUMMARY | 2025-06-12 15:34 | XMS_ITS | Clinical Summary ---
Author Organization [facility] Address [address] [place] [address] Care Team Providers Care [employer] Principal Name Role Phone Idalmis Jacques MD Primary Care Provide r Surgical History Surgery Date Site/Laterality Comments BREAST SURGERY PROCEDURE: HI UNLISTED PROCEDURE BREAST OTHER SURGICAL HISTORY PROCEDURE: LAPAROSCOPY, SURGICAL/REMOVE TUMOR; COMMENT: left lower leg CHOLECYSTECTOMY 03/20/2021 PROCEDURE: HI LAPAROSCOPY SURG CHOLECYSTECTOMY Medical History Medical History Date Comments Urine abnormality DX:Urine abnor mality; COMMENT: hi calcium in urine Breast cancer (CMS/HCC V24, CMS/HCC V28) DX:Breast cancer (HCC) Bilateral sacroiliitis (CMS/HCC V24) DX:Bilateral sacroiliitis (HCC) Bree's thyroiditis DX:Terese rosangela's thyroiditis [...] Smear 1996 Colorectal Cancer Screening: Colonoscopy 09/03/2022 HIV Screening 09/03/2022 Hepatitis C Screening 09/03/2022 Social Influencers of Health Screening 09/03/2022 Depression Screening 10/01/2024 COVID-19 Vaccine (1 - 2023-2 5 season) 2025 Influenza Vaccine (#1) 2025 HIB Vaccines Aged Out No longer eligi [...] age to complete this topic Meningococcal B Vaccine Aged Out No l onger eligible based on patient's age to complete this topic Pneumococcal Vaccine: Pediat rics (0 to 5 Years) and At-Risk Patients (6 to 49 Years) Aged Out No longer eligible b ased on patient's age to complete this topic RSV Immunization Patients Un huy 20 months Aged Out No longer eligible b ased on patient's age to complete this topic Varicella Vaccines Aged Out No longer eligible based on patient's age to complete this topic Care Teams [employer] Principal Relationship Specialty Start Date End Date Idalmis Jacques MD [address] [place] [phone] PCP - General Internal Medicine 04/29/21
--- OUTSIDE RECORDS SUMMARY | 2025-06-12 15:34 | XMS_ITS | Encounter Summary ---
Author Organization [facility] Address [address] [place] [phone] Phone Care Team Providers Care Manager Of Pharmacy Name Role Phone Kaylan Ponce MD Primary Care Provider [phone]- [phone] Encounter Details Date Type Department Care Team (Late st Contact Info) Description 04/23/2018 Procedure Pass [facility] [address] [facility] [place] [address] Social History Tobacco Use Types Packs/Day Years [...] on filedocumented in this encounter Care Teams Manager Of Pharmacy Relationship Specialty Start Date End Date Kaylan Ponce MD [email or web address] PCP - General Internal Medicine 04/19/18 documented as of this encounter Additional Source Comments The information contained in this document represents components of the legal health record. It is not the complete legal health record.[facility]
--- OUTSIDE RECORDS SUMMARY | 2025-06-12 15:34 | XMS_ITS | Encounter Summary ---
Author Organization [facility] Address [address] [place] [address] Phone Care Team Providers Care Medical Claims Representative Name Role Phone Idalmis Jacques MD Primary Care Provide r Encounter Details Date Type Department Care Team (Late st Contact Info) Description 11/29/2023 Documentation Only [facility] [place], [address] [facility] [place] [address] Kimberlee Madrid [address] [place] [address] Social History Tobacco Use Types [...] on filedocumented in this encounter Care Teams Medical Claims Representative Relationship Specialty Start Date End Date Idalmis Jacques MD [address] [place] [phone] PCP - General 08/05/19 documented as of this encounter
--- OUTSIDE RECORDS SUMMARY | 2025-06-12 15:34 | XMS_ITS | Patient Health Record ---
Author Organization [facility] Address [address] [place] [address] Care Team Providers Care Pharmacy Consultant Name Role Phone Idalmis Ortega M.D. Primary Care Provider Moses Garzon Unavailable [phone] Allergies Allergen (clinical drug ingredient) Drug/Non Drug Allergy documented on EMR Reaction Allergy Type Onset Date Status morphine Morphine Unknown Drug Allergy Active famotidine Pepcid Unknown Drug Allergy Active hydromorphone Dilaudid Unknown Drug Allergy Act mercedes Reason For Referral Referring Provider First Name Idalmis Referring Provider Last Name Shannon Referred Organization [facility] Referred Provider Moses Abraham Referred Address [address] [facility],[address],[place], [place],[address], Referred Provider Specialty Gastroentero logy General Notes Veronica Aldridge 2024 03:00:36 PM >requested a [facility] referral from [facility] for ov with Dr. Abraham on 04-22-25 dx fatty liver Referral Priority Routine Medications Medication SIG (Take, Route, Frequency, Duration) Notes Start Date End Date Status Flovent HFA 110 MCG/ACT 2 puffs Inhalati on Twice a day Active Albuterol Sulfate 108 (90 Base) MCG/ACT 1 puff as needed Inhalation every 4 hrs Active Gabapentin 400 MG 1 capsule Orally Once a day for 30 day(s) Active Mirtazapine 15 MG 1 tablet at bedtime Orally Once a day for 30 day(s) Active QUEtiapine Fumarate 400 MG 1 tablet at b edtime Orally Once a day for 30 day(s) Active Venlafaxine HCl ER 150 MG 1 capsule with food Orally Once a day for 30 day(s) Active hydroCHLOROthiazide 25 MG 1 tablet in morning Orally Once a day for 30 day(s) Active Selenium Sulfide 2.5 % 1 application to wet scalp Externally Active Ibuprofen 800 MG 1 tablet with food or milk as needed Orally every 8 hrs Active Acetaminophen 500 MG 1 capsule as needed Orally every 6 hrs Active hydrOXYzine Pamoate 50 MG TAKE ONE CAPSU LE BY MOUTH DAILY NEEDED FOR NIGHTIME AWAKENING Oral for 30 Days Active hydrOXYzine HCl 25 MG/ML 2 ml as needed Intramuscular every 6 hrs for 30 day(s) Active Ambien 10 MG 1 tablet at bedtime as needed Orally Once a day Active Meloxicam 15 MG 1 tablet Orally Once a day for 30 day(s) Active Tamoxifen Citrate 20 MG 1 tablet Orally Once a day for 30 day(s) Active Omeprazole 40 MG 1 Orally Every morning for 30 day(s) 06/07/2023 Active Ondansetron 4 MG DISSOLVE 1 TABLET ON THE TONGUE EVERY 4 TO 6 HOURS NEEDED FOR NAUSEA for 3 Active Omeprazole 40 MG 1 capsule Orally Once a day every morning for 30 days 02/24/2025 Active Percocet 2.5-325 MG 1 tablet as needed Orally every 6 hrs 04/22/2025 Active Compazine Active Vitamin D2 Active Omeprazole 40 MG 1 capsule 30 minutes before morning meal Orally Once a day for 30 day(s) using only prn Active Montelukast Sodium 10 MG 1 tablet Orally Once a day for 30 day(s) Active Tirosint 75 MCG 1 capsule in the morning on an empty stomach Orally Once a day for 30 day(s) Active oxyCODONE HCl 5 MG 1 tablet as needed Orally every 6 hrs Active Loratadine 10 MG 1 tablet Orally Once a day for 30 day(s) Active OptiChamber Makenna - as directed Active Metoclopramide HCl 10 MG 1 tablet before meals Orally Twice a day for 30 day(s) Active Immunizations Vaccine Route Administration Date Status Comme nts Influenza Unknown 08/17/2021 Administered Influenza Unknown 08/01/2022 Administered Influenza Unknown 04/22/2025 Refused Social History Tobacco Use: Social History Observation [...] Problem History of adenomatous polyp of colon (302071020) History of adenomatous polyp of colon (Z86.010) Active confirmed Problem 086770240 Nausea (R11.0) Active confirmed Problem 691299092 Gastroesophageal reflux disease without esophagitis (K21.9) Active confirmed Problem 683989197 Elevated liver enzymes (R74.8) Active confirmed Problem Fatty liver (733572910) Fatty liver (K76.0) Active confirmed Problem Elevated liver enzymes level (933617231) Elevated liver function tests (R94.5) Active confirmed Vital Signs Temperature 98.3 degrees Fahrenheit 04/22/2025 Blood pressure diastolic 01 mm Hg 04/22/2025 Height 57 in 04/22/2025 Blood pressure systolic 001 mm Hg 04/22/2025 Weight 169.4 lbs 04/22/2025 BMI 36.65 kg/m2 04/22/2025 Encounters Encounter Location Date Provider Diagnosis [facility] [address] [place] [phone] 04/22/2025 Moses Abraham Fatty liver K76.0 and Elevated liver function tests R94.5 [facility] [address] [place] [phone] 02/24/2025 Moses Abraham Assessments Encounter Date Diagnosis (ICD Code) Assessment Notes Treatment Notes Treatment Clinical Notes Section Notes 04/22/2025 Fatty liver (ICD-10 - K76.0) Keep watching the diet and try to lose weight Overall, Shaneka appears quite well. She is not having any new or worrisome GI complaints. She does not have any symptoms nor show any signs of worsening liver disease. We did review the importance of watching her diet carefully, trying to lose more weight, and eating healthy in regard to the fatty liver. I did advise her to continue to avoid alcohol completely I shall check a follow-up abdominal ultrasound with liver elastography and laboratories in regard to the underlying liver disease. I do not think the fatty liver needs any specific treatment as long as her LFTs remain normal and things remain stable. We did review that she will be due for a follow-up screening colonoscopy in 2026. If things remain well, and her upcoming ultrasound and laboratories are stable, I would then plan to see her in 2026 for the follow-up colonoscopy. I did advise her to definitely call me prior to that if she has any problems or questions I can be of assistance with. Shaneka was comfortable with this plan. Thank you again for allowing me to participate in Shaneka's care. I shall continue to keep you advised of her progress. 04/22/2025 Elevated liver function tests (ICD-10 - R94.5) Overall, Shaneka appears quite well. She is not having any new or worrisome GI complaints. She does not have any symptoms nor show any signs of worsening liver disease. We did review the importance of watching her diet carefully, trying to lose more weight, and eating healthy in regard to the fatty liver. I did advise her to continue to avoid alcohol completely I shall check a follow-up abdominal ultrasound with liver elastography and laboratories in regard to the underlying liver disease. I do not think the fatty liver needs any specific treatment as long as her LFTs remain normal and things remain stable. We did review that she will be due for a follow-up screening colonoscopy in 2026. If things remain well, and her upcoming ultrasound and laboratories are stable, I would then plan to see her in 2026 for the follow-up colonoscopy. I did advise her to definitely call me prior to that if she has any problems or questions I can be of assistance with. Shaneka was comfortable with this plan. Thank you again for allowing me to participate in Shaneka's care. I shall continue to keep you advised of her progress. 04/22/2025 Other Repeat colonoscopy in 2026 Overall, Shaneka appears quite well. She is not having any new or worrisome GI complaints. She does not have any symptoms nor show any signs of worsening liver disease. We did review the importance of watching her diet carefully, trying to lose more weight, and eating healthy in regard to the fatty liver. I did advise her to continue to avoid alcohol completely I shall check a follow-up abdominal ultrasound with liver elastography and laboratories in regard to the underlying liver disease. I do not think the fatty liver needs any specific treatment as long as her LFTs remain normal and things remain stable. We did review that she will be due for a follow-up screening colonoscopy in 2026. If things remain well, and her upcoming ultrasound and laboratories are stable, I would then plan to see her in 2026 for the follow-up colonoscopy. I did advise her to definitely call me prior to that if she has any problems or questions I can be of assistance with. Shaneka was comfortable with this plan. Thank you again for allowing me to participate in Shaneka's care. I shall continue to keep you advised of her progress. Plan Of Treatment Pending Test Test Name Order Date LIVER PROFILE 03/01/2022 LIVER PROFILE 12/06/2022 LIVER PROFILE 06/07/2023 LIVER PROFILE 04/22/2025 IRON + IBC (FE) 03/01/2022 CBC w DIFF 04/22/2025 CBC w DIFF 03/01/2022 PROTHROMBIN TIME (PT, INR) 03/01/2022 PARTIAL THROMBOPLASTIN TIME (PTT) 2021 HEPATITIS B, C PROFILE 03/01/2022 ALPHA-FETOPROTEIN,TUMOR MARKER US ABD 03/01/2022 FLUOR. ANTINUCLEAR AB SCREEN (THAD) 10/2021 Prothrombin Time INR 04/22/2025 Ferritin 03/01/2022 Ceruloplasmin 03/01/2022 Alpha 1 Anti-trypsin 03/01/2022 Liver Fibrosis Pnl 04/22/2025 Mitochondrial Antibody 03/01/2022 Smooth Muscle Antibody 03/01/2022 US abdomen comp w elastography US biopsy liver 03/01/2022 Hepatitis A IgG 03/01/2022 Insurance Providers Payer Name Payer Address Payer Phone Subscriber Number Group Number Insured Name Patient Relationship to Insured Coverage Start Date Coverage End Date [facility] [address] [place] [address] [id number] NICOLE PINEDA Self - patient is the insured Medical (General) History Medical History History ICD Code 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 Denies SD,DM,CVA,renal disease Small tubular adenoma remove d with screening colonoscopy in November of [address] Watkins. Asthma Surgical History Surgery Date(Month/Year) Surgery for removal of uteru s. She reports that there was no cancer found 04/19/2023 Ovarian surgery with removal of possible cysts Cholecystectomy Tumor in the right lower leg-benign Vein removal on right leg Breast cancer--left lumpectomy 2014--[place] atment as above
--- OUTSIDE RECORDS SUMMARY | 2025-06-12 15:34 | XMS_ITS | Encounter Summary ---
Author Organization [facility] Address [address] [place] [address] Phone Care Team Providers Care Class B Driver Name Role Phone Idalmis Jacques MD Primary Care Provide r Encounter Details Date Type Department Care Team (Late st Contact Info) Description 01/15/2024 Documentation Only [facility] [place], [address] [address] Kimberlee Madrid [address] [place] [address] Social History Tobacco Use Types [...] on filedocumented in this encounter Care Teams Class B Driver Relationship Specialty Start Date End Date Idalmis Jacques MD [address] [phone] PCP - General 08/05/19 documented as of this encounter
--- OUTSIDE RECORDS SUMMARY | 2025-06-12 15:34 | XMS_ITS | Encounter Summary ---
Author Organization [facility] Address [address] [place] [address] Phone Care Team Providers Care Marine Structural Welder Name Role Phone Kaylan Ponce MD Primary Care Provider [phone]- [phone] Encounter Details Date Type Department Care Team (Late st Contact Info) Description 04/23/2018 Procedure Pass [facility] [address] [place] [address] Social History Tobacco Use Types Packs/Day Years Used Date Smoking Tobacco: Never Assessed Comments Unknown Sex and Gender Information Value Date Recorded Sex Assigned at Not on file Legal Sex Female 12:08 PM EDT Gender Identity Not on file Sexual Orientation Not on file documented as of this encounter Plan of Treatment Not on file documented as of this encounter Visit Diagnoses Not on filedocumented in this encounter Care Teams Marine Structural Welder Relationship Specialty Start Date End Date Kaylan Ponce MD [email or web address] PCP - General Internal Medicine 04/19/18 documented as of this encounter Additional Source Comments The information contained in this document represents components of the legal health record. It is not the complete legal health record.[facility]
--- OUTSIDE RECORDS SUMMARY | 2025-06-12 15:35 | XMS_ITS | Clinical Summary ---
Author Organization [facility], Address [address] [place] [address] Phone Care Team Providers Care Sawmill Or Timber Yard Worker Name Role Phone Idalmis Jacques MD [...] lower leg Cortical nephrocalcinosis Hydronephrosis Hypercalciuria Immunizations Immunization Administration Dates Next Due DTaP 11/11/1981, 7,05/09/1976,02/14,1975 [...] 3 - 19+ 3-dose series) 1994 10/27/2022 Colorectal Cancer Screening: Annual FOBT 2024 Colorectal Cancer Screening: Colonoscopy 2024 Colorectal Cancer Screening: Sigmoidoscopy 2024 Influenza Vaccine (#1) 2025 3, 08/01/2022, 06/07/2022, Additional history exists Pneumococcal Vaccine: 50+ Years Discontinued 04/08/2023, 06/11/2013, 04/19/2011 Pneumococcal Vaccine: Peds ( 0 to 5 Years) and At-Risk Patients (6 to 49 Years) Completed 04/08/2023, 06/11/2013, 04/19/2011 Insurance [place] Care Teams Sawmill Or Timber Yard Worker Relationship Specialty Start Date End Date Idalmis Jacques MD [address] [place] [phone] PCP - General 08/05/19
--- OUTSIDE RECORDS SUMMARY | 2025-06-12 15:35 | XMS_ITS | Encounter Summary ---
Author Organization [facility] Address [address] [place] [address] Phone Care Team Providers Care Automatic Trimming Sewer Name Role Phone Kaylan Ponce MD Primary Care Provider [phone]- [phone] Encounter Details Date Type Department Care Team (Late st Contact Info) Description 05/16/2018 Procedure Pass [facility] PERIOPERATIVE DEPT [address] [place] [phone] Social History Tobacco Use Types Packs/Day Years [...] on filedocumented in this encounter Care Teams Automatic Trimming Sewer Relationship Specialty Start Date End Date Kaylan Ponce MD [email or web address] PCP - General Internal Medicine 04/19/18 documented as of this encounter Additional Source Comments The information contained in this document represents components of the legal health record. It is not the complete legal health record.[facility]
--- OUTSIDE RECORDS SUMMARY | 2025-06-12 15:35 | XMS_ITS | Encounter Summary ---
Author Organization [facility] Address [address] [place] [address] Phone Care Team Providers Care Yard Clerk Name Role Phone Kaylan Ponce MD Primary Care Provider [phone] Encounter Details Date Type Department Care Team (Late st Contact Info) Description 05/17/2018 Procedure Pass [facility] [place] [address] [facility], 2nd Floor, [address] [place] [address] Social History Tobacco Use Types Packs/Day Years [...] on filedocumented in this encounter Care Teams Yard Clerk Relationship Specialty Start Date End Date Kaylan Ponce MD [email or web address] PCP - General Internal Medicine 04/19/18 documented as of this encounter Additional Source Comments The information contained in this document represents components of the legal health record. It is not the complete legal health record.[facility]
--- OUTSIDE RECORDS SUMMARY | 2025-06-12 15:35 | XMS_ITS | Encounter Summary ---
Author Organization [facility] Address [address] [place] [address] Phone Care Team Providers Care Tint Layer Name Role Phone Idalmis Jacques MD Primary Care Provide r Encounter Details Date Type Department Care Team (Late st Contact Info) Description 07/21/2024 Documentation Only [facility] [place], [address] [facility] [place] [address] Kimberlee Madrid [address] [place] [address] Social History Tobacco Use Types [...] on filedocumented in this encounter Care Teams Tint Layer Relationship Specialty Start Date End Date Idalmis Jacques MD [address] [phone] PCP - General 08/05/19 documented as of this encounter
--- OUTSIDE RECORDS SUMMARY | 2025-06-12 15:35 | XMS_ITS | Encounter Summary ---
Author Organization [facility] Address [address] [place] [address] Phone Care Team Providers Care Mortgage Servicing Specialist Name Role Phone Kaylan Ponce MD Primary Care Provider [phone] Encounter Details Date Type Department Care Team (Late st Contact Info) Description 05/17/2018 Procedure Pass [facility] [place] [address] [facility], 2nd Floor, [address] [place] [address] Social History Tobacco Use Types Packs/Day Years [...] on filedocumented in this encounter Care Teams Mortgage Servicing Specialist Relationship Specialty Start Date End Date Kaylan Ponce MD [email or web address] PCP - General Internal Medicine 04/19/18 documented as of this encounter Additional Source Comments The information contained in this document represents components of the legal health record. It is not the complete legal health record.[facility]
[2025-06-12 22:34] LABS: Bacterial Vaginosis PCR NEGATIVE (Negative); Candida Group PCR DETECTED (Not Detect); Candida glab krusei PCR NOT DETECTED (Not Detect); Trichomonas vaginalis PCR NOT DETECTED (Not Detect)
[2025-06-12 23:12] LABS: CT PCR NOT DETECTED (Not Detect.); NG PCR NOT DETECTED (Not Detect.)
== END 2025-06-12 13:04 | disposition home or self-care (01) ==
LOC: HO.HHCX 13:03
PROVIDERS: PCP Internal Medicine; Visit Provider Family Medicine
DX: M79.602 Pain in left arm (principal); N89.8 Other specified noninflammatory disorders of vagina
CPT/HCPCS: 73030; 81515; 87086; 87491; 87591

== ENCOUNTER → 2025-06-12 13:14 | Outpatient (BNV) | payer MEDICAID, SELFPAY | PROVIDERS: PCP Internal Medicine; Visit Provider Radiology Diagnostic Radiology | DX: M25.512 Pain in left shoulder (principal) | CPT/HCPCS: 73030 ==

== ENCOUNTER 2025-06-17 09:02 | Outpatient (REF) | payer MEDICAID, SELFPAY ==
--- OUTSIDE RECORDS SUMMARY | 2025-06-12 12:00 | XMS_ITS | Encounter Summary ---
Author Organization [employer] Address [address] [facility] [address] [place] [address] Care Team Providers Care Regional Vice President Surgical Sales Name Role Phone Idalmis Jacques MD Primary Care Provide r Reason for Referral * Neurology (Routine) - Authorized Specialty Diagnoses / Procedures Referred By Heather reynolds Referred To Contact Diagnoses Left arm pain Procedures Nerve conduction test Rufina Erickson DO [address] [place] [address] Phone: tel: fax: [address] Phone: tel: fax: Referral ID Status Reason Start Date Expiration Date V isits Requested Visits Authorized [id number] Authorized 06/12/2025 06/12/2026 1 1 * Neurology (Routine) - Authorized Specialty Diagnoses / Procedures Referred By Heather reynolds Referred To Contact Diagnoses Left arm pain Procedures EMG Rufina Erickson DO [address] [place] [address] Phone: tel: fax: [address] Phone: tel: fax: Referral ID Status Reason Start Date Expiration Date V isits Requested Visits Authorized [id number] Authorized 06/12/2025 06/12/2026 1 1 Encounter Details Date Type Department Care Team (Late st Contact Info) Description 06/12/2025 12:00 PM EDT Office Visit [facility] [address] [place], [place] [phone] Rufina Erickson DO [address] [place] [address] Vaginal discharge (Primary Dx); Candidal intertrigo; Left arm pain Social History Tobacco Use Types Packs/Day Years [...] housing situation today? I have candy germain 03/05/[address] you li ve. Do you have problems with any of the following? None of the above 03/05/2025 Food Insecurity Answer Date Recorded Within the past 12 months, y ou worried that your food would run out before you got money to buy more: Never True 03/05/2025 Within the past 12 months,th e food you bought just didn't last and you didn't have enough money to get more: Never True 01/2025 Transportation Answer Date Recorded In the past 12 months, has l ack of transportation kept you from medical appts, meetings, work or from getting things needed for daily living? No 03/05/2025 Utilities Answer Date Recorded In the past 12 months, has t he electric, gas, oil or water company threatened to shut off services in your home? No 03/05/2025 Depression Answer Date Recorded Patient Health Questionnaire-2 Score 0 07/23/2024 Internet Access Answer Date Recorded Internet Access Q1 No 03/05/2025 Internet Access Q2 I do not want or need it 01/2025 Comments No Sex and Gender Information Value Date Recorded Sex Assigned at Female 2022 10:29 AM EDT Legal Sex Female 10:29 AM EDT Gender Identity Female 2022 10:29 AM EDT Sexual Orientation Choose not to disclose 2021 10:29 AM EDT documented as of this encounter Last Filed Vital Signs Vital Sign Reading Time Taken Comments Blood Pressure 114/70 06/12/2025 12:25 PM EDT Pulse 80 06/12/2025 12:25 PM EDT Temperature 36.3 C (97.4 F) 06/12/2025 12:25 PM EDT Respiratory Rate 21 06/12/2025 12:25 PM EDT Oxygen Saturation 98% 06/12/2025 12:25 PM EDT Inhaled Oxygen Concentration - - Weight 76.3 kg (168 lb 4 oz) 06/12/2025 12:25 PM EDT Height 144.8 cm (4' 9 ) 06/12/2025 12:25 PM EDT Body Mass Index 36.41 06/12/2025 12:25 PM EDT documented in this encounter Plan of Treatment Upcoming Encounters Date Type Department Care Team (Late st Contact Info) Description 06/29/2025 2:00 PM EDT Clinical Support [facility] [address] [place] [phone] Micaela Hernandez RN 07/06/2025 11:30 AM EDT Office Visit [facility] [address] [place] [phone] Idalmis Jacques MD [address] [place] [phone] Scheduled Orders Name Type Priority Associated Diagnoses Orde r Schedule EMG Neurology Routine Left arm pain Expected: 06/12/2025, Expires: 12/10/2025 Nerve conduction test Neurology Routine Left arm pain Expected: 06/12/2025 (Approximate), Expires: 06/12/2026 documented as of this encounter Procedures Procedure Name Priority Date/Time Associated Diagnosis Comments XR SHOULDER 2+ VIEWS LEFT Routine 06/12/2025 1:25 PM EDT Left arm pain POCT URINALYSIS DIPSTICK Routine 06/12/2025 12:41 PM EDT Candidal intertrigo BACTERIAL VAGINOSIS PANEL Routine 06/12/2025 12:02 PM EDT Candidal intertrigo CHLAMYDIA/N. GONORRHOEAE RNA, TMA, UROGENITAL Routine 06/12/2025 12:02 PM EDT Candidal intertrigo CULTURE, URINE, ROUTINE Routine 06/12/2025 12:00 PM EDT Candidal intertrigo documented in this encounter Results * XR Shoulder 2+ Views Left (06/12/2025 1:25 PM EDT) Anatomical Region Laterality Modality Upper Extremities, Shoulder Left Radi ographic Imaging 06/12/2025 1:25 PM EDT Narrative 06/12/2025 1:35 PM EDT [address] [address] XRay Report Signed Patient: Amaya Robles MR#: [id number] : 1975 Acct:[id number] Age/Sex: 49 / F ADM Date: 06/12/25 Loc: HO.[facility]X Attending Dr: Rufina Erickson DO Ordering Physician: Rufina Erickson DO Date of Service: 06/12/25 Procedure(s): XR shoulder LT min 2V Accession Number(s): [id number] cc: Idalmis Jacques MD; Rufina Erickson DO Reason for Exam: L shoulder pain extending down L arm EXAMINATION: XR SHOULDER 2 OR MORE VIEWS LEFT HISTORY: L shoulder pain extending down L arm COMPARISON: Comparison is made with the prior examination dated 1229 and 17. FINDINGS: Five views of the left shoulder are submitted. Osseous mineralization is normal. There is no fracture or dislocation. The glenohumeral and acromioclavicular joint spaces are preserved. There is a linear calcification adjacent to the greater tuberosity of the humerus which is likely related to the rotator cuff. XR/XR shoulder LT min 2V IMPRESSION: Probable rotator cuff calcification. Otherwise unremarkable examination of the left shoulder. Electronically signed by: Moses Li MD 06/12/2025 01:32 PM EDT RP Dictated By: Moses Li MD Signed By: <Electronically signed by Moses Li MD in OV> 06/12/25 1332 DD/ 1325 TD/TT: 06/12/25 1326 High Climber: Procedure Note Donotuseinterpreter, Image - 06/12/[address] [address] XRay Report Signed Patient: Janeth Robles#: [id number] : 1975Acct:[id number] Age/Sex: 49 / FADM Date: 06/12/25 [facility] Att[facility] Dr: Rufina Erickson DO Ordering Physician: Rufina Erickson DO Date of Service: 06/12/25 Procedure(s): XR shoulder LT min 2V Accession Number(s): [id number] cc: Idalmis Jacques MD; Rufina Erickson DO Reason for Exam: L shoulder pain extending down L arm EXAMINATION: XR SHOULDER 2 OR MORE VIEWS LEFT HISTORY: L shoulder pain extending down L arm COMPARISON: Comparison is made with the prior examination dated 1229 and 17. FINDINGS: Five views of the left shoulder are submitted. Osseous mineralization is normal. There is no fracture or dislocation. The glenohumeral and acromioclavicular joint spaces are preserved. There is a linear calcification adjacent to the greater tuberosity of the humerus which is likely related to the rotator cuff. XR/XR shoulder LT min 2V IMPRESSION: Probable rotator cuff calcification. Otherwise unremarkable examination of the left shoulder. Electronically signed by: Moses Li MD 06/12/2025 01:32 PM EDT RP Dictated By: Moses Li MD Signed By: <Electronically signed by Moses Li MD in OV> 06/12/25 1332 DD/ 1325 TD/TT: 06/12/25 1326 High Climber: Rufina Erickson DO IMG XR PROCEDURES Final Resu lt * POCT Urinalysis (06/12/2025 12:41 PM EDT) Color, UA Yellow Clarity, UA Cloudy Glucose, UA Negative Bilirubin, UA Negative Ketones, UA Negative Spec Grav, UA 1.015 Blood, UA Negative Negative, None Detected pH, UA 6.0 Protein, UA Negative Urobilinogen, UA 0.2 Leukocytes, UA Negative Negative, Rare, Trace Nitrite, UA Negative Negative, None Detected QC Media Lot # [id number] Lot# Expiration Date [id number] Urine 06/12/2025 12:4 1 PM EDT Rufina Erickson DO POINT OF CARE TEST ENTER/DARIN T ORDERABLES Final Result * Chlamydia/N. Gonorrhoeae RNA, TMA, Vaginal (06/12/2025 12:02 PM EDT) CT PCR NOT DETECTED Not Detect. [facility] Comment:A not detected test result does not exclude the possibilityof infection because test results can be affected byimproper specimen collection, concurrent antibiotic therapy,or the number of organisms in the specimen which may bebelow the sensitivity of the test. As with many diagnostictests, results from the Xpert CT/NG assay should beinterpreted in conjunction with other laboratory andclinical data available to the clinician.Xpert CT/NG performance has not been evaluated in patientsless than 14 years of age. The assay should not be used forthe evaluationof suspected sexual abuse or for other medico-legalindications. Additional testing is recommended in anycircumstance when false positive or false negative resultscould lead to adverse medical, social or psychologicalconsequences. NG PCR NOT DETECTED Not Detect. [facility] Comment:A not detected test result does not exclude the possibilityof infection because test results can be affected byimproper specimen collection, concurrent antibiotic therapy,or the number of organisms in the specimen which may bebelow the sensitivity of the test. As with many diagnostictests, results from the Xpert CT/NG assay should beinterpreted in conjunction with other laboratory andclinical data available to the clinician.Xpert CT/NG performance has not been evaluated in patientsless than 14 years of age. The assay should not be used forthe evaluationof suspected sexual abuse or for other medico-legalindications. Additional testing is recommended in anycircumstance when false positive or false negative resultscould lead to adverse medical, social or psychologicalconsequences. Swab (Vaginal Swab) 06/12/2025 12:02 PM EDT 06/12/2025 6:23 PM EDT Rufina Erickson DO LAB MICROBIOLOGY - GENERAL O RDERABLES Final Result [facility] [address] [place] [phone] * (ABNORMAL) Bacterial Vaginosis Panel (06/12/2025 12:02 PM EDT) TRICHOMONAS VAGINALIS DETECTION BY PCR NOT DETECTED Not Detect [facility] BACTERIAL VAGINOSIS DETECTION BY PCR NEGATIVE Negative [facility] Comment:The BV organism targ ets of the Xpert Xpress MVP test can becommensal in women; Xpert Xpress MVP positive results forbacterial vaginosis should be considered in conjunction withother clinical and patient information to determine thedisease status. Organisms that are not detected by the XpertXpress MVP test have also been reported to be associatedwith BV and aerobic vaginitis.The Xpert Xpress MVP test performance has not been evaluatedin patients under the age of 14. NEETA GROUP DETECTION BY PCR DETECTED(A) Not Detect [facility] Neeta glab krusei PCR NOT DETECTED Not Detect [facility] Swab Vaginal structure / Unknown 06/12/2025 12:02 PM EDT 06/12/2025 6:23 PM EDT Rufina Erickson DO LAB MICROBIOLOGY - GENERAL O RDERABLES Final Result Performing Organization Address City/[facility] Co de Phone Number [facility] [address] [place] [phone] * Culture, Urine, Routine (06/12/2025 12:00 PM EDT) Urine Urine specimen obtained by clean catch procedure / Unknown 06/12/2025 12:00 PM EDT 06/12/2025 6:19 PM EDT Comment:UACC Narrative [facility] - 06/14/2025 10:33 AM EDT Urine Culture Report Result Urine Culture < 10,000 cfu/ml Specimen Source: Urine clean catch us Rufina Erickson DO LAB MICROBIOLOGY - GENERAL O RDERABLES Final Result Performing Organization Address [facility] Co de Phone Number [facility] [address] [place] [phone] documented in this encounter Visit Diagnoses Diagnosis Vaginal discharge- Primary Leukorrhea, not specified as infective Candidal intertrigo Candidiasis of skin and nails Left arm pain Pain in soft tissues of limb documented in this encounter Additional Health Concerns Assessment Noted Time PHQ-9 Depression Total Score: 0 07/23/20 24 9:22 AM EDT documented as of this encounter Care Teams Regional Vice President Surgical Sales Relationship Specialty Start Date End Date Idalmis Jacques MD [address] [place] [phone] PCP - General Family Medicine 09/11/18 luciana Leyva Community Health Worker Case Management 02/28/24 documented as of this encounter
--- NOTE | ~2025-06-17 | US_ITS ---
EXAMINATION: US COMPLETE ABDOMEN WITH LIVER ELASTOGRAPHY CLINICAL INFORMATION: Hepatic steatosis, elevated transaminases COMPARISON: None available. TECHNIQUE: Real-time imaging of the abdominal viscera. Noninvasive ultrasound liver fibrosis assessment is performed using Jared ElastPQ point quantification shear wave elastography (pSWE) with a C5-2 MHz transducer. Multiple elastography samples are obtained. FINDINGS: PANCREAS: The visualized pancreatic head and body are normal in appearance. The remainder of the pancreas is obscured from visualization by the overlying bowel gas. ABDOMINAL AORTA: No aortic aneurysm is seen. INFERIOR VENA CAVA: Visualized portions are normal. LIVER: Liver demonstrates mildly increased echogenicity. It appears homogeneous otherwise. The right lobe measures 15 cm in length. The left lobe measures 10 cm in length. Portal flow is present and in the normal direction with a continuous venous waveform. Shear wave liver elastography median stiffness is 1.68 m/s (reference: normal median stiffness is 1.3 m/s or less). IQR/median stiffness to assess sampling precision is 0.13 (reference: good quality data set is IQR/median stiffness of 0.15 or less). GALLBLADDER: Surgically absent. COMMON BILE DUCT: Normal in caliber measuring 0.3 cm in diameter. RIGHT KIDNEY: There is mild renal cortical thinning. There is mild pelviectasis. No renal calculi or focal parenchymal lesions. The kidney measures 10.6 cm in maximum dimension. LEFT KIDNEY: There is renal cortical thinning and mild pelviectasis.There is an anechoic 7 mm simple renal cyst in the upper pole. No stones are evident. The kidney measures 10.8 cm in maximum dimension. SPLEEN: Unremarkable. The spleen measures 9 cm in maximum dimension. FREE FLUID: None seen. US/US abdomen comp w elastography IMPRESSION: Mildly echogenic liver suggests underlying hepatic steatosis/hepatocellular disease Liver elastography: In the absence of other known clinical signs, measurements rule out compensated advanced chronic liver disease. If there are known clinical signs, further testing may be needed for confirmation. Liver stiffness measured 1.68 m/s and study sampling was adequate. Renal cortical thinning. This raises question of underlying medical renal disease. Cholecystectomy REFERENCE: Society of Radiologists in Ultrasound Liver Stiffness Thresholds (2020): LIVER STIFFNESS THRESHOLDS: *Liver Stiffness equal or less than 1.3 m/s: High probability of being normal. *Liver Stiffness less than 1.7 m/s: In the absence of other known clinical signs, rules out compensated advanced chronic liver disease. *Liver Stiffness 1.7-2.1 m/s: Suggestive of compensated advanced chronic liver disease but need further test for confirmation. *Liver Stiffness over 2.1 m/s: Rules in compensated advanced chronic liver disease. *Liver Stiffness over 2.4 m/s: Suggestive of clinically significant portal hypertension. QUALITY OF DATA SET: *IQR/Median value equal or less than 0.15 implies a quality data set. *IQR/Median value over 0.15 implies a poor quality data set. SIGNIFICANT CHANGE FROM PRIOR EXAM: Significant change if liver stiffness measurement is 10% or greater from prior exam. OTHER CONSIDERATIONS: The stage of liver fibrosis may be overestimated in the setting of acute hepatitis, liver inflammation, elevated liver function tests, hepatic vascular congestion, obstructive cholestasis, non-fasting state, and infiltrative diseases such as amyloidosis and lymphoma. In some patients with NAFLD, the liver stiffness thresholds for compensated advanced chronic liver disease may be lower. In causes other than viral hepatitis and NAFLD, liver stiffness thresholds are not well established. Electronically signed by: Christiano Wood MD 06/17/2025 10:41 AM EDT
[2025-06-17 10:36] LABS: MANUAL DIFF FLAG NO
--- OUTSIDE RECORDS SUMMARY | 2025-06-17 10:36 | XMS_ITS | Encounter Summary ---
Author Organization [employer] Address [address] [facility] 7[address] [place] [address] Care Team Providers Care Internet Marketing Strategist Name Role Phone Idalmis Jacques MD Primary Care Provide r Encounter Details Date Type Department Care Team ([facility] Contact Info) Description 04/30/[address] [facility] [address] [place] [phone] Idalmis Jacques MD [address] [place] [address] Social History Tobacco Use Types Packs/Day Years [...] Upcoming Encounters Date Type Department Care Team ([facility] Contact Info) Description 06/29/2025 2:00 PM EDT Clinical Support [address] [address] Micaela Hernandez RN 07/06/2025 11:30 AM EDT Office Visit [address] [address] Idalmis Jacques MD [address] [place] [address] documented as of this encounter Visit Diagnoses Not on filedocumented in this encounter Care Teams Internet Marketing Strategist Relationship Specialty Start Date End Date Idalmis Jacques MD [address] [place], [place] [phone] PCP - General Family Medicine 09/11/18 Micaela Recio [employer] Farmworker 01/11/24 04/11/24 luciana Leyva Community Health Worker Case Management 02/28/24 documented as of this encounter
--- OUTSIDE RECORDS SUMMARY | 2025-06-17 10:36 | XMS_ITS | Clinical Summary ---
Author Organization [facility] Address [address] [place] [address] Care Team Providers Care Yeast Supervisor Name Role Phone Idalmis Jacques MD Primary Care Provide r Surgical History Surgery Date Site/Laterality Comments BREAST SURGERY PROCEDURE: MS UNLISTED PROCEDURE BREAST OTHER SURGICAL HISTORY PROCEDURE: LAPAROSCOPY, SURGICAL/REMOVE TUMOR; COMMENT: left lower leg CHOLECYSTECTOMY 03/20/2021 PROCEDURE: MS LAPAROSCOPY SURG CHOLECYSTECTOMY Medical History Medical History [...] age to complete this topic Care Teams Yeast Supervisor Relationship Specialty Start Date End Date Idalmis Jacques MD [address] [place] [phone] PCP - General Internal Medicine 04/29/21
--- OUTSIDE RECORDS SUMMARY | 2025-06-17 10:36 | XMS_ITS | Encounter Summary ---
Author Organization [facility] Address [address] [place] [address] Phone Care Team Providers Care Production Maintenance Technician Name Role Phone Kaylan Ponce MD Primary Care Provider [phone]- [phone] Encounter Details Date Type Department Care Team (Late st Contact Info) Description 04/23/2018 Procedure Pass [facility] [place] [address] [facility], 6th [place] [address] Social History Tobacco Use Types Packs/Day Years [...] on filedocumented in this encounter Care Teams Production Maintenance Technician Relationship Specialty Start Date End Date Kaylan Ponce MD [email or web address] PCP - General Internal Medicine 04/19/18 documented as of this encounter Additional Source Comments The information contained in this document represents components of the legal health record. It is not the complete legal health record.[facility]
--- OUTSIDE RECORDS SUMMARY | 2025-06-17 10:36 | XMS_ITS | Encounter Summary ---
Author Organization [facility] Address [address] [place] [address] Phone Care Team Providers Care Certified Driver Examiner Name Role Phone Idalmis Jacques MD Primary Care Provide r Encounter Details Date Type Department Care Team (Late st Contact Info) Description 07/21/2024 Documentation Only [facility] [place], [address] [place] [address] Kimberlee Madrid [address] [place] [address] Social History Tobacco Use Types [...] on filedocumented in this encounter Care Teams Certified Driver Examiner Relationship Specialty Start Date End Date Idalmis Jacques MD [address] [phone] PCP - General 08/05/19 documented as of this encounter
--- OUTSIDE RECORDS SUMMARY | 2025-06-17 10:36 | XMS_ITS | Encounter Summary ---
Author Organization [facility] Address [address] [place] [address] Phone Care Team Providers Care Last Pattern Grader Name Role Phone Kaylan Ponce MD Primary Care Provider [phone] Encounter Details Date Type Department Care Team (Late st Contact Info) Description 04/23/2018 Transcribe Orders [facility], Radio Flouroscopy [address] [place] [address] [email or web address] Social History Tobacco Use [...] on filedocumented in this encounter Care Teams Last Pattern Grader Relationship Specialty Start Date End Date Kaylan Ponce MD [email or web address] PCP - General Internal Medicine 04/19/18 documented as of this encounter Additional Source Comments The information contained in this document represents components of the legal health record. It is not the complete legal health record.[facility]
--- OUTSIDE RECORDS SUMMARY | 2025-06-17 10:36 | XMS_ITS | Encounter Summary ---
Author Organization [facility] Address [address] [place] [address] Phone Care Team Providers Care Sales Development Director Name Role Phone Idalmis Jacques MD Primary Care Provide r Encounter Details Date Type Department Care Team (Late st Contact Info) Description 01/15/2024 Documentation Only [facility] [place], [address] [place] [address] Kimberlee Madrid [address] [place] [address] Social History Tobacco Use Types [...] on filedocumented in this encounter Care Teams Sales Development Director Relationship Specialty Start Date End Date Idalmis Jacques MD [address] [phone] PCP - General 08/05/19 documented as of this encounter
--- OUTSIDE RECORDS SUMMARY | 2025-06-17 10:36 | XMS_ITS | Encounter Summary ---
Author Organization [employer] Address [address] [facility] 7t [place] [address] Care Team Providers Care Log Scaler Name Role Phone Idalmis Jacques MD Primary Care Provide r Encounter Details Date Type Department Care Team (Late st Contact Info) Description 03/01/2024 Orders Only [facility] MED[facility]INE [address] [place] [address] ProviderLexx MD Social History Tobacco Use Types Packs/Day Years Used Date Smoking Tobacco: Never Smokeless Tobacco: Never Alcohol Use Standard Drinks/Week Comments Never 0 (1 standard drink = 0.6 oz pur e alcohol) PHQ-2 Answer Date Recorded Patient Health Questionnaire-2 Score 0 10/27/2022 Housing Stability Answer Date Recorded What is your housing situation today? I have candy marcellus 01/11/[address] you li [...] Description 06/29/2025 2:00 PM EDT Clinical Support [facility]INE [address] [place] [address] Micaela Hernandez, RN 07/06/2025 11:30 AM EDT Office Visit [address] [address] Idalmis Jacques MD [address] [place] [address] documented as of this encounter Procedures Procedure Name Priority Date/Time Associated Diagnosis Comments HM COLONOSCOPY Routine 12/23/2021 6:38 PM EDT documented in this encounter Results * Hm Colonoscopy (12/23/2021 6:38 PM EDT) us Historical Provider HEALTH MAINTENANCE Final Result documented in this encounter Visit Diagnoses Not on filedocumented in this encounter Care Teams Log Scaler Relationship Specialty Start Date End Date Idalmis Jacques MD [address] [place] [address] PCP - General Family Medicine 09/11/18 Micaela Recio Package Checker 01/11/24 04/11/24 luciana Leyva Community Health Worker Case Management 02/28/24 documented as of this encounter
--- OUTSIDE RECORDS SUMMARY | 2025-06-17 10:36 | XMS_ITS | Clinical Summary ---
Author Organization [facility] Address [address] [place] [address] Phone Care Team Providers Care Assistant Sales Manager Name Role Phone Kaylan Ponce MD Primary Care Provider +1- [phone] Allergies Active Allergy Reactions Criticality Noted Date [...] Denies fevers, chills, rigors or systemic symptomatology. [place] were removed and replaced with steri-strips on [...] topic Medical Devices Not on file Insurance [facility] [address] [place] [address] [address] [place] [address] [place] [address] [place] [address] [address] [employer] Advance Directives For more information, please contact: [phone] (9AM - 5PM [facility], Sunday-Sunday) * Full Code (Presumed) (Latest Code Status on File) Date Activated Date Inactivated Comments 05/16/2018 12:25 PM 05/18/2018 4:02 PM Care Teams Assistant Sales Manager Relationship Specialty Start Date End Date Kaylan Ponce MD [email or web address] PCP - General Internal Medicine 04/19/18 Additional Source Comments The information contained in this document represents components of the legal health record. It is not the complete legal health record.[facility]
--- OUTSIDE RECORDS SUMMARY | 2025-06-17 10:36 | XMS_ITS | Encounter Summary ---
Author Organization [employer] Address [address] [facility] 7t [place] [address] Care Team Providers Care Financial Aid Manager Name Role Phone Idalmis Jacques MD Primary Care Provide r Reason for Visit * Reason Onset Date Comments Nurse Triage 05/23/2023 Encounter Details Date Type Department Care Team (Late st Contact Info) Description 05/23/2023 Telephone [facility] 230 [place], [place] [phone] Idalmis Jacques MD 230 [place], [place] [phone] Nurse Triage Social History Tobacco Use Types [...] 05/23/2023 3:41 PM EDT Triage call with [employer] [place] [id number] Pt reports fatigue/tiredness for last month. Pt did have surgery a month ago for removal of uterus.Pt reports has low blood pressure at times as well. Pt is not drinking adequate liquids advised to increase liquids to 6-8 glasses per day. Pt agreed. Pt also reports using nebulizer tx more recentlydue to slight sob. Pt had an appointment with PCP today but, canceled, rescheduled for 06/28/23. Pt is given home care and advised if symptoms worsen to come to [facility] to be seen. Hours given 830-800pm [...] accepted this outcome Please contact pt at [phone] (Maori) documented in this encounter Plan of Treatment Upcoming Encounters Date Type Department Care Team (Late st Contact Info) Description 06/29/2025 2:00 PM EDT Clinical Support [facility]INE [address] [place] [address] Micaela Hernandez, RN 07/06/2025 11:30 AM EDT Office Visit [facility] [address] [place] [address] Idalmis Jacques MD [address] [place] [address] documented as of this encounter Visit Diagnoses Not on filedocumented in this encounter Care Teams Financial Aid Manager Relationship Specialty Start Date End Date Idalmis Jacques MD [address] [place] [address] PCP - General Family Medicine 09/11/18 Micaela Recio Dental Services Director 01/11/24 04/11/24 luciana Leyva Community Health Worker Case Management 02/28/24 documented as of this encounter
--- OUTSIDE RECORDS SUMMARY | 2025-06-17 10:36 | XMS_ITS | Encounter Summary ---
Author Organization [facility] Address [address] [place] [address] Phone Care Team Providers Care Admin Secretary Name Role Phone Idalmis Jacques MD Primary Care Provide r Encounter Details Date Type Department Care Team (Late st Contact Info) Description 01/29/2024 Documentation Only [facility] [place], [address] [place] [address] Jeanne FigueroaDemotte, [place] [address] [place] [address] Social History Tobacco Use Types [...] on filedocumented in this encounter Care Teams Admin Secretary Relationship Specialty Start Date End Date Idalmis Jacques MD [address] [place] [phone] PCP - General 08/05/19 documented as of this encounter
--- OUTSIDE RECORDS SUMMARY | 2025-06-17 10:36 | XMS_ITS | Encounter Summary ---
Author Organization [facility] Address [address] [place] [address] Phone Care Team Providers Care Ladderman Name Role Phone Kaylan Ponce MD Primary Care Provider +1- [phone] Encounter Details Date Type Department Care Team (Late st Contact Info) Description 04/23/2018 Procedure Pass [facility] Imaging [address] [place] [address] Social History Tobacco Use Types Packs/Day Years [...] on filedocumented in this encounter Care Teams Ladderman Relationship Specialty Start Date End Date Kaylan Ponce MD [email or web address] PCP - General Internal Medicine 04/19/18 documented as of this encounter Additional Source Comments The information contained in this document represents components of the legal health record. It is not the complete legal health record.[facility]
--- OUTSIDE RECORDS SUMMARY | 2025-06-17 10:36 | XMS_ITS | Encounter Summary ---
Author Organization [facility] Address [address] [place] [address] Phone Care Team Providers Care Sewing Machine Bobbin Winder Name Role Phone Kaylan Ponce MD Primary Care Provider +1 [phone] Encounter Details Date Type Department Care Team (Late st Contact Info) Description 05/17/2018 Procedure Pass [facility] [place], [place] [address] [facility] 2nd Floor, [address] [place] [address] Social History Tobacco Use Types Packs/Day Years [...] on filedocumented in this encounter Care Teams Sewing Machine Bobbin Winder Relationship Specialty Start Date End Date Kaylan Ponce MD [email or web address] PCP - General Internal Medicine 04/19/18 documented as of this encounter Additional Source Comments The information contained in this document represents components of the legal health record. It is not the complete legal health record.[facility]
--- OUTSIDE RECORDS SUMMARY | 2025-06-17 10:36 | XMS_ITS | Encounter Summary ---
Author Organization [facility] Address [address] [place] [address] Phone Care Team Providers Care Cardiology Tech Name Role Phone Idalmis Jacques MD Primary Care Provide r Encounter Details Date Type Department Care Team (Late st Contact Info) Description 11/29/2023 Documentation Only [facility] [place], [address] [facility] [place] [address] Kimberlee Madrid [address] [place] [address] Social History Tobacco Use Types [...] on filedocumented in this encounter Care Teams Cardiology Tech Relationship Specialty Start Date End Date Idalmis Jacques MD [address] [place] [phone] PCP - General 08/05/19 documented as of this encounter
--- OUTSIDE RECORDS SUMMARY | 2025-06-17 10:36 | XMS_ITS | Encounter Summary ---
Author Organization [employer] Address [address] [facility] 7t [place] [address] Care Team Providers Care Coordinate Measuring Machine Technician Name Role Phone Idalmis Jacques MD Primary Care Provide r Encounter Details Date Type Department Care Team (Late st Contact Info) Description 10/07/2024 Orders Only [facility] [address] [place], [place] [phone] Idalmis Jacques MD 230 [place], [place] [phone] Social History Tobacco Use Types Packs/Day Years [...] Description 06/29/2025 2:00 PM EDT Clinical Support [facility] [address] [place] [address] Micaela Hernandez, RN 07/06/2025 11:30 AM EDT Office Visit [facility] [address] [place] [address] Idalmis Jacques MD [address] [place] [address] documented as of this encounter Visit Diagnoses Not on filedocumented in this encounter Additional Health Concerns Assessment Noted Time PHQ-9 Depression Total Score: 0 07/23/20 24 9:22 AM EDT documented as of this encounter Care Teams Coordinate Measuring Machine Technician Relationship Specialty Start Date End Date Idalmis Jacques MD [address] [place] [address] PCP - General Family Medicine 09/11/18 luciana Leyva Community Health Worker Case Management 02/28/24 documented as of this encounter
--- OUTSIDE RECORDS SUMMARY | 2025-06-17 10:36 | XMS_ITS | Encounter Summary ---
Author Organization [facility] Address [address] [place] [address] Phone Care Team Providers Care Show Design Supervisor Name Role Phone Kaylan Ponce MD Primary Care Provider [phone] Encounter Details Date Type Department Care Team (Late st Contact Info) Description 05/17/2018 Procedure Pass [facility], [place] [address] [facility], 2nd Floor, [address] [place] [address] Social History Tobacco Use Types Packs/Day Years [...] on filedocumented in this encounter Care Teams Show Design Supervisor Relationship Specialty Start Date End Date Kaylan Ponce MD [email or web address] PCP - General Internal Medicine 04/19/18 documented as of this encounter Additional Source Comments The information contained in this document represents components of the legal health record. It is not the complete legal health record.[facility]
--- OUTSIDE RECORDS SUMMARY | 2025-06-17 10:36 | XMS_ITS | Encounter Summary ---
Author Organization [facility] Address [address] [place] [address] Phone Care Team Providers Care Char Dust Cleaner And Salvager Name Role Phone Idalmis Jacques MD Primary Care Provide r Encounter Details Date Type Department Care Team (Late st Contact Info) Description 05/22/2022 Documentation Only [facility] [place], [address] [place] [address] Kimberlee Madrid [address] [place] [address] Social History Tobacco Use Types [...] on filedocumented in this encounter Care Teams Char Dust Cleaner And Salvager Relationship Specialty Start Date End Date Idalmis Jacques MD [address] [place] [phone] PCP - General 08/05/19 documented as of this encounter
--- OUTSIDE RECORDS SUMMARY | 2025-06-17 10:36 | XMS_ITS | Encounter Summary ---
Author Organization [facility] Address [address] [place] [address] Phone Care Team Providers Care Security And Compliance Project Manager Name Role Phone Idalmis Jacques MD Primary Care Provide r Encounter Details Date Type Department Care Team (Late st Contact Info) Description 01/15/2024 Documentation Only [facility] [place], [address] [place] [address] Kimberlee Madrid [address] [place] [address] Social History Tobacco Use Types [...] on filedocumented in this encounter Care Teams Security And Compliance Project Manager Relationship Specialty Start Date End Date Idalmis Jacques MD [address] [phone] PCP - General 08/05/19 documented as of this encounter
--- OUTSIDE RECORDS SUMMARY | 2025-06-17 10:36 | XMS_ITS | Encounter Summary ---
Author Organization [employer] Address [address] [facility] 7t [place] [address] Care Team Providers Care Primary Education Professor Name Role Phone Idalmis Jacques MD Primary Care Provide r Encounter Details Date Type Department Care Team (Late st Contact Info) Description 04/08/2024 Orders Only [facility]INE 230 [place], [place] [phone] Idalmis Jacques MD 230 [place], [place] [phone] Social History Tobacco Use Types Packs/Day Years [...] Description 06/29/2025 2:00 PM EDT Clinical Support [address] [address] Micaela Hernnadez RN 07/06/2025 11:30 AM EDT Office Visit [address] [address] Idalmis Jacques MD [address] [place] [address] documented as of this encounter Visit Diagnoses Not on filedocumented in this encounter Care Teams Primary Education Professor Relationship Specialty Start Date End Date Idalmis Jacques MD [address] [place] [address] PCP - General Family Medicine 09/11/18 Micaela Recio Pricer 01/11/24 04/11/24 luciana Leyva Community Health Worker Case Management 02/28/24 documented as of this encounter
--- OUTSIDE RECORDS SUMMARY | 2025-06-17 10:36 | XMS_ITS | Encounter Summary ---
Author Organization [employer] Address [address] [facility] 7t [place] [address] Care Team Providers Care Lan Specialist Name Role Phone Idalmis Jacques MD Primary Care Provide r Reason for Visit * Reason Onset Date Comments Appointment Request 08/14/2023 Encounter Details Date Type Department Care Team ([facility] st Contact Info) Description 08/14/2023 Telephone [facility] 230 [place], [place] [phone] Idalmis Jacques MD 230 [place], [place] [phone] Appointment Request Social History Tobacco Use Types Packs/Day Years Used Date Smoking Tobacco: Never Smokeless Tobacco: Never Alcohol Use Standard Drinks/Week Comments Never 0 (1 standard drink = 0.6 oz pur e alcohol) PHQ-2 Answer Date Recorded Patient Health Questionnaire-2 Score 0 10/27/2022 Housing Stability Answer Date Recorded What is your housing situation today? I have candymarv germain 07/17/[address] you [...] Description 06/29/2025 2:00 PM EDT Clinical Support [facility] MEDICINE [address] [place] [address] Micaela Hernandez RN 07/06/2025 11:30 AM EDT Office Visit [facility] MEDICINE [address] [place] [address] Idalmis Jacques MD [address] [place] [address] documented as of this encounter Visit Diagnoses Not on filedocumented in this encounter Care Teams Lan Specialist Relationship Specialty Start Date End Date Idalmis Jacques MD [address] [place] [address] PCP - General Family Medicine 09/11/18 Micaela Recio [employer] Mechanic 01/11/24 04/11/24 luciana Leyva Community Health Worker Case Management 02/28/24 documented as of this encounter
--- OUTSIDE RECORDS SUMMARY | 2025-06-17 10:36 | XMS_ITS | Encounter Summary ---
Author Organization [facility] Address [address] [place] [address] Phone Care Team Providers Care Mobile Patrol Officer Name Role Phone Kaylan Ponce MD Primary Care Provider +1- [phone] Encounter Details Date Type Department Care Team (Late st Contact Info) Description 04/23/2018 Procedure Pass [facility] [place] [address] [facility], 6th [place] [address] Social History Tobacco Use Types Packs/Day Years [...] on filedocumented in this encounter Care Teams Mobile Patrol Officer Relationship Specialty Start Date End Date Kaylan Ponce MD [email or web address] PCP - General Internal Medicine 04/19/18 documented as of this encounter Additional Source Comments The information contained in this document represents components of the legal health record. It is not the complete legal health record.[facility]
--- OUTSIDE RECORDS SUMMARY | 2025-06-17 10:36 | XMS_ITS | Encounter Summary ---
Author Organization [facility] Address [address] [place] [address] Phone Care Team Providers Care Registered Nurse Bone Marrow Transplant Name Role Phone Kaylan Ponce MD Primary Care Provider +1 [phone] Encounter Details Date Type Department Care Team (Late st Contact Info) Description 05/16/2018 Procedure Pass [facility] [address] [place] [phone] Social History Tobacco Use Types Packs/Day Years [...] on filedocumented in this encounter Care Teams Registered Nurse Bone Marrow Transplant Relationship Specialty Start Date End Date Kaylan Ponce MD [email or web address] PCP - General Internal Medicine 04/19/18 documented as of this encounter Additional Source Comments The information contained in this document represents components of the legal health record. It is not the complete legal health record.[facility]
--- OUTSIDE RECORDS SUMMARY | 2025-06-17 10:36 | XMS_ITS | Encounter Summary ---
Author Organization [facility] Address [address] [place] [address] Phone Care Team Providers Care Attraction Attendant Name Role Phone Idalmis Jacques MD Primary Care Provide r Encounter Details Date Type Department Care Team (Late st Contact Info) Description 07/21/2024 Documentation Only [facility] [place], [address] [facility] [place] [address] Kimberlee Madrid [address] [place] [address] Social History Tobacco Use [...] on filedocumented in this encounter Care Teams Attraction Attendant Relationship Specialty Start Date End Date Idalmis Jacques MD [address] [phone] PCP - General 08/05/19 documented as of this encounter
--- OUTSIDE RECORDS SUMMARY | 2025-06-17 10:36 | XMS_ITS | Encounter Summary ---
Author Organization [facility] Address [address] [place] [address] Phone Care Team Providers Care Roofing Foreman Name Role Phone Idalmis Jacques MD Primary Care Provide r Encounter Details Date Type Department Care Team (Late st Contact Info) Description 07/21/2024 Documentation Only [facility] [place], [address] [facility] [place] [address] Kimberlee Madrid [address] [place] [address] Social History Tobacco Use Types [...] on filedocumented in this encounter Care Teams Roofing Foreman Relationship Specialty Start Date End Date Idalmis Jacques MD [address] [phone] PCP - General 08/05/19 documented as of this encounter
--- OUTSIDE RECORDS SUMMARY | 2025-06-17 10:36 | XMS_ITS | Encounter Summary ---
Author Organization [facility] Address [address] [place] [address] Phone Care Team Providers Care Cable Supervisor Name Role Phone Kaylan Ponce MD Primary Care Provider +1 [phone] Encounter Details Date Type Department Care Team (Late st Contact Info) Description 10/23/2018 Procedure Pass [facility] Imaging [address] [place] [address] Social History Tobacco Use Types Packs/Day Years [...] on filedocumented in this encounter Care Teams Cable Supervisor Relationship Specialty Start Date End Date Kaylan Ponce MD [email or web address] PCP - General Internal Medicine 04/19/18 documented as of this encounter Additional Source Comments The information contained in this document represents components of the legal health record. It is not the complete legal health record.[facility]
--- OUTSIDE RECORDS SUMMARY | 2025-06-17 10:36 | XMS_ITS | Encounter Summary ---
Author Organization [employer] Address [address] [facility] [address] [facility] [address] [address] 7t [place] [address] Care Team Providers Care Camp Coordinator Name Role Phone Idalmis Jacques MD Primary Care Provide r Encounter Details Date Type Department Care Team (Latest Contact Info) Description 06/12/2025 Travel Social History Tobacco Use Types Packs/Day Years [...] Description 06/29/2025 2:00 PM EDT Clinical Support [facility] MEDICINE [address] [place] [address] Micaela Hernandez RN 07/06/2025 11:30 AM EDT Office Visit [facility] [address] [place] [address] Idalmis Jacques MD [address] [place] [address] documented as of this encounter Visit Diagnoses Not on filedocumented in this encounter Additional Health Concerns Assessment Noted Time PHQ-9 Depression Total Score: 0 07/23/20 24 9:22 AM EDT documented as of this encounter Care Teams Camp Coordinator Relationship Specialty Start Date End Date Idalmis Jacques MD [address] [place] [address] PCP - General Family Medicine 09/11/18 luciana Leyva Community Health Worker Case Management 02/28/24 documented as of this encounter
--- OUTSIDE RECORDS SUMMARY | 2025-06-17 10:36 | XMS_ITS | Encounter Summary ---
Author Organization [facility] Address [address] [place] [address] Phone Care Team Providers Care School Guard Name Role Phone Idalmis Jacques MD Primary Care Provide r Encounter Details Date Type Department Care Team (Late st Contact Info) Description 01/15/2024 Documentation Only [facility] [place], [address] [place] [address] Kimberlee Madrid [address] [place] [address] Social History Tobacco Use Types [...] on filedocumented in this encounter Care Teams School Guard Relationship Specialty Start Date End Date Idalmis Jacques MD [address] [phone] PCP - General 08/05/19 documented as of this encounter
--- OUTSIDE RECORDS SUMMARY | 2025-06-17 10:36 | XMS_ITS | Encounter Summary ---
Author Organization [facility] Address [address] [place] [address] Phone Care Team Providers Care Kineseologist Name Role Phone Idalmis Jacques MD Primary Care Provide r Encounter Details Date Type Department Care Team (Late st Contact Info) Description 07/21/2024 Documentation Only [facility] [place], [address] [facility] [place] [address] Kimberlee Madrid [address] [place] [address] Social History Tobacco Use Types [...] on filedocumented in this encounter Care Teams Kineseologist Relationship Specialty Start Date End Date Idalmis Jacques MD [address] [phone] PCP - General 08/05/19 documented as of this encounter
--- OUTSIDE RECORDS SUMMARY | 2025-06-17 10:36 | XMS_ITS | Encounter Summary ---
Author Organization [facility] Address [address] [place] [address] Phone Care Team Providers Care Internal Medicine Specialist Name Role Phone Idalmis Jacques MD Primary Care Provide r Encounter Details Date Type Department Care Team (Late st Contact Info) Description 01/15/2024 Documentation Only [facility] [place], [address] [place] [address] Kimberlee Madrid [address] [place] [address] Social History Tobacco Use Types [...] on filedocumented in this encounter Care Teams Internal Medicine Specialist Relationship Specialty Start Date End Date Idalmis Jacques MD [address] [phone] PCP - General 08/05/19 documented as of this encounter
--- OUTSIDE RECORDS SUMMARY | 2025-06-17 10:36 | XMS_ITS | Encounter Summary ---
Author Organization [facility] Address [address] [place] [address] Phone Care Team Providers Care Mixer Slagman Name Role Phone Idalmis Jacques MD Primary Care Provide r Encounter Details Date Type Department Care Team (Late st Contact Info) Description 01/15/2024 Documentation Only [facility] [place], [address] [place] [address] Kimberlee Madrid [address] [place] [address] Social History Tobacco Use Types [...] on filedocumented in this encounter Care Teams Mixer Slagman Relationship Specialty Start Date End Date Idalmis Jacques MD [address] [phone] PCP - General 08/05/19 documented as of this encounter
--- OUTSIDE RECORDS SUMMARY | 2025-06-17 10:36 | XMS_ITS | Patient Health Record ---
Author Organization [facility] Address [address] [place] [address] Care Team Providers Care Sprayer Insecticide Name Role Phone Idalmis Ortega M.D. Primary Care Provider Moses Garzon Unavailable [phone] Allergies Allergen (clinical drug ingredient) Drug/Non Drug Allergy documented on EMR Reaction Allergy Type Onset Date Status morphine Morphine Unknown Drug Allergy Active famotidine Pepcid Unknown Drug Allergy Active hydromorphone Dilaudid Unknown Drug Allergy Act mercedes Reason For Referral Referring Provider First Name Idalmis Referring Provider Last Name Shannon Referred Organization [facility] Referred Provider Moses Abraham Referred Address [address] [facility] [facility],[address],[place], [place],[address], Referred Provider Specialty Gastroentero logy General Notes Veronica Aldridge 2024 03:00:36 PM >requested a [facility] referral from [facility] for ov with Dr. Abraham on 04-22-25 [...] Problem History of adenomatous polyp of colon (187805790) History of adenomatous polyp of colon (Z86.010) Active confirmed Problem 653711556 Nausea (R11.0) Active confirmed Problem 508356626 Gastroesophageal reflux disease without esophagitis (K21.9) Active confirmed Problem 621556403 Elevated liver enzymes (R74.8) Active confirmed Problem Fatty liver (760541733) Fatty liver (K76.0) Active confirmed Problem Elevated liver enzymes level (679440222) Elevated liver function tests (R94.5) Active confirmed Vital Signs Temperature 98.3 degrees Fahrenheit 04/22/2025 Blood pressure diastolic 01 mm Hg 04/22/2025 Height 57 in 04/22/2025 Blood pressure systolic 001 mm Hg 04/22/2025 Weight 169.4 lbs 04/22/2025 BMI 36.65 kg/m2 04/22/2025 Encounters Encounter Location Date Provider Diagnosis [facility] [address] [place] [phone] 04/22/2025 Moses Abraham Fatty liver K76.0 and Elevated liver function tests R94.5 [facility] [address] [place] [phone] 02/24/2025 Moses Abraham Assessments Encounter Date Diagnosis [...] Test Test Name Order Date LIVER PROFILE 04/22/2025 LIVER PROFILE 03/01/2022 LIVER PROFILE 12/06/2022 LIVER [...] Start Date Coverage End Date [facility] [facility] [address] [place] [address] [id number] NICOLE PINEDA Self - patient is the [...] a stage II level of fibrosis. Denies [place],DM,CVA,renal disease Small tubular adenoma remove d with [...]
--- OUTSIDE RECORDS SUMMARY | 2025-06-17 10:37 | XMS_ITS | Clinical Summary ---
Author Organization [employer] Address [address] [facility] [address] [place] [address] Care Team Providers Care Clinical Phlebotomist Name Role Phone Idalmis Jacques MD Primary Care Provide r Allergies Active Allergy Reactions Criticality Noted Date Comments Azithromycin Rash Low 04/20/2021 Kiusqgghtsszo-Cjjpneqkmmh-Tdgx 06/24 Morphine Anaphylaxis High 06/24/2018 Medications montelukast [...] directed 3x/week 1 kit 06/28/20 23 Active gabapentin (Neurontin) 400 MG capsuleIndicati ons:Fibromyalgi a Take 1 capsule (400 mg) by mouth 3 times daily. 90 capsule 11 07/23/20 24 2024 Active ondansetron (Zofran) 4 MG tablet TAKE 1 TABLET BY MOUTH EVERY 8 HOURS NEEDED FOR NAUSEA OR VOMITING FOR UP TO 7 DAYS 20 tablet 1 11/19/19 25 Active Acetaminophen 500 MG capsule Take 2 capsules (1,000 mg) by mouth every 8 (eight) hours. 180 capsule 11/19/19 25 Active triamcinolone (Kenalog) 0.1 % creamIndication s:Eczema, unspecified type Apply topically if needed in the morning and at bedtime (pain and swelling). 30 g 2 03/05/20 25 Active levothyroxine (Tirosint) 75 MCG capsuleIndicati ons:Hypothyroid ism due to Bree's thyroiditis TAKE 1 CAPSULE BY MOUTH EVERY DAY 90 capsule 1 05/06/20 25 Active levothyroxine (Synthroid) 75 MCG tablet Take 1 tablet (75 mcg) by mouth before breakfast. 90 tablet 3 05/07/20 25 Active phentermine 37.5 MG capsuleIndicati ons:Class 2 severe obesity due to excess calories with serious comorbidity and body mass index (BMI) of 38.0 to 38.9 in adult (CMS/HCC) Take 1 capsule (37.5 mg) by mouth before breakfast. 30 capsule 06/02/20 25 2024 Active oxyCODONE-aceta minophen (Percocet) 5-325 MG tabletIndicatio ns:Chronic bilateral low back pain without sciatica,Polyar thralgia Take 1 tablet by mouth every 8 (eight) hours if needed for severe pain for up to 28 days. 84 tablet 06/09/20 25 2024 Active terconazole (Terazol 7) 0.4 % vaginal cream Insert 1 applicator into the vagina at bedtime for 7 days. 45 g 06/12/20 25 2024 Active clotrimazole (Lotrimin) 1 % cream Apply topically 2 times daily for 28 days. 113 g 2 06/12/20 25 2024 Active nystatin (Mycostatin) 356076 UNIT/GM powder Apply topically 2 times daily. 180 g 3 06/12/20 25 2025 Active diphenhydrAMINE (BENADryl) 25 MG tablet Take 1 tablet (25 mg) by mouth every 6 (six) hours if needed for itching. 30 tablet 06/12/20 25 2024 Active naloxone (Narcan) 4 mg/0.1 mL nasal sprayIndication s:Chronic bilateral low back pain without sciatica Administer 1 spray (4 mg) into affected nostril(s) if needed for opioid reversal. May repeat every 2-3 minutes if needed, alternating nostrils, until medical assistance becomes available. 2 each 3 05/20/20 24 2024 phentermine 37.5 MG capsuleIndicati ons:Class 2 severe obesity due to excess calories with serious comorbidity and body mass index (BMI) of 38.0 to 38.9 in adult ([facility]) Take 1 capsule (37.5 mg) by mouth before breakfast. 30 capsule 05/06/20 25 2024 Discontinued(R eorder (will not trigger notification to Pharmacy)) oxyCODONE-aceta minophen (Percocet) 5-325 MG tabletIndicatio ns:Chronic bilateral low back pain without sciatica,Polyar thralgia Take 1 tablet by mouth every 8 (eight) hours if needed for severe pain for up to 28 days. 84 tablet 05/06/20 25 2024 Discontinued(R eorder (will not trigger notification to Pharmacy)) fluconazole (Diflucan) 150 MG tablet Take 1 tablet (150 mg) by mouth 1 (one) time for 1 dose. Repeat in 3 days. 2 tablet 06/12/20 25 2024 Active Problems Problem Noted Date Diagnosed Date Autistic behavior 03/16/2025 Eczema 03/05/2025 Seborrheic dermatitis of scalp 03/05/2025 Class 2 severe obesity due t o excess calories with serious comorbidity and body mass index (BMI) of 38.0 to 38.9 in adult 03/05/2025 Assessment & Plan (05/06/2025 12:33 PM EDT): Extensive discussion was done about life style modifications I advise healthy diet and exercise I will go up on phentermine to 37.5mg daily RTC 6 weeks in person Assessment & Plan (03/16/2025 1:04 PM EDT): Counseling done today, c/w healthy diet and physical activity as tolerated C/w phentermine 15mg daily Assessment & Plan (03/05/2025 1:06 PM EDT): Today extensive discussion was done about life style modifications I advise healthy diet (low calorie) and cardiovascular exercise I will start patient on phentermine 15mg daily Long-term current use of opiate analgesic 2024 Encounter for preventive care 10/06/2024 Assessment & Plan (10/07/2024 4:56 PM EST): See HPI Vertigo 07/28/2024 Assessment & Plan (07/28/2024 7:31 PM EDT): Discussed possible vertigo sxs. Given some youtube exercises for relief. -ER precautions discussed. 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 Moderate persistent asthma without complication 05/21/2023 Assessment & Plan (03/05/2025 1:06 PM EDT): Stable c/w same interventions Assessment & Plan (07/23/2024 10:07 AM EDT): [...] will have to be complaint with her POLYGRAPH TECHNICIAN agreement Assessment & Plan (04/22/2024 5:01 PM EDT): It was prescribed by rheumatology tramadol 50mg Q 6hrs, she was discharge form practice I will c/w same prescription patient is aware and agrees with plan, she reports she will be compliant with POLYGRAPH TECHNICIAN Polyarthralgia 02/27/2023 Chronic pain of right lower [...] exercise, life style modifications, diet, referral to land acquisition specialist. Discussed re lower calorie intake, increase dietary fiber I gave pt information about the weight management program at [facility] and she will FU with us. Plantar fasciitis 10/27/2022 Perimenopause 10/27/2022 Assessment & Plan (10/27/2022 9:43 AM EST): Pt with ammenorrhea since January 2022. FU with LIGHT OIL OPERATOR. Counseled to dress in layers, no need [...] to date 2021, needs to FU with LIGHT OIL OPERATOR due to abnormal pap Mammogram Up to date, next one due Aug 2023 Bone density test N/A Eye exam December 2018 CRC screen Up to date, next one due on 2026 Lipids/FBS overdue Vaccinations She is given PCV20 and Hep B #1 today. Declined Covid Booster. Td due on 2027. Other vax up to date, Check STIs and MMR titers. 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 Anxiety 11/26/2017 Chronic low back pain 11/26/2017 Varicose veins of lower extremity 09/28/2017 Resolved Problems Problem Noted Date Diagnosed Date Resolved Date Encounter for long-term use of opiate analgesic 03/18/2025 03/18/2025 Class 2 severe obesity due t o [...] ost common side effect RTC 8 weeks Obesity (BMI 35.0-39.9 without comorbidity) 10/27/2022 03/05/2025 Encounters Date Type Department Care Team Description 06/12/2025 12:00 PM EDT Office Visit [facility] [address] [place] [address] Rufina Erickson DO Vaginal discharge (Primary Dx); Candidal intertrigo; Left arm pain 06/12/2025 Travel 06/11/2025 Telephone [facility] [address] [place] [address] Idalmis Jacques MD Referral 06/11/2025 Telephone [facility] [address], [place] [phone] Idalmis Jacques MD Nurse Triage 06/09/2025 Refill [facility] [address], [place] [phone] Idalmis Jacques MD Chronic bilateral low back pain without sciatica; Polyarthralgia 06/02/2025 Refill [facility] [address], [place] [phone] Idalmis Jacques MD Class 2 severe obesity due to excess calories with serious comorbidity and body mass index (BMI) of 38.0 to 38.9 in adult ([facility]) 05/27/2025 2:00 PM EDT Clinical Support [facility] [address], [place] [phone] Micaela Hernandez RN Long-term current use of opiate analgesic (Primary Dx) 05/27/2025 Travel 05/19/2025 Telephone [facility] [address], [place] [phone] Idalmis Jacques MD Medication Question 05/07/2025 Refill [facility] [address], [place] [phone] Idalmis Jacques MD 05/06/2025 10:15 AM EDT Telemedicine [address] [address] Idalmis Jacques MD 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; Chronic bilateral low back pain without sciatica; Polyarthralgia; Class 2 severe obesity due to excess calories with serious comorbidity and body mass index (BMI) of 38.0 to 38.9 in adult ([facility]) 05/06/2025 Travel 04/27/[address] [address] Idalmis Jacques MD Nurse Triage 04/23/2025 9:00 AM EDT Clinical Support [address] [address] Micaela Hernandez RN Long-term current use of opiate analgesic (Primary Dx) 04/23/[address] [address] Micaela Hernandez RN POLYGRAPH TECHNICIAN Agreement renewed today 04/23/2025 Travel 04/07/[address] [address] Idalmis Jacques MD Chronic bilateral low back pain without sciatica; Polyarthralgia 03/18/2025 9:30 AM EDT Clinical Support [address] [address] Micaela Hernandez RN Long-term current use of opiate analgesic (Primary Dx) 03/18/[address] [address] Idalmis Jacques MD telephone call 03/18/2025 Travel from Last 3 Months Immunizations Immunization Administration Dates Next Due DTaP 11/11/1981, 7,05/09/1976,02/14,1975 Hep B, adult 10/27/2022 IPV 11/27/1995, 2,07/17/1977,05/09,02/15/1976 Influenza Injectable Quadriv alant Preservative Free IIV4 MDCK 06/20/2023,06/07/2022 Influenza injectable quadriv alent IIV4 with preservative 06/12/2019,06/24/2018 Influenza injectable quadriv alent preservative free 06/21/2021,06/14/2020,07/17/2017 Influenza, IIV3, injectable 08/01/2022,1 10/17/2020,07/08/2014,06/11,07/26/2011,07/12/2010,06/24/2009 ,08/04/2008,09/04/2007 Influenza, Unspecified 08/01/2022,2020,07/08/2014,06/11 Influenza, live, intranasal 08/10/2009 MMR 01/23/1996,03/18/1979,07/25/1977 Moderna Covid-19 Vaccine 12+ 10/05/2021,01/11/20,12/13/2020 Pneumococcal Conjugate PCV 20 04/08/2023 Pneumococcal Polysaccharide [...] Mass Index 36.41 06/12/2025 12:25 PM EDT Plan of Treatment Upcoming Encounters Date Type Department Care Team (Late st Contact Info) Description 06/29/2025 2:00 PM EDT Clinical Support [facility] [address] [place] [address] Micaela Hernandez RN 07/06/2025 11:30 AM EDT Office Visit [facility] [address] [place] [address] Idalmis Jacques MD [address] [place] [address] Health Maintenance Due Date Last Done Comments CT Colonography 1975 FIT DNA/Cologuard 1975 FIT 1975 FOBT 1975 Sigmoidoscopy 1975 Family Planning (PISQ) 1990 Hepatitis A Vaccines (1 of 2 - Risk 2-dose series) 1994 Mammogram 2015 Hepatitis B Vaccines (2 of 3 - 19+ 3-dose series) 11/24/2022 10/27/2022 HPV/Cotest 12/09/2022 12/08/2021, 11/29, 05/04/2021, Additional history exists Pap Smear 12/09/2022 12/09/2021, 05/04/2021 Derm Melanoma Skin Check 01/21/2025 07/23/2024, 07/02 COVID-19 Vaccine ( season) 2025 10/05/2021, 01/10/2021, 12/13/2020 Influenza Vaccine (#1) 2025 , 08/01/2022, 08/01/2022, Additional history exists Depression Screening 07/23/2025 07/23/2024, 07/23/20 24 Zoster Vaccines (1 of 2) 2025 Alcohol/Substance Use Screening 03/05/2026 03/05/2025 Disability Screening 03/05/2026 03/05/2025 SDOH Screening 03/05/2026 03/05/2025 Tobacco Screening 06/12/2026 06/12/2025 DTaP/Tdap/Td Vaccines (9 - Td or Tdap) [...] Years) and At-Risk Patients (6 to 49) Years Completed 04/08/2023, 06/11/2013, 04/19/2011 Cervical Cancer Screening [...] Routine 06/12/2025 12:41 PM EDT Candidal intertrigo CHLAMYDIA/N. GONORRHOEAE RNA, TMA, UROGENITAL Routine 06/12/2025 12:02 PM EDT Candidal intertrigo BACTERIAL VAGINOSIS PANEL Routine 06/12/2025 12:02 PM EDT Candidal intertrigo CULTURE, URINE, ROUTINE Routine 06/12/2025 12:00 PM EDT Candidal intertrigo POCT RAGHAVENDRA-14 URINE DRUG SCREEN Routine 05/27/2025 2:10 PM EDT Long-term current use of opiate analgesic POCT RAGHAVENDRA-14 URINE DRUG SCREEN Routine 04/23/2025 8:47 AM EDT Long-term current use of opiate analgesic POCT RAGHAVENDRA-14 URINE DRUG SCREEN Routine 03/18/2025 9:42 AM EDT Long-term current use of opiate analgesic LIPID PANEL, STANDARD Routine 03/12/2024 8:58 AM [...] Recently Relevant to Health Maintenance Results * XR Shoulder 2+ Views Left (06/12/2025 1:25 PM EDT) Anatomical Region Laterality Modality Upper Extremities, Shoulder Left Radi ographic Imaging 06/12/2025 1:25 PM EDT Narrative 06/12/2025 1:35 [place] [address] XRay Report Signed Patient: Amaya Robles MR#: [id number] : 1975 Acct:[id number] Age/Sex: 49 / F ADM Date: 06/12/25 Loc: HO.HHCX Attending Dr: Rufina Erickson DO Ordering Physician: Rufina Erickson DO Date of Service: 06/12/25 Procedure(s): XR shoulder LT min 2V Accession Number(s): [id number] cc: Idalmis Jacques MD; Rufina Erickson DO Reason for Exam: L shoulder pain extending down L arm EXAMINATION: XR SHOULDER 2 OR MORE VIEWS LEFT HISTORY: L shoulder pain extending down L arm COMPARISON: Comparison is made with the prior examination dated 1228. FINDINGS: Five views of the left shoulder [...] 06/12/25 1332 DD/ 1325 TD/TT: 06/12/25 1326 Bodily Injury Adjuster: Procedure Note Donotuseinterpreter, Image - 06/12/[address] [address] XRay Report Signed Patient: Janeth Robles#: [id number] : 1975Acct:[id number] Age/Sex: 49 / FADM Date: 06/12/25 Loc: HO.HHCX Attending Dr: Rufina Erickson DO Ordering Physician: Rufina Erickson DO Date of Service: 06/12/25 Procedure(s): XR shoulder LT min 2V Accession Number(s): [id number] cc: Idalmis Jacques MD; Rufina Erickson DO Reason for Exam: L shoulder pain extending down L arm EXAMINATION: XR SHOULDER 2 OR MORE VIEWS LEFT HISTORY: L shoulder pain extending down L arm COMPARISON: Comparison is made with the prior examination dated 1228. FINDINGS: Five views of the left shoulder [...] 06/12/25 1332 DD/ 1325 TD/TT: 06/12/25 1326 Bodily Injury Adjuster: Rufina Dre DO IMG XR PROCEDURES Final Resu lt [...] Media Lot # [id number] Lot# Expiration Date [id number] Urine 06/12/2025 12:4 1 PM EDT Rufina Erickson DO POINT OF CARE TEST ENTER/DARIN T ORDERABLES Final Result * (ABNORMAL) Bacterial Vaginosis Panel (06/12/2025 12:02 PM EDT) TRICHOMONAS VAGINALIS DETECTION BY PCR NOT DETECTED Not Detect [facility] BACTERIAL VAGINOSIS DETECTION BY PCR NEGATIVE Negative [facility] Comment:The BV organism targ ets of [...] GROUP DETECTION BY PCR DETECTED(A) Not Detect [facility] Neeta glab krusei PCR NOT DETECTED Not Detect [facility] Swab Vaginal structure / Unknown 06/12/2025 12:02 PM EDT 06/12/2025 6:23 PM EDT Rufina Erickson DO LAB MICROBIOLOGY - GENERAL O RDERABLES Final Result [facility] [address] [place] [phone] * Chlamydia/N. Gonorrhoeae RNA, TMA, Vaginal (06/12/2025 12:02 PM EDT) CT PCR NOT DETECTED Not Detect. [facility] Comment:A not detected test result does [...] psychologicalconsequences. NG PCR NOT DETECTED Not Detect. [facility] Comment:A not detected test result does [...] O RDERABLES Final Result Performing Organization Address [facility] Co de Phone Number [facility] [address] [place] [phone] * Culture, Urine, Routine (06/12/2025 12:00 PM EDT) Urine Urine specimen obtained by clean catch procedure / Unknown 06/12/2025 12:00 PM EDT 06/12/2025 6:19 PM EDT Comment:UACC Narrative [facility] - 06/14/2025 10:33 AM EDT Urine Culture Report Result Urine Culture < 10,000 cfu/ml Specimen Source: Urine clean catch Rufina Erickson DO LAB MICROBIOLOGY - GENERAL O RDERABLES Final Result Performing Organization Address [facility] Co de Phone Number [facility] [address] [place] [phone] * POCT RAGHAVENDRA-14 Urine Drug Screen (05/27/2025 2:10 PM EDT) Only the most recent of3 resultswithin the time period is included. THC Negative Negative Cocaine Screen, Urine Negative Negative Opiate Screen, Urine Negative Negative Methamphetamine Screen Urine Negative Negative Amphetamine Screen, Urine Positive Negative Benzodiazepines Screen, Urine Negative Negative Barbiturate Screen, Urine Negative Negative Methadone Screen, Urine Negative Negative Buprenophine Screen, Urine Negative Negative TCA, Urine Negative Negative MDMA Urine Negative Negative ng/mL Oxycodone Screen, Urine Positive Negative Phencyclidine (PCP), Urine Negative Negative Propoxyphene, Urine Negative Negative Fentanyl, Urine Negative Negative Urine Urine specimen obtained by clean catch procedure / Unknown 05/27/2025 2:10 PM EDT Micaela Sharp RN - 05/27/2025 2:10 PM EDT UTO[employer] cup Lot#[id number] Exp. 07/07/26 Internal Pass Control us Idalmis Alvarez MD POINT OF CARE TEST EN TER/EDIT ORDERABLES Final Result * (ABNORMAL) Lipid Panel, Standard (03/12/2024 8:58 AM EDT) Triglycerides 42 <150 mg/dL [facility] Comment:Desirable Triglyceri de: less than 150 mg/dLBorderline High Triglyceride 150-199 mg/dLHigh Triglyceride: 200-499 mg/dLVery High Triglyceride: greater than or equal to 5OO mg/dL Cholesterol 201(H) <200 mg/dL [facility] Comment:Desirable Cholestero l: less than 200 mg/dLBorderline High Cholesterol: 200-239 mg/dLHigh Cholesterol: greater than 239 mg/dL LDL Cholesterol Calculated 123(H) <100 mg/dL [facility] Comment:Desirable LDL: less than 100 mg/dLNear Optimal/Above Optimal LDL: 110- 129 mg/dLBorderline High LDL: 130-159 mg/dLHigh LDL: 160-189 mg/dLVery High LDL: greater than or equal to 190 mg/dL HDL Cholesterol 70 >40 mg/dL [facility] Comment:Desirable HDL: great er than 40 mg/dL Note: This HDL assay may give artificially low results in patients with liver disease. Blood Venous blood specimen / Unknown 03/12/2024 8:58 AM EDT 03/12/2024 11:21 AM EDT us Idalmis Alvarez MD LAB BLOOD ORDERABLES Final Result [facility] [address] [place] [phone] * (ABNORMAL) Hepatitis Panel, General (10/27/2022 9:49 AM EST) Hepatitis A Antibody Total NON-REACT SHIKHA NON-REACT SHIKHA [facility] Comment: For additional information, please refer to http://[employer]faq/CFZ029 (This link is being provided for informational/ educational purposes only.) Hepatitis B Surface Antibody QL REACTIVE( A) NON-REACT SHIKHA [facility] Hepatitis B Surface Ag NON-REACT SHIKHA NON-REACT SHIKHA [employer] [facility] Hepatitis B Core Antibody Total NON-REACT SHIKHA NON-REACT SHIKHA [facility] [facility] Hepatitis C Antibody NON-REACT SHIKHA NON-REACT SHIKHA [employer] [facility] Index <0.02 <1.00 [facility] [facility] Comment: HCV antibody was non-reactive. There is no laboratory evidence of HCV infection. In most cases, no further action is required. However, if recent HCV exposure is suspected, a test for HCV RNA (test code 72407) is suggested. For additional information please refer to http://[employer]faq/LHY05x4 (This link is being provided for informational/ educational purposes only.) 10/27/2022 9:49 AM EST 10/27/2022 9:49 AM EST Narrative [facility] - 10/29/2022 2:12 PM EST FASTING:YES FASTING: YES Connie Elizabeth MD LAB BLOOD ORDERABLES Fin al Result [facility] [address], [place] [phone] [facility] [address] [facility], ([address]) [place] [phone] * HIV-1/2 Antigen and Antibodies, Fourth Generation, with Reflexes (10/27/2022 9:49 AM EST) Pathologist [facility] HIV Antigen/Antibody, 4th Generation NON-REAC TIVE NON-REAC TIVE [employer] [facility] Comment: HIV-1 antigen and HIV-1/HIV-2 antibodies were not detected. There is no laboratory evidence of HIV infection. PLEASE NOTE: This information has been disclosed to you from records whose confidentiality may be protected by state law. If your state requires such protection, then the state law prohibits you from making any further disclosure of the information without the specific written consent of the person to whom it pertains, or as otherwise permitted by law. A general authorization for the release of medical or other information is NOT sufficient for this purpose. For additional information please refer to http://education.[employer]faq/UBL898 (This link is being provided for informational/ educational purposes only.) The performance of this assay has not been clinically validated in patients less than 2 years old. Blood Venous blood specimen / Unknown 10/27/2022 9:49 AM EST 10/27/2022 9:49 AM EST Narrative [facility] - 10/29/2022 2:12 PM EST FASTING:YES FASTING: YES Connie Elizabeth MD LAB BLOOD ORDERABLES Fin al Result [facility] [address] [place] [address], [facility], [place] [phone] [facility] [facility] [address] [facility], ([address]) [place] [phone] * Hm Colonoscopy (12/23/2021 6:38 PM EDT) Historical Provider HEALTH MAINTENANCE Final Result * Pap Smear (12/09/2021 12:00 AM EST) Swab Historical Provider LAB CYTOLOGY ORDERABLES F inal Result [facility] [address] [place] [phone] * HPV E6/E7 RFLX FAVIOLA 16 18/45 (12/08/2021 1:50 PM EST) HPV 16 RNA [facility] HPV 18/45 RNA [facility] HPV E6 E7 ADD [facility] HPV mRNA E6/E7 rflx Not Detected Not Detected [facility] Comment: Methodology: Burglar Alarm Superintendent-Mediated Amplification This assay detects E6/E7 viral messenger RNA (mRNA) from 14 high-risk HPV types (16,18,31,33,35,39,45,51,52,56,58,59,66,68). The analytical performance characteristics of this assay have been determined by [employer]. The modifications have not been cleared or approved by the FDA. This assay has been validated pursuant to the CLIA regulations and is used for clinical purposes. For additional information, please refer to http://education.[employer]faq/BBC188x6 (This link if provided for information/ educational purposes only.) THIS TEST WAS PERFORMED AT: [facility] [address] [place] [address] [address] FLO[address],[place] [address] CATHERINE ESTRELLA MD 12/08/2021 1:50 PM EST Dilshad Cruz MD HISTORICAL/NON ORDERABLE LABS Fi nal Result [facility] [address] from Last 3 Months or Most Recently Relevant to Health Maintenance [place] [address] [address] [place] [address] C3 Care Teams Clinical Phlebotomist Relationship Specialty Start Date End Date Idalmis Jacques MD [address] [place] [address] PCP - General Family Medicine 09/11/18 luciana Leyva Community Health Worker Case Management 02/28/24
--- OUTSIDE RECORDS SUMMARY | 2025-06-17 10:37 | XMS_ITS | Clinical Summary ---
Author Organization [facility], Address [address] [address] Phone Care Team Providers Care Science Technicians Name Role Phone Idalmis Jacques MD [...] Years) Completed 04/08/2023, 06/11/2013, 04/19/2011 Insurance Medicaid [place] Care Teams Science Technicians Relationship Specialty Start Date End Date Idalmis Jacques MD [address] [place] [phone] PCP - General 08/05/19
[2025-06-17 11:07] LABS: Hematocrit 43.2 % (37.0-47.0); Hemoglobin 14.8 g/dl (12.0-16.0); Imm Gran Abs Auto 0.03 X10*3/uL (0.00-0.03); Imm Gran Pct Auto 0.3 % (0.0-0.4); Lymphocytes Absolute Auto 2.6 X10*3/uL (1.2-4.9); Mean Corpuscular HGB Conc 34.3 g/dl (31.0-35.0); Mean Corpuscular Hemoglobin 29.4 pg (27.0-33.0); Mean Corpuscular Volume 85.7 fL (80.0-98.0); NRBC Abs Auto 0.000 X10*3/uL (0.0-0.012); NRBC Pct Auto 0.0 /100WBC (0.0-0.2); Platelet Count 278 X10*3/uL (160-400); Red Blood Count 5.04 X10*6/uL (4.20-5.50); White Blood Count 10.2 X10*3/uL (4.8-10.8)
[2025-06-17 11:13] LABS: INTERNATIONAL NORM RATIO 1.0 (0.9-1.1); Prothrombin Time 12.0 SEC (10.9-12.4)
[2025-06-17 11:50] LABS: Alanine Aminotransferase 34 U/L (0-31); Albumin Level 4.4 g/dL (3.5-5.0); Alkaline Phosphatase 80 U/L (39-117); Aspartate Amino Transferase 24 U/L (5-31); Total Protein 7.7 g/dL (6.5-8.0)
== END 2025-06-17 09:03 | disposition home or self-care (01) ==
LOC: HO.US 09:02
PROVIDERS: PCP Internal Medicine; Visit Provider Internal Medicine
DX: K76.0 Fatty (change of) liver, not elsewhere classified (principal); R94.5 Abnormal results of liver function studies
CPT/HCPCS: 36415; 76700; 76981; 80076; 82105; 85025; 85610

== ENCOUNTER → 2025-06-17 09:46 | Outpatient (BNV) | payer MEDICAID, SELFPAY | PROVIDERS: PCP Internal Medicine; Visit Provider Radiology Diagnostic Radiology | DX: K76.0 Fatty (change of) liver, not elsewhere classified (principal); R94.5 Abnormal results of liver function studies | CPT/HCPCS: 76700 ==

== ENCOUNTER 2025-07-08 10:36 | Outpatient (REF) | payer MEDICAID, SELFPAY ==
--- NOTE | 2025-07-08 | EMG_ITS ---
Chief complaint: Left arm and shoulder pain Reason for referral: Left arm pain Referred by:?Jere Erickson DO Procedure done: Left upper extremity NCS/EMG Description: Left median and ulnar motor studies were performed left median and ulnar mixed sensory studies were performed, and median and lateral antecubital brachial and radial sensory studies were performed. EMG needle examination was performed. Left median mixed distal latencies were slightly prolonged with normal conduction velocity. Motor response was normal. Otherwise no significant abnormality noted on this test. Impression: Mild left median neuropathy across carpal tunnel with no evidence of a proximal lesion. MTDD
== END 2025-07-08 10:37 | disposition home or self-care (01) ==
LOC: HO.NEURO 10:36
PROVIDERS: PCP Internal Medicine; Visit Provider Family Medicine
DX: M79.602 Pain in left arm (principal); M25.512 Pain in left shoulder
CPT/HCPCS: 95886; 95910

== ENCOUNTER → 2025-07-08 11:00 | Outpatient (BNV) | payer MEDICAID, SELFPAY | PROVIDERS: PCP Internal Medicine; Visit Provider Psychiatry & Neurology Neurology | DX: M25.512 Pain in left shoulder (principal); M79.602 Pain in left arm | CPT/HCPCS: 95886; 95910 ==

== ENCOUNTER 2025-09-07 13:25 | Outpatient (AMB) | payer MEDICAID, SELFPAY ==
[2025-09-07 13:29] VITALS: BP 100/64; PULSE 79; O2SAT 97; BMI 34.6
--- NOTE | 2025-09-07 13:29 | HO.NEPHOV_ITS ---
Vital Signs 09/07/25 13:29 Height 5 ft Weight 177 lb BMI 34.6 BP 100/64 Blood Pressure Location Rt brachial Position Sitting Pulse 79 Pulse Source Pulse Oximeter Pulse Oximetry (%) 97 Oxygen Delivery Method Room Air Intake Visit Reasons: FU-Conf Leak Operator Paraffin Plant Required: No Accompanied by: Self / Same As Patient Allergies hydromorphone (From DILAUDID) Allergy (Severe, Verified 09/07/25 13:31) Anaphylaxis iodine Allergy (Severe, Verified 09/07/25 13:31) Anaphylaxis morphine (MORPHINE) Allergy (Unknown, Verified 09/07/25 13:31) UNKNOWN SEAFOOD Allergy (Severe, Uncoded 10/18/23 12:47) HIVES black pepper Allergy (Mild, Uncoded 10/18/23 12:47) Itching Oatmeal Allergy (Mild, Uncoded 10/18/23 12:47) Itching Peanuts Allergy (Mild, Uncoded 10/18/23 12:47) Itching Medication List - Last Reconciled 09/07/25 by Vinny Hodge MD albuterol sulfate 90 mcg/actuation (ProAir HFA) 1 puff PO Q4H PRN albuterol sulfate 5 mg continuous nebulization Q6H PRN buspirone 5 mg PO TID cetirizine 10 mg PO DAILY PRN cholecalciferol (vitamin D3) 25 mcg PO DAILY ciprofloxacin HCl 500 mg PO BID clonidine HCl 0.1 mg PO BEDTIME fluticasone propion-salmeterol 230-21 mcg/actuation (Advair HFA) 2 puffs PO BID gabapentin 400 mg PO QID levothyroxine 75 mcg PO DAILY medroxyprogesterone (Provera) 10 mg PO DAILY 10 days metronidazole 500 mg PO BID 14 days mirtazapine 1 tab PO BEDTIME montelukast 10 mg PO QPM omega-3 fatty acids 1,000 mg PO DAILY omeprazole 1 cap PO DAILY ondansetron 4 mg PO Q4-6H PRN oxycodone-acetaminophen 5-325 mg 1 tab PO TID PRN phentermine 37.5 mg PO QAM quetiapine 400 mg PO BEDTIME tiotropium bromide (Spiriva with HandiHaler) 1 cap inhalation DAILY zolpidem 1 tab PO BEDTIME PRN HPI Comments Details: Amaya is a 48 yr old woman with multiple medical problems Referred for possible nephrolithiasis She was seen by and has decided to switch to my care All lab results were reviewed. Rcent CT scan showed unremarkable kidneys and no renal stones She underwent 24 urine collection. Follow-up ultrasound showed a 6 mm stone on the right side with evidence of middle-aged sponge kidney bilaterally 08/11/24 Midodrine was added for few days ;BP is better ;On Hctz 12.5 mg 09/29/24 After stopping HCTZ, BP is better ;c/o leg pain 03/24/25 No new issues ;Feels better ;No further pain 04/28/25 c/o dysuria 09/07/25 The patient is a 50 year old female presenting for a nephrology follow-up to review kidney function. Her last blood test in June showed normal kidney function, and a recent urinalysis was negative for infection, proteinuria, and hematuria. She denies any dysuria. The patient has a history of neuropathic pain, for which she has been prescribed gabapentin and Percocet. She denies any current edema in her legs but reports some inflammation in her right arm. She reports taking vitamin D. The patient follows a diet she believes is 'kidney safe', which includes limiting red meat, as she is concerned about protein intake. [facility] Medical History (Updated 01/02/25 @ 09:50 by Blanco Askew MD) Mood disorder External hemorrhoids Adenomatous colon polyp Depression with anxiety Asthma Breast cancer, left Colon cancer screening Hx of thyroid disease Surgical History S/P lumpectomy, left breast History of removal of ovarian cyst History of endometrial ablation History of colonoscopy History of cholecystectomy History of delivery Hx of tubal ligation Family History Maternal Grandfather History of prostate cancer Maternal Aunt History of ovarian cancer Maternal Uncle History of thyroid cancer Maternal Uncle Cancer of unknown origin Social History Alcohol intake: never Patient Tobacco Use Status: Never used Tobacco Sexual orientation: Straight/Heterosexual Gender identity: Female Female Reproductive History Menstrual Age of Menarche: 12 Physical Exam Vital Signs: Last Vital Signs Pulse 79 09/07/25 13:29 BP 100/64 09/07/25 13:29 Pulse Ox 97 09/07/25 13:29 Oxygen Delivery Method Room Air 09/07/25 13:29 BMI result Body Mass Index 34.6 Comfortable Neck supple no JVD. Lungs entry equal no rales. Heart S1-S2 heard no gallop or rub. Abdomen soft nontender. Neuro alert awake oriented. No asterixis. Extremities no edema. Results Reviewed Nephrology Results: Hgb, (12.0-16.0) 14.8 g/dl 06/17/25 WBC, (4.8-10.8) 10.2 X10*3/uL 06/17/25 Plt Count, (160-400) 278 X10*3/uL 06/17/25 Sodium, (135-145) 140 mmol/L 04/28/25 Potassium, (3.3-5.1) 4.2 mmol/L 04/28/25 Chloride, (96-108) 107 mmol/L 04/28/25 Carbon Dioxide, (22-29) 25 mmol/L 04/28/25 BUN, (9-16) 7 mg/dL L 04/28/25 Creatinine, (0.5-1.4) 0.81 mg/dL 04/28/25 Calcium, (8.4-10.2) 9.3 mg/dL 04/28/25 Urine Protein, (Neg-Trace) Negative mg/dL 04/28/25 Renal US 10/03/24 Assessment & Plan Assessment & Plan (1) Nephrocalcinosis: Code(s): E83.59 - Other disorders of calcium metabolism; N29 - Other disorders of kidney and ureter in diseases classified elsewhere Category: Medical (2) Orthostasis: Code(s): I95.1 - Orthostatic hypotension Category: Medical Plan Middle aged woman with multiple medical problems including elevated BMI, referred for possible nephrocalcinosis Currently, renal function is normal NO obstruction based on recent imaging studies Ultrasonogram shows bilateral medullary sponge kidney. There is a 6 mm nonobstructing stone in the right side 24 urine collection showed a volume of 2825. Urinary calcium excretion oxalate excretion and sodium excretion where appropri ate. Encouraged to increase PO fluid intake Stay on low salt diet Repeat CT- March 2025- No stones or hydro No changes were made today Medications: Discontinued ciprofloxacin HCl Discontinued Reason: Patient no longer taking 500 mg PO BID 20 tabs 0RF Coding Level of Care Code Est Pt Level 4 (17743) Diagnoses Nephrocalcinosis E83.59; N29 Orthostasis I95.1
--- OUTSIDE RECORDS SUMMARY | 2025-09-07 22:09 | XMS_ITS | Encounter Summary ---
Author Organization [employer] Address [address] [facility] 7t [place] [address] Care Team Providers Care Clothing Worker Name Role Phone Idalmis Jacques MD Primary Care Provide r Encounter Details Date Type Department Care Team (Late st Contact Info) Description 08/07/2025 Orders Only [facility] [address] [place], [place] [phone] Idalmis Jacques MD [address] [place], [place] [phone] Social History Tobacco Use Types Packs/Day Years [...] Date Recorded Patient Health Questionnaire-9 Score 0 07/22/2025 Patient Health Questionnaire-9 Score 0 07/22/2025 Last PHQ-9: Questionnaire Data Not on file [...] Date Recorded Patient Health Questionnaire-2 Score 0 07/22/2025 Internet Access Answer Date Recorded Internet Access [...] Care Team (Late st Contact Info) Description 10/15/2025 2:45 PM EST Office Visit [address] [address] Idalmis Jacques MD [address] [place] [address] 11/17/2025 9:30 AM EST Clinical Support [address] [address] Micaela Hernandez RN documented as of this encounter Visit Diagnoses Not on filedocumented in this encounter Additional Health Concerns Assessment Noted Time PHQ-9 Depression Total Score: 0 07/22/20 25 11:25 AM EDT documented as of this encounter Care Teams Clothing Worker Relationship Specialty Start Date End Date Idalmis Jacques MD [address] [place] [id number] PCP - General Family Medicine 09/11/18 luciana Leyva Community Health Worker Case Management 02/28/24 documented as of this encounter
--- OUTSIDE RECORDS SUMMARY | 2025-09-07 22:09 | XMS_ITS | Encounter Summary ---
Author Organization [facility] Address [address] [place] [address] Phone Care Team Providers Care Stripper And Opaquer Apprentice Name Role Phone Kaylan Ponce MD Primary Care Provider [phone]- [phone] Encounter Details Date Type Department Care Team (Late st Contact Info) Description 10/23/2018 Procedure Pass [facility] [address] [place] [address] Social History Tobacco Use Types Packs/Day Years [...] on filedocumented in this encounter Care Teams Stripper And Opaquer Apprentice Relationship Specialty Start Date End Date Kaylan Ponce MD [email or web address] PCP - General Internal Medicine 04/19/18 documented as of this encounter Additional Source Comments The information contained in this document represents components of the legal health record. It is not the complete legal health record.[facility]
--- OUTSIDE RECORDS SUMMARY | 2025-09-07 22:09 | XMS_ITS | Encounter Summary ---
Author Organization [facility] Address [address] [place] [address] Phone Care Team Providers Care Personal Banking Officer Name Role Phone Kaylan Ponce MD Primary Care Provider +1- [phone] Encounter Details Date Type Department Care Team (Late st Contact Info) Description 04/23/2018 Procedure Pass [facility] [address] [place] [address] Social History Tobacco Use Types Packs/Day Years [...] on filedocumented in this encounter Care Teams Personal Banking Officer Relationship Specialty Start Date End Date Kaylan Ponce MD [email or web address] PCP - General Internal Medicine 04/19/18 documented as of this encounter Additional Source Comments The information contained in this document represents components of the legal health record. It is not the complete legal health record.[facility]
--- OUTSIDE RECORDS SUMMARY | 2025-09-07 22:09 | XMS_ITS | Encounter Summary ---
Author Organization [facility] Address [address] [place] [address] Phone Care Team Providers Care Distribution Specialist Name Role Phone Kaylan Ponce MD Primary Care Provider [phone]- [phone] Encounter Details Date Type Department Care Team (Late st Contact Info) Description 04/23/2018 Procedure Pass [facility] [address] [facility], 6th [place] [address] Social History Tobacco Use Types Packs/Day Years [...] filedocumented in this encounter Care Teams Distribution Specialist Relationship Specialty Start Date End Date Kaylan Ponce MD [email or web address] PCP - General Internal Medicine 04/19/18 documented as of this encounter Additional Source Comments The information contained in this document represents components of the legal health record. It is not the complete legal health record.[facility]
--- OUTSIDE RECORDS SUMMARY | 2025-09-07 22:09 | XMS_ITS | Encounter Summary ---
Author Organization [facility] Address [address] [place] [address] Phone Care Team Providers Care Bag Maker Name Role Phone Kaylan Ponce MD Primary Care Provider [phone] Encounter Details Date Type Department Care Team (Late st Contact Info) Description 05/17/2018 Procedure Pass [facility] [address], [address] [facility], 2nd Floor, [address] [place] [address] Social History Tobacco Use Types Packs/Day Years [...] on filedocumented in this encounter Care Teams Bag Maker Relationship Specialty Start Date End Date Kaylan Ponce MD [email or web address] PCP - General Internal Medicine 04/19/18 documented as of this encounter Additional Source Comments The information contained in this document represents components of the legal health record. It is not the complete legal health record.[facility]
--- OUTSIDE RECORDS SUMMARY | 2025-09-07 22:09 | XMS_ITS | Encounter Summary ---
Author Organization [employer] Address [address] [facility] 7t [place] [address] Care Team Providers Care Polymerization Oven Tender Name Role Phone Idalmis Jacques MD Primary Care Provide r Encounter Details Date Type Department Care Team (Late st Contact Info) Description 03/01/2024 Orders Only [facility] [address] [place] [address] ProviderLexx MD Social History Tobacco Use Types [...] Description 10/15/2025 2:45 PM EST Office Visit [address] [address] Idalmis Jacques MD [address] [place] [address] 11/17/2025 9:30 AM EST Clinical Support [address] [address] Micaela Hernandez, RN documented as of this encounter Procedures Procedure Name Priority Date/Time Associated Diagnosis Comments HM COLONOSCOPY Routine 12/23/2021 6:38 PM EDT documented in this encounter Results * Hm Colonoscopy (12/23/2021 6:38 PM EDT) us Historical Provider HEALTH MAINTENANCE Final Result documented in this encounter Visit Diagnoses Not on filedocumented in this encounter Care Teams Polymerization Oven Tender Relationship Specialty Start Date End Date Idalmis Jacques MD [address] [place] [address] PCP - General Family Medicine 09/11/18 Micaela Recio Dental Insurance Coordinator 01/11/24 04/11/24 luciana Leyva Community Health Worker Case Management 02/28/24 documented as of this encounter
--- OUTSIDE RECORDS SUMMARY | 2025-09-07 22:09 | XMS_ITS | Encounter Summary ---
Author Organization [facility] Address [address] [place] [address] Phone Care Team Providers Care Steamblaster Name Role Phone Kaylan Ponce MD Primary Care Provider [phone] Encounter Details Date Type Department Care Team (Late st Contact Info) Description 05/17/2018 Procedure Pass [facility] [address], [address] [facility], 2nd Floor, [address] [place] [address] Social History Tobacco Use Types Packs/Day Years [...] on filedocumented in this encounter Care Teams Steamblaster Relationship Specialty Start Date End Date Kaylan Ponce MD [email or web address] PCP - General Internal Medicine 04/19/18 documented as of this encounter Additional Source Comments The information contained in this document represents components of the legal health record. It is not the complete legal health record.[facility]
--- OUTSIDE RECORDS SUMMARY | 2025-09-07 22:09 | XMS_ITS | Encounter Summary ---
Author Organization [employer] Address [address] [facility] 7t [place] [address] Care Team Providers Care Communication Coordinator Name Role Phone Idalmis Jacques MD Primary Care Provide r Encounter Details Date Type Department Care Team (Late st Contact Info) Description 10/07/2024 Orders Only [facility] [address] [place], [place] [phone] Idalmis Jacques MD [address] [place], [place] [phone] Social History Tobacco Use Types Packs/Day Years [...] 10/15/2025 2:45 PM EST Office Visit [address] [address] Idalmis Jacques MD [address] [place] [address] 11/17/2025 9:30 AM EST Clinical Support [address] [address] Micaela Hernandez RN documented as of this encounter Visit Diagnoses Not on filedocumented in this encounter Additional Health Concerns Assessment Noted Time PHQ-9 Depression Total Score: 0 07/23/20 9:22 AM EDT documented as of this encounter Care Teams Communication Coordinator Relationship Specialty Start Date End Date Idalmis Jacques MD [address] [place] [address] PCP - General Family Medicine 09/11/18 luciana Leyva Community Health Worker Case Management 02/28/24 documented as of this encounter
--- OUTSIDE RECORDS SUMMARY | 2025-09-07 22:09 | XMS_ITS | Clinical Summary ---
Author Organization [facility] Address [address] [place] [address] Care Team Providers Care Senior Core Java Developer Name Role Phone Idalmis Jacques MD Primary Care Provide r Surgical History Surgery Date Site/Laterality Comments BREAST SURGERY PROCEDURE: PA UNLISTED PROCEDURE BREAST OTHER SURGICAL HISTORY PROCEDURE: LAPAROSCOPY, SURGICAL/REMOVE TUMOR; COMMENT: left lower leg CHOLECYSTECTOMY 03/20/2021 PROCEDURE: PA LAPAROSCOPY SURG CHOLECYSTECTOMY Medical History Medical History [...] on file Sexual Orientation Not on file Plan of Treatment Health Maintenance Due Date Last Done Comments Breast Cancer Screening 1975 Colorectal Cancer Screening: Colonoscopy 1975 DTaP,Tdap,and Td Vaccines (1 - Tdap) 1994 Hepatitis B Vaccines (1 of 3 - 19+ 3-dose series) 1994 Cervical Cancer Screening: P ap Smear 1996 HIV Screening 09/03/2022 Hepatitis C Screening 09/03/2022 Social Influencers of Health Screening 09/03/2022 Depression Screening 10/01/2024 COVID-19 Vaccine (1 - 2024-2 6 season) 2025 Influenza Vaccine (#1) 2025 Pneumococcal Vaccine: 50+ Ye ars (1 of 1 - PCV) 2025 Zoster Vaccines (1 of 2) 2025 RSV Immunization Adult Patie nts (1 - 1-dose 75+ series) 2050 HIB Vaccines Aged Out No longer eligi [...] age to complete this topic Care Teams Senior Core Java Developer Relationship Specialty Start Date End Date Idalmis Jacques MD [address] [place] [phone] PCP - General Internal Medicine 04/29/21
--- OUTSIDE RECORDS SUMMARY | 2025-09-07 22:09 | XMS_ITS | Encounter Summary ---
Author Organization [facility] Address [address] [place] [address] Phone Care Team Providers Care Maritime Engineer Name Role Phone Kaylan Ponce MD Primary Care Provider [phone] Encounter Details Date Type Department Care Team (Late st Contact Info) Description 04/23/2018 Transcribe Orders [facility], Radio Flouroscopy [address] [place] [address] [email or web address] Social History Tobacco Use [...] on filedocumented in this encounter Care Teams Maritime Engineer Relationship Specialty Start Date End Date Kaylan Ponce MD [email or web address] PCP - General Internal Medicine 04/19/18 documented as of this encounter Additional Source Comments The information contained in this document represents components of the legal health record. It is not the complete legal health record.[facility]
--- OUTSIDE RECORDS SUMMARY | 2025-09-07 22:09 | XMS_ITS | Encounter Summary ---
Author Organization [employer] Address [address] [facility] 7t [place] [address] Care Team Providers Care Flat Clothier Name Role Phone Idalmis Jacques MD Primary Care Provide r Encounter Details Date Type Department Care Team (Late st Contact Info) Description 04/08/2024 Orders Only [facility] [address] [place], [place] [phone] Idalmis Jacques MD [address] [place], [place] [phone] Social History Tobacco Use Types Packs/Day Years [...] Description 10/15/2025 2:45 PM EST Office Visit [address] [address] Idalmis Jacques MD [address] [place] [address] 11/17/2025 9:30 AM EST Clinical Support [address] [address] Micaela Hernandez, BERNABE documented as of this encounter Visit Diagnoses Not on filedocumented in this encounter Care Teams Flat Clothier Relationship Specialty Start Date End Date Idalmis Jacques MD [address] [place] [address] PCP - General Family Medicine 09/11/18 Micaela Recio Etl Architect 01/11/24 04/11/24 luciana Leyva Community Health Worker Case Management 02/28/24 documented as of this encounter
--- OUTSIDE RECORDS SUMMARY | 2025-09-07 22:09 | XMS_ITS | Encounter Summary ---
Author Organization [facility] Address [address] [place] [phone] Phone Care Team Providers Care Brake Shoe Rebuilder Name Role Phone Kaylan Ponce MD Primary Care Provider [phone]- [phone] Encounter Details Date Type Department Care Team (Late st Contact Info) Description 04/23/2018 Procedure Pass [facility] [address] [facility], 6th [place] [address] Social History Tobacco Use Types Packs/Day Years [...] on filedocumented in this encounter Care Teams Brake Shoe Rebuilder Relationship Specialty Start Date End Date Kaylan Ponce MD [email or web address] PCP - General Internal Medicine 04/19/18 documented as of this encounter Additional Source Comments The information contained in this document represents components of the legal health record. It is not the complete legal health record.[facility]
--- OUTSIDE RECORDS SUMMARY | 2025-09-07 22:10 | XMS_ITS | Encounter Summary ---
Author Organization [employer] Address [address] [facility] 7t [place] [address] Care Team Providers Care Computer Information Systems Instructor Name Role Phone Idalmis Jacques MD Primary Care Provide r Reason for Visit * Reason Onset Date Comments Med Refill 09/07/2025 Encounter Details Date Type Department Care Team (Late st Contact Info) Description 09/07/2025 Refill [facility] [address] [place], [place] [phone] Idalmis Jacques MD [address] [place] [address] Chronic bilateral low back pain without sciatica; Polyarthralgia Social History Tobacco Use Types Packs/Day Years [...] encounter Miscellaneous Notes * Telephone Encounter - Matt Saunders - 09/07/2025 8:56 AM EST TC from pt requesting medication refill. Medications needing refill : oxyCODONE-acetaminophen (Percocet) 5-325 MG tablet To be sent to: [id number] - [place], [place] - [address] [place] [address] [facility] [address] documented in this encounter Plan of Treatment Upcoming Encounters Date Type Department Care Team ([facility] st Contact Info) Description 10/15/2025 2:45 PM EST Office Visit [address] [address] Idalmis Jacques MD [address] [place] [address] 11/17/2025 9:30 AM EST Clinical Support [facility] [address] [place] [address], [place] [address] Micaela Hernandez, RN documented as of this encounter Visit Diagnoses Diagnosis Chronic bilateral low back pain without sciatica Polyarthralgia Pain in joint, multiple sites documented in this encounter Additional Health Concerns Assessment Noted Time PHQ-9 Depression Total Score: 0 07/22/20 25 11:25 AM EDT documented as of this encounter Care Teams Computer Information Systems Instructor Relationship Specialty Start Date End Date Idalmis Jacques MD [address] [place] [address] PCP - General Family Medicine 09/11/18 luciana Leyva Community Health Worker Case Management 02/28/24 documented as of this encounter
--- OUTSIDE RECORDS SUMMARY | 2025-09-07 22:10 | XMS_ITS | Encounter Summary ---
Author Organization [employer] Address [address] [facility] 7t [place] [address] Care Team Providers Care Booster Operator Name Role Phone Idalmis Jacques MD Primary Care Provide r Reason for Visit * Reason Onset Date Comments Nurse Triage 05/23/2023 Encounter Details Date Type Department Care Team (Late st Contact Info) Description 05/23/2023 Telephone [facility] [address] [place], [place] [phone] Idalmis Jacques MD [address] [place], [place] [phone] Nurse Triage Social History Tobacco Use Types [...] 05/23/2023 3:41 PM EDT Triage call with [employer] Software Driver Engineer ID [id number] Pt reports fatigue/tiredness for last month. Pt [...] advised if symptoms worsen to come to [facility] to be seen. Hours given 830-800pm today [...] accepted this outcome Please contact pt at [phone] (Polish) documented in this encounter Plan of Treatment Upcoming Encounters Date Type Department Care Team (Late st Contact Info) Description 10/15/2025 2:45 PM EST Office Visit [address] [address] Idalmis Jacques MD [address] [place] [phone] 11/17/2025 9:30 AM EST Clinical Support [address] [phone] Micaela Hernandez RN documented as of this encounter Visit Diagnoses Not on filedocumented in this encounter Care Teams Booster Operator Relationship Specialty Start Date End Date Idalmis Jacques MD [address] [place] [phone] PCP - General Family Medicine 09/11/18 Micaela Recio Sales Product Manager 01/11/24 04/11/24 luciana Leyva Community Health Worker Case Management 02/28/24 documented as of this encounter
--- OUTSIDE RECORDS SUMMARY | 2025-09-07 22:10 | XMS_ITS | Encounter Summary ---
Author Organization [facility] Address [address] [place] [phone] Phone Care Team Providers Care Supply Service Worker Name Role Phone Kaylan Ponce MD Primary Care Provider [phone]- [phone] Encounter Details Date Type Department Care Team (Late st Contact Info) Description 05/16/2018 Procedure Pass [facility]IVE DEPT [address] [place] [phone] Social History Tobacco Use Types Packs/Day Years [...] on filedocumented in this encounter Care Teams Supply Service Worker Relationship Specialty Start Date End Date Kaylan Ponce MD [email or web address] PCP - General Internal Medicine 04/19/18 documented as of this encounter Additional Source Comments The information contained in this document represents components of the legal health record. It is not the complete legal health record.[facility]
--- OUTSIDE RECORDS SUMMARY | 2025-09-07 22:10 | XMS_ITS | Clinical Summary ---
Author Organization [facility] Address [address] [facility] [address] [place] [phone] Phone Care Team Providers Care Tissue Packer Name Role Phone Kaylan Ponce MD Primary Care Provider +1- [phone] Allergies Active Allergy Reactions Criticality Noted Date [...] Denies fevers, chills, rigors or systemic symptomatology. Dalton were removed and replaced with steri-strips on [...] 06/12/2019, 07/08/2014, Additional history exists COVID-19 VACCINE (3 - 2024- season) 2025 01/10/2021, 12/13/2020 PNEUMOCOCCAL VACCINES (50+ years) (2 of 2 - PCV) 2025 06/11/2013 ZOSTER VACCINES (1 of 2) 2025 RSV VACCINE (1 - 1-dose 75+ series) 2050 SMOKING STATUS SCREENING (Once After 26 Yrs) [...] topic Medical Devices Not on file Insurance [place] [id number] [place] [address] [place] [address] [place] [address] [employer] Advance Directives For more information, please contact: [phone] (9AM - 5PM Ban/[facility], Sunday-Sunday) * Full Code (Presumed) (Latest Code Status on File) Date Activated Date Inactivated Comments 05/16/2018 12:25 PM 05/18/2018 4:02 PM Care Teams Tissue Packer Relationship Specialty Start Date End Date Kaylan Ponce MD [email or web address] PCP - General Internal Medicine 04/19/18 Additional Source Comments The information contained in this document represents components of the legal health record. It is not the complete legal health record.[facility]
--- OUTSIDE RECORDS SUMMARY | 2025-09-07 22:10 | XMS_ITS | Encounter Summary ---
Author Organization [employer] Address [address] [facility] 7t [place] [address] Care Team Providers Care Therapist Phys Name Role Phone Idalmis Jacques MD Primary Care Provide r Reason for Visit * Reason Onset Date Comments Appointment Request 08/14/2023 Encounter Details Date Type Department Care Team ([facility] st Contact Info) Description 08/14/2023 Telephone [facility] [address] [place], [place] [phone] Idalmis Jacques MD [address] [place], [place] [phone] Appointment Request Social History Tobacco Use Types [...] Miscellaneous Notes * Telephone Encounter - Yanique Emeryo - 08/14/2023 11:26 AM EST Tc from pt requesting f/u appt with PCP, pt states wanted to talk with PCP in regards Endo. documented in this encounter Plan of Treatment Upcoming Encounters Date Type Department Care Team (Late st Contact Info) Description 10/15/2025 2:45 PM EST Office Visit [facility] [address] [place] [phone] Idalmis Jacques MD [address] [place] [phone] 11/17/2025 9:30 AM EST Clinical Support [address] [address] Micaela Hernandez RN documented as of this encounter Visit Diagnoses Not on filedocumented in this encounter Care Teams Therapist Phys Relationship Specialty Start Date End Date Idalmis Jacques MD [address] [place] [phone] PCP - General Family Medicine 09/11/18 Micaela Recio Utility Clerk 01/11/24 04/11/24 luciana Leyva Community Health Worker Case Management 02/28/24 documented as of this encounter
--- OUTSIDE RECORDS SUMMARY | 2025-09-07 22:10 | XMS_ITS | Clinical Summary ---
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 90 tablet 3 05/07/20 25 Active nystatin (Mycostatin) 642681 UNIT/GM powder Apply topically 2 times daily. 180 g 3 06/12/20 25 026 Active diphenhydrAMINE (BENADryl) 25 MG tablet Take 1 tablet (25 mg) by mouth every 6 (six) hours if needed for itching. 30 tablet 06/12/20 25 Active Tirzepatide-Doron ght Management (Zepbound) 2.5 MG/0.5ML solution auto-injectorIn dications:Class 2 severe obesity due to excess calories with serious comorbidity and body mass index (BMI) of 36.0 to 36.9 in adult Inject 0.5 mL (2.5 mg) under the skin 1 (one) time per week. 2 mL 07/06/20 25 Active triamcinolone (Kenalog) 0.1 % creamIndication s:Eczema, unspecified type Apply topically if needed in the morning and at bedtime (pain and swelling). 30 g 2 07/06/20 25 Active gabapentin (Neurontin) 400 MG capsuleIndicati ons:Fibromyalgi a TAKE 1 CAPSULE(400 MG) BY MOUTH THREE TIMES DAILY 90 capsule 11 08/03/20 25 Active selenium sulfide (Selsun) 2.5 % shampooIndicati ons:Intertrigo Apply topically if needed each day for dandruff. 118 mL 1 08/17/20 25 Active phentermine 37.5 MG capsuleIndicati ons:Class 2 severe obesity due to excess calories with serious comorbidity and body mass index (BMI) of 38.0 to 38.9 in adult Take 1 capsule (37.5 mg) by mouth before breakfast. 30 capsule 1 08/24/20 25 026 Active oxyCODONE-aceta minophen (Percocet) 5-325 MG tabletIndicatio ns:Chronic bilateral low back pain without sciatica,Polyar thralgia Take 1 tablet by mouth every 8 (eight) hours if needed for severe pain for up to 28 days. Do not start before September 09, 2025. 84 tablet 09/09/20 25 026 Active oxyCODONE-aceta minophen (Percocet) 5-325 MG tabletIndicatio ns:Chronic bilateral low back pain without sciatica,Polyar thralgia Take 1 tablet by mouth every 8 (eight) hours if needed for severe pain for up to 28 days. Do not start before July 09, 2025. 84 tablet 07/09/20 25 025 Discontinued(Re order (will not trigger notification to Pharmacy)) clotrimazole (Lotrimin) 1 % creamIndication s:Intertrigo Apply topically 2 times daily for 28 days. 30 g 08/03/20 25 025 oxyCODONE-aceta minophen (Percocet) 5-325 MG tabletIndicatio ns:Chronic bilateral low back pain without sciatica,Polyar thralgia Take 1 tablet by mouth every 8 (eight) hours if needed for severe pain for up to 28 days. 84 tablet 08/11/20 25 025 Discontinued(Re order (will not trigger notification to Pharmacy)) Active Problems Problem Noted Date Diagnosed Date Bilateral leg pain 08/17/2025 Right arm pain 08/17/2025 Left median nerve neuropathy 07/22/2025 Assessment & Plan (07/22/2025 12:05 PM EDT): Patient is already on gabapentin and advised to use also wrist brace Class 2 severe obesity due t o excess calories with serious comorbidity and body mass index (BMI) of 36.0 to 36.9 in adult 07/06/2025 Assessment & Plan (07/22/2025 12:04 PM EDT): Extensive counseling about healthy diet and exercise done today On last appointment I initiated prescription for Zepbound 2.5 mg weekly I will inquire about PA status I already tried with patient phentermine which initially it was effective but then it lost its effect because the reason I decided to prescribe the Zepbound Assessment & Plan (07/06/2025 1:26 PM EDT): Extensive counseling about healthy diet and exercise was done today I will discontinue her phentermine in light that medication is not effective anymore and I will prescribe now Zepbound 2.5 mg weekly, medication side effects were discussed with patient as well as contraindications plan is to follow-up with her in 4 weeks for monitoring of side effects and weight Intertrigo 07/06/2025 Rotator cuff arthropathy of left shoulder 2024 Assessment & Plan (07/22/2025 12:04 PM EDT): Physical therapy referral will be printed and mailed to patient Assessment & Plan (07/06/2025 1:27 PM EDT): I advised her to start her physical therapy Autistic behavior 03/16/2025 Eczema 03/05/2025 Seborrheic dermatitis [...] EDT): Discussed possible vertigo sxs. Given some AnyPresence exercises for relief. -ER precautions discussed. 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 Discussed re lower calorie intake, increase dietary fiber I gave pt information about the weight management program at [facility] and she will FU with us. Plantar fasciitis 10/27/2022 Perimenopause 10/27/2022 Assessment & Plan (10/27/2022 9:43 AM EST): Pt with ammenorrhea since January 2022. FU with [facility]. Counseled to dress in layers, no need [...] to date 2021, needs to FU with [facility] due to abnormal pap Mammogram Up to date, next one due Aug 2023 Bone density test N/A Eye exam December 2018 CRC screen Up to date, next one due 2026 Lipids/FBS overdue Vaccinations She is given [...] Encounters Date Type Department Care Team Description 09/07/2025 Telephone [facility] [address] [place] [phone] Idalmis Jacques MD Referral 09/07/[address] [address] Idalmis Jacques MD Chronic bilateral low back pain without sciatica; Polyarthralgia 08/24/2025 9:30 AM EST Clinical Support [address] [address] Micaela Hernandez RN Long-term current use of opiate analgesic (Primary Dx) 08/24/2025 Orders Only [address] [address] Idalmis Jacques MD Class 2 severe obesity due to excess calories with serious comorbidity and body mass index (BMI) of 38.0 to 38.9 in adult (Primary Dx) 08/24/[address] [address] Micaela Hernandez RN Recommend SHOT CORE DRILL OPERATOR Tier 2 08/24/[address] [address] Idalmis Jacques MD telephone call 08/24/2025 Travel 08/17/2025 3:15 PM EST Office Visit [address] [address] Idalmis Jacques MD Intertrigo (Primary Dx); Bilateral leg pain; Right arm pain; Class 2 severe obesity due to excess calories with serious comorbidity and body mass index (BMI) of 38.0 to 38.9 in adult 08/17/2025 Travel 08/14/[address] [address] Idalmis Jacques MD physical APPT request 08/11/[address] [phone] Idalmis Jacques MD Chronic bilateral low back pain without sciatica; Polyarthralgia 08/09/[address] [address] Rufina Erickson, DO Results 08/07/2025 Orders Only [facility] [address] [place] [address] Idalmis Jacques MD 08/03/2025 Refill [facility] [address] [place] [address] Idalmis Jacques MD Intertrigo 08/01/2025 Refill [facility] [address] [place] [address] Idalmis Jacques MD Fibromyalgia 07/29/2025 9:30 AM EDT Clinical Support [facility] [address] [place] [address] Micaela Hernandez RN Long-term current use of opiate analgesic (Primary Dx) 07/29/2025 Travel 07/28/2025 Orders Only [facility] [address] [place] [address] Rufina Erickson DO Rotator cuff arthropathy of left shoulder (Primary Dx) 07/23/[address] [place] [address] Idalmis Jacques MD Prior Authorization ( PA: Frankie) 07/22/2025 11:30 AM EDT Telemedicine [facility] [place] [place] [address] Idalmis Jacques MD Left median nerve neuropathy (Primary Dx); Class 2 severe obesity due to excess calories with serious comorbidity and body mass index (BMI) of 36.0 to 36.9 in adult; Rotator cuff arthropathy of left shoulder 07/22/2025 Travel 07/22/2025 Telephone [facility] [address] [place] [address] Idalmis Jacques MD Appointment Request 07/15/2025 Telephone [facility] [address] [place] [address] Idalmis Jacques MD Medication Question 07/08/2025 Refill [facility] [address] [place], [place] [phone] Idalmis Jacques MD Chronic bilateral low back pain without sciatica; Polyarthralgia 07/06/2025 11:30 AM EDT Office Visit [address] [address] Idalmis Jacques MD Rotator cuff arthropathy of left shoulder (Primary Dx); Class 2 severe obesity due to excess calories with serious comorbidity and body mass index (BMI) of 36.0 to 36.9 in adult; Intertrigo; Eczema, unspecified type; Chronic left-sided low back pain with left-sided sciatica 07/06/2025 Travel 06/29/2025 11:00 AM EDT Telemedicine [address] [address] Micaela Hernandez RN Long-term current use of opiate analgesic 06/29/2025 Travel 06/22/[address] [address] Idalmis Jacques MD Results 06/17/2025 Orders Only [facility] External Provider, [facility] 06/12/2025 12:00 PM EDT Office Visit [address] [address] Rufina Erickson DO Vaginal discharge (Primary Dx); Candidal intertrigo; Left arm pain 06/12/2025 Travel 06/11/[address] [address] Idalmis Jacques MD Referral 06/11/[address] [phone] Idalmis Jacques MD Nurse Triage 06/09/[address] [address] Idalmis Jacques MD Chronic bilateral low back pain without sciatica; Polyarthralgia from Last 3 Months Immunizations Immunization Administration [...] Sign Reading Time Taken Comments Blood Pressure 100/70 08/17/2025 3:24 PM EST Pulse 97 08/17/2025 3:24 PM EST Temperature 36.1 C (96.9 F) 08/17/2025 3:24 PM EST Respiratory Rate 14 08/17/2025 3:24 PM EST Oxygen Saturation 97% 08/17/2025 3:24 PM EST Inhaled Oxygen Concentration - - Weight 80.6 kg (177 lb 9.6 oz) 08/17/2025 3:24 P M EST Height 144.8 cm (4' 9 ) 08/17/2025 3:24 PM EST Body Mass Index 38.43 08/17/2025 3:24 PM EST Plan of Treatment Upcoming Encounters Date Type Department Care Team (Late st Contact Info) Description 10/15/2025 2:45 PM EST Office Visit [facility] [address] [place] [address] Idalmis Jacques MD [address] [place] [address] 11/17/2025 9:30 AM EST Clinical Support [facility] [address] [place] [address] Micaela Hernandez, RN Health Maintenance Due Date Last Done Comments CT Colonography 1975 FIT DNA/Cologuard 1975 FIT 1975 FOBT 1975 Sigmoidoscopy 1975 Family Planning (PISQ) 1990 Hepatitis A Vaccines (1 of 2 - Risk 2-dose series) 1994 Hepatitis B Vaccines (2 of 3 - 19+ 3-dose series) 11/24/2022 10/27/2022 HPV/Cotest 12/09/2022 12/08/2021, 11/29, 05/04/2021, Additional history exists Pap Smear 12/09/2022 12/09/2021, 05/04/2021 Derm Melanoma Skin Check 01/21/2025 07/23/2024, 07/02 COVID-19 Vaccine ( season) 2025 10/05/2021, 01/10/2021, 12/13/2020 Influenza Vaccine (#1) 2025 , 08/01/2022, 08/01/2022, Additional history exists RSV Patients and Patients Aged 60 years or older (1 - Risk 50-74 years 1-dose series) 2025 Zoster Vaccines (1 of 2) 2025 Alcohol/Substance Use Screening 03/05/2026 03/05/2025 Disability Screening 03/05/2026 03/05/2025 SDOH Screening 03/05/2026 03/05/2025 Depression Screening 07/22/2026 07/22/2025, 07/22/20 Tobacco Screening 08/17/2026 08/17/2025 DTaP/Tdap/Td Vaccines (9 - Td or Tdap) 01/24/2028 01/23/2018, 03/23/2015, 01/29/2009, Additional history exists Lipid Panel 03/12/2029 03/12/2024, 10/02, 10/06/2020, Additional history exists Colonoscopy 12/24/2031 12/23/2021, 12/23/2021 Colorectal Cancer Screening 12/24/2031 IPV Vaccines Completed 11/27/1995, 11/01, 07/17/1977, Additional history exists HIV Screening Completed 10/27/2022 Hepatitis C Screening Completed 10/27/2022, 022 Pneumococcal Vaccine: 50+ Years Completed 04/08/2023, 06/11/2013, 04/19/2011 Cervical Cancer [...] Name Priority Date/Time Associated Diagnosis Comments POCT RAGHAVENDRA-14 URINE DRUG SCREEN Routine 08/24/2025 9:16 AM EST Long-term current use of opiate analgesic POCT RAGHAVENDRA-14 URINE DRUG SCREEN Routine 07/29/2025 9:06 AM EDT Long-term current use of opiate analgesic NERVE CONDUCTION TEST Routine 07/08/2025 Left arm pain US ABDOMEN COMPLETE WITH ELASTOGRAPHY Routine 06/17/2025 9:46 AM EDT XR SHOULDER 2+ VIEWS LEFT Routine 06/12/2025 1:25 PM EDT Left arm pain POCT URINALYSIS DIPSTICK Routine 06/12/2025 12:41 PM EDT Candidal intertrigo CHLAMYDIA/N. GONORRHOEAE RNA, TMA, UROGENITAL Routine 06/12/2025 12:02 PM EDT Candidal intertrigo BACTERIAL VAGINOSIS PANEL Routine 06/12/2025 12:02 PM EDT Candidal intertrigo CULTURE, URINE, ROUTINE Routine 06/12/2025 12:00 PM EDT Candidal intertrigo LIPID PANEL, STANDARD Routine 03/12/2024 8:58 AM [...] to Health Maintenance Results * (ABNORMAL) POCT RAGHAVENDRA-14 Urine Drug Screen (08/24/2025 9:16 AM EST) Only the most recent of2 resultswithin the time period is included. 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 08/31/26 Internal Pass Control us Idalmis Alvarez MD POINT OF CARE TEST EN TER/EDIT ORDERABLES Final Result * Nerve conduction test (07/08/2025) us Rufina Erickson NEUROLOGY ORDERABLES Final R esult * US Abdomen Comp w elastography (06/17/2025 9:46 AM EDT) Anatomical Region Laterality Modality Abdomen Ultrasound 06/17/2025 9:46 AM EDT Narrative 06/17/2025 10:44 AM EDT [place] [address] Ultrasound Report Signed Patient: Amaya Robles MR#: [id number] : 1975 Acct:[id number] Age/Sex: 49 / F ADM Date: 06/17/25 Loc: HO.US Attending Dr: Moses Abraham MD Ordering Physician: Moses Abraham MD Date of Service: 06/17/25 Procedure(s): US abdomen comp w elastography Accession Number(s): [id number] cc: Idalmis Jacques MD; Moses Abraham MD Reason for Exam: fatty liver; elevated liver function tests EXAMINATION: US COMPLETE ABDOMEN WITH LIVER ELASTOGRAPHY CLINICAL INFORMATION: Hepatic steatosis, elevated transaminases COMPARISON: None available. TECHNIQUE: Real-time imaging of the abdominal viscera. Noninvasive ultrasound liver fibrosis assessment is performed using Jared ElastPQ point quantification shear wave elastography (pSWE) with a C5-2 MHz transducer. Multiple elastography samples are obtained. FINDINGS: PANCREAS: The visualized pancreatic head and body are normal in appearance. The remainder of the pancreas is obscured from visualization by the overlying bowel gas. ABDOMINAL AORTA: No aortic aneurysm is seen. INFERIOR VENA CAVA: Visualized portions are normal. LIVER: Liver demonstrates mildly increased echogenicity. It appears homogeneous otherwise. The right lobe measures 15 cm in length. The left lobe measures 10 cm in length. Portal flow is present and in the normal direction with a continuous venous waveform. Shear wave liver elastography median stiffness is 1.68 m/s (reference: normal median stiffness is 1.3 m/s or less). IQR/median stiffness to assess sampling precision is 0.13 (reference: good quality data set is IQR/median stiffness of 0.15 or less). GALLBLADDER: Surgically absent. COMMON BILE DUCT: Normal in caliber measuring 0.3 cm in diameter. RIGHT KIDNEY: There is mild renal cortical thinning. There is mild pelviectasis. No renal calculi or focal parenchymal lesions. The kidney measures 10.6 cm in maximum dimension. LEFT KIDNEY: There is renal cortical thinning and mild pelviectasis.There is an anechoic 7 mm simple renal cyst in the upper pole. No stones are evident. The kidney measures 10.8 cm in maximum dimension. SPLEEN: Unremarkable. The spleen measures 9 cm in maximum dimension. FREE FLUID: None seen. US/US abdomen comp w elastography IMPRESSION: Mildly echogenic liver suggests underlying hepatic steatosis/hepatocellular disease Liver elastography: In the absence of other known clinical signs, measurements rule out compensated advanced chronic liver disease. If there are known clinical signs, further testing may be needed for confirmation. Liver stiffness measured 1.68 m/s and study sampling was adequate. Renal cortical thinning. This raises question of underlying medical renal disease. Cholecystectomy REFERENCE: Society of Radiologists in Ultrasound Liver Stiffness Thresholds (2020): LIVER STIFFNESS THRESHOLDS: *Liver Stiffness equal or less than 1.3 m/s: High probability of being normal. *Liver Stiffness less than 1.7 m/s: In the absence of other known clinical signs, rules out compensated advanced chronic liver disease. *Liver Stiffness 1.7-2.1 m/s: Suggestive of compensated advanced chronic liver disease but need further test for confirmation. *Liver Stiffness over 2.1 m/s: Rules in compensated advanced chronic liver disease. *Liver Stiffness over 2.4 m/s: Suggestive of clinically significant portal hypertension. QUALITY OF DATA SET: *IQR/Median value equal or less than 0.15 implies a quality data set. *IQR/Median value over 0.15 implies a poor quality data set. SIGNIFICANT CHANGE FROM PRIOR EXAM: Significant change if liver stiffness measurement is 10% or greater from prior exam. OTHER CONSIDERATIONS: The stage of liver fibrosis may be overestimated in the setting of acute hepatitis, liver inflammation, elevated liver function tests, hepatic vascular congestion, obstructive cholestasis, non-fasting state, and infiltrative diseases such as amyloidosis and lymphoma. In some patients with NAFLD, the liver stiffness thresholds for compensated advanced chronic liver disease may be lower. In causes other than viral hepatitis and NAFLD, liver stiffness thresholds are not well established. Electronically signed by: Christiano Wood MD 06/17/2025 10:41 AM EDT RP Dictated By: Christiano Wood MD Signed By: <Electronically signed by Christiano Wood MD in [place]> 06/17/25 1041 DD/ 0946 TD/TT: 06/17/25 1012 Rehab Spec: Procedure Note Donotuseinterpreter, Image - 06/17/2025 [place] [id number] Ultrasound Report Signed Patient: Janeth Robles#: [id number] : 1975Acct:[id number] Age/Sex: 49 / FADM Date: 06/17/25 Loc: HO.US Attending Dr: Moses Abraham MD Ordering Physician: Moses Abraham MD Date of Service: 06/17/25 Procedure(s): US abdomen comp w elastography Accession Number(s): [id number] cc: Idalmis Jacques MD; Moses Abraham MD Reason for Exam: fatty liver; elevated liver function tests EXAMINATION: US COMPLETE ABDOMEN WITH LIVER ELASTOGRAPHY CLINICAL INFORMATION: Hepatic steatosis, elevated transaminases COMPARISON: None available. TECHNIQUE: Real-time imaging of the abdominal viscera. Noninvasive ultrasound liver fibrosis assessment is performed using Jared ElastPQ point quantification shear wave elastography (pSWE) with a C5-2 MHz transducer. Multiple elastography samples are obtained. FINDINGS: PANCREAS: The visualized pancreatic head and body are normal in appearance. The remainder of the pancreas is obscured from visualization by the overlying bowel gas. ABDOMINAL AORTA: No aortic aneurysm is seen. INFERIOR VENA CAVA: Visualized portions are normal. LIVER: Liver demonstrates mildly increased echogenicity. It appears homogeneous otherwise. The right lobe measures 15 cm in length. The left lobe measures 10 cm in length. Portal flow is present and in the normal direction with a continuous venous waveform. Shear wave liver elastography median stiffness is 1.68 m/s (reference: normal median stiffness is 1.3 m/s or less). IQR/median stiffness to assess sampling precision is 0.13 (reference: good quality data set is IQR/median stiffness of 0.15 or less). GALLBLADDER: Surgically absent. COMMON BILE DUCT: Normal in caliber measuring 0.3 cm in diameter. RIGHT KIDNEY: There is mild renal cortical thinning. There is mild pelviectasis. No renal calculi or focal parenchymal lesions. The kidney measures 10.6 cm in maximum dimension. LEFT KIDNEY: There is renal cortical thinning and mild pelviectasis.There is an anechoic 7 mm simple renal cyst in the upper pole. No stones are evident. The kidney measures 10.8 cm in maximum dimension. SPLEEN: Unremarkable. The spleen measures 9 cm in maximum dimension. FREE FLUID: None seen. US/US abdomen comp w elastography IMPRESSION: Mildly echogenic liver suggests underlying hepatic steatosis/hepatocellular disease Liver elastography: In the absence of other known clinical signs, measurements rule out compensated advanced chronic liver disease. If there are known clinical signs, further testing may be needed for confirmation. Liver stiffness measured 1.68 m/s and study sampling was adequate. Renal cortical thinning. This raises question of underlying medical renal disease. Cholecystectomy REFERENCE: Society of Radiologists in Ultrasound Liver Stiffness Thresholds (2020): LIVER STIFFNESS THRESHOLDS: *Liver Stiffness equal or less than 1.3 m/s: High probability of being normal. *Liver Stiffness less than 1.7 m/s: In the absence of other known clinical signs, rules out compensated advanced chronic liver disease. *Liver Stiffness 1.7-2.1 m/s: Suggestive of compensated advanced chronic liver disease but need further test for confirmation. *Liver Stiffness over 2.1 m/s: Rules in compensated advanced chronic liver disease. *Liver Stiffness over 2.4 m/s: Suggestive of clinically significant portal hypertension. QUALITY OF DATA SET: *IQR/Median value equal or less than 0.15 implies a quality data set. *IQR/Median value over 0.15 implies a poor quality data set. SIGNIFICANT CHANGE FROM PRIOR EXAM: Significant change if liver stiffness measurement is 10% or greater from prior exam. OTHER CONSIDERATIONS: The stage of liver fibrosis may be overestimated in the setting of acute hepatitis, liver inflammation, elevated liver function tests, hepatic vascular congestion, obstructive cholestasis, non-fasting state, and infiltrative diseases such as amyloidosis and lymphoma. In some patients with NAFLD, the liver stiffness thresholds for compensated advanced chronic liver disease may be lower. In causes other than viral hepatitis and NAFLD, liver stiffness thresholds are not well established. Electronically signed by: Christiano Wood MD 06/17/2025 10:41 AM EDT Dictated By: Christiano Wood MD Signed By: <Electronically signed by Christiano Wood MD in [place]> 06/17/25 1041 DD/ 0946 TD/TT: 06/17/25 1012 Rehab Spec: us [facility] External Provider IMG US PROCEDURES Edited Result - Final * XR Shoulder 2+ Views Left (06/12/2025 1:25 PM EDT) Anatomical Region Laterality Modality Upper Extremities, Shoulder Left Radi ographic Imaging 06/12/2025 1:25 PM EDT Narrative 06/12/2025 1:35 PM EDT [address] [address] XRay Report Signed Patient: Amaya Robles MR#: [id number] : 1975 Acct:[id number] Age/Sex: 49 / F ADM Date: 06/12/25 Loc: HO.HHCX Attending Dr: Rufina Erickson DO Ordering Physician: Rufina Erickson DO Date of Service: 06/12/25 Procedure(s): XR shoulder LT min 2V Accession Number(s): [id number] cc: Idalmis Jacques MD; Rufina Erickson DO Reason for Exam: L shoulder pain extending down L arm EXAMINATION: XR SHOULDER 2 OR MORE VIEWS LEFT HISTORY: L shoulder pain extending down L arm COMPARISON: Comparison is made with the prior examination dated 1228 and . FINDINGS: Five views of the left shoulder [...] 06/12/25 1332 DD/ 1325 TD/TT: 06/12/25 1326 Rehab Spec: Procedure Note Donotuseinterpreter, Image - 06/12/[address] [address] XRay Report Signed Patient: Janeth Robles#: [id number] : 1975Acct:[id number] Age/Sex: 49 / FADM Date: 06/12/25 Loc: .HHCX Attending Dr: Rufina Erickson DO Ordering Physician: Rufina Erickson DO Date of Service: 06/12/25 Procedure(s): XR shoulder LT min 2V Accession Number(s): [id number] cc: Idalmis Jacques MD; Rufina Erickson DO [...] 06/12/25 1332 DD/ 1325 TD/TT: 06/12/25 1326 Rehab Spec: Rufina Erickson DO IMG XR PROCEDURES Final [...] Media Lot # [id number] Lot# Expiration Date [id number],786 Urine 06/12/2025 12:4 1 PM EDT Rufina Erickson DO POINT OF CARE TEST ENTER/DARIN T ORDERABLES Final Result * (ABNORMAL) Bacterial Vaginosis Panel (06/12/2025 12:02 PM EDT) TRICHOMONAS VAGINALIS DETECTION BY PCR NOT DETECTED Not Detect [facility] BACTERIAL VAGINOSIS DETECTION BY PCR NEGATIVE Negative [facility] Comment:The BV organism targ ets of [...] GROUP DETECTION BY PCR DETECTED(A) Not Detect [facility] Neeta glab krusei PCR NOT DETECTED Not Detect [facility] Swab Vaginal structure / Unknown 06/12/2025 12:02 PM EDT 06/12/2025 6:23 PM EDT Rufina Erickson DO LAB MICROBIOLOGY - GENERAL O RDERABLES Final Result [facility] [address] [place] [address] [phone] * Chlamydia/N. Gonorrhoeae RNA, TMA, Vaginal (06/12/2025 12:02 PM EDT) CT PCR NOT DETECTED Not Detect. [facility] Comment:A not detected test result does [...] psychologicalconsequences. NG PCR NOT DETECTED Not Detect. [facility] Comment:A not detected test result does [...] O RDERABLES Final Result Performing Organization Address City/[facility]/ZIP Co de Phone Number [facility] [address] [place] [address] [phone] * Culture, Urine, Routine (06/12/2025 12:00 PM EDT) Urine Urine specimen obtained by clean catch procedure / Unknown 06/12/2025 12:00 PM EDT 06/12/2025 6:19 PM EDT Comment:UACC Narrative [facility] - 06/14/2025 10:33 AM EDT Urine Culture Report Result Urine Culture < 10,000 cfu/ml Specimen Source: Urine clean catch Rufina Erickson DO LAB MICROBIOLOGY - GENERAL O RDERABLES Final Result Performing Organization Address [facility] Co de Phone Number [facility] [address] [place] [address] [phone] * (ABNORMAL) Lipid Panel, Standard (03/12/2024 8:58 AM EDT) Triglycerides 42 <150 mg/dL [facility] Comment:Desirable Triglyceri de: less than 150 mg/dLBorderline High Triglyceride 150-199 mg/dLHigh Triglyceride: 200-499 mg/dLVery High Triglyceride: greater than or equal to 5OO mg/dL Cholesterol 201(H) <200 mg/dL [facility] Comment:Desirable Cholestero l: less than 200 mg/dLBorderline High Cholesterol: 200-239 mg/dLHigh Cholesterol: greater than 239 mg/dL LDL Cholesterol Calculated 123(H) <100 mg/dL [facility] Comment:Desirable LDL: less than 100 mg/dLNear Optimal/Above Optimal LDL: 110- 129 mg/dLBorderline High LDL: 130-159 mg/dLHigh LDL: 160-189 mg/dLVery High LDL: greater than or equal to 190 mg/dL HDL Cholesterol 70 >40 mg/dL [facility] Comment:Desirable HDL: great er than 40 mg/dL Note: This HDL assay may give artificially low results in patients with liver disease. Blood Venous blood specimen / Unknown 03/12/2024 8:58 AM EDT 03/12/2024 11:21 AM EDT us Idalmis Alvarez MD LAB BLOOD ORDERABLES Final Result [facility] [address] [place] [address] [phone] * (ABNORMAL) Hepatitis Panel, General (10/27/2022 9:49 AM EST) Hepatitis A Antibody Total NON-REACT SHIKHA NON-REACT SHIKHA [facility] [place] [employer] Comment: For additional information, please refer to http://[employer].So1/faq/IUY858 (This link is being provided for informational/ educational purposes only.) Hepatitis B Surface Antibody QL REACTIVE( A) NON-REACT [employer] [place] [employer] Hepatitis B Surface Ag NON-REACT SHIKHA NON-REACT [facility] [place] [employer] Hepatitis B Core Antibody Total NON-REACT SHIKHA NON-REACT SHIKHA [facility] [place] [facility] Hepatitis C Antibody NON-REACT SHIKHA NON-REACT [place] [employer] Index <0.02 <1.00 [facility] Comment: HCV antibody was non-reactive. There is no laboratory evidence of HCV infection. In most cases, no further action is required. However, if recent HCV exposure is suspected, a test for HCV RNA (test code 13046) is suggested. For additional information please refer to http://[employer].So1/faq/HYU34h5 (This link is being provided for informational/ educational purposes only.) 10/27/2022 9:49 AM EST 10/27/2022 9:49 AM EST Narrative [facility] - 10/29/2022 2:12 PM EST FASTING:YES FASTING: YES us Connie Elizabeth MD LAB BLOOD ORDERABLES Fin al Result [address] [place] [address] Location [facility] [address] [facility], ([address]) [place] [address] * HIV-1/2 Antigen and Antibodies, Fourth Generation, with Reflexes (10/27/2022 9:49 AM EST) HIV Antigen/Antibody, 4th Generation NON-REAC TIVE NON-REAC TIVE [facility] [place] [facility] Comment: HIV-1 antigen and HIV-1/HIV-2 antibodies were [...] purpose. For additional information please refer to http://education.So1/faq/EBD238 (This link is being provided for informational/ educational purposes only.) The performance of this assay has not been clinically validated in patients less than 2 years old. Blood Venous blood specimen / Unknown 10/27/2022 9:49 AM EST 10/27/2022 9:49 AM EST Narrative [facility] - 10/29/2022 2:12 PM EST FASTING:YES FASTING: YES Connie Elizabeth MD LAB BLOOD ORDERABLES Fin al Result [facility] [address] [facility] [place] [address] [facility] [place] [employer] [facility] [address] [facility], ([address]) [place] [address] * Hm Colonoscopy (12/23/2021 6:38 PM EDT) Historical Provider HEALTH MAINTENANCE Final Result * Pap Smear (12/09/2021 12:00 AM EST) Swab Historical Provider LAB CYTOLOGY ORDERABLES F inal Result [facility] [address] [place] [address] * HPV E6/E7 RFLX FAVIOLA 16 18/45 (12/08/2021 1:50 PM EST) HPV 16 RNA [facility] HPV 18/45 RNA [facility] HPV E6 E7 ADD [facility] HPV mRNA E6/E7 rflx Not Detected Not Detected [facility] Comment: Methodology: Marquetry Worker-Mediated Amplification This assay detects E6/E7 viral messenger RNA (mRNA) from 14 high-risk HPV types (16,18,31,33,35,39,45,51,52,56,58,59,66,68). The analytical performance characteristics of this assay have been determined by [facility] [employer]. The modifications have not been cleared or approved by the FDA. This assay has been validated pursuant to the CLIA regulations and is used for clinical purposes. For additional information, please refer to http://education.So1/faq/FPM880v3 (This link if provided for information/ educational purposes only.) THIS TEST WAS PERFORMED AT: [facility] [address] [facility] [address],[place] [address] CATHERINE ESTRELLA MD 12/08/2021 1:50 PM EST us Dilshad Cruz MD HISTORICAL/NON ORDERABLE LABS Fi nal Result [facility] [address] from Last 3 Months or Most Recently Relevant to Health Maintenance Insurance [facility] C3 Care Teams Chief Librarian Work With Blind Relationship Specialty Start Date End Date Idalmis Jacques MD [address] [place] [phone] PCP - General Family Medicine 09/11/18 luciana Leyva Community Health Worker Case Management 02/28/24
--- OUTSIDE RECORDS SUMMARY | 2025-09-07 22:10 | XMS_ITS | Encounter Summary ---
Author Organization [employer] Address [address] [facility] 7[address] [place] [address] Care Team Providers Care Wood And Hardware Outfitter Name Role Phone Idalmis Jacques MD Primary Care Provide r Encounter Details Date Type Department Care Team ([facility] Contact Info) Description 04/30/2023 Abstract [facility] [address] [place] [address] [phone] Idalmis Jacques MD [address] [place] [address] [phone] Social History Tobacco Use Types Packs/Day Years [...] Department Care Team (Late Contact Info) Description 10/15/2025 2:45 PM EST Office Visit [facility] [address] [place] [address] [phone] Idalmis Jacques MD [address] [place] [phone] 11/17/2025 9:30 AM EST Clinical Support [facility] [address] [place] [address] Micaela Hernandez, RN documented as of this encounter Visit Diagnoses Not on filedocumented in this encounter Care Teams Wood And Hardware Outfitter Relationship Specialty Start Date End Date Idalmis Jacques MD [address] [place] [address] PCP - General Family Medicine 09/11/18 Micaela Recio Financial Services Director 01/11/24 04/11/24 luciana Leyva Community Health Worker Case Management 02/28/24 documented as of this encounter
--- OUTSIDE RECORDS SUMMARY | 2025-09-07 22:10 | XMS_ITS | Encounter Summary ---
Author Organization [employer] Address [address] [facility] 7[address] [place] [address] Care Team Providers Care Gear Cutting Machine Set Up Operator Name Role Phone Idalmis Jacques MD Primary Care Provide r Reason for Visit * Reason Onset Date Comments Referral 09/07/2025 Encounter Details Date Type Department Care Team ([facility] st Contact Info) Description 09/07/2025 Telephone [facility] [address] [place], [place] [phone] Idalmis Jacques MD [address] [place], [place] [phone] Referral Social History Tobacco Use Types Packs/Day Years [...] encounter Miscellaneous Notes * Telephone Encounter - Maco Carrillo - 09/07/2025 1:04 PM EST Tc from pt requesting for referral for Dermatology to be sent to a derm in [place]. Any questions contact pt at [phone] documented in this encounter Plan of Treatment Upcoming Encounters Date Type Department Care Team (Late st Contact Info) Description 10/15/2025 2:45 PM EST Office Visit [address] [address] Idalmis Jacques MD [address] [place] [phone] 11/17/2025 9:30 AM EST Clinical Support [address] [address] Micaela Hernandez RN documented as of this encounter Visit Diagnoses Not on filedocumented in this encounter Additional Health Concerns Assessment Noted Time PHQ-9 Depression Total Score: 0 07/22/20 25 11:25 AM EDT documented as of this encounter Care Teams Gear Cutting Machine Set Up Operator Relationship Specialty Start Date End Date Idalmis Jacques MD [address] [place] [address] PCP - General Family Medicine 09/11/18 luciana Leyva Community Health Worker Case Management 02/28/24 documented as of this encounter
== END 2025-09-07 14:11 | disposition home or self-care (01) ==
LOC: HO.HKA 13:25
PROVIDERS: PCP Internal Medicine; Visit Provider Internal Medicine Hypertension Specialist
DX: E83.59 Other disorders of calcium metabolism (principal); N29 Other disorders of kidney and ureter in diseases classified elsewhere; I95.1 Orthostatic hypotension
CPT/HCPCS: 99214

== ENCOUNTER → 2025-09-07 13:25 | Outpatient (BNVA) | payer MEDICAID, SELFPAY | PROVIDERS: PCP Internal Medicine; Visit Provider Internal Medicine Hypertension Specialist | DX: E83.59 Other disorders of calcium metabolism (principal); N29 Other disorders of kidney and ureter in diseases classified elsewhere; I95.1 Orthostatic hypotension | CPT/HCPCS: 99212 ==